=== PATIENT | female | born 1960 ===

== ENCOUNTER 2019-07-16 15:27 | Emergency (ER) | payer SELFPAY ==
[2019-07-16] MEDS ORDERED: Cefepime 2 GM VIAL ONE (16:26)
[2019-07-16 16:43] LABS: #Eosinphils 0.3 thou/uL (0.0-0.7); #Lymphocytes 2.1 thou/uL (1.20-3.40); #Monocytes 0.9 thou/uL (0.11-0.59); #Neutrophils 7.9 thou/uL (1.40-6.50); %Basophils 0.4 % (0.0-1.0); %Eosinophils 2.5 % (0.0-10.0); %Lymphocytes 18.6 % (21.0-51.0); %Monocytes 7.8 % (0.0-10.0); %Neutrophils 70.7 % (42.0-75.0); Hemoglobin 10.4 g/dL (12.0-16.0); Mean Corpuscular HGB CONC 31.7 g/dL (32.0-36.0); Mean Corpuscular Hemoglobin 27.9 pg (27.0-31.0); Mean Platelet Volume 7.5 fL (7.4-10.4); Platelet Count 406 thou/uL (130-400); RBC Distribution Width 11.5 % (11.5-14.5); Red Blood Cell (RBC) Count 3.71 mill/uL (4.20-5.40); White Blood Cell (WBC) Count 11.2 thou/uL (4.8-10.8)
[2019-07-16] MEDS ORDERED: Vancomycin 1 GM/200 ML BAG ONE (16:43)
--- NOTE | 2019-07-16 16:44 | RAD ---
Exam: XR Foot Lt 3 View STANDARD HISTORY: Toe pain. COMPARISON: None FINDINGS: There is soft tissue irregularity involving the distal aspect of the left great toe with soft tissue swelling of the left great toe. There is irregularity and tapering of the distal aspect of the distal phalanx left great toe suggesting osteomyelitis. Posterior and plantar calcaneal enthesophytes are identified. Degenerative changes are seen involving the mid foot. No fracture or dislocation is appreciated. Calcifications are seen in the soft tissues of the distal left lower extremity. IMPRESSION: Soft tissue irregularity/wound involving the left great toe with associated soft tissue swelling. The re is tapering and osseous irregularity involving the distal portion of the distal phalanx left great toe suggesting osteomyelitis.
[2019-07-16 17:00] LABS: ALT (SGPT) 13 U/L (8-55); AST (SGOT) 14 U/L (5-34); Albumin 3.7 g/dL (3.4-4.8); Alkaline Phosphatase 87 U/L (40-110); Anion Gap 17 mmol/L (10-20); BUN (Urea Nitrogen) 22 mg/dL (9.8-20.1); Bilirubin, Total 0.5 mg/dL (0.2-1.2); Calc. Creatinine Clearance 0 mL/min (70-130); Calcium 9.8 mg/dL (7.8-10.44); Carbon Dioxide 23 mmol/L (23-31); Chloride 99 mmol/L (98-107); Estimated GFR-MDRD 38; Globulin 4.1 g/dL (2.4-3.5); Glucose 159 mg/dL (80-115); Potassium 4.4 mmol/L (3.5-5.1); Protein, Total 7.8 g/dL (6.0-8.3); Sodium 135 mmol/L (136-145)
== END 2019-07-16 19:10 | disposition left against medical advice (07) ==
LOC: ERS 15:27
DX: I96 Gangrene, not elsewhere classified (principal); E11.52 Type 2 diabetes mellitus with diabetic peripheral angiopathy with gangrene; E11.69 Type 2 diabetes mellitus with other specified complication; M86.9 Osteomyelitis, unspecified; E11.621 Type 2 diabetes mellitus with foot ulcer; L97.429 Non-pressure chronic ulcer of left heel and midfoot with unspecified severity; Z79.899 Other long term (current) drug therapy; Z79.84 Long term (current) use of oral hypoglycemic drugs; Z79.82 Long term (current) use of aspirin
CPT/HCPCS: 36415; 80053; 83605; 85025; 87040; 96365; 96375; J0692; J3370

== ENCOUNTER 2019-07-29 17:23 | Inpatient (IN) | payer OTHER ==
[2019-07-29 17:51] LABS: #Basophils 0.1 thou/uL (0.0-0.2); #Eosinphils 0.3 thou/uL (0.0-0.7); #Lymphocytes 2.3 thou/uL (1.20-3.40); #Monocytes 1.2 thou/uL (0.11-0.59); #Neutrophils 13.5 thou/uL (1.40-6.50); %Basophils 0.3 % (0.0-1.0); %Eosinophils 1.6 % (0.0-10.0); %Lymphocytes 13.3 % (21.0-51.0); %Monocytes 6.7 % (0.0-10.0); %Neutrophils 78.1 % (42.0-75.0); Mean Corpuscular HGB CONC 32.9 g/dL (32.0-36.0); Mean Corpuscular Hemoglobin 28.9 pg (27.0-31.0); Mean Corpuscular Volume 88.1 fL (78.0-98.0); Mean Platelet Volume 7.5 fL (7.4-10.4); Platelet Count 548 thou/uL (130-400); RBC Distribution Width 11.8 % (11.5-14.5); Red Blood Cell (RBC) Count 3.45 mill/uL (4.20-5.40); White Blood Cell (WBC) Count 17.3 thou/uL (4.8-10.8)
[2019-07-29] MEDS ORDERED: Cefepime 2 GM VIAL ONE (17:59)
[2019-07-29] MEDS ORDERED: Clindamycin/D5W 900 mg/50 ml Premix Bag ONE (17:59)
[2019-07-29] MEDS ORDERED: Vancomycin 1 GM/200 ML BAG ONE (17:59)
--- NOTE | 2019-07-29 18:21 | RAD ---
LEFT FOOT THREE VIEWS: 07/29/19 HISTORY: Wound involving left toe. COMPARISON: 07/16/19 exam. There is increasing bony destructive change involving the distal phalanx of the great toe. Much more extensive osteolysis than seen on the previous study. IMPRESSION: Findings compatible with osteomyelitis of the distal phalanx of the great toe. POS: [facility]
--- NOTE | 2019-07-29 18:22 | RAD ---
PORTABLE CHEST: 07/29/19 HISTORY: Chest pain. COMPARISON: None. Heart size and mediastinum are within normal limits. Pulmonary vessels are engorged. Increased lung m arkings more bibasilar predominant. This could be a manifestation of edema, but could represent a mul tifocal pneumonia. IMPRESSION: Patchy, more bibasilar lung changes. I would favor this as related to a multifocal infiltrate rather than edema. POS: [facility]
[2019-07-29] MEDS ORDERED: Nitroglycerin 0.4 MG TAB 1 EACH ONE (18:30)
[2019-07-29] MEDS ORDERED: Fentanyl 100 MCG/2 ML VIAL ONE ×2 (18:36→19:37)
[2019-07-29] MEDS ORDERED: Aspirin Chewable 81 MG TAB ONE (18:52)
[2019-07-29 19:01] LABS: Albumin 3.2 g/dL (3.4-4.8)
[2019-07-29 19:02] LABS: Chloride 99 mmol/L (98-107); Potassium 5.4 mmol/L (3.5-5.1); Sodium 127 mmol/L (136-145)
[2019-07-29 19:03] LABS: Calcium 8.7 mg/dL (7.8-10.44); Glucose 379 mg/dL (80-115)
[2019-07-29 19:04] LABS: Globulin 4.3 g/dL (2.4-3.5); Protein, Total 7.5 g/dL (6.0-8.3)
[2019-07-29 19:05] LABS: Anion Gap 16 mmol/L (10-20); Bilirubin, Total 0.5 mg/dL (0.2-1.2); Carbon Dioxide 17 mmol/L (23-31)
[2019-07-29 19:06] LABS: Alkaline Phosphatase 93 U/L (40-110)
[2019-07-29 19:07] LABS: Calc. Creatinine Clearance 0 mL/min (70-130); Estimated GFR-MDRD 38
[2019-07-29 19:08] LABS: BUN (Urea Nitrogen) 28 mg/dL (9.8-20.1)
[2019-07-29 19:09] LABS: ALT (SGPT) 24 U/L (8-55); AST (SGOT) 33 U/L (5-34)
[2019-07-29] MEDS ORDERED: Nitroglycerin 2% Ointment 1 INCH/1 GM Packet ONE (19:36)
[2019-07-29] MEDS ORDERED: Acetaminophen 500 MG TAB ONE (19:36)
[2019-07-29] MEDS ORDERED: Enoxaparin Sodium 80 MG/0.8 ML SYRINGE ONE (19:51)
[2019-07-29] MEDS ORDERED: Furosemide 40 MG/4 ML VIAL ONE (20:45)
[2019-07-29 20:46] LABS: Lactic Acid 2.1 mmol/L (0.5-2.2)
[2019-07-29] MEDS ORDERED: Nitroglycerin 0.4 MG TAB (25 Tab Bottle) PO PRN (20:51)
[2019-07-29] MEDS ORDERED: Dextrose 50% Abboject 50 ML SYRINGE SLOW IVP PRN (20:56)
[2019-07-29] MEDS ORDERED: Dextrose 5% in Water 1,000 ML IV PRN (20:56)
[2019-07-29] MEDS ORDERED: HumaLOG 300 UNITS/3 ML VIAL SC PRN (20:56)
[2019-07-29 21:07] LABS: Critical Call Chem Troponin I RESULT DECREASING; Troponin I 1.647 ng/mL (< 0.028)
[2019-07-29 21:26] LABS: Glucose 460 mg/dL (80-115)
[2019-07-30 00:18] LABS: Critical Call Chem Troponin I RESULT DECREASING; Troponin I 1.548 ng/mL (< 0.028)
[2019-07-30 00:22] LABS: Calcium, Ionized 1.15 mmol/L (1.12-1.30); Carboxyhemoglobin (COHb) 1.2 gm% (0.0-3.0); Hemoglobin (Hb) 10.6 g/dL (12.0-16.0); pH, Arterial 7.35 (7.35-7.45)
[2019-07-30 00:28] LABS: CO2 Tension 24.2 mmHg (35.0-45.0); O2 Tension (PaO2), arterial 50.3 mmHg (> 80.0)
[2019-07-30 00:29] LABS: Puncture Site RBA
[2019-07-30] MEDS ORDERED: Furosemide 40 MG/4 ML VIAL ONE (00:29)
[2019-07-30] MEDS ORDERED: Nitroglycerin 50 MG/250 ML BOT 250 ML ONE (00:29)
[2019-07-30] MEDS ORDERED: Metoprolol Tartrate 5 MG/5 ML VIAL ONE ×2 (00:37→13:24)
--- NOTE | 2019-07-30 00:44 | PDOC.EVN ---
Event Note - Event Note Event Note: Called by RN pt is SOB, Orthopnic and still having Chest pain BP 140/95, 100, 28 Spo2 92 % on NC Chest bibasliar crackles Will [lace on BiPAP,40 mg IV lasix, Nitrodrip and transfer to CCU. Case Discussed w Material Damage Appraiser Dr Peterson who advised 2.5 mg IV lopressor.
[2019-07-30] MEDS ORDERED: Nitroglycerin 50 MG/250 ML BOT 250 ML IVPB SCH (00:45)
[2019-07-30] MEDS ORDERED: Furosemide 40 MG/4 ML VIAL SLOW IVP SCH ×2 (00:45→06:00)
[2019-07-30] MEDS ORDERED: Metoprolol Tartrate 5 MG/5 ML VIAL IVP SCH ×2 (00:45→14:00)
[2019-07-30 02:05] LABS: Glucose 624 mg/dL (80-115)
[2019-07-30] MEDS ORDERED: HumaLOG 300 UNITS/3 ML VIAL SC PRN (02:16)
[2019-07-30 04:22] LABS: Anion Gap 21 mmol/L (10-20); BUN (Urea Nitrogen) 36 mg/dL (9.8-20.1); Calc. Creatinine Clearance 44 mL/min (70-130); Calcium 8.2 mg/dL (7.8-10.44); Carbon Dioxide 14 mmol/L (23-31); Chloride 97 mmol/L (98-107); Estimated GFR-MDRD 31; Magnesium 1.8 mg/dL (1.6-2.6); Potassium 4.6 mmol/L (3.5-5.1); Sodium 127 mmol/L (136-145)
[2019-07-30 04:26] LABS: Glucose 612 mg/dL (80-115)
[2019-07-30] MEDS ORDERED: HumaLOG 300 UNITS/3 ML VIAL SC SCH (04:30)
[2019-07-30 04:50] LABS: #Lymphocytes 1.4 thou/uL (1.20-3.40); #Monocytes 0.6 thou/uL (0.11-0.59); #Neutrophils 11.9 thou/uL (1.40-6.50); %Basophils 0.2 % (0.0-1.0); %Eosinophils 0.3 % (0.0-10.0); %Monocytes 4.1 % (0.0-10.0); %Neutrophils 85.4 % (42.0-75.0); Band 29 % (5-11); Hemoglobin 9.9 g/dL (12.0-16.0); Lymphocytes 8 % (21-51); MDiff Complete? YES; Mean Corpuscular Hemoglobin 28.1 pg (27.0-31.0); Mean Corpuscular Volume 87.7 fL (78.0-98.0); Mean Platelet Volume 7.7 fL (7.4-10.4); Monocytes 2 % (0-10); Neutrophil 61 % (42-75); Platelet Count 378 thou/uL (130-400); Platelet Morphology Comment Appears Adequate; RBC Distribution Width 11.9 % (11.5-14.5); Red Blood Cell (RBC) Count 3.51 mill/uL (4.20-5.40); White Blood Cell (WBC) Count 13.9 thou/uL (4.8-10.8)
[2019-07-30] MEDS ORDERED: Vancomycin 1 GM in Premix Bag 1 BAG IVPB SCH (06:00)
--- NOTE | 2019-07-30 06:02 | HP ---
CHIEF COMPLAINT: Chest pain. HISTORY OF PRESENT ILLNESS: A 59-year-old female with past medical history of diabetes mellitus, urinary tract infection, left great toe osteomyelitis, among others presents to the emergency room with chest pain that has been going on and off since yesterday. Chest pain is associated with shortness of breath. Denies cough. Denies fever. Denies chills. The patient has been on several courses of antibiotics for left toe infection. She came from [facility] in May. She was supposed to go back at the end of June, but her flight was canceled. She had a small wound on the left toe when she arrived here. Since then, it has gotten worse. She has been on rifampin and Cipro. She was advised to be admitted to the hospital, but did not want to stay in the hospital last time. She went home with oral antibiotics. She also was seen as an outpatient by the music journalist office, where ? debridement was performed. She has been also on nitrofurantoin for UTIs. Workup in the emergency room, the patient was in respiratory distress, tachypneic, orthopneic, chest x-ray showed pneumonia ? pulmonary edema. BNP is elevated at 854. The troponin is elevated at 1.8. EKG showed sinus tachycardia. Sodium is 127, potassium 5.4, BUN is 28, creatinine is 1.4, glucose is elevated at 379, anion gap is normal. Chest x-ray as mentioned above in the history of present illness. Foot x-ray findings compatible with osteomyelitis of the distal phalanx of the great toe. Initial lactic acid was elevated at 3.1, repeat lactic acid after IV fluids 2.1. WBC count is elevated at 17.3, hemoglobin is 10, platelets 548. Septic workup done in the ED. Started on IV antibiotics. Also, the patient was given Lovenox and aspirin in the emergency room. The patient is being admitted to the hospital for further management. PAST MEDICAL HISTORY: As mentioned above in the history of present illness. 1. Diabetes mellitus. 2. UTI. 3. Toe infection. PAST SURGICAL HISTORY: Right knee replacement. SOCIAL HISTORY: Denies smoking, alcohol drinking, or drug abuse. FAMILY HISTORY: Reviewed and noncontributory. HOME MEDICATIONS: Please see home medication reconciliation form for updated medications. ALLERGIES: NO KNOWN ALLERGIES. REVIEW OF SYSTEMS: Review of 14 systems negative except what is mentioned in history of present illness. PHYSICAL EXAMINATION: GENERAL: The patient is awake, alert, in moderate respiratory distress, orthopneic. VITAL SIGNS: Blood pressure 115/94, pulse 114, respiratory rate is 28, temperature 98.2, and oxygen saturation is 91% on 4 L per minute nasal cannula. HEAD AND NECK: Normocephalic and atraumatic. Neck is supple. CHEST: Bibasilar crackles. HEART: S1 and S2. Regular, tachycardic. ABDOMEN: Soft and nontender. Bowel sounds present. NEUROLOGIC: Awake, alert, and oriented x3. No focal deficits. EXTREMITIES: No clubbing. No cyanosis. There is a necrotic wound in the left great toe. There is pus coming out of it. The distal tip of her toe is missing. PSYCHIATRIC: Unable to assess. GENITOURINARY: No suprapubic tenderness. No flank tenderness. MUSCULOSKELETAL: As mentioned above. LABORATORY DATA: As mentioned above in history of present illness. IMAGING STUDIES: As mentioned above in history of present illness. ASSESSMENT: 1. Mla-YB-giczasnql myocardial infarction. 2. Acute hypoxic respiratory failure. 3. Acute pulmonary edema/acute congestive heart failure. 4. Pneumonia, cannot be entirely ruled out. 5. Osteomyelitis of the left great toe. 6. Sepsis. Lactic acid was elevated. The patient was tachycardic. Elevated WBC count. 7. Hyponatremia. 8. Diabetes mellitus, hyperglycemia. 9. Acute kidney injury. PLAN: 1. Admit to IMCU. 2. Septic workup done in the ED. 3. IV antibiotics started. 4. Aspirin. 5. Anticoagulation. The patient was given Lovenox in the ED. 6. Serial troponins. 7. Consult biomedical electronics technician in a.m. for evaluation and further recommendations. 8. Keep the patient n.p.o. after midnight. 9. 2D echo. 10. Continue IV antibiotics, vancomycin and cefepime. 11. We will give the patient one dose of Lasix and reassess in a.m. 12. Reconcile home medications. 13. DVT prophylaxis as appropriate. 14. Expected length of stay, 2 midnights or more. 15. Case discussed with ED physician, the patient, and the patient's son. Job ID: [id number]
[2019-07-30 08:15] LABS: Troponin I 22.701 ng/mL (< 0.028)
[2019-07-30] MEDS ORDERED: Aspirin 325 mg Enteric Coated Tablet PO SCH (09:00)
[2019-07-30] MEDS ORDERED: Heparin 5,000 UNITS/ML VIAL SC SCH (09:00)
[2019-07-30] MEDS ORDERED: Enoxaparin Sodium 80 MG/0.8 ML SYRINGE SC SCH (09:00)
--- NOTE | 2019-07-30 09:08 | CON ---
DATE OF CONSULTATION: 07/30/2019 CONSULTING PHYSICIAN: Hospitalist Group. REASON FOR CONSULTATION: Acute respiratory failure related to congestive heart failure. Question COVID-19 pneumonia. HISTORY OF PRESENT ILLNESS: The patient is a 59-year-old female from [facility]. She presented to the hospital last night with substernal chest pain that had been going on for 24 hours prior to admission. She had concurrent shortness of breath. She was initially placed on the floor, but had to be transferred to the ICU because of increasing shortness of breath and the necessity of placing the patient on BiPAP. She was placed on a COVID-19 rule-out protocol because of infiltrates on her x-ray. I told now that her troponins come back at 22. She also has a grossly elevated BNP. I was able to take her off the BiPAP this morning and she appears to be breathing comfortably on nasal cannula. PAST MEDICAL HISTORY: 1. Diabetes mellitus. 2. UTI. 3. Osteomyelitis of the toe. PAST SURGICAL HISTORY: Right knee replacement. SOCIAL HISTORY: Nonsmoker. Does not consume alcohol. Does not use illicit drugs. FAMILY MEDICAL HISTORY: Unremarkable. ALLERGIES: NONE. MEDICATIONS: Prior to admission not known at this time. Current inpatient medications; 1. Aspirin. 2. Cefepime. 3. Enoxaparin. 4. Insulin. 5. Nitroglycerin drip. 6. Vancomycin. PHYSICAL EXAMINATION: VITAL SIGNS: Heart rate 103, blood pressure 130/96, O2 saturation 96%, respiratory rate 26, and temperature not recorded. GENERAL: She is a pleasant female, in no acute distress. HEENT: Unremarkable. NECK: No adenopathy or JVD. LUNGS: Inspiratory crackles at both bases. CARDIAC: S1 and S2. Slightly tachycardic. ABDOMEN: Soft and nontender. EXTREMITIES: She has a right knee surgical scar. No edema present. LABORATORY DATA: White blood cell count 13.9, hematocrit 30, and platelet count 378. Troponin 22. BNP 1680. Sodium 127, potassium 4.6, chloride 97, CO2 of 14, BUN 36, creatinine 1.6, and glucose 612. IMAGING DATA: X-ray shows bilateral lower lobe infiltrates. There are bilateral effusions present consistent with congestive heart failure. ASSESSMENT: 1. Myocardial infarction. 2. Acute systolic heart failure. 3. I doubt this is COVID-19 infection. 4. Diabetes with blood sugar out of control. RECOMMENDATIONS: 1. I will go ahead and place her on an insulin drip. 2. Cardiology consultation. 3. Diuresed further at Cardiology's discretion. 4. May need emergent cardiac catheterization. Job ID: [id number]
[2019-07-30] MEDS: Cefepime 1 GM in Sodium Chloride 0.9% 100 ML IVPB SCH ×2 (09:27→19:57)
[2019-07-30] MEDS: HUMULIN R 100 UNITS in Sodium Chloride 0.9% 100 ML IVPB SCH (09:27)
--- NOTE | 2019-07-30 10:12 | CON ---
DATE OF CONSULTATION: HISTORY OF PRESENT ILLNESS: The patient is an unfortunate 59-year-old woman, who presents for evaluation of chest discomfort and dyspnea. The patient noted about a week ago she started developing substernal chest discomfort. The patient later started to become short of breath. She wake up at night without markedly dyspneic. The patient continued to have chest pain for several days and eventually came to the emergency room. The patient reports being markedly short of breath. She reports continued to have intermittent chest discomfort. PAST MEDICAL HISTORY: Diabetes mellitus. PAST SURGICAL HISTORY: Knee surgery. SOCIAL HISTORY: Nonsmoker. FAMILY HISTORY: No strong family history of heart disease. ALLERGIES: NO KNOWN DRUG ALLERGIES. PHYSICAL EXAMINATION: GENERAL: This is an obese woman, in no acute distress. VITAL SIGNS: Blood pressure 130/96. NECK: Showed no jugular venous distention. LUNGS: Crackles in both lung bases. HEART: Regular rate and rhythm. Normal S1 and S2. No murmurs. ABDOMEN: Distended. EXTREMITIES: Showed she has a right toe infection. LABORATORY DATA: Hemoglobin 9.9, hematocrit 30.8, and platelets are 378. Sodium was 127, potassium 4.6, chloride 97, BUN 36, creatinine 1.6, and glucose is 612. Troponin was 22. BNP is 1680. IMAGING DATA: EKG sinus tachycardia with Q-waves suggestive of previous anteroseptal infarct. IMPRESSION: 1. Myocardial infarction. 2. Diabetes mellitus. 3. Renal insufficiency. 4. Hypertension. 5. Peripheral vascular disease. PLAN: The patient presents with acute myocardial infarction. We would recommend that we will check the patient's echocardiogram. We will place the patient on IV nitroglycerin. The patient will need to undergo invasive evaluation during this hospitalization. We will follow this patient with you through her through her hospitalization. Critical care time is 1 hour. Job ID: [id number] MTDD
[2019-07-30] MEDS: hydrALAZINE 25 MG TAB PO SCH ×2 (10:30→15:30)
[2019-07-30] MEDS ORDERED: Morphine 2 MG/ML SYRINGE SLOW IVP PRN (10:42)
[2019-07-30 11:01] LABS: SARS-CoV-2 MS2 Positive; SARS-CoV-2 N Gene Negative; SARS-CoV-2 S Gene Negative; SARS-CoV-2 orf1ab Negative
--- NOTE | 2019-07-30 12:01 | RAD ---
CHEST 1 VIEW: INDICATION: History of CHF. COMPARISON: Prior exam dated 07/29/2019. FINDINGS: There is worsening pulmonary vascular congestion, perihilar edema, and bilateral pleural effusions, r ight greater than left. Airspace opacity has worsened in the right perihilar and left infrahilar reg ions suspicious for edema. No pneumothorax is evident. IMPRESSION: Worsening congestive heart failure. POS: [facility]
[2019-07-30] MEDS ORDERED: Sodium Chloride 0.9% 200 ML IV PRN (12:49)
[2019-07-30] MEDS ORDERED: Nitroglycerin 0.4 MG TAB (25 Tab Bottle) SL PRN (12:49)
[2019-07-30] MEDS ORDERED: Acetaminophen/Codeine 30-300mg Tablet PO PRN ×2 (12:49)
[2019-07-30] MEDS ORDERED: Morphine 4 MG/ML VIAL SLOW IVP PRN (13:24)
[2019-07-30] MEDS: Morphine 4 MG/ML VIAL SLOW IVP PRN ×2 (15:24→19:57)
[2019-07-30] MEDS ORDERED: Communication Order-Pharmacy FS ONE (15:58)
[2019-07-30] MEDS ORDERED: Heparin 25,000 units/D5W 500 ML IV SCH ×2 (16:15→18:00)
--- NOTE | 2019-07-30 16:55 | PDOC.HOSPP ---
- Subjective Encounter Date: 07/30/19 Encounter Time: 14:00 Subjective: Pt seen for followup re: multivessel CAD. Reports left shoulder pain. - Objective Vital Signs & Weight: Vital Signs (12 hours) Temp Pulse Pulse Ox 07/30/19 15:30 83 07/30/19 14:00 97.7 F 07/30/19 13:40 83 07/30/19 13:17 95 07/30/19 10:30 95 07/30/19 10:00 97.8 F 07/30/19 09:00 93 L 07/30/19 08:00 100 07/30/19 07:15 95 Weight Admit Weight 172 lb 13.478 oz Weight 172 lb 13.478 oz Most Recent Monitor Data Heart Rate from ECG 97 NIBP 105/77 NIBP BP-Mean 86 Respiration from ECG 24 SpO2 100 I&O: 07/29/19 07/30/19 07/31/19 06:59 06:59 06:59 Intake Total 230.1 100 Output Total 1550 715 Balance -1319.9 -615 Result Diagrams: 07/30/19 03:45 07/30/19 16:49 Additional Labs: Accuchecks 07/30/19 07/30/19 07/30/19 11:30 10:38 09:50 POC Glucose 236 H 268 H 323 H Labs and MARs reviewed by me EKG Reviewed by me: Yes (Tele: NSR) Hospitalist ROS - Review of Systems Constitutional: denies: fever, chills, sweats, weakness, malaise Respiratory: reports: SOB with excertion. denies: cough, shortness of breath, pleuritic pain, wheezing Cardiovascular: denies: chest pain, palpitations, orthopnea, paroxysmal noc. dyspnea, edema, light headedness Gastrointestinal: denies: nausea, vomiting, abdominal pain, diarrhea, constipation, melena, hematochezia Genitourinary: denies: dysuria, frequency, incontinence, hematuria, retention Musculoskeletal: reports: shoulder pain Skin: reports: lesions - Medication Medications: Active Medications Generic Name Dose Route Start Last Admin Trade Name Freq PRN Reason Stop Dose Admin Hydralazine HCl 25 mg 07/30/19 09:00 07/30/19 15:30 Apresoline PO 07/31/19 08:45 Not Given TID LIN Cefepime HCl 1 gm/ Sodium 100 mls @ 200 mls/hr 07/30/19 09:00 07/30/19 09:27 Chloride IVPB 07/31/19 08:45 100 mls Q12HR LIN Administration Insulin Human Regular 100 101 mls @ 0 mls/hr 07/30/19 08:30 07/30/19 09:27 units/ Sodium Chloride IVPB 07/31/19 08:45 101 mls INF LIN Administration Protocol Titrate Morphine Sulfate 4 mg 07/30/19 15:04 07/30/19 15:24 Morphine SLOW IVP 07/31/19 08:45 4 mg Q2H PRN Administration Pain - Exam General Appearance: awake alert Eye: anicteric sclera ENT: moist mucosa Neck: supple, no thyromegaly, no lymphadenopathy, JVD Heart: RRR, no gallops, no rubs, normal peripheral pulses Respiratory - other findings: Christian crackles Gastrointestinal: soft, non-tender, non-distended, normal bowel sounds Extremities: no clubbing Skin - other findings: ulcer tip of L great toe Psychiatric: normal affect, normal behavior, oriented to person, oriented to place Hosp A/P (1) Multi-vessel coronary artery stenosis Code(s): I25.10 - ATHSCL HEART DISEASE OF [place] CORONARY ARTERY W/O ANG PCTRS Status: Acute (2) Acute on chronic systolic CHF (congestive heart failure), NYHA class 3 Code(s): I50.23 - ACUTE ON CHRONIC SYSTOLIC (CONGESTIVE) HEART FAILURE Status : Acute (3) Hyponatremia Code(s): E87.1 - HYPO-OSMOLALITY AND HYPONATREMIA Status: Acute (4) DM2 (diabetes mellitus, type 2) Status: Chronic (5) Chronic kidney disease, stage 3 Code(s): N18.3 - CHRONIC KIDNEY DISEASE, STAGE 3 (MODERATE) Status: Chronic (6) Diabetic toe ulcer Code(s): E11.621 - TYPE 2 DIABETES MELLITUS WITH FOOT ULCER; L97.509 - NON- PRESSURE CHRONIC ULCER OTH PRT UNSP FOOT W UNSP SEVERITY Status: Chronic - Plan continue antibiotics Plan for CABG. Consult nephrology re: renal failure and hyponatremia. Continue cefepime. Pt is currently on BiPAP. Continue insulin.
[2019-07-30 17:18] LABS: INR-International Normal Ratio 1.1; PTT 31.2 sec (22.9-36.1)
[2019-07-30 17:48] LABS: Critical Call Chem Troponin I RESULT DECREASING
[2019-07-30 18:08] LABS: CKMB 9.9 ng/mL (0-6.6)
[2019-07-30 18:09] LABS: Anion Gap 19 mmol/L (10-20); BUN (Urea Nitrogen) 32 mg/dL (9.8-20.1); Calc. Creatinine Clearance 64 mL/min (70-130); Calcium 8.7 mg/dL (7.8-10.44); Carbon Dioxide 18 mmol/L (23-31); Chloride 99 mmol/L (98-107); Estimated GFR-MDRD 48; Glucose 135 mg/dL (80-115); Potassium 4.3 mmol/L (3.5-5.1); Sodium 132 mmol/L (136-145)
[2019-07-30] MEDS ORDERED: Metoprolol Tartrate 5 MG/5 ML VIAL IVP PRN ×2 (18:26→18:56)
[2019-07-30] MEDS: Heparin 10,000 UNITS/ 10 ML VIAL SLOW IVP SCH (18:27)
[2019-07-30] MEDS ORDERED: Metoprolol Tartrate 25 MG TAB PO SCH (19:00)
--- NOTE | 2019-07-30 20:29 | CON ---
DATE OF CONSULTATION: HISTORY OF PRESENT ILLNESS: This is a 59-year-old female who lives in [facility], came here about a month ago for short visit; however, due to the [place] virus, her flight was canceled, and she has remained here. She was scheduled to undergo cardiac catheterization 3 years ago after an MS, but refused. She has occasional episodes of chest pain. She has presented after a 3-day history of chest pain at home accompanied by significant shortness of breath and was found to have a myocardial infarction. She had evidence of a septal MS with ST depression laterally and troponin elevated to 23. Cardiac catheterization today showed severe coronary artery disease with distal disease and small disease targets. Cardiac echo showed an ejection fraction of about 25% to 30%, global hypokinesis. PAST MEDICAL HISTORY: Includes dyslipidemia and diabetes mellitus. She states her A1c has been poorly controlled in the 9 range. It evidently is labile with episodes of hypoglycemia. She denies any history of hypertension. The diabetes has been present for about 35 years. PAST SURGICAL HISTORY: Multiple procedures including a right knee replacement, hysterectomy, cholecystectomy. She states she has had 11 prior surgeries. SOCIAL HISTORY: She is nonsmoker, nondrinker. Accompanied by her son today who lives here and she has other children in [place]. PHYSICAL EXAMINATION: VITAL SIGNS: Her blood pressure is about 100. Her heart rate is about 90 in sinus rhythm. She is on BiPAP. LUNGS: Her lungs are clear anteriorly. CARDIAC: Tachycardia. No murmurs. ABDOMEN: Soft, nontender. EXTREMITIES: She has palpable femoral and popliteal pulses with no pedal pulses. She has a Doppler signal present in both dorsalis pedis pulse distributions that are abnormal. The Doppler signal was actually at the ankle level rather than in the foot. She has a gangrenous left great toe that is foul smelling and with necrotic tissue at the tip of the toe being absent. LABORATORY VALUES: Hemoglobin of less than 10. Creatinine of 1.7, sodium of 127. BNP of 1600. Troponin of 23. ASSESSMENT AND PLAN: At this time, the patient has pulmonary edema from recent myocardial infarction and cardiomyopathy from her myocardial infarction, perhaps with a prior myocardial infarction. She could have potentially grafts to the left anterior descending artery, maybe diagonal, although this is small. She has 2 small obtuse marginal with critical proximal and mid obtuse marginal disease, and her right coronary artery is diffusely diseased to a maximum of about 70%, and then she has a critical mid PDA lesion. I have discussed the situation with the patient and son and emphasized the severity of her condition and the increased postoperative risks. I have also discussed the possibility that she may ultimately end up with an amputation of her foot or leg due to her small vessel disease and gangrenous toe. Questions have been answered, and we will plan on coronary bypass grafting in the morning. Job ID: [id number]
[2019-07-30 20:42] LABS: Bacteria/HPF None Seen HPF (None Seen); Bilirubin 1+ (Negative); Blood, Urine 1+ (Negative); Clarity Clear (Clear); Glucose, Urine (Dipstick) 200 mg/dL (Negative); Leukocyte 25 Leu/uL (Negative); Nitrite Negative (Negative); Protein, Urine (Dipstick) 70 mg/dL (Neg-Trace); RBC/HPF 0-3 HPF (0-3); Squamous Epithelial 0-3 HPF (0-3); Urobilinogen Normal mg/dL (Less than 2)
[2019-07-30 20:56] LABS: Creatinine, Urine 112.28 mg/dL (47-110)
[2019-07-30] MEDS ORDERED: Atorvastatin Calcium 40 MG TAB PO SCH (21:00)
[2019-07-30] MEDS ORDERED: Sodium Bicarbonate Tab 325 MG TAB PO SCH (21:00)
[2019-07-31] MEDS: Heparin 10,000 UNITS/ 10 ML VIAL SLOW IVP SCH (01:30)
[2019-07-31 04:04] LABS: Anion Gap 13 mmol/L (10-20); BUN (Urea Nitrogen) 30 mg/dL (9.8-20.1); Calc. Creatinine Clearance 65 mL/min (70-130); Calcium 8.4 mg/dL (7.8-10.44); Carbon Dioxide 23 mmol/L (23-31); Chloride 99 mmol/L (98-107); Estimated GFR-MDRD 49; Glucose 145 mg/dL (80-115); Potassium 4.4 mmol/L (3.5-5.1); Sodium 131 mmol/L (136-145)
[2019-07-31 04:11] LABS: Critical Call Chem Troponin I RESULT DECREASING
[2019-07-31 04:30] LABS: CKMB 6.3 ng/mL (0-6.6)
--- NOTE | 2019-07-31 06:23 | CON ---
DATE OF CONSULTATION: 07/30/2019 SERVICE: Nephrology. REASON FOR CONSULTATION: Hyponatremia and acute kidney injury. REQUESTING PHYSICIAN: Dr. Samuel Medrano. CHIEF COMPLAINT: Chest pain. HISTORY OF PRESENT ILLNESS: A 59-year-old female with known history of diabetes mellitus associated with left great toe osteomyelitis, admitted with acute onset of chest pain associated with shortness of breath. Evaluation reviewed acute respiratory failure due to CHF and NC and patient was started on BIPAP, lasix and antithrombotic therapy and subsequently had a cardiac catheterization, which showed multiple-vessel disease. CABG is planned for tomorrow On presentation, the patient had hyponatremia, hyperglycemia, as well as elevated creatinine. Initial creatinine was 1.41,but repeat increased to 1.67 earlier today. The patient also had a cardiac catheterization. Due to elevated creatinine, hyponatremia, and recent exposure to contrast, Nephrology consult was requested. The patient reports feeling better. she however is still on BIPAP. Denied nausea, vomiting, abdominal pain, dysuria , hematuria, or fever. PAST MEDICAL HISTORY: 1. Diabetes mellitus. 2. Left great toe osteomyelitis. PAST SURGICAL HISTORY: 1. Right knee replacement. 2. Earlier cardiac catheterization performed today. SOCIAL HISTORY: The patient lives with family. Denied smoking, alcohol drinking, or recreational drug abuse. FAMILY HISTORY: Reviewed, but noncontributory. ALLERGIES: NO KNOWN DRUG ALLERGIES REPORTED. HOME MEDICATIONS: 1. Aspirin 325 mg p.o. daily. 2. Metformin 500 mg p.o. b.i.d. 3. Rifampin 300 mg b.i.d. 4. Ciprofloxacin 500 mg b.i.d. 5. Protonix 40 mg p.o. daily. 6. Loperamide 2 mg p.r.n. 7. Tramadol p.r.n. 8. Montelukast 10 mg p.o. daily. REVIEW OF SYSTEMS: 12-point review of system performed was negative other than pertinent positives and negatives included in the history of present illness. CURRENT MEDICATIONS: 1. Cefepime 1 g every 12 hours. 2. Heparin infusion. 3. Insulin infusion. 4. Nitroglycerin infusion. 5. Lipitor 80 mg p.o. daily at bedtime. 6. Morphine p.r.n. for pain. PHYSICAL EXAMINATION: VITAL SIGNS: Temperature 98.0, pulse 96, respiratory rate 21, SpO2 of 98% on FiO2 of 55%. Blood pressure is 123/77. GENERAL: Female, in no obvious distress. Afebrile. Anicteric. Acyanotic. HEENT: Normocephalic, atraumatic. BIPAP mask in place NECK: Supple with no JVD. CARDIOVASCULAR: Regular rhythm and rate with normal heart sounds 1 and 2. RESPIRATORY: Fair air entry bilaterally with bibasilar crackles posteriorly. GI: Full, soft, nontender, nondistended with normal bowel sounds. UGS: Jaramillo catheter is in place draining some urine EXTREMITIES: Grossly normal looking, atraumatic with no obvious edema except left big toe with wound and swelling. 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 DIAGNOSTIC DATA: CBC today showed WBC count of 13.9, hemoglobin of 9.9, and platelets of 378. On presentation, however, WBC was 17.3, hemoglobin 10, and platelets 548. Chemistry earlier today showed sodium 127, potassium 4.6, chloride 97, CO2 of 14 , anion gap 21, BUN 36, creatinine 1.67, glucose 612, calcium 8.2, magnesium 1.8, but on presentation on July 28, sodium was 127, potassium 5.4, chloride 99, CO2 of 17 , BUN 28, creatinine 1.41, glucose 379, calcium 8.7, total bilirubin 0.5, AST 33, ALT 24, alkaline phosphatase 93, total protein 7.5, albumin 3.2, and globulin 4.2. Cardiac markers showed initial troponin of 1.877, which has increased to a peak of 22.7 before cardiac catheterization. Chest x-ray on presentation showed patchy, more bibasilar lung changes, Echocardiogram performed earlier today showed decreased ejection fraction of 25 % to 30% with mildly dilated left atrium as well as inferior wall hypokinesis. E/A flow reversal noted suggestive of diastolic dysfunction. Moderate mitral regurgitation and mild tricuspid regurgitation also were noted. ASSESSMENT: 1. Acute kidney injury: This seems to be related to hemodynamic factors due to cardiac decompensation. Patient also is at increased risk of contrast induced nephropathy. Review of medical records showed that the patient had creatinine of 1.41 on July 16, 2019. 2. Chronic kidney disease with unclear baseline creatinine: Most likely related to cardiorenal syndrome and or diabetes. 3. Hyponatremia: This is CHF and pseudohyponatremia related to hyperglycemia. 4. Acute systolic heart failure. 5. Acute respiratory failure, related to acute cardiac decompensation. 6. Acute myocardial infarction. 7. Multiple-vessel coronary artery disease. For CABG PLAN: 1. Given ROSEANNE with recent exposure to contrast, the patient is at increased risk of worsening cardiac dysfunction. We will avoid further nephrotoxic agents. 2. We will also get repeat BMP to re assess renal function and electrolytes. 3. We will start alkali therapy given metabolic acidosis. 4. We will also get urine and plasma osmolality as well as urine electrolytes and urine protein-creatinine ratio. 5. Further treatment to follow depending on hospital course. Job ID: [id number] [facility]
[2019-07-31] MEDS ORDERED: Midazolam HCl 2 mg/2 ml Vial ONE (06:30)
[2019-07-31] MEDS ORDERED: Midazolam HCl 5 mg/5 ml Vial ONE (06:30)
[2019-07-31] MEDS ORDERED: Fentanyl 100 MCG/2 ML VIAL ONE (06:30)
[2019-07-31] MEDS ORDERED: Dexmedetomidine 200 MCG/2 ML VIAL ONE (06:30)
[2019-07-31] MEDS ORDERED: Vecuronium 10 MG VIAL ONE ×2 (06:30→13:54)
[2019-07-31] MEDS ORDERED: Albumin 5% 500 ML ONE (06:31)
[2019-07-31] MEDS ORDERED: Heparin 10,000 UNITS/1 ML VIAL 30,000 UNITS in Sodium Chloride 0.9% 1,000 ML FS SCH (06:45)
[2019-07-31] MEDS ORDERED: Milrinone 10 MG/10 ML VIAL ONE (09:34)
[2019-07-31] MEDS ORDERED: Promethazine HCl 25 MG/ML VIAL IM PRN (11:57)
[2019-07-31] MEDS ORDERED: Hetastarch 6% 500 ML 500 ML IVPB PRN (11:57)
[2019-07-31] MEDS ORDERED: Morphine 2 MG/ML SYRINGE SLOW IVP PRN (11:57)
[2019-07-31] MEDS ORDERED: DOPamine 400 MG/D5W 250 ML 250 ML IVPB PRN (11:57)
[2019-07-31] MEDS ORDERED: Bisacodyl 5 MG TAB PO PRN (11:57)
[2019-07-31] MEDS ORDERED: niCARdipine 25 MG in Sodium Chloride 0.9% 250 ML 250 ML IVPB PRN (11:57)
[2019-07-31] MEDS ORDERED: Norepinephrine 8 MG/0.9% NS 250 ML IVPB PRN (11:57)
[2019-07-31] MEDS ORDERED: HYDROcodone/Acetaminophen 5/325 mg Tablet PO PRN (11:57)
[2019-07-31] MEDS ORDERED: hydrALAZINE 20 MG/ML VIAL SLOW IVP PRN (11:57)
[2019-07-31] MEDS ORDERED: Nitroglycerin 50 MG/250 ML BOT 250 ML IVPB PRN (11:57)
[2019-07-31] MEDS ORDERED: Bisacodyl 10 MG SUPP PR PRN (11:57)
[2019-07-31] MEDS ORDERED: Post-Op Insulin Drip Protocol IVPB ONE (11:57)
[2019-07-31] MEDS ORDERED: Fentanyl 100 MCG/2 ML VIAL SLOW IVP PRN (11:57)
[2019-07-31] MEDS ORDERED: Mag-Al 1200 mg/1200 mg/30 ML UDCUP PO PRN (11:57)
[2019-07-31] MEDS ORDERED: Guaifenesin DM 100-10/5 ML UDCUP PO PRN (11:57)
[2019-07-31] MEDS ORDERED: Magnesium 2 GM/50 ML 2 GM in Premix Bag 1 BAG IVPB SCH (12:00)
[2019-07-31] MEDS ORDERED: Dextrose 50% Abboject 50 ML SYRINGE SLOW IVP PRN (12:08)
[2019-07-31] MEDS ORDERED: Dextrose 5% in Water 1,000 ML IV PRN (12:08)
[2019-07-31] MEDS ORDERED: HUMULIN R 100 UNITS in Sodium Chloride 0.9% 100 ML IVPB SCH (12:08)
[2019-07-31 12:30] LABS: Actual Bicarbonate (HCO3a) 20.4 mEq/L (22-28); Base Excess (BEa) -3.9 mEq/L (-2.0 to +3.0); CO2 Tension 33.9 mmHg (35.0-45.0); Calcium, Ionized 1.11 mmol/L (1.12-1.30); Carboxyhemoglobin (COHb) 0.9 gm% (0.0-3.0); Hemoglobin (Hb) 9.8 g/dL (12.0-16.0); O2 Tension (PaO2), arterial 64.1 mmHg (> 80.0); Potassium - ABG Lab 3.57 mmol/L (3.70-5.30); Puncture Site ALINE
[2019-07-31 12:30] LABS: #Eosinphils 0.2 thou/uL (0.0-0.7); #Lymphocytes 1.4 thou/uL (1.20-3.40); #Monocytes 0.7 thou/uL (0.11-0.59); #Neutrophils 15.7 thou/uL (1.40-6.50); %Basophils 0.2 % (0.0-1.0); %Eosinophils 1.1 % (0.0-10.0); %Lymphocytes 7.8 % (21.0-51.0); %Monocytes 3.9 % (0.0-10.0); Hemoglobin 9.6 g/dL (12.0-16.0); Mean Corpuscular HGB CONC 32.4 g/dL (32.0-36.0); Mean Corpuscular Hemoglobin 28.7 pg (27.0-31.0); Mean Corpuscular Volume 88.6 fL (78.0-98.0); Mean Platelet Volume 7.3 fL (7.4-10.4); Platelet Count 333 thou/uL (130-400); RBC Distribution Width 12.2 % (11.5-14.5); Red Blood Cell (RBC) Count 3.33 mill/uL (4.20-5.40); White Blood Cell (WBC) Count 18.1 thou/uL (4.8-10.8)
[2019-07-31] MEDS: Fentanyl 100 MCG/2 ML VIAL SLOW IVP PRN ×4 (12:30→23:57)
[2019-07-31 12:31] LABS: ALV-art Gradient 321.325 (0-20)
[2019-07-31] MEDS: HUMULIN R 100 UNITS in Sodium Chloride 0.9% 100 ML IVPB SCH (12:32)
[2019-07-31 12:37] LABS: INR-International Normal Ratio 1.4; PTT 38.3 sec (22.9-36.1); Prothrombin Time 16.7 sec (12.0-14.7)
[2019-07-31 12:52] LABS: Anion Gap 11 mmol/L (10-20); BUN (Urea Nitrogen) 27 mg/dL (9.8-20.1); Calc. Creatinine Clearance 71 mL/min (70-130); Calcium 7.9 mg/dL (7.8-10.44); Carbon Dioxide 22 mmol/L (23-31); Chloride 105 mmol/L (98-107); Estimated GFR-MDRD 56; Glucose 127 mg/dL (80-115); Potassium 3.6 mmol/L (3.5-5.1); Sodium 134 mmol/L (136-145)
[2019-07-31] MEDS ORDERED: Papaverine 60 MG/2 ML VIAL ONE (13:54)
[2019-07-31] MEDS ORDERED: Heparin 5,000 UNITS/ML VIAL ONE (13:54)
[2019-07-31] MEDS ORDERED: Magnesium Sulfate 1 GM/2 ML VIAL ONE (13:54)
[2019-07-31] MEDS ORDERED: EPHEDRINE 25 MG/5 ML SYRINGE ONE (13:54)
[2019-07-31] MEDS ORDERED: Aminocaproic Acid 5 GM/20 ML VIAL ONE (13:54)
[2019-07-31] MEDS ORDERED: Thrombin 5000 UNITS/5 ML VIAL ONE (13:54)
[2019-07-31] MEDS ORDERED: Calcium Chloride 1 GM/10 ML Abboject SYRINGE ONE (13:54)
[2019-07-31] MEDS ORDERED: Heparin 30,000 units/30 ml VIAL ONE (13:54)
[2019-07-31] MEDS ORDERED: Nitroglycerin 50 MG/250 ML BOT ONE (13:54)
[2019-07-31] MEDS ORDERED: Sodium Bicarb 50 MEQ/50 ML Abboject 8.4% SYRINGE ONE ×2 (13:54→17:11)
[2019-07-31] MEDS ORDERED: Lidocaine 2% PF 5 ML VIAL ONE (13:54)
[2019-07-31] MEDS ORDERED: Potassium Chloride 60 MEQ/30 ML VIAL ONE (13:54)
[2019-07-31] MEDS ORDERED: Lidocaine 1% PF 5 ML VIAL ONE (13:54)
[2019-07-31] MEDS ORDERED: PHENYLEPHRINE-NS 100 MCG/ML 10 ML SYRINGE ONE (13:54)
[2019-07-31] MEDS ORDERED: Protamine Sulfate 250 MG/25 ML VIAL ONE (13:54)
[2019-07-31] MEDS ORDERED: Cardioplegic Soln 1,000 ML BAG ONE (13:54)
[2019-07-31] MEDS: Lactated Ringer's 1,000 ML IV SCH (14:04)
--- NOTE | 2019-07-31 14:09 | OP ---
DATE OF PROCEDURE: 07/31/2019 PREOPERATIVE DIAGNOSIS: Coronary artery disease status post myocardial infarction with congestive heart failure. PROCEDURE PERFORMED: Coronary artery bypass graft x5; left internal mammary artery nice quality to a diseased 1.5 mm left anterior descending, saphenous vein good vein quality to a diseased 1.5 mm posterior descending artery, 1.25 mm obtuse marginal 2, 1.25 mm obtuse marginal 1, and 1.25 mm diagonal. DONATIONS ATTENDANT: Fredi Dodd MD TRANSFUSION: None. DESCRIPTION OF PROCEDURE: After adequate anesthesia had been obtained, the patient was prepped and draped. Dr. Dodd did a combined open and endovascular vein harvest of vein from the left greater saphenous vein distribution while I performed a median sternotomy. The right pleura was entered with a saw and a liter of pleural fluid was aspirated. The left pleura was then opened and 900 mL of pleural fluid removed. The left internal mammary artery was harvested. The patient heparinized. The mammary divided distally. It was passed posterior to the thymus gland, following which the aorta and right atrium were cannulated and cardiopulmonary bypass begun. The aorta was cross-clamped, and after a liter of cold blood cardioplegia, the 5 distal anastomoses were completed. The vessels were all poor quality and probably not a reoperative candidate based on the size and quality of the vessels. Following completion of the distal anastomoses, the cross-clamp was removed and partial occluding clamp placed and 3 vein anastomoses performed on the aortic root, 3 punch holes marked with rings into the cordon of the OM2, vein graft to the diagonal vein graft was placed. The patient was then weaned from cardiopulmonary bypass. Cannula was removed and protamine given systemically, reinforcing the aortic cannulation site with a Prolene suture. Mediastinal and bilateral drains were placed, following which the sternum was reapproximated with #7 interrupted wire using vancomycin paste on the sternal edges, platelet-rich blood and platelet-poor plasma. Job ID: [id number]
--- NOTE | 2019-07-31 14:44 | RAD ---
PORTABLE CHEST ONE VIEW: 07/31/19 at 11:52 a.m. HISTORY: Post open heart surgery. Respiratory failure. FINDINGS/IMPRESSION: Interval changes of median sternotomy are seen since the previous day's exam. There is an endotrachea l tube with the tip at the level of the clavicular heads. There is a right internal jugular central venous catheter with tip at the level of the cavoatrial junction. Mediastinal drain and bilateral renetta st tubes have been placed. No pneumothoraces are seen. There is pulmonary vascular congestion. No lar ge pleural effusions are seen. POS: MZA
[2019-07-31] MEDS: CEFAZOLIN 2 GM in Premix Bag 1 BAG IVPB SCH ×2 (15:13→23:58)
--- NOTE | 2019-07-31 15:40 | EKG ---
Test Reason : Blood Pressure : / mmHG Vent. Rate : 108 BPM Atrial Rate : 108 BPM P-R Int : 140 ms QRS Dur : 108 ms QT Int : 378 ms P-R-T Axes : 087 -26 098 degrees QTc Int : 506 ms Sinus tachycardia Low voltage QRS Septal infarct , age undetermined Abnormal ECG Confirmed by STEPH HARGROVE DO ([id number]), map editor DONALD SALDANA ([id number]) on 07/31/2019 3:40:08 PM Referred By: Confirmed By:STEPH HARGROVE DO
--- NOTE | 2019-07-31 15:40 | EKG ---
Test Reason : Blood Pressure : / mmHG Vent. Rate : 120 BPM Atrial Rate : 120 BPM P-R Int : 138 ms QRS Dur : 102 ms QT Int : 348 ms P-R-T Axes : 034 -33 096 degrees QTc Int : 491 ms Sinus tachycardia Left axis deviation Septal infarct , age undetermined Abnormal ECG Confirmed by STEPH HARGROVE DO ([id number]), international editorial producer DONALD SALDANA ([id number]) on 07/31/2019 3:40:04 PM Referred By: Confirmed By:STEPH HARGROVE DO
--- NOTE | 2019-07-31 15:47 | PRG ---
DATE OF SERVICE: 07/31/2019 SERVICE: Nephrology. SUBJECTIVE: A 59-year-old female with known history of diabetes mellitus complicated with left big toe chronic osteomyelitis, admitted due to chest pain associated with shortness of breath. The patient was found to have acute respiratory failure from CHF/WV. The patient is just back from operating room after CABG. Nephrology is following the patient for acute kidney injury and hyponatremia. The patient is still intubated and mechanically ventilated. OBJECTIVE: VITAL SIGNS: Heart rate 75, RR 16, SpO2 of 98% on 100% FiO2, BP is 105/50. GENERAL: Female, no obvious distress. Sedated. HEENT: Normocephalic and atraumatic. ET tube is in place. CARDIOVASCULAR: Regular rhythm and rate. Normal heart sounds 1 and 2. RESPIRATORY: Ventilator transmitted breath sounds heard in all lung zones. CHEST: Anterior chest wall dressing and chest tube noted. GI: Full, soft, and nondistended. UROGENITAL: Jaramillo catheter is in place draining some urine. EXTREMITIES: Left lower extremity covered with dressing. MANAGER LEADERSHIP DEVELOPMENT: The patient is sedated. DIAGNOSTIC DATA: BMP showed sodium 134, potassium 3.6, chloride 105, CO2 of 22 , BUN 27, creatinine 1.01, glucose 127, calcium 7.9. Note that creatinine has gone down from peak of 1.67 to 1.01. Sodium also has improved from 127 to 134. CBC showed WBC count of 18, hemoglobin of 9.6, MCV of 88.6, and platelets of 333. ASSESSMENT: 1. Acute kidney injury: Due to hemodynamic factors related to cardiorenal syndrome. With improved cardiac function and hemodynamics, renal function has improved with creatinine down from 1.6 to 1.0. 2. Hyponatremia: Due to ADH secretion related to decreased effective intravascular volume related to cardiac decompensation. With improved hemodynamics and diuretic therapy, plasma sodium has improved to 134. 3. Metabolic acidosis: Due to poor perfusion as well as acute kidney injury. Improving with alkali therapy. 4. Multivessel coronary artery disease, status post coronary artery bypass grafting. 5. Acute respiratory failure due to congestive heart failure exacerbation and pulmonary congestion. PLAN: Continue supportive care. Hemodynamics management as per java scala developer. We will monitor electrolytes and renal function test. It is anticipated that plasma sodium and renal function will continue improve to baseline with optimization of hemodynamics We will observe in the periphery. Please call for any clarification or question. Job ID: [id number] [facility]
--- NOTE | 2019-07-31 16:08 | PRG ---
DATE OF SERVICE: 07/31/2019 SUBJECTIVE: Ms. Prado did well with her surgery today. She was transferred back to the critical care unit, intubated as expected. She had significant amount of pleural fluid that apparently was drained in the operating room. She is in no distress. She was initially hypotensive, then hypertensive, and now normotensive. OBJECTIVE: VITAL SIGNS: Blood pressure is 109/56, heart rate is 85, and respiratory rate is 16. GENERAL: She is starting to wake up. LUNGS: Clear anteriorly. HEART: Regular rhythm. ABDOMEN: Soft. EXTREMITIES: Without asymmetry. IMAGING: Chest x-ray was reviewed. Tubes and lines are in proper position. LABORATORY DATA: White count 18.1, hemoglobin 9.6, and platelets 333. Sodium 134, potassium 3.6, chloride 105, bicarb 22, BUN 27, and creatinine 1.01. The pH 7.4, CO2 of 33, and PO2 64. IMPRESSION: Respiratory failure postoperatively after coronary artery bypass grafting that preoperatively was complicated by need for BiPAP. Overall, she is stable. I suspect she will wean per protocol. CRITICAL CARE TIME: 30 minutes. Job ID: [id number]
[2019-07-31 17:02] LABS: Actual Bicarbonate (HCO3a) 16.9 mEq/L (22-28); Base Excess (BEa) -6.3 mEq/L (-2.0 to +3.0); CO2 Tension 26.2 mmHg (35.0-45.0); Calcium, Ionized 1.09 mmol/L (1.12-1.30); Carboxyhemoglobin (COHb) 0.5 gm% (0.0-3.0); Hemoglobin (Hb) 9.8 g/dL (12.0-16.0); O2 Tension (PaO2), arterial 99.2 mmHg (> 80.0); Potassium - ABG Lab 3.52 mmol/L (3.70-5.30); Puncture Site ALINE; pH, Arterial 7.43 (7.35-7.45)
[2019-07-31] MEDS ORDERED: Sodium Bicarb 50 MEQ/50 ML Abboject 8.4% SYRINGE IVP SCH (17:30)
[2019-07-31 18:03] LABS: Hemoglobin 9.6 g/dL (12.0-16.0)
--- NOTE | 2019-07-31 18:04 | PDOC.HOSPP ---
- Subjective Encounter Date: 07/31/19 Encounter Time: 17:00 Subjective: Pt seen for followup re: NSTEMI. Intubated, unable to complete ROS. - Objective Vital Signs & Weight: Vital Signs (12 hours) Pulse Resp BP Pulse Ox 07/31/19 17:08 97 07/31/19 17:06 80 102/48 L 07/31/19 16:11 76 90/46 L 07/31/19 16:00 16 07/31/19 13:56 16 07/31/19 13:35 72 103/51 L 07/31/19 12:58 16 99 07/31/19 12:15 85 Weight Admit Weight 172 lb 13.478 oz Weight 170 lb 3.15 oz Most Recent Monitor Data Heart Rate from ECG 86 NIBP 99/59 NIBP BP-Mean 72 Respiration from ECG 22 SpO2 98 I&O: 07/30/19 07/31/19 08/01/19 06:59 06:59 06:59 Intake Total 230.1 1313.9 400 Output Total 1550 1175 353 Balance -1319.9 138.9 47 Result Diagrams: 07/31/19 17:53 07/31/19 12:21 Additional Labs: Accuchecks 07/31/19 07/31/19 07/31/19 17:58 17:01 16:01 POC Glucose 153 H 140 H 87 07/31/19 07/31/19 07/31/19 14:58 13:54 13:07 POC Glucose 72 88 119 H 07/31/19 07/31/19 07/31/19 12:22 09:57 09:24 POC Glucose 140 H 133 H 194 H 07/31/19 07/31/19 07/31/19 07:07 06:09 05:01 POC Glucose 164 H 141 H 131 H 07/31/19 07/31/19 07/31/19 03:10 01:10 00:03 POC Glucose 158 H 156 H 159 H 07/30/19 07/30/19 07/30/19 23:08 22:06 20:59 POC Glucose 163 H 162 H 161 H 07/30/19 07/30/19 07/30/19 19:59 19:00 18:26 POC Glucose 170 H 148 H 140 H 07/30/19 01:15 POC Glucose Greater than 550 H* Hospitalist ROS - Medication Medications: Active Medications Generic Name Dose Route Start Last Admin Trade Name Freq PRN Reason Stop Dose Admin Albumin Human 12.5 gm 07/31/19 11:57 07/31/19 16:19 Albumin 5% IVPB 08/01/19 11:58 12.5 gm Q6H PRN Administration To Maintain SBP> 90 mmHG Fentanyl 50 mcg 07/31/19 11:57 07/31/19 12:30 Sublimaze SLOW IVP 08/02/19 11:53 50 mcg Q2H PRN Administration Severe Pain (7-10) Cefazolin Sodium/Dextrose 2 gm 50 mls @ 100 mls/hr 07/31/19 16:00 07/31/19 15 :13 / Device IVPB 08/01/19 08:29 50 mls 0000,0800,1600 LIN Administration Lactated Ringer's 1,000 mls @ 75 mls/hr 07/31/19 13:45 07/31/19 14:04 Lactated Ringer's IV 1,000 mls .[id number] LIN Administration Morphine Sulfate 2 mg 07/31/19 11:57 07/31/19 12:33 Morphine SLOW IVP 2 mg Q15MIN PRN Administration Severe Pain (7-10) Sodium Bicarbonate 50 meq 07/31/19 17:30 07/31/19 17:21 Bicarbonate, Sodium IVP 07/31/19 19:30 50 meq NOW LIN Administration - Exam General - other findings: Intubated Eye: anicteric sclera Neck: no thyromegaly Heart: RRR Respiratory - other findings: Christian crackles Gastrointestinal: soft, non-tender Skin - other findings: L great toe ulcer Psychiatric - other findings: Unable to assess Hosp A/P (1) Multi-vessel coronary artery stenosis Code(s): I25.10 - ATHSCL HEART DISEASE OF [place] CORONARY ARTERY W/O ANG PCTRS Status: Acute (2) Acute on chronic systolic CHF (congestive heart failure), NYHA class 3 Code(s): I50.23 - ACUTE ON CHRONIC SYSTOLIC (CONGESTIVE) HEART FAILURE Status : Acute (3) Hyponatremia Code(s): E87.1 - HYPO-OSMOLALITY AND HYPONATREMIA Status: Acute (4) DM2 (diabetes mellitus, type 2) Status: Chronic (5) Chronic kidney disease, stage 3 Code(s): N18.3 - CHRONIC KIDNEY DISEASE, STAGE 3 (MODERATE) Status: Chronic (6) Diabetic toe ulcer Code(s): E11.621 - TYPE 2 DIABETES MELLITUS WITH FOOT ULCER; L97.509 - NON- PRESSURE CHRONIC ULCER OTH PRT UNSP FOOT W UNSP SEVERITY Status: Chronic - Plan s/p CABG today. Renal failure and hyponatremia improved. Pt receiving cefazolin. Continue insulin.
[2019-07-31 18:26] LABS: Potassium 3.3 mmol/L (3.5-5.1)
[2019-07-31] MEDS: Famotidine/PF 20 mg/2ml Vial SLOW IVP SCH (19:21)
[2019-07-31] MEDS: Potassium Chloride 20 MEQ/100 ML PREMIX BAG IVPB PRN (19:21)
[2019-07-31] MEDS: Amiodarone HCl 450 MG in Dextrose 5% in Water 250 ML IVPB SCH (20:06)
[2019-07-31] MEDS: HYDROcodone/Acetaminophen 5/325 mg Tablet PO PRN (22:10)
[2019-08-01] MEDS: HYDROcodone/Acetaminophen 5/325 mg Tablet PO PRN ×4 (02:50→22:38)
[2019-08-01] MEDS: Fentanyl 100 MCG/2 ML VIAL SLOW IVP PRN ×5 (02:51→17:45)
[2019-08-01] MEDS: Lactated Ringer's 1,000 ML IV SCH (02:52)
[2019-08-01 04:15] LABS: #Basophils 0.1 thou/uL (0.0-0.2); #Eosinphils 0.1 thou/uL (0.0-0.7); #Lymphocytes 1.8 thou/uL (1.20-3.40); #Monocytes 1.4 thou/uL (0.11-0.59); %Basophils 0.5 % (0.0-1.0); %Eosinophils 0.4 % (0.0-10.0); %Monocytes 8.9 % (0.0-10.0); %Neutrophils 78.2 % (42.0-75.0); Hemoglobin 9.8 g/dL (12.0-16.0); Mean Corpuscular Hemoglobin 28.4 pg (27.0-31.0); Mean Corpuscular Volume 88.6 fL (78.0-98.0); Platelet Count 386 thou/uL (130-400); RBC Distribution Width 12.3 % (11.5-14.5); Red Blood Cell (RBC) Count 3.44 mill/uL (4.20-5.40); White Blood Cell (WBC) Count 15.3 thou/uL (4.8-10.8)
[2019-08-01 04:33] LABS: Anion Gap 14 mmol/L (10-20); BUN (Urea Nitrogen) 25 mg/dL (9.8-20.1); Calc. Creatinine Clearance 65 mL/min (70-130); Calcium 7.7 mg/dL (7.8-10.44); Carbon Dioxide 21 mmol/L (23-31); Chloride 103 mmol/L (98-107); Estimated GFR-MDRD 50; Glucose 130 mg/dL (80-115); Potassium 3.5 mmol/L (3.5-5.1); Sodium 134 mmol/L (136-145)
[2019-08-01] MEDS: Amiodarone HCl 450 MG in Dextrose 5% in Water 250 ML IVPB SCH (04:40)
[2019-08-01] MEDS: Potassium Chloride 20 MEQ/100 ML PREMIX BAG IVPB PRN (05:05)
--- NOTE | 2019-08-01 06:41 | PRG ---
DATE OF SERVICE: 08/01/2019 The patient postop day #1 from coronary artery bypass grafting. Her blood pressure is running in the 90s with heart rate in the 70s. She required amiodarone drip yesterday evening for atrial fibrillation with RVR with rates of about 150. Currently, her chest x-ray shows some evidence of a right pleural effusion, although much improved from preoperatively and there was a bilateral chest tube placement. She has residual changes of pulmonary edema that have not yet resolved. Her hemoglobin is 9.8, post 2 units of packed red cells intraoperatively. Creatinine is 1.1, BUN 25, and both of those are relatively close to her values right before surgery, although she did have an elevated creatinine during her initial admission. Her chest tube output is serous and totals about 690 mL. Her urine output has been low, but in the 20 mL to 30 mL range. She is awake and alert, on nasal cannula with good oxygen saturation. She is breathing better than prior to surgical intervention. Dressings are dry. She continues to have the gangrenous changes on her left great toe. She has no peripheral edema. At this time, we will keep her in the ICU. I anticipate she will have some moderate chest tube output related to her bilateral pleural effusions and congestive heart failure. Job ID: [id number]
[2019-08-01] MEDS: CEFAZOLIN 2 GM in Premix Bag 1 BAG IVPB SCH (07:35)
[2019-08-01] MEDS: Aspirin 325 MG TAB PO SCH (08:41)
[2019-08-01] MEDS: Famotidine/PF 20 mg/2ml Vial SLOW IVP SCH ×2 (08:41→19:46)
--- NOTE | 2019-08-01 08:44 | PRG ---
DATE OF SERVICE: 08/01/2019 SUBJECTIVE: The patient underwent coronary artery bypass grafting surgery yesterday, did well. She complains of soreness in her chest. OBJECTIVE: VITAL SIGNS: Temperature 98.1, pulse 72, and blood pressure 110/75. Intake 2833, output 1392. HEENT: Unremarkable. NECK: No JVD. CHEST: Fairly clear anteriorly. CARDIAC: S1 and S2. Regular. ABDOMEN: Soft. EXTREMITIES: No edema. LABORATORY DATA: White blood cell count 15, hematocrit 30, and platelet count 386. Sodium 134, potassium 3.5, chloride 103, CO2 of 21, BUN 25, creatinine 1.1, and glucose 130. Chest x-ray shows bilateral tubes. She has a IJ catheter in place. ASSESSMENT: 1. Status post coronary artery bypass grafting surgery-doing well. 2. Ruled out for COVID-19 infection. 3. Diabetes mellitus with blood sugar out of control when she initially came in the hospital. PLAN: She is now on an insulin drip per the post CABG protocol. Hopefully, she will be able to be changed over to Lantus soon. As she begins to eat, I would expect her to be in the ICU the rest of the day today. Job ID: [id number]
[2019-08-01] MEDS: Ondansetron PF 4 MG/2 ML Vial IVP PRN ×2 (10:03→16:11)
--- NOTE | 2019-08-01 10:28 | RAD ---
Portable chest: HISTORY: Postop open heart surgery. COMPARISON: Prior day's exam. FINDINGS: Endotracheal tube has been removed. Chest tubes and right-sided central line are still in place. Th e film is of less than optimal inspiration. Pulmonary vessels are more engorged and perihilar markin gs are more increased as compared to the prior examination. Also, increased bibasilar lung change. IMPRESSION: Poor inspiration. Pulmonary vascular engorgement and some increased markings in both lung bases have developed since that prior exam. The patient has been extubated. POS: JHON
[2019-08-01] MEDS: Calcium Carbonate 500 MG ChewTAB PO PRN (10:31)
[2019-08-01] MEDS: Insulin Regular 300 UNITS/3 ML VIAL SC PRN ×3 (11:57→22:07)
--- NOTE | 2019-08-01 18:25 | PDOC.HOSPP ---
- Subjective Encounter Date: 08/01/19 Encounter Time: 10:20 Subjective: Pt seen for followup re: CAD. c/o sore throat. No chest pain. - Objective Vital Signs & Weight: Vital Signs (12 hours) Temp Pulse Ox 08/01/19 16:00 98.4 F 08/01/19 12:00 98.4 F 08/01/19 07:15 97 08/01/19 07:00 98.1 F Weight Admit Weight 172 lb 13.478 oz Weight 167 lb 12.348 oz Most Recent Monitor Data Heart Rate from ECG 74 NIBP 131/77 NIBP BP-Mean 95 Respiration from ECG 16 SpO2 91 I&O: 07/31/19 08/01/19 08/02/19 06:59 06:59 06:59 Intake Total 1313.9 2833.9 490 Output Total 1175 1392 620 Balance 138.9 1441.9 -130 Result Diagrams: 08/01/19 03:35 08/01/19 03:30 Additional Labs: Accuchecks 08/01/19 08/01/19 08/01/19 16:23 11:53 06:18 POC Glucose 262 H 253 H 106 08/01/19 08/01/19 07/31/19 05:13 03:01 23:14 POC Glucose 123 H 133 H 136 H 07/31/19 07/31/19 20:03 19:16 POC Glucose 122 H 145 H Labs and MARs reviewed by me EKG Reviewed by me: Yes (Tele; NSR) Hospitalist ROS - Review of Systems ENT: reports: throat pain Cardiovascular: denies: chest pain, palpitations, orthopnea, paroxysmal noc. dyspnea, edema, light headedness Gastrointestinal: denies: nausea, vomiting, abdominal pain, diarrhea, constipation, melena, hematochezia - Medication Medications: Active Medications Generic Name Dose Route Start Last Admin Trade Name Freq PRN Reason Stop Dose Admin Hydrocodone Bitart/Acetaminophen 2 tab 07/31/19 11:57 08/01/19 13:02 [place] 5/325 PO 2 tab Q4H PRN Administration Severe Pain (7-10) Aspirin 325 mg 08/01/19 09:00 08/01/19 08:41 Aspirin PO 325 mg DAILY LIN Administration Calcium Carbonate 1,000 mg 08/01/19 10:19 08/01/19 10:31 Tums PO 1,000 mg Q6H PRN Administration Indigestion Famotidine 20 mg 07/31/19 21:00 08/01/19 08:41 Pepcid SLOW IVP 20 mg Q12HR LIN Administration Fentanyl 50 mcg 07/31/19 11:57 08/01/19 17:45 Sublimaze SLOW IVP 08/02/19 11:53 50 mcg Q2H PRN Administration Severe Pain (7-10) Insulin Human Regular 0 units 07/31/19 12:08 08/01/19 16:21 Humulin R SC 8 unit Q4H PRN Administration POST CABG SLIDING SCALE Protocol Morphine Sulfate 2 mg 07/31/19 11:57 07/31/19 12:33 Morphine SLOW IVP 2 mg Q15MIN PRN Administration Severe Pain (7-10) Ondansetron HCl 4 mg 07/31/19 11:57 08/01/19 16:11 Zofran IVP 4 mg Q6H PRN Administration Nausea/Vomiting Potassium Chloride 20 meq 07/31/19 11:57 08/01/19 05:05 Kcl IVPB 20 meq PRN PRN Administration K level </= 4.0 - Exam General Appearance: awake alert Eye: anicteric sclera ENT: moist mucosa Neck: supple Heart: RRR Respiratory: CTAB Gastrointestinal: soft, non-tender Skin: no rashes Neurological: no weakness Psychiatric: normal affect Hosp A/P (1) Multi-vessel coronary artery stenosis Code(s): I25.10 - ATHSCL HEART DISEASE OF [place] CORONARY ARTERY W/O ANG PCTRS Status: Acute (2) Acute on chronic systolic CHF (congestive heart failure), NYHA class 3 Code(s): I50.23 - ACUTE ON CHRONIC SYSTOLIC (CONGESTIVE) HEART FAILURE Status : Acute (3) Hyponatremia Code(s): E87.1 - HYPO-OSMOLALITY AND HYPONATREMIA Status: Acute (4) DM2 (diabetes mellitus, type 2) Status: Chronic (5) Chronic kidney disease, stage 3 Code(s): N18.3 - CHRONIC KIDNEY DISEASE, STAGE 3 (MODERATE) Status: Chronic (6) Diabetic toe ulcer Code(s): E11.621 - TYPE 2 DIABETES MELLITUS WITH FOOT ULCER; L97.509 - NON- PRESSURE CHRONIC ULCER OTH PRT UNSP FOOT W UNSP SEVERITY Status: Chronic - Plan s/p CABG yesterday. Creatinine 1.11, sodium 124 Continue insulin.
[2019-08-01] MEDS: Amiodarone 200 MG TAB PO SCH (19:19)
[2019-08-01] MEDS: Rosuvastatin 20 MG TAB PO SCH (19:46)
[2019-08-02] MEDS: HYDROcodone/Acetaminophen 5/325 mg Tablet PO PRN ×4 (02:04→20:46)
[2019-08-02 03:52] LABS: #Basophils 0.1 thou/uL (0.0-0.2); #Eosinphils 0.1 thou/uL (0.0-0.7); #Lymphocytes 3.3 thou/uL (1.20-3.40); #Monocytes 1.7 thou/uL (0.11-0.59); #Neutrophils 13.3 thou/uL (1.40-6.50); %Basophils 0.4 % (0.0-1.0); %Eosinophils 0.8 % (0.0-10.0); %Monocytes 9.3 % (0.0-10.0); %Neutrophils 71.5 % (42.0-75.0); Hemoglobin 10.4 g/dL (12.0-16.0); Mean Corpuscular HGB CONC 32.8 g/dL (32.0-36.0); Mean Corpuscular Hemoglobin 29.4 pg (27.0-31.0); Mean Corpuscular Volume 89.6 fL (78.0-98.0); Mean Platelet Volume 8.1 fL (7.4-10.4); Platelet Count 320 thou/uL (130-400); RBC Distribution Width 12.6 % (11.5-14.5); Red Blood Cell (RBC) Count 3.55 mill/uL (4.20-5.40); White Blood Cell (WBC) Count 18.5 thou/uL (4.8-10.8)
[2019-08-02 04:13] LABS: Anion Gap 17 mmol/L (10-20); BUN (Urea Nitrogen) 37 mg/dL (9.8-20.1); Calc. Creatinine Clearance 35 mL/min (70-130); Calcium 7.6 mg/dL (7.8-10.44); Carbon Dioxide 20 mmol/L (23-31); Chloride 94 mmol/L (98-107); Estimated GFR-MDRD 25; Glucose 215 mg/dL (80-115); Potassium 4.4 mmol/L (3.5-5.1); Sodium 127 mmol/L (136-145)
[2019-08-02] MEDS: Insulin Regular 300 UNITS/3 ML VIAL SC PRN ×4 (06:30→20:10)
[2019-08-02] MEDS: Albumin 25% 25 GM/100 ML BOT IVPB SCH ×3 (07:29→19:35)
[2019-08-02] MEDS ORDERED: Metolazone 5 MG TAB PO SCH (07:30)
[2019-08-02] MEDS ORDERED: Albumin 25% 25 GM/100 ML BOT IVPB SCH (07:30)
--- NOTE | 2019-08-02 08:42 | RAD ---
PORTABLE CHEST ONE VIEW: 08/02/2019 4:26 a.m. HISTORY: Postop open heart surgery. COMPARISON: 08/01/2019 FINDINGS: Changes of median sternotomy are again seen. Tube placements are unchanged in position. No pneumothoraces are identified. There are bilateral pleu ral effusions with adjacent atelectatic changes. POS: OFF
[2019-08-02] MEDS: Amiodarone 200 MG TAB PO SCH ×2 (08:49→20:10)
[2019-08-02] MEDS: Famotidine/PF 20 mg/2ml Vial SLOW IVP SCH ×2 (08:49→20:10)
[2019-08-02] MEDS: Aspirin 325 MG TAB PO SCH (08:49)
[2019-08-02] MEDS ORDERED: Furosemide 40 MG/4 ML VIAL SLOW IVP SCH (09:00)
[2019-08-02 10:09] LABS: Bilirubin Negative (Negative); Blood, Urine 1+ (Negative); Clarity Turbid (Clear); Glucose, Urine (Dipstick) 30 mg/dL (Negative); Leukocyte Negative Leu/uL (Negative); Nitrite Negative (Negative); Protein, Urine (Dipstick) 100 mg/dL (Neg-Trace); Squamous Epithelial 0-3 HPF (0-3); Urobilinogen Normal mg/dL (Less than 2)
[2019-08-02 10:11] LABS: Bacteria/HPF 1+ HPF (None Seen)
--- NOTE | 2019-08-02 10:17 | PRG ---
DATE OF SERVICE: 08/02/2019 SUBJECTIVE: The patient continues extubated, seems to be doing reasonably well. OBJECTIVE: VITAL SIGNS: Temperature 98.5, pulse 72, blood pressure 125/70. Intake has been 1330, output 960, only 40 out through her Jaramillo. HEENT: Unremarkable. NECK: No adenopathy or JVD. CHEST: Fairly clear. CARDIAC: S1 and S2. Regular. ABDOMEN: Soft. EXTREMITIES: She has a necrotic left great toe. LABORATORY DATA: White blood cell count 18.5, hematocrit 31.8, and platelet count 320. Sodium 127, potassium 4.4, chloride 94, CO2 of 20, BUN 37, creatinine 2.0, glucose 215. ASSESSMENT: 1. Status post coronary artery bypass graft. 2. Acute renal dysfunction. 3. Diabetes mellitus. 4. Gangrenous toe. PLAN: 1. Continue current supportive care. 2. CV Surgery is managing her renal failure with albumin, diuretics. 3. Respiratory status is stable. Hospitalist is managing blood sugars. Job ID: [id number]
[2019-08-02 11:03] LABS: Creatinine, Urine 56.66 mg/dL (47-110); Sodium, Urine Less than 20 mmol/L (Not Available); Urea Nitrogen, Random Urine 153 mg/dl
[2019-08-02] MEDS: Calcium Carbonate 600 MG + Vit D TAB PO SCH (16:38)
[2019-08-02 16:40] LABS: Albumin 3.5 g/dL (3.4-4.8); Anion Gap 20 mmol/L (10-20); BUN (Urea Nitrogen) 42 mg/dL (9.8-20.1); BUN/Creatinine Ratio 15.91; Calc. Creatinine Clearance 27 mL/min (70-130); Calcium 7.6 mg/dL (7.8-10.44); Carbon Dioxide 17 mmol/L (23-31); Chloride 91 mmol/L (98-107); Estimated GFR-MDRD 18; Glucose 258 mg/dL (80-115); Phosphorus 6.1 mg/dL (2.3-4.7); Sodium 123 mmol/L (136-145)
--- NOTE | 2019-08-02 19:02 | PDOC.HOSPP ---
- Subjective Encounter Date: 08/02/19 Encounter Time: 10:40 Subjective: Pt seen for followup for CAD. No complaints today. - Objective Vital Signs & Weight: Vital Signs (12 hours) Temp Pulse Ox 08/02/19 18:33 97 08/02/19 15:56 98.5 F 08/02/19 12:00 98.7 F 08/02/19 07:08 98 Weight Admit Weight 172 lb 13.478 oz Weight 171 lb 4.787 oz Most Recent Monitor Data Heart Rate from ECG 68 NIBP 134/88 NIBP BP-Mean 103 Respiration from ECG 15 SpO2 99 I&O: 08/01/19 08/02/19 08/03/19 06:59 06:59 06:59 Intake Total 2833.9 1330 770 Output Total 1392 960 265 Balance 1441.9 370 505 Result Diagrams: 08/02/19 03:40 08/02/19 16:11 Additional Labs: Accuchecks 08/02/19 08/02/19 08/02/19 16:14 11:01 06:32 POC Glucose 277 H 259 H 228 H 08/01/19 08/01/19 08/01/19 22:07 00:52 00:01 POC Glucose 295 H 136 H 136 H 07/31/19 07/31/19 07/31/19 22:17 21:11 11:55 POC Glucose 128 H 125 H 143 H 07/31/19 07/31/19 11:19 08:35 POC Glucose 165 H 173 H Labs and MARs reviewed by me EKG Reviewed by me: Yes (Tele: cyn workman) Hospitalist ROS - Review of Systems Gastrointestinal: denies: nausea, vomiting, abdominal pain, diarrhea, constipation, melena, hematochezia Genitourinary: denies: dysuria, frequency, incontinence, hematuria, retention - Medication Medications: Active Medications Generic Name Dose Route Start Last Admin Trade Name Freq PRN Reason Stop Dose Admin Hydrocodone Bitart/Acetaminophen 2 tab 07/31/19 11:57 08/02/19 16:38 [place] 5/325 PO 2 tab Q4H PRN Administration Severe Pain (7-10) Albumin Human 12.5 gm 08/02/19 07:30 08/02/19 13:41 Albumin 25% IVPB 08/03/19 01:31 12.5 gm Q6H LIN Administration Amiodarone HCl 400 mg 08/01/19 21:00 08/02/19 08:49 Cordarone PO 400 mg BID LIN Administration Aspirin 325 mg 08/01/19 09:00 08/02/19 08:49 Aspirin PO 325 mg DAILY LIN Administration Calcium Carbonate 1,000 mg 08/01/19 10:19 08/01/19 10:31 Tums PO 1,000 mg Q6H PRN Administration Indigestion Calcium/Vitamin D 1 tab 08/02/19 17:00 08/02/19 16:38 Caltrate 600 + Vit D PO 1 tab BID-WM LIN Administration Famotidine 20 mg 07/31/19 21:00 08/02/19 08:49 Pepcid SLOW IVP 20 mg Q12HR LIN Administration Insulin Human Regular 0 units 07/31/19 12:08 08/02/19 16:12 Humulin R SC 8 unit Q4H PRN Administration POST CABG SLIDING SCALE Protocol Morphine Sulfate 2 mg 07/31/19 11:57 07/31/19 12:33 Morphine SLOW IVP 2 mg Q15MIN PRN Administration Severe Pain (7-10) Ondansetron HCl 4 mg 07/31/19 11:57 08/01/19 16:11 Zofran IVP 4 mg Q6H PRN Administration Nausea/Vomiting Potassium Chloride 20 meq 07/31/19 11:57 08/01/19 05:05 Kcl IVPB 20 meq PRN PRN Administration K level </= 4.0 Promethazine HCl 6.25 mg 07/31/19 11:57 08/01/19 19:19 Phenergan IM 6.25 mg Q4H PRN Administration Nausea/Vomiting Rosuvastatin Calcium 20 mg 08/01/19 21:00 08/01/19 19:46 Crestor PO 20 mg HS LIN Administration - Exam General Appearance: awake alert Eye: anicteric sclera ENT: moist mucosa Neck: supple Heart: RRR Respiratory: CTAB Gastrointestinal: soft, non-tender Skin - other findings: L toe ulcer; surgical sites clean Psychiatric: normal affect Hosp A/P (1) Multi-vessel coronary artery stenosis Code(s): I25.10 - ATHSCL HEART DISEASE OF [place] CORONARY ARTERY W/O ANG PCTRS Status: Acute (2) Acute on chronic systolic CHF (congestive heart failure), NYHA class 3 Code(s): I50.23 - ACUTE ON CHRONIC SYSTOLIC (CONGESTIVE) HEART FAILURE Status : Acute (3) Hyponatremia Code(s): E87.1 - HYPO-OSMOLALITY AND HYPONATREMIA Status: Acute (4) DM2 (diabetes mellitus, type 2) Status: Chronic (5) Chronic kidney disease, stage 3 Code(s): N18.3 - CHRONIC KIDNEY DISEASE, STAGE 3 (MODERATE) Status: Chronic (6) Diabetic toe ulcer Code(s): E11.621 - TYPE 2 DIABETES MELLITUS WITH FOOT ULCER; L97.509 - NON- PRESSURE CHRONIC ULCER OTH PRT UNSP FOOT W UNSP SEVERITY Status: Chronic - Plan s/p CABG . ROSEANNE and hyponatremia worse today. Continue insulin.
[2019-08-02] MEDS ORDERED: Zolpidem Tartrate 5 MG TAB PO PRN (19:06)
[2019-08-02] MEDS ORDERED: Melatonin 3 MG TAB PO PRN (19:07)
[2019-08-02] MEDS: Sodium Bicarbonate Tab 325 MG TAB PO SCH (20:10)
[2019-08-02] MEDS: Rosuvastatin 20 MG TAB PO SCH (20:10)
[2019-08-02] MEDS ORDERED: Insulin Glargine 10 UNITS in Pre-Filled Syringe 1 EACH SC SCH (21:00)
[2019-08-03] MEDS: Albumin 25% 25 GM/100 ML BOT IVPB SCH (01:00)
[2019-08-03] MEDS: Ondansetron PF 4 MG/2 ML Vial IVP PRN ×2 (02:11→17:05)
[2019-08-03] MEDS: Calcium Carbonate 500 MG ChewTAB PO PRN (03:49)
[2019-08-03 05:33] LABS: #Basophils 0.1 thou/uL (0.0-0.2); #Eosinphils 0.1 thou/uL (0.0-0.7); #Lymphocytes 1.6 thou/uL (1.20-3.40); #Monocytes 1.1 thou/uL (0.11-0.59); #Neutrophils 13.5 thou/uL (1.40-6.50); %Basophils 0.3 % (0.0-1.0); %Eosinophils 0.8 % (0.0-10.0); %Monocytes 6.6 % (0.0-10.0); %Neutrophils 82.4 % (42.0-75.0); Mean Corpuscular HGB CONC 31.9 g/dL (32.0-36.0); Mean Corpuscular Hemoglobin 28.6 pg (27.0-31.0); Mean Corpuscular Volume 89.6 fL (78.0-98.0); Mean Platelet Volume 8.5 fL (7.4-10.4); Platelet Count 185 thou/uL (130-400); RBC Distribution Width 12.6 % (11.5-14.5); Red Blood Cell (RBC) Count 3.48 mill/uL (4.20-5.40); White Blood Cell (WBC) Count 16.4 thou/uL (4.8-10.8)
[2019-08-03 05:52] LABS: Anion Gap 15 mmol/L (10-20); BUN (Urea Nitrogen) 47 mg/dL (9.8-20.1); Calc. Creatinine Clearance 26 mL/min (70-130); Calcium 7.4 mg/dL (7.8-10.44); Carbon Dioxide 21 mmol/L (23-31); Chloride 91 mmol/L (98-107); Estimated GFR-MDRD 17; Glucose 249 mg/dL (80-115); Magnesium 2.6 mg/dL (1.6-2.6); Potassium 4.3 mmol/L (3.5-5.1); Sodium 123 mmol/L (136-145)
[2019-08-03] MEDS: Insulin Regular 300 UNITS/3 ML VIAL SC PRN ×3 (06:04→16:34)
--- NOTE | 2019-08-03 06:40 | PRG ---
DATE OF SERVICE: 08/02/2019 SERVICE: Nephrology. SUBJECTIVE: A 59-year-old female, seen in followup for acute kidney injury and hyponatremia. The patient was initially admitted due to worsening shortness of breath and chest pain and subsequently found to have multivessel severe coronary artery disease for which, she is two days post CABG. Postoperatively, blood pressures were soft, but have improved fairly currently. The patient is currently extubated. The patient had elevated creatinine on presentation, which has improved with diuretics. 1.10 yesterday, July 31. Earlier today, the patient had a creatinine of 2.02, a huge increase in 24 hours. Urine output has been low at around 10 to 20 mL/h, that has even dropped further despite diuretics started earlier today. Denies nausea, vomiting, leg swelling, dysuria, or chest pain. OBJECTIVE: VITAL SIGNS: Temperature 98.5, pulse rate 67, respiratory rate 13, SpO2 of 98% on 3 L nasal cannula, and blood pressure is 109/70. I and O in the last 24 hours showed total intake of 1330 with total output of 960, with 380 being from chest tube drainage and 480 mL from urine. GENERAL: Chronically ill looking female, in mild respiratory distress. Afebrile. Anicteric. Acyanotic. HEENT: Normocephalic and atraumatic. Oral mucosa is moist. NECK: Supple with no obvious JVD. CARDIOVASCULAR: Regular rhythm and rate with normal heart sounds one and two. RESPIRATORY: Fair air entry bilaterally with few transmitted breath sounds. Work of breathing is mildly increased. GI: Full, soft with mild tenderness. UROGENITAL: Jaramillo catheter is in place, draining some urine. EXTREMITIES: Grossly normal looking, atraumatic with no edema or erythema except left big toe wound noted. MUSCULOSKELETAL/CHEST: Sternotomy wound/dressing noted as well as chest tube. HANDLING TECH: Conscious and alert, oriented x3 with appropriate mental status. DIAGNOSTIC DATA: CBC showed WBC count of 18.3, hemoglobin of 10.4, MCV of 89.6, and platelets of 320. Chemistry showed sodium 127, potassium 4.4, chloride 94, CO2 of 20, BUN 37, creatinine 2.02, glucose 215, calcium 7.6. Of note, on July 31, that is yesterday, sodium was 134, potassium 3.5, chloride 103, CO2 of 21, BUN 25, creatinine 1.1, and calcium 7.7. ASSESSMENT: 1. Acute kidney injury: This is most likely due to hemodynamic factors now related to volume contraction as well as perioperative hemodynamic instability. Postoperatively, the patient had hypotension and later on also developed atrial fibrillation associated with hypotension. Blood pressure currently is fairly stable. Acute tubular necrosis is a concern. 2. Hyponatremia: Acute drop from 134 to 127 today. It is concerning. The patient looked clinically dry. This is most likely related to ADH secretion in a person with volume contraction. However, contribution from cardiac decompensation cannot be ruled out. 3. Vitamin D deficiency. 4. Hypocalcemia. 5. Poorly controlled diabetes associated with left big toe and coronary artery disease. 6. Coronary artery disease, status post coronary artery bypass graft. 7. Ischemic cardiomyopathy associated with acute congestive heart failure exacerbation, improved. PLAN: 1. We will continue albumin and diuretics as ordered by Cardiothoracic Surgery for now. We will however get repeat urinalysis as well as urine and plasma osmolality and urine protein and urine electrolytes to calculate fractional excretion of urea and sodium. 2. We will also get repeat BMP later this afternoon. 3. We will re-evaluate the patient with results of other diagnostic test. 4. Further treatment to follow depending on hospital course. Job ID: [id number]
[2019-08-03] MEDS ORDERED: Cepastat Lozenges 1 LOZ PO PRN (08:11)
[2019-08-03] MEDS: Famotidine/PF 20 mg/2ml Vial SLOW IVP SCH ×2 (08:13→19:30)
[2019-08-03] MEDS: Amiodarone 200 MG TAB PO SCH ×2 (08:13→19:29)
[2019-08-03] MEDS: Calcium Carbonate 600 MG + Vit D TAB PO SCH ×2 (08:13→16:28)
[2019-08-03] MEDS: HYDROcodone/Acetaminophen 5/325 mg Tablet PO PRN ×2 (08:13→14:42)
[2019-08-03] MEDS: Aspirin 325 MG TAB PO SCH (08:15)
[2019-08-03] MEDS: Sodium Bicarbonate Tab 325 MG TAB PO SCH ×2 (08:17→19:29)
--- NOTE | 2019-08-03 08:27 | PRG ---
DATE OF SERVICE: 08/03/2019 SUBJECTIVE: She is up in a chair. She is complaining that she is cold and she is having pain. OBJECTIVE: VITAL SIGNS: Temperature 97.9, pulse 85, blood pressure 124/70, O2 saturation 92%. Intake 1055, output . HEENT: Unremarkable. NECK: No JVD. LUNGS: Diminished breath sounds in the bases. CARDIAC: S1, S2. Regular. ABDOMEN: Soft. EXTREMITIES: No edema. IMAGING DATA: Chest x-ray shows bilateral lower effusions. LABORATORY DATA: Sodium 123, potassium 4.3, chloride 91, CO2 of 21, BUN 47, creatinine 2.8, glucose 249. White blood cell count 16.4, hematocrit 31.2, and platelet count 185. ASSESSMENT: 1. Status post coronary artery bypass grafting surgery. 2. Status post mechanical ventilation. 3. Hyponatremia. 4. Volume overload. 5. Chronic kidney disease. 6. Diabetes mellitus. PLAN: Unfortunately, the patient is going to need by diuretics or possibly by dialysis. I am leaving this up to Nephrology and CV surgery. I am available for ventilatory assistance as needed. Job ID: [id number]
[2019-08-03] MEDS: Insulin Glargine 10 UNITS in Pre-Filled Syringe 1 EACH SC SCH ×2 (09:31→19:30)
[2019-08-03] MEDS ORDERED: Sodium Chloride 0.9% 1,000 ML IV SCH (10:00)
--- NOTE | 2019-08-03 11:01 | RAD ---
PORTABLE CHEST 1 VIEW: Date: 08/03/2019 Time: 0511 hours HISTORY: Postop open heart surgery. FINDINGS/IMPRESSION: Comparison with previous day. No significant interval change is seen. POS: OFF
--- NOTE | 2019-08-03 13:31 | PRG ---
DATE OF SERVICE: 08/03/2019 SERVICE: Nephrology. SUBJECTIVE: A 59-year-old female, seen for hyponatremia and elevated creatinine. The patient is a status post CABG for multivessel coronary artery disease. Initially admitted due to worsening shortness of breath and chest pain. Feeling better. Denied nausea, vomiting, or abdominal pain. OBJECTIVE: VITAL SIGNS: Temperature 97.9, pulse 75, respiratory rate 18, SpO2 of 91%, blood pressure 129/107. urine of 545. GENERAL: Female, in no obvious distress. Afebrile. Anicteric. Acyanotic. HEENT: Normocephalic, atraumatic. Oral mucosa is moist. NECK: Supple with no obvious JVD. CARDIOVASCULAR: Regular rhythm and rate with normal heart sounds one and two. RESPIRATORY: Fair air entry bilateral with few bibasilar crackles and transmitted breath sounds. No rhonchi or use of accessory muscles appreciated. Chest tubes in place. GI: Full, soft, nontender, nondistended with normal bowel sounds. UROGENITAL: Jaramillo catheter is in place draining some urine. EXTREMITIES: Grossly normal looking atraumatic with no obvious edema or erythema except chronic wound with some skin changes and edema on the left big toe. GOURMET COFFEE ATTENDANT: Conscious, alert, oriented x3 with appropriate mental status. DIAGNOSTIC DATA: CBC showed WBC count of 16.4, hemoglobin of 10.0, platelet of 185. Chemistry showed sodium 133, potassium 4.3, chloride 91, CO2 of 21, BUN 47, creatinine 2.82, glucose 249, calcium 7.4, magnesium 2.6. Note that creatinine has went up from 1.01 on July 30 to 2.82 currently. Plasma osmolarity on August 01 was 281 with urine osmolarity same day of 328. Urine electrolytes on August 02, 2019 showed urine creatinine of 56.6, sodium less than 20, and urine urea nitrogen of 153 with fractional excretion of sodium and urea of 0.6 and about 10% respectively. Urine protein is 155 with urine creatinine of 56 with UPC of more than 2 g/g of creatinine. Chest x-ray performed today showed no significant change from that of yesterday which shows some small pleural effusion. ASSESSMENT: 1. Acute kidney injury: Most likely due to hemodynamic factors related to intravascular contraction and cardiorenal. Acute tubular necrosis is a concern given postoperative hemodynamic instability. However, fractional excretion of urea and sodium is consistent with prerenal etiology. 2. Hyponatremia: This is due to intravascular contraction with appropriate ADH secretion as well as inappropriate ADH secretion given urine sodium of that is above plasma sodium. 3. Ischemic cardiomyopathy with ejection fraction of 20% on recent echocardiogram. 4. Multivessel coronary artery disease, status post recent coronary artery bypass graft. 5. Hypocalcemia thought to be related to vitamin D deficiency and poor oral intake. 6. Mild vitamin D deficiency. 7. Poorly controlled diabetes mellitus. 8. Metabolic acidosis: Due to kidney injury. PLAN: 1. We will hold diuretics at this time as the patient seems to be intravascularly contracted. 2. We will start gentle normal saline therapy at 40 mL/h. 3. We will recheck renal function and electrolytes later today and reassess treatment. 4. We will continue alkali therapy as well as vitamin D/calcium supplementation. 5. Further treatment to follow depending on hospital course. Job ID: [id number]
--- NOTE | 2019-08-03 17:11 | PDOC.HOSPP ---
- Subjective Encounter Date: 08/03/19 Encounter Time: 10:00 Subjective: Pt seen for followup - multivessel CAD. c/o sore throat, feeling cold. - Objective Vital Signs & Weight: Vital Signs (12 hours) Temp Pulse Ox 08/03/19 13:54 97.9 F 08/03/19 07:39 94 L Weight Admit Weight 172 lb 13.478 oz Weight 173 lb 15.115 oz Most Recent Monitor Data Heart Rate from ECG 71 NIBP 147/95 NIBP BP-Mean 112 Respiration from ECG 20 SpO2 81 I&O: 08/02/19 08/03/19 08/04/19 06:59 06:59 06:59 Intake Total 1330 1055 820 Output Total 960 685 800 Balance 370 370 20 Result Diagrams: 08/03/19 05:17 08/03/19 05:17 Additional Labs: Accuchecks 08/03/19 08/03/19 08/03/19 16:36 14:01 12:14 POC Glucose 250 H 258 H 277 H 08/02/19 20:14 POC Glucose 280 H Labs and MARs reviewed by me EKG Reviewed by me: Yes (Tele: NSR) Hospitalist ROS - Review of Systems Constitutional: reports: other (feeling cold) ENT: reports: throat pain Cardiovascular: denies: chest pain, palpitations, orthopnea, paroxysmal noc. dyspnea, edema, light headedness Gastrointestinal: denies: nausea, vomiting, abdominal pain, diarrhea, constipation, melena, hematochezia - Medication Medications: Active Medications Generic Name Dose Route Start Last Admin Trade Name Freq PRN Reason Stop Dose Admin Hydrocodone Bitart/Acetaminophen 2 tab 07/31/19 11:57 08/03/19 14:42 [place] 5/325 PO 2 tab Q4H PRN Administration Severe Pain (7-10) Amiodarone HCl 400 mg 08/01/19 21:00 08/03/19 08:13 Cordarone PO 400 mg BID LIN Administration Aspirin 325 mg 08/01/19 09:00 08/03/19 08:15 Aspirin PO 325 mg DAILY LIN Administration Calcium Carbonate 1,000 mg 08/01/19 10:19 08/03/19 03:49 Tums PO 1,000 mg Q6H PRN Administration Indigestion Calcium/Vitamin D 1 tab 08/02/19 17:00 08/03/19 16:28 Caltrate 600 + Vit D PO 1 tab BID-WM LIN Administration Famotidine 20 mg 07/31/19 21:00 08/03/19 08:13 Pepcid SLOW IVP 20 mg Q12HR LIN Administration Insulin Glargine 10 units/ 0.1 mls @ 0 mls/hr 08/03/19 09:00 08/03/19 09:31 Miscellaneous Medication SC 0.1 mls BID LIN Administration Sodium Chloride 1,000 mls @ 40 mls/hr 08/03/19 10:00 08/03/19 09:59 Normal Saline 0.9% IV 1,000 mls .Q24H LIN Administration Insulin Human Regular 0 units 07/31/19 12:08 08/03/19 16:34 Humulin R SC 6 unit Q4H PRN Administration POST CABG SLIDING SCALE Protocol Melatonin 3 mg 08/02/19 19:07 08/02/19 20:10 Melatonin PO 3 mg HS PRN Administration Insomnia Morphine Sulfate 2 mg 07/31/19 11:57 07/31/19 12:33 Morphine SLOW IVP 2 mg Q15MIN PRN Administration Severe Pain (7-10) Ondansetron HCl 4 mg 07/31/19 11:57 08/03/19 17:05 Zofran IVP 4 mg Q6H PRN Administration Nausea/Vomiting Potassium Chloride 20 meq 07/31/19 11:57 08/01/19 05:05 Kcl IVPB 20 meq PRN PRN Administration K level </= 4.0 Promethazine HCl 6.25 mg 07/31/19 11:57 08/01/19 19:19 Phenergan IM 6.25 mg Q4H PRN Administration Nausea/Vomiting Rosuvastatin Calcium 20 mg 08/01/19 21:00 08/02/19 20:10 Crestor PO 20 mg HS LIN Administration Sodium Bicarbonate 650 mg 08/02/19 21:00 08/03/19 08:17 Bicarbonate, Sodium PO 650 mg BID LIN Administration - Exam General Appearance: awake alert ENT: no oropharyngeal lesions Neck: supple Heart: RRR Respiratory: CTAB Gastrointestinal: soft, non-tender Skin - other findings: toe ulcer (L great toe) Psychiatric: normal affect, normal behavior Hosp A/P (1) Multi-vessel coronary artery stenosis Code(s): I25.10 - ATHSCL HEART DISEASE OF [place] CORONARY ARTERY W/O ANG PCTRS Status: Acute (2) Acute on chronic systolic CHF (congestive heart failure), NYHA class 3 Code(s): I50.23 - ACUTE ON CHRONIC SYSTOLIC (CONGESTIVE) HEART FAILURE Status : Acute (3) Acute renal failure superimposed on stage 3 chronic kidney disease Code(s): N17.9 - ACUTE KIDNEY FAILURE, UNSPECIFIED; N18.3 - CHRONIC KIDNEY DISEASE, STAGE 3 (MODERATE) Status: Acute (4) Hyponatremia Code(s): E87.1 - HYPO-OSMOLALITY AND HYPONATREMIA Status: Acute (5) DM2 (diabetes mellitus, type 2) Status: Chronic (6) Diabetic toe ulcer Code(s): E11.621 - TYPE 2 DIABETES MELLITUS WITH FOOT ULCER; L97.509 - NON- PRESSURE CHRONIC ULCER OTH PRT UNSP FOOT W UNSP SEVERITY Status: Chronic - Plan s/p CABG . Clinically improving, but renal function worse today. Start lantus 10 units SC BID. Family updated. Lozenges for sore throat.
[2019-08-03 17:44] LABS: Anion Gap 18 mmol/L (10-20); BUN (Urea Nitrogen) 46 mg/dL (9.8-20.1); Calc. Creatinine Clearance 26 mL/min (70-130); Calcium 7.4 mg/dL (7.8-10.44); Carbon Dioxide 18 mmol/L (23-31); Chloride 88 mmol/L (98-107); Estimated GFR-MDRD 17; Glucose 207 mg/dL (80-115); Potassium 4.4 mmol/L (3.5-5.1); Sodium 120 mmol/L (136-145)
[2019-08-03] MEDS: Rosuvastatin 20 MG TAB PO SCH (19:29)
[2019-08-04] MEDS: Ondansetron PF 4 MG/2 ML Vial IVP PRN (02:10)
[2019-08-04] MEDS: HYDROcodone/Acetaminophen 5/325 mg Tablet PO PRN (04:16)
[2019-08-04 05:04] LABS: #Basophils 0.1 thou/uL (0.0-0.2); #Eosinphils 0.4 thou/uL (0.0-0.7); #Lymphocytes 2.2 thou/uL (1.20-3.40); #Monocytes 0.8 thou/uL (0.11-0.59); %Basophils 0.5 % (0.0-1.0); %Eosinophils 2.3 % (0.0-10.0); %Lymphocytes 13.1 % (21.0-51.0); Hemoglobin 11.5 g/dL (12.0-16.0); Mean Corpuscular HGB CONC 32.3 g/dL (32.0-36.0); Mean Corpuscular Hemoglobin 28.9 pg (27.0-31.0); Mean Corpuscular Volume 89.4 fL (78.0-98.0); Mean Platelet Volume 8.2 fL (7.4-10.4); Platelet Count 255 thou/uL (130-400); RBC Distribution Width 12.5 % (11.5-14.5); White Blood Cell (WBC) Count 16.4 thou/uL (4.8-10.8)
[2019-08-04 05:20] LABS: Anion Gap 16 mmol/L (10-20); BUN (Urea Nitrogen) 45 mg/dL (9.8-20.1); Calc. Creatinine Clearance 27 mL/min (70-130); Calcium 7.6 mg/dL (7.8-10.44); Carbon Dioxide 22 mmol/L (23-31); Chloride 89 mmol/L (98-107); Estimated GFR-MDRD 18; Glucose 132 mg/dL (80-115); Potassium 3.3 mmol/L (3.5-5.1); Sodium 124 mmol/L (136-145)
[2019-08-04] MEDS ORDERED: Potassium Chloride 20 MEQ TAB PO SCH (06:15)
[2019-08-04] MEDS ORDERED: Bisacodyl 5 MG TAB PO PRN (07:34)
[2019-08-04] MEDS ORDERED: Nitroglycerin 0.4 MG TAB (25 Tab Bottle) SL PRN (07:34)
[2019-08-04] MEDS ORDERED: Bisacodyl 10 MG SUPP PR PRN (07:34)
[2019-08-04] MEDS: Amiodarone 200 MG TAB PO SCH ×2 (07:56→21:08)
[2019-08-04] MEDS: Calcium Carbonate 600 MG + Vit D TAB PO SCH ×2 (07:56→18:02)
[2019-08-04] MEDS: Aspirin 325 MG TAB PO SCH (07:56)
[2019-08-04] MEDS: Sodium Bicarbonate Tab 325 MG TAB PO SCH ×2 (07:56→21:08)
[2019-08-04] MEDS: Insulin Glargine 10 UNITS in Pre-Filled Syringe 1 EACH SC SCH ×2 (08:00→21:09)
--- NOTE | 2019-08-04 09:41 | PRG ---
DATE OF SERVICE: 08/04/2019 SUBJECTIVE: The patient remains in the CCU. She is doing fairly well. OBJECTIVE: VITAL SIGNS: Temperature 97.9, pulse 81, and blood pressure 142/79. HEENT: Unremarkable. NECK: No JVD. LUNGS: Clear anteriorly. CARDIAC: S1 and S2, regular. ABDOMEN: Soft. LABORATORY DATA: White blood cell count 16.4, hematocrit 35.7, and platelet count 255. Sodium 124, potassium 3.3, chloride 89, CO2 of 22, BUN 45, creatinine 2.7, and glucose 132. ASSESSMENT: 1. Status post coronary artery bypass graft. 2. Status post mechanical ventilation. 3. Hyponatremia. 4. Fluid overload. 5. Chronic kidney disease. PLAN: Sodium is better today, probably attributable to diuresis. In my opinion, she is ready for transfer to the floor. No other pulmonary recommendations at this time. Job ID: [id number]
[2019-08-04] MEDS ORDERED: hydrALAZINE 10 MG TAB PO SCH (10:15)
--- NOTE | 2019-08-04 10:24 | PRG ---
DATE OF SERVICE: 08/04/2019 SERVICE: Nephrology. SUBJECTIVE: A 59-year-old female seen in followup for hyponatremia and acute kidney injury. The patient is status post CABG. No new problem. Denied shortness of breath, leg swelling, nausea, vomiting, or diarrhea. OBJECTIVE: VITAL SIGNS: Temperature 97.9, pulse 81, respiratory rate 20, SpO2 of 95, blood pressure is 126/84. I and O in the last 24 hours showed total intake of 2243 with total output of 2635. GENERAL: Female, in no obvious distress. Afebrile. Anicteric. Acyanotic. HEENT: Normocephalic, atraumatic. Oral mucosa is moist. NECK: Supple with no JVD. CARDIOVASCULAR: Regular rhythm and rate with normal heart sounds 1 and 2. RESPIRATORY: Fair air entry bilaterally with few crackles on right base posteriorly. GI: Full, soft, nontender, nondistended with normal bowel sounds. UROGENITAL: Jaramillo catheter is in place draining urine. EXTREMITIES: Grossly normal looking atraumatic with no edema or erythema except left big toe wound swelling and chronic changes. PLC CONTROLS ENGINEER: Conscious, alert, and oriented x3 with appropriate mental status. DIAGNOSTIC DATA: CBC showed WBC count of 16.4, hemoglobin of 11.5, MCV of 89.4, platelets of 255. Chemistry showed sodium 124, potassium 3.3, chloride 89, CO2 of 22, BUN 45, creatinine 2.70, glucose 132, calcium 7.6. Of note, yesterday evening sodium was 120, potassium 3.4, chloride 88, CO2 of 18, creatinine 2.81, BUN 46, glucose 207, calcium 7.4. ASSESSMENT: 1. Acute kidney injury: Due to hemodynamic factors related to volume depletion. Fractional excretion of urea and sodium are consistent. Currently off diuretics gentle IV fluid therapy. 2. Hyponatremia: Due to intravascular contraction with appropriate ADH secretion. Some contribution from CHF cannot be ruled out. 3. Hypokalemia. 4. Metabolic acidosis due to acute kidney injury. 5. Vitamin D deficiency. 6. Hypokalemia. 7. improved. Blood pressure is currently stable. PLAN: 1. We will replete serum potassium with potassium chloride. 2. We will continue gentle normal saline therapy and monitor electrolytes as well as volume status closely. 3. We will also continue alkali therapy and calcium supplementation. 4. We will repeat renal function tests and electrolytes in the morning. Further treatment to follow depending on hospital course. Job ID: [id number]
--- NOTE | 2019-08-04 14:17 | PDOC.HOSPP ---
- Subjective Encounter Date: 08/04/19 Encounter Time: 07:20 Subjective: Pt seen for followup re: CAD. Worried about renal failure. - Objective Vital Signs & Weight: Vital Signs (12 hours) Temp Pulse Resp BP BP Pulse Ox 08/04/19 10:52 82 131/77 08/04/19 10:00 98.2 F 82 18 131/77 97 08/04/19 08:00 97.9 F 08/04/19 07:20 99 08/04/19 04:00 97.8 F Weight Admit Weight 172 lb 13.478 oz Weight 178 lb 9.191 oz Most Recent Monitor Data Heart Rate from ECG 86 NIBP 126/84 NIBP BP-Mean 98 Respiration from ECG 11 SpO2 98 I&O: 08/03/19 08/04/19 08/05/19 06:59 06:59 06:59 Intake Total 1055 2243 240 Output Total 685 2535 590 Balance 370 292 -350 Result Diagrams: 08/04/19 04:10 08/04/19 04:10 Additional Labs: Accuchecks 08/04/19 08/03/19 08/03/19 11:03 19:33 16:36 POC Glucose 118 H 207 H 250 H Labs and MARs reviewed by me EKG Reviewed by me: Yes (Tele: NSR) Hospitalist ROS - Review of Systems Cardiovascular: denies: chest pain, palpitations, orthopnea, paroxysmal noc. dyspnea, edema, light headedness Musculoskeletal: denies: neck pain, shoulder pain, arm pain, hand pain, leg pain , foot pain - Medication Medications: Active Medications Generic Name Dose Route Start Last Admin Trade Name Sergio PRN Reason Stop Dose Admin Amiodarone HCl 400 mg 08/01/19 21:00 08/04/19 07:56 Cordarone PO 400 mg BID LIN Administration Aspirin 325 mg 08/01/19 09:00 08/04/19 07:56 Aspirin PO 325 mg DAILY LIN Administration Calcium Carbonate 1,000 mg 08/01/19 10:19 08/03/19 03:49 Tums PO 1,000 mg Q6H PRN Administration Indigestion Calcium/Vitamin D 1 tab 08/02/19 17:00 08/04/19 07:56 Caltrate 600 + Vit D PO 1 tab BID-WM LIN Administration Insulin Glargine 10 units/ 0.1 mls @ 0 mls/hr 08/03/19 09:00 08/04/19 08:00 Miscellaneous Medication SC 0.1 mls BID LIN Administration Melatonin 3 mg 08/02/19 19:07 08/02/19 20:10 Melatonin PO 3 mg HS PRN Administration Insomnia Rosuvastatin Calcium 20 mg 08/01/19 21:00 08/03/19 19:29 Crestor PO 20 mg HS LIN Administration Sodium Bicarbonate 650 mg 08/02/19 21:00 08/04/19 07:56 Bicarbonate, Sodium PO 650 mg BID LIN Administration Sodium Chloride 10 ml 08/03/19 21:00 08/04/19 07:58 Flush - Normal Saline IVF 10 ml Q12HR LIN Administration - Exam General Appearance: awake alert Eye: anicteric sclera ENT: normocephalic atraumatic Neck: supple Heart: RRR Respiratory: CTAB Gastrointestinal: soft, non-tender Extremities: no cyanosis Psychiatric: normal affect, normal behavior Hosp A/P (1) Multi-vessel coronary artery stenosis Code(s): I25.10 - ATHSCL HEART DISEASE OF [place] CORONARY ARTERY W/O ANG PCTRS Status: Acute (2) Acute on chronic systolic CHF (congestive heart failure), NYHA class 3 Code(s): I50.23 - ACUTE ON CHRONIC SYSTOLIC (CONGESTIVE) HEART FAILURE Status : Acute (3) Acute renal failure superimposed on stage 3 chronic kidney disease Code(s): N17.9 - ACUTE KIDNEY FAILURE, UNSPECIFIED; N18.3 - CHRONIC KIDNEY DISEASE, STAGE 3 (MODERATE) Status: Acute (4) Hyponatremia Code(s): E87.1 - HYPO-OSMOLALITY AND HYPONATREMIA Status: Acute (5) DM2 (diabetes mellitus, type 2) Status: Chronic (6) Diabetic toe ulcer Code(s): E11.621 - TYPE 2 DIABETES MELLITUS WITH FOOT ULCER; L97.509 - NON- PRESSURE CHRONIC ULCER OTH PRT UNSP FOOT W UNSP SEVERITY Status: Chronic - Plan s/p CABG . Creatinine improved slightly to 2.70 today. Replace potassium. Lantus increased to 10 units SC BID, sugars improving/ Family updated. Pt transferred to telemetry today.
[2019-08-04] MEDS: hydrALAZINE 10 MG TAB PO SCH ×2 (17:03→21:09)
[2019-08-04] MEDS ORDERED: Famotidine/PF 20 mg/2ml Vial SLOW IVP SCH (21:00)
[2019-08-04] MEDS: Rosuvastatin 20 MG TAB PO SCH (21:08)
[2019-08-04] MEDS: Acetaminophen 325 MG TAB PO PRN (21:08)
[2019-08-04] MEDS: Famotidine 20 MG TAB PO SCH (21:08)
[2019-08-05 04:50] LABS: #Basophils 0.1 thou/uL (0.0-0.2); #Eosinphils 0.4 thou/uL (0.0-0.7); #Lymphocytes 2.6 thou/uL (1.20-3.40); #Neutrophils 10.7 thou/uL (1.40-6.50); %Basophils 0.5 % (0.0-1.0); %Eosinophils 2.8 % (0.0-10.0); %Lymphocytes 17.3 % (21.0-51.0); %Neutrophils 72.4 % (42.0-75.0); Hemoglobin 11.7 g/dL (12.0-16.0); Mean Corpuscular HGB CONC 33.6 g/dL (32.0-36.0); Mean Corpuscular Hemoglobin 29.3 pg (27.0-31.0); Mean Corpuscular Volume 87.1 fL (78.0-98.0); Mean Platelet Volume 7.6 fL (7.4-10.4); Platelet Count 311 thou/uL (130-400); RBC Distribution Width 12.8 % (11.5-14.5); Red Blood Cell (RBC) Count 3.99 mill/uL (4.20-5.40); White Blood Cell (WBC) Count 14.8 thou/uL (4.8-10.8)
[2019-08-05 04:58] LABS: Anion Gap 15 mmol/L (10-20); BUN (Urea Nitrogen) 40 mg/dL (9.8-20.1); Calc. Creatinine Clearance 28 mL/min (70-130); Calcium 7.7 mg/dL (7.8-10.44); Carbon Dioxide 23 mmol/L (23-31); Chloride 92 mmol/L (98-107); Estimated GFR-MDRD 18; Glucose 89 mg/dL (80-115); Sodium 127 mmol/L (136-145)
[2019-08-05 05:13] LABS: Potassium 2.8 mmol/L (3.5-5.1)
[2019-08-05] MEDS ORDERED: Potassium Chloride 40 MEQ in Premix Bag 1 BAG IVPB SCH (05:30)
[2019-08-05] MEDS ORDERED: Potassium Chloride 20 MEQ TAB PO SCH (06:15)
--- NOTE | 2019-08-05 09:06 | RAD ---
PORTABLE CHEST: Date: 08/05/2019 HISTORY: Follow-up pleural effusion. COMPARISON: 08/03/2019 exam. FINDINGS: Heart size enlarged. There are postop sternotomy changes. Right-sided central line is unchanged in po sition. Pleural and parenchymal changes in the left base have improved slightly as compared to the pr ior examination. There is suggestion that there is some slight increase to the right-sided pleural ef fusion. IMPRESSION: Cardiomegaly with decreasing pulmonary vascular engorgement and improving changes in the left base. T here is suggestion that there may be some slight worsening to the right-sided pleural effusion and pa renchymal lung change. POS: JHON
[2019-08-05] MEDS: Amiodarone 200 MG TAB PO SCH ×2 (09:18→20:49)
[2019-08-05] MEDS: Sodium Bicarbonate Tab 325 MG TAB PO SCH ×3 (09:19→20:48)
[2019-08-05] MEDS: hydrALAZINE 10 MG TAB PO SCH (09:20)
[2019-08-05] MEDS: Insulin Glargine 10 UNITS in Pre-Filled Syringe 1 EACH SC SCH (09:20)
[2019-08-05] MEDS: Calcium Carbonate 600 MG + Vit D TAB PO SCH ×2 (09:20→16:43)
[2019-08-05] MEDS: Aspirin 325 MG TAB PO SCH (09:20)
--- NOTE | 2019-08-05 09:33 | PRG ---
DATE OF SERVICE: 08/05/2019 SERVICE: Nephrology. SUBJECTIVE: A 59-year-old female, status post CABG, seen in followup for ROSEANNE and hyponatremia. The patient complains of poor oral intake. Wants to eat a little more. Denied shortness of breath, fever, nausea, or vomiting. OBJECTIVE: VITAL SIGNS: Temperature 98.0, pulse 85, respiratory rate 18, SpO2 of 93% on room air, blood pressure is 134/64. Intake and output in the last 24 hours showed total intake of 1120 with total output of 2665. GENERAL: Chronically ill-looking female, in no distress. Afebrile. Anicteric. Acyanotic. HEENT: Normocephalic, atraumatic. Oral mucosa is moist. CARDIOVASCULAR: Regular rhythm and rate. Normal heart sounds 1 and 2. RESPIRATORY: Fair air entry bilateral, decreased at right base posteriorly. GI: Full, soft, nontender, and nondistended with normal bowel sounds. EXTREMITIES: Grossly normal looking, atraumatic, with no edema or erythema except left big toe with ulcer and chronic changes as well as swelling. PACKAGER OR PACKER AND WEIGHER: Conscious, alert, oriented x3 with appropriate mental status. Cranial nerves 2 through 12 are grossly intact. UROGENITAL: Jaramillo catheter is in place, draining some urine. DIAGNOSTIC DATA: CBC showed WBC count of 14.8, hemoglobin of 11.7, MCV of 87.1, platelets of 311. Chemistry showed sodium 127, potassium 2.8, chloride 92, CO2 of 23, BUN 40, creatinine 2.72, calcium 7.7. ASSESSMENT: 1. Acute kidney injury due to hemodynamic factors related to volume contraction, postoperative hemodynamic instability. The patient is clinically dry. creatinine went down marginally with normal saline therapy. Seems stable in the last 24 hours with discontinuation of normal saline. 2. Hyponatremia, improved with normal saline. Has gone up to 127. 3. Hypocalcemia, on supplementation. 4. Hypokalemia. PLAN: 1. We will get repeat urine electrolytes as well as chest x-ray to assess fluid status. Consideration for gentle IV fluid therapy is considered. 2. We will start Glucerna supplement. 3. We will continue alkali therapy as well as vitamin D and calcium supplementation. 4. We will re-evaluate the patient with other diagnostic test. Further treatment to follow depending on hospital course. Job ID: [id number]
[2019-08-05] MEDS: Mag-Al 1200 mg/1200 mg/30 ML UDCUP PO PRN (09:43)
[2019-08-05 11:20] LABS: Creatinine, Urine Less than 20.00 mg/dL (47-110); Sodium, Urine 65 mmol/L (Not Available); Urea Nitrogen, Random Urine 175 mg/dl
--- NOTE | 2019-08-05 14:45 | PDOC.HOSPP ---
- Subjective Encounter Date: 08/05/19 Encounter Time: 07:20 Subjective: Pt seen for followup re: coronary artery disease. Feels better today. - Objective Vital Signs & Weight: Vital Signs (12 hours) Temp Pulse Pulse Resp BP BP BP 08/05/19 12:08 90 117/58 L 131/78 08/05/19 11:39 97.7 F 83 13 08/05/19 09:02 97.7 F 85 12 08/05/19 03:48 98.0 F 85 18 134/64 BP Pulse Ox Pulse Ox 08/05/19 12:08 96 08/05/19 11:39 131/78 97 08/05/19 09:02 141/73 H 96 08/05/19 03:48 93 L Weight Admit Weight 172 lb 13.478 oz Weight 173 lb 6.4 oz Most Recent Monitor Data Heart Rate from ECG 86 NIBP 126/84 NIBP BP-Mean 98 Respiration from ECG 11 SpO2 98 I&O: 08/04/19 08/05/19 08/06/19 06:59 06:59 06:59 Intake Total 2243 1120 Output Total 6653 2665 650 Balance -292 -1545 -650 Result Diagrams: 08/05/19 04:07 08/05/19 04:07 Additional Labs: Accuchecks 08/05/19 08/05/19 08/04/19 10:45 05:52 20:29 POC Glucose 120 H 87 138 H 08/04/19 17:07 POC Glucose 158 H Labs and MARs reviewed by me EKG Reviewed by me: Yes (Tele: NSR) Hospitalist ROS - Review of Systems Constitutional: reports: weakness. denies: fever, chills, sweats, malaise Cardiovascular: denies: chest pain, palpitations, orthopnea, paroxysmal noc. dyspnea, edema, light headedness Skin: reports: lesions - Medication Medications: Active Medications Generic Name Dose Route Start Last Admin Trade Name Freq PRN Reason Stop Dose Admin Acetaminophen 650 mg 07/31/19 11:57 08/04/19 21:08 Tylenol PO 650 mg Q6H PRN Administration Headache/Fever Or Mild Pain Al Hydroxide/Mg Hydroxide 30 ml 08/04/19 07:34 08/05/19 09:43 Maalox PO 30 ml Q4H PRN Administration Indigestion Amiodarone HCl 400 mg 08/01/19 21:00 08/05/19 09:18 Cordarone PO 400 mg BID LIN Administration Aspirin 325 mg 08/01/19 09:00 08/05/19 09:20 Aspirin PO 325 mg DAILY LIN Administration Calcium/Vitamin D 1 tab 08/02/19 17:00 08/05/19 09:20 Caltrate 600 + Vit D PO 1 tab BID-WM LIN Administration Famotidine 20 mg 08/04/19 21:00 08/04/19 21:08 Pepcid PO 20 mg 2100 LIN Administration Insulin Glargine 10 units/ 0.1 mls @ 0 mls/hr 08/03/19 09:00 08/05/19 09:20 Miscellaneous Medication SC Not Given BID LIN Melatonin 3 mg 08/02/19 19:07 08/02/19 20:10 Melatonin PO 3 mg HS PRN Administration Insomnia Rosuvastatin Calcium 20 mg 08/01/19 21:00 08/04/19 21:08 Crestor PO 20 mg HS LIN Administration Sodium Bicarbonate 650 mg 08/05/19 09:00 08/05/19 09:19 Bicarbonate, Sodium PO 650 mg TID LIN Administration Sodium Chloride 10 ml 08/03/19 21:00 08/05/19 09:20 Flush - Normal Saline IVF 10 ml Q12HR LIN Administration Sodium Chloride 10 ml 08/03/19 09:53 08/05/19 05:45 Flush - Normal Saline IVF 10 ml PRN PRN Administration Saline Flush - Exam General Appearance: awake alert ENT: normocephalic atraumatic Neck: supple Heart: RRR Respiratory: CTAB, no rales Gastrointestinal: soft, non-tender Skin - other findings: L great toe ulcer Musculoskeletal: no muscle wasting Psychiatric: normal affect, normal behavior Hosp A/P (1) Multi-vessel coronary artery stenosis Code(s): I25.10 - ATHSCL HEART DISEASE OF [place] CORONARY ARTERY W/O ANG PCTRS Status: Acute (2) Acute on chronic systolic CHF (congestive heart failure), NYHA class 3 Code(s): I50.23 - ACUTE ON CHRONIC SYSTOLIC (CONGESTIVE) HEART FAILURE Status : Acute (3) Hyponatremia Code(s): E87.1 - HYPO-OSMOLALITY AND HYPONATREMIA Status: Acute (4) Acute renal failure superimposed on stage 3 chronic kidney disease Code(s): N17.9 - ACUTE KIDNEY FAILURE, UNSPECIFIED; N18.3 - CHRONIC KIDNEY DISEASE, STAGE 3 (MODERATE) Status: Acute (5) DM2 (diabetes mellitus, type 2) Status: Chronic (6) Diabetic toe ulcer Code(s): E11.621 - TYPE 2 DIABETES MELLITUS WITH FOOT ULCER; L97.509 - NON- PRESSURE CHRONIC ULCER OTH PRT UNSP FOOT W UNSP SEVERITY Status: Chronic - Plan PT/OT, out of bed/ambulate Creatinine stabilizing, 2.72 today. Potassium being replaced. Reasonable control of blood sugars Family updated. Consult podiatry for toe lesion (was seen as outpt by podiatry)
[2019-08-05] MEDS: traMADol HCl 50 MG TAB PO PRN (16:43)
[2019-08-05] MEDS: hydrALAZINE 25 MG TAB PO SCH ×2 (16:43→20:49)
[2019-08-05] MEDS: Famotidine 20 MG TAB PO SCH (20:49)
[2019-08-05] MEDS: Rosuvastatin 20 MG TAB PO SCH (20:49)
[2019-08-05] MEDS: HumuLIN 70/30 (300 UNITS/3 ML VIAL) SC SCH (21:08)
[2019-08-06 04:53] LABS: Anion Gap 15 mmol/L (10-20); BUN (Urea Nitrogen) 35 mg/dL (9.8-20.1); Calc. Creatinine Clearance 25 mL/min (70-130); Calcium 8.4 mg/dL (7.8-10.44); Carbon Dioxide 23 mmol/L (23-31); Chloride 94 mmol/L (98-107); Estimated GFR-MDRD 16; Glucose 229 mg/dL (80-115); Potassium 3.2 mmol/L (3.5-5.1); Sodium 129 mmol/L (136-145)
[2019-08-06] MEDS: Calcium Carbonate 600 MG + Vit D TAB PO SCH ×2 (08:27→17:54)
[2019-08-06] MEDS: Sodium Bicarbonate Tab 325 MG TAB PO SCH ×3 (08:27→21:12)
[2019-08-06] MEDS: Potassium Chloride 20 MEQ TAB PO SCH ×2 (08:28→14:51)
[2019-08-06] MEDS: Amiodarone 200 MG TAB PO SCH ×2 (08:28→21:11)
[2019-08-06] MEDS: hydrALAZINE 25 MG TAB PO SCH ×3 (08:28→21:11)
[2019-08-06] MEDS: HumuLIN 70/30 (300 UNITS/3 ML VIAL) SC SCH ×2 (08:29→21:11)
[2019-08-06] MEDS: Mag-Al 1200 mg/1200 mg/30 ML UDCUP PO PRN (08:31)
[2019-08-06] MEDS: traMADol HCl 50 MG TAB PO PRN ×2 (08:31→21:12)
[2019-08-06] MEDS: Aspirin 325 MG TAB PO SCH (08:36)
--- NOTE | 2019-08-06 11:22 | PRG ---
DATE OF SERVICE: 08/06/2019 SERVICE: Nephrology. SUBJECTIVE: A 59-year-old female, seen in followup for acute kidney injury and hyponatremia. The patient reports feeling better. She is n.p.o. currently for planned debridement of left big toe. Denied fever, nausea, or vomiting. OBJECTIVE: VITAL SIGNS: Temperature 99.7, pulse 89, respiratory rate 20, SpO2 of 93% on room air, blood pressure is 139/65. I and O in the last 24 hours showed total intake of 1368 with total output of 2600. GENERAL: Female, in no obvious distress. Afebrile. Anicteric. Acyanotic. HEENT: Normocephalic, atraumatic. Oral mucosa is moist. NECK: Supple with no JVD. CARDIOVASCULAR: Regular rhythm and rate with normal heart sounds 1 and 2. RESPIRATORY: Fair air entry bilateral with few transmitted breath sounds. There is no obvious crackle or rhonchi or use of accessory muscles. GI: Full, soft, nontender, nondistended with normal bowel sounds. EXTREMITIES: Grossly normal looking, atraumatic with no edema or erythema except left big toe chronic ulceration with skin changes and edema. PRESTIDIGITATOR: Conscious, alert, oriented x3 with appropriate mental status. Cranial nerves 2 through 12 are grossly intact. DIAGNOSTIC DATA: Chemistry today showed sodium 129, potassium 3.2, chloride 94, CO2 of 23, BUN 35, creatinine 2.90, glucose 229, calcium 8.4. Repeat echocardiogram performed yesterday showed improved systolic function with EF of 40% to 45%. Impaired relaxation compatible with diastolic heart failure, heart dysfunction is noted. Mild mitral and mild tricuspid regurgitation also were noted. ASSESSMENT: 1. Acute kidney injury: Due to hemodynamic factors related to volume depletion with possible contribution from hemodynamic instability postoperatively. Creatinine is still elevated and continue to trend up at 2.90 today from renee of 1.0. 2. Chronic kidney disease stage 3 due to diabetes and hypertension. 3. Hyponatremia: Due to volume contraction with appropriate ADH secretion. 4. Ischemic cardiomyopathy with initial ejection fraction of 20%, currently 40% to 45%. 5. Hypokalemia. 6. Metabolic acidosis. 7. Volume status: The patient is clearly not overloaded. She actually looks dry. PLAN: 1. Given the patient is n.p.o. currently, we will start gentle IV hydration with normal saline 50 mL/hour. 2. We will replete serum potassium with potassium chloride. 3. We will recheck renal function panel later in the day. 4. Further treatment to follow depending on hospital course. Job ID: [id number]
[2019-08-06] MEDS: Sodium Chloride 0.9% 1,000 ML IV SCH (11:28)
[2019-08-06] MEDS ORDERED: PHENYLEPHRINE-NS 100 MCG/ML 10 ML SYRINGE ONE (11:53)
[2019-08-06] MEDS ORDERED: Ondansetron PF 4 MG/2 ML Vial ONE (11:53)
[2019-08-06] MEDS ORDERED: Fentanyl 100 MCG/2 ML VIAL ONE (12:52)
[2019-08-06] MEDS ORDERED: Bupivacaine PF 0.5% 30 ML VIAL ONE (12:55)
[2019-08-06] MEDS ORDERED: Propofol 500 MG/50 ML VIAL ONE (13:06)
[2019-08-06] MEDS ORDERED: Ondansetron HCl/PF 4 MG/2 ML Vial IVP PRN (13:59)
[2019-08-06] MEDS ORDERED: Meperidine HCl/PF 25 MG/ML VIAL SLOW IVP PRN (13:59)
[2019-08-06] MEDS ORDERED: HYDROmorphone 2 MG/ML VIAL SLOW IVP PRN (13:59)
[2019-08-06] MEDS ORDERED: Ketorolac Tromethamine 30 MG/ML VIAL IVP PRN (13:59)
[2019-08-06] MEDS ORDERED: Promethazine HCl 25 MG/ML VIAL IM PRN (13:59)
[2019-08-06] MEDS ORDERED: Promethazine HCl 25 MG/ML VIAL SLOW IVP PRN (13:59)
--- NOTE | 2019-08-06 14:33 | PDOC.HOSPP ---
- Subjective Encounter Date: 08/06/19 Encounter Time: 08:00 Subjective: Pt seen for followup re: NSTEMI. Feels better today. - Objective Vital Signs & Weight: Vital Signs (12 hours) Temp Pulse Resp BP BP Pulse Ox 08/06/19 11:22 99.4 F 84 23 H 132/69 95 08/06/19 08:26 99.7 F H 89 20 162/74 H 95 08/06/19 03:57 98.7 F 86 18 139/65 94 L Weight Admit Weight 172 lb 13.478 oz Weight 166 lb 11.2 oz Most Recent Monitor Data Heart Rate from ECG 86 NIBP 126/84 NIBP BP-Mean 98 Respiration from ECG 11 SpO2 98 I&O: 08/05/19 08/06/19 08/07/19 06:59 06:59 06:59 Intake Total 1120 1368 Output Total 2665 2600 Balance -3076 -6949 Result Diagrams: 08/05/19 04:07 08/06/19 03:56 Additional Labs: Accuchecks 08/06/19 08/06/19 08/05/19 10:54 05:46 20:29 POC Glucose 171 H 232 H 222 H 08/05/19 17:10 POC Glucose 218 H Labs and MARs reviewed by me EKG Reviewed by me: Yes (Tele: NSR) Hospitalist ROS - Review of Systems Cardiovascular: denies: chest pain, palpitations, orthopnea, paroxysmal noc. dyspnea, edema, light headedness Gastrointestinal: denies: nausea, vomiting, abdominal pain, diarrhea, constipation, melena, hematochezia - Medication Medications: Active Medications Generic Name Dose Route Start Last Admin Trade Name Freq PRN Reason Stop Dose Admin Acetaminophen 650 mg 07/31/19 11:57 08/04/19 21:08 Tylenol PO 650 mg Q6H PRN Administration Headache/Fever Or Mild Pain Al Hydroxide/Mg Hydroxide 30 ml 08/04/19 07:34 08/06/19 08:31 Maalox PO 30 ml Q4H PRN Administration Indigestion Amiodarone HCl 400 mg 08/01/19 21:00 08/06/19 08:28 Cordarone PO 400 mg BID LIN Administration Aspirin 325 mg 08/01/19 09:00 08/06/19 08:36 Aspirin PO 325 mg DAILY LIN Administration Calcium/Vitamin D 1 tab 08/02/19 17:00 08/06/19 08:27 Caltrate 600 + Vit D PO 1 tab BID-WM LIN Administration Famotidine 20 mg 08/04/19 21:00 08/05/19 20:49 Pepcid PO 20 mg 2100 LIN Administration Hydralazine HCl 25 mg 08/05/19 15:00 08/06/19 08:28 Apresoline PO 25 mg TID LIN Administration Sodium Chloride 1,000 mls @ 50 mls/hr 08/06/19 11:00 08/06/19 11:28 Normal Saline 0.9% IV 1,000 mls .Q20H LIN Administration Insulin Human Isoph/Insulin Regular 10 units 08/05/19 21:00 08/06/19 08:29 Humulin 70/30 SC Not Given BID LIN Melatonin 3 mg 08/02/19 19:07 08/02/19 20:10 Melatonin PO 3 mg HS PRN Administration Insomnia Potassium Chloride 40 meq 08/06/19 09:00 08/06/19 08:28 K-Dur PO 08/06/19 15:01 40 meq Q6H LIN Administration Rosuvastatin Calcium 20 mg 08/01/19 21:00 08/05/19 20:49 Crestor PO 20 mg HS LIN Administration Sodium Bicarbonate 650 mg 08/05/19 09:00 08/06/19 08:27 Bicarbonate, Sodium PO 650 mg TID LIN Administration Sodium Chloride 10 ml 08/03/19 21:00 08/06/19 08:28 Flush - Normal Saline IVF 10 ml Q12HR LIN Administration Sodium Chloride 10 ml 08/03/19 09:53 08/05/19 05:45 Flush - Normal Saline IVF 10 ml PRN PRN Administration Saline Flush Tramadol HCl 50 mg 08/05/19 07:12 08/06/19 08:31 Ultram PO 50 mg Q12H PRN Administration Mild-Moderate Pain (1-5) - Exam General Appearance: awake alert Eye: anicteric sclera ENT: moist mucosa Neck: supple Heart: RRR Respiratory: CTAB Gastrointestinal: soft, non-tender Skin: normal turgor Skin - other findings: toe ulcer Psychiatric: normal affect, normal behavior Hosp A/P (1) NSTEMI (non-ST elevated myocardial infarction) Code(s): I21.4 - NON-ST ELEVATION (NSTEMI) MYOCARDIAL INFARCTION Status: Acute Plan: present on admission (2) Multi-vessel coronary artery stenosis Code(s): I25.10 - ATHSCL HEART DISEASE OF [place] CORONARY ARTERY W/O ANG PCTRS Status: Acute (3) Acute on chronic systolic CHF (congestive heart failure), NYHA class 3 Code(s): I50.23 - ACUTE ON CHRONIC SYSTOLIC (CONGESTIVE) HEART FAILURE Status : Acute (4) Hyponatremia Code(s): E87.1 - HYPO-OSMOLALITY AND HYPONATREMIA Status: Acute (5) Acute renal failure superimposed on stage 3 chronic kidney disease Code(s): N17.9 - ACUTE KIDNEY FAILURE, UNSPECIFIED; N18.3 - CHRONIC KIDNEY DISEASE, STAGE 3 (MODERATE) Status: Acute (6) DM2 (diabetes mellitus, type 2) Status: Chronic (7) Diabetic toe ulcer Code(s): E11.621 - TYPE 2 DIABETES MELLITUS WITH FOOT ULCER; L97.509 - NON- PRESSURE CHRONIC ULCER OTH PRT UNSP FOOT W UNSP SEVERITY Status: Chronic - Plan Creatinine 2.90 today. Potassium being replaced. Reasonable control of blood sugars Plan for toe surgery noted. Family updated.
--- NOTE | 2019-08-06 14:44 | RAD ---
LEFT FOOT THREE VIWS: 08/06/19 COMPARISON: None. HISTORY: Evaluate foot following amputation of the great toe. FINDINGS: There is evidence of recent amputation involving the distal aspect of the first distal phalanx with o verlying soft tissue swelling and small postoperative gas. There is an old fracture of the fifth meta tarsal shaft. There is enthesophyte formation involving the origin of the plantar aponeurosis and insertion of the Achilles tendon. There is dorsal midfoot degenerative change/osteophyte formation. IMPRESSION: Findings consistent with the provided history of recent partial amputation of the great toe. POS: [facility]
[2019-08-06] MEDS: Isosorbide Dinitrate 5 MG TAB PO SCH ×2 (14:50→21:11)
[2019-08-06] MEDS: Insulin Regular 300 UNITS/3 ML VIAL SC PRN ×2 (17:52→21:12)
[2019-08-06 18:50] LABS: Albumin 3.4 g/dL (3.4-4.8); Anion Gap 15 mmol/L (10-20); BUN (Urea Nitrogen) 30 mg/dL (9.8-20.1); BUN/Creatinine Ratio 10.56; Calc. Creatinine Clearance 25 mL/min (70-130); Calcium 8.7 mg/dL (7.8-10.44); Carbon Dioxide 26 mmol/L (23-31); Chloride 94 mmol/L (98-107); Estimated GFR-MDRD 17; Glucose 200 mg/dL (80-115); Phosphorus 2.4 mg/dL (2.3-4.7); Potassium 3.5 mmol/L (3.5-5.1); Sodium 131 mmol/L (136-145)
--- NOTE | 2019-08-06 20:26 | OP ---
DATE OF PROCEDURE: 08/06/2019 PREOPERATIVE DIAGNOSIS: Osteomyelitis, left great toe. POSTOPERATIVE DIAGNOSIS: Osteomyelitis, left great toe. PROCEDURE: Partial amputation of left great toe. ANESTHESIA: TIVA with local foot block. HEMOSTASIS: Pneumatic ankle tourniquet at 250 mmHg. ESTIMATED BLOOD LOSS: Less than 5 mL. MATERIALS: 4-0 Vicryl and 4-0 Prolene. INJECTABLES: 20 mL of 0.5% Marcaine plain. DESCRIPTION OF PROCEDURE: The patient was brought to the operating room, placed on operating table in supine position. Well-padded pneumatic ankle tourniquet was placed about the patient's left ankle. Following administration of IV anesthesia, local foot block was given utilizing 20 mL of 0.5% Marcaine plain. The foot was then scrubbed, prepped, and draped in usual aseptic manner. Esmarch bandage was used to exsanguinate the patient's left foot, and the pneumatic ankle tourniquet was then inflated to 250 mmHg, which provided adequate hemostasis throughout the entire procedure. Next, attention was then directed to the dorsal aspect of the patient's left foot, where a fishmouth incision was made encompassing the distal ulceration of the left great toe. The distal phalanx was noted to be osteomyelitic and was carefully resected from the operative field. To obtain adequate exposure, the head of the proximal phalanx was resected and passed from the operative field. The wound was irrigated with copious amounts of sterile normal saline. The wound was reapproximated and coapted utilizing 4-0 Vicryl and 4-0 Prolene in horizontal mattress in a running interlocking suture pattern. Light compressive dressing was placed about the patient's incision, and the pneumatic ankle tourniquet was released with prompt hyperemic response noted to all digits of the left foot. DISCHARGE SUMMARY: The patient tolerated the procedure and anesthesia and will be transferred to her room. She was advised to be seen in the office one week postoperatively. She should have wound care twice weekly for dressing changes. Job ID: [id number]
[2019-08-06] MEDS: Famotidine 20 MG TAB PO SCH (21:11)
[2019-08-06] MEDS: Rosuvastatin 20 MG TAB PO SCH (21:12)
[2019-08-07] MEDS: Sodium Chloride 0.9% 1,000 ML IV SCH ×2 (04:13→09:28)
[2019-08-07 04:21] LABS: Anion Gap 13 mmol/L (10-20); BUN (Urea Nitrogen) 29 mg/dL (9.8-20.1); Calc. Creatinine Clearance 26 mL/min (70-130); Calcium 8.1 mg/dL (7.8-10.44); Carbon Dioxide 23 mmol/L (23-31); Chloride 99 mmol/L (98-107); Estimated GFR-MDRD 18; Glucose 178 mg/dL (80-115); Potassium 3.4 mmol/L (3.5-5.1); Sodium 132 mmol/L (136-145)
[2019-08-07] MEDS ORDERED: Potassium Chloride 20 MEQ TAB PO SCH (06:30)
--- NOTE | 2019-08-07 07:00 | PRG ---
DATE OF SERVICE: 08/07/2019 SUBJECTIVE: The patient is now postoperative day #6 following a multivessel coronary bypass grafting for acute myocardial infarction with congestive heart failure, renal insufficiency and uncontrolled diabetes as well as gangrenous changes in the left great toe. Vital signs have been stable with tendency toward hypertension, but is on hydralazine and isosorbide in this regard. Her cardiac echo showed some improvement in her ejection fraction as compared to preop. LABORATORY VALUES: Her creatinine is still in the stable range at about 2.7 with a BUN of 30, suggesting that she is adequately hydrated now and should be able to maintain hydration with oral intake, so we will stop her IV fluids. She did have a partial toe amputation yesterday and some concern in my regard is to whether this can heal with poor circulation. Given her elevated creatinine and recent cardiac surgery, I am not recommending any attempted angiography on this admission. OBJECTIVE: On examination, her chest is healing nicely and her lungs are clear anteriorly. She has no edema in her legs. She is complaining of pain on the entire right side of her body beginning at her IV site in her right jugular vein. ASSESSMENT AND PLAN: At this time, I think the patient probably does not need further in-hospital care and we can proceed with either discharge home or to a facility. If her son is able to take care of her at home, then I think this is preferable. Job ID: [id number]
[2019-08-07] MEDS: Amiodarone 200 MG TAB PO SCH ×2 (09:33→21:07)
[2019-08-07] MEDS: Aspirin 325 MG TAB PO SCH (09:33)
[2019-08-07] MEDS: Calcium Carbonate 600 MG + Vit D TAB PO SCH ×2 (09:33→18:04)
[2019-08-07] MEDS: hydrALAZINE 25 MG TAB PO SCH ×3 (09:34→21:08)
[2019-08-07] MEDS: Enoxaparin Sodium 30 MG/0.3 ML SYRINGE SC SCH (09:34)
[2019-08-07] MEDS: Sodium Bicarbonate Tab 325 MG TAB PO SCH ×3 (09:35→21:07)
[2019-08-07] MEDS: HumuLIN 70/30 (300 UNITS/3 ML VIAL) SC SCH ×2 (09:35→21:08)
[2019-08-07] MEDS: Isosorbide Dinitrate 5 MG TAB PO SCH ×3 (09:37→21:09)
[2019-08-07] MEDS: traMADol HCl 50 MG TAB PO PRN ×2 (09:38→21:10)
--- NOTE | 2019-08-07 11:01 | PRG ---
DATE OF SERVICE: 08/07/2019 SERVICE: Nephrology. SUBJECTIVE: A 59-year-old female seen in followup for hyponatremia and acute kidney injury. The patient is status post CABG for severe multivessel disease. Also had a complication of left big toe yesterday. Complaining of some right-sided neck pain at the site of triple-lumen catheter. Otherwise, no new problem. Denied chest pain or shortness of breath. OBJECTIVE: VITAL SIGNS: Temperature 98.2, pulse 87, respiratory rate 20, SpO2 of 96% on room air, blood pressure is 159/75. I and O in the last 24 hours showed total intake of 2380 with total output of 1750. GENERAL: Female, in no obvious distress. Afebrile. HEENT: Normocephalic, atraumatic. CARDIOVASCULAR: Regular rhythm and rate with normal heart sounds 1 and 2. RESPIRATORY: Good air entry bilaterally with few transmitted breath sounds posteriorly. No rhonchi or use of accessory muscles appreciated. GI: Full, soft, nontender, nondistended with normal bowel sounds. EXTREMITIES: Left foot covered with dressing. Left leg surgical wounds noted as well. No edema or erythema appreciated. SKIN: Poor skin turgor noted. Skin also look very dry. CHAIR UPHOLSTERER: Conscious and alert oriented x3 with appropriate mental status. Cranial nerves 2 through 12 are grossly intact. DIAGNOSTIC DATA: Creatinine showed sodium 132, potassium 3.4, chloride 99, CO2 23, BUN 29, creatinine 2.74, glucose 178, calcium 8.1. ASSESSMENT: 1. Acute kidney injury: Due to volume depletion. Creatinine is beginning to trend downwards with gentle intravenous hydration. 2. Hyponatremia: Due to volume contraction with appropriate antidiuretic hormone secretion. Sodium is also trending up with commencement of normal saline. 3. Ischemic cardiomyopathy. Ejection fraction has improved from 20-45 on recent echo. 4. Coronary artery disease, on treatment. 5. Hypertension: Blood pressure control is suboptimal. PLAN: 1. We will continue normal saline at 50 mL/hour. 2. We will also increase isosorbide mononitrate to 20 mg t.i.d. to get better BP control. 3. We will also continue alkali therapy with sodium bicarbonate. 4. We will monitor intake and output as well as renal function and electrolytes. 5. We will replete serum potassium with potassium chloride. Further treatment to follow depending on hospital course. Job ID: [id number]
[2019-08-07 12:14] VITALS: BMI 25.4
[2019-08-07] MEDS: Mag-Al 1200 mg/1200 mg/30 ML UDCUP PO PRN (12:41)
[2019-08-07] MEDS: Insulin Regular 300 UNITS/3 ML VIAL SC PRN ×2 (12:42→18:04)
--- NOTE | 2019-08-07 14:37 | PDOC.HOSPP ---
- Subjective Encounter Date: 08/07/19 Encounter Time: 07:40 Subjective: Pt seen for followup re: NSTEMI. c/o pain over right side of neck. - Objective Vital Signs & Weight: Vital Signs (12 hours) Temp Pulse Pulse Pulse Resp BP BP 08/07/19 12:36 98 F 86 18 08/07/19 11:59 87 86 146/68 H 139/65 08/07/19 09:34 87 08/07/19 08:42 90 87 159/76 H 155/72 H 08/07/19 07:26 98.2 F 87 20 08/07/19 07:25 08/07/19 04:00 97.9 F 85 18 BP BP Pulse Ox Pulse Ox Pulse Ox 08/07/19 12:36 142/70 H 98 08/07/19 11:59 96 97 08/07/19 09:34 08/07/19 08:42 97 97 08/07/19 07:26 159/75 H 96 08/07/19 07:25 96 08/07/19 04:00 149/70 H 93 L Weight Admit Weight 172 lb 13.478 oz Weight 167 lb Most Recent Monitor Data Heart Rate from ECG 86 NIBP 126/84 NIBP BP-Mean 98 Respiration from ECG 11 SpO2 98 I&O: 08/06/19 08/07/19 08/08/19 06:59 06:59 06:59 Intake Total 1368 2380 Output Total 2600 1750 Balance -1232 630 Result Diagrams: 08/05/19 04:07 08/07/19 03:33 Additional Labs: Accuchecks 08/07/19 08/07/19 08/06/19 10:51 05:38 20:15 POC Glucose 241 H 136 H 260 H 08/06/19 16:54 POC Glucose 197 H Labs and MARs reviewed by me EKG Reviewed by me: Yes (Tele: NSR) Hospitalist ROS - Review of Systems Cardiovascular: denies: chest pain, palpitations, orthopnea, paroxysmal noc. dyspnea, edema, light headedness Neurological: denies: weakness, numbness, incoordination, change in speech, confusion, seizures - Medication Medications: Active Medications Generic Name Dose Route Start Last Admin Trade Name Freq PRN Reason Stop Dose Admin Acetaminophen 650 mg 07/31/19 11:57 08/04/19 21:08 Tylenol PO 650 mg Q6H PRN Administration Headache/Fever Or Mild Pain Al Hydroxide/Mg Hydroxide 30 ml 08/04/19 07:34 08/07/19 12:41 Maalox PO 30 ml Q4H PRN Administration Indigestion Amiodarone HCl 400 mg 08/01/19 21:00 08/07/19 09:33 Cordarone PO 400 mg BID LIN Administration Aspirin 325 mg 08/01/19 09:00 08/07/19 09:33 Aspirin PO 325 mg DAILY LIN Administration Calcium/Vitamin D 1 tab 08/02/19 17:00 08/07/19 09:33 Caltrate 600 + Vit D PO 1 tab BID-WM LIN Administration Enoxaparin Sodium 30 mg 08/07/19 09:00 08/07/19 09:34 Lovenox SC 30 mg 0900 LIN Administration Famotidine 20 mg 08/04/19 21:00 08/06/19 21:11 Pepcid PO 20 mg 2100 LIN Administration Sodium Chloride 1,000 mls @ 50 mls/hr 08/07/19 08:45 08/07/19 09:28 Normal Saline 0.9% IV Not Given .Q20H LIN Insulin Human Isoph/Insulin Regular 10 units 08/05/19 21:00 08/07/19 09:35 Humulin 70/30 SC 10 unit BID LIN Administration Insulin Human Regular 0 units 08/04/19 07:48 08/07/19 12:42 Humulin R SC 6 units Q4H PRN Administration POST CABG SLIDING SCALE Protocol Isosorbide Dinitrate 20 mg 08/07/19 09:00 08/07/19 09:37 Isordil PO 20 mg TID LIN Administration Melatonin 3 mg 08/02/19 19:07 08/02/19 20:10 Melatonin PO 3 mg HS PRN Administration Insomnia Rosuvastatin Calcium 20 mg 08/01/19 21:00 08/06/19 21:12 Crestor PO 20 mg HS LIN Administration Sodium Bicarbonate 650 mg 08/05/19 09:00 08/07/19 09:35 Bicarbonate, Sodium PO 650 mg TID LIN Administration Sodium Chloride 10 ml 08/03/19 21:00 08/07/19 09:35 Flush - Normal Saline IVF 10 ml Q12HR LIN Administration Sodium Chloride 10 ml 08/03/19 09:53 08/05/19 05:45 Flush - Normal Saline IVF 10 ml PRN PRN Administration Saline Flush Tramadol HCl 50 mg 08/05/19 07:12 08/07/19 09:38 Ultram PO 50 mg Q12H PRN Administration Mild-Moderate Pain (1-5) - Exam General Appearance: awake alert ENT: no oropharyngeal lesions Neck: supple Heart: RRR Respiratory: CTAB, normal chest expansion Gastrointestinal: soft Skin: normal turgor Musculoskeletal - other findings: s/p L great toe partial amputation Psychiatric: normal affect Hosp A/P (1) NSTEMI (non-ST elevated myocardial infarction) Code(s): I21.4 - NON-ST ELEVATION (NSTEMI) MYOCARDIAL INFARCTION Status: Acute (2) Multi-vessel coronary artery stenosis Code(s): I25.10 - ATHSCL HEART DISEASE OF [place] CORONARY ARTERY W/O ANG PCTRS Status: Acute (3) Acute on chronic systolic CHF (congestive heart failure), NYHA class 3 Code(s): I50.23 - ACUTE ON CHRONIC SYSTOLIC (CONGESTIVE) HEART FAILURE Status : Acute (4) Hyponatremia Code(s): E87.1 - HYPO-OSMOLALITY AND HYPONATREMIA Status: Acute (5) Acute renal failure superimposed on stage 3 chronic kidney disease Code(s): N17.9 - ACUTE KIDNEY FAILURE, UNSPECIFIED; N18.3 - CHRONIC KIDNEY DISEASE, STAGE 3 (MODERATE) Status: Acute (6) DM2 (diabetes mellitus, type 2) Status: Chronic (7) Diabetic toe ulcer Code(s): E11.621 - TYPE 2 DIABETES MELLITUS WITH FOOT ULCER; L97.509 - NON- PRESSURE CHRONIC ULCER OTH PRT UNSP FOOT W UNSP SEVERITY Status: Chronic - Plan Creatinine improved to 2.74 today. Replace potassium Increase Humulin 70/30 to 13 units BID s/p partial amputation of L great toe Family updated.
[2019-08-07] MEDS: Famotidine 20 MG TAB PO SCH (21:08)
[2019-08-07] MEDS: Rosuvastatin 20 MG TAB PO SCH (21:09)
[2019-08-08] MEDS: Sodium Chloride 0.9% 1,000 ML IV SCH (03:13)
[2019-08-08 05:05] LABS: Anion Gap 10 mmol/L (10-20); BUN (Urea Nitrogen) 22 mg/dL (9.8-20.1); Calc. Creatinine Clearance 31 mL/min (70-130); Calcium 8.3 mg/dL (7.8-10.44); Carbon Dioxide 26 mmol/L (23-31); Chloride 97 mmol/L (98-107); Estimated GFR-MDRD 22; Glucose 73 mg/dL (80-115); Potassium 3.3 mmol/L (3.5-5.1); Sodium 130 mmol/L (136-145)
--- NOTE | 2019-08-08 07:13 | PRG ---
DATE OF SERVICE: 08/08/2019 SUBJECTIVE: She is now postoperative day #7 from multivessel coronary artery bypass grafting for non-STEMI, congestive heart failure. OBJECTIVE: VITAL SIGNS: Her blood pressure is up slightly in the 130-160 range with a resting heart rate of about 90. CHEST: Incision looks good. LUNGS: Clear posteriorly. EXTREMITIES: Legs are without edema and she has a dressing on her left foot from her great toe amputation by Podiatry. DIAGNOSTIC DATA: Her laboratory values; her creatinine has decreased to 2.25 and her BUN to 22, and her potassium remains low at 33. Glucose is labile running from a 71 this morning to 241 yesterday morning. She is on 13 units of insulin twice a day as well as a sliding scale. She continues on low-dose IV fluids and her weight is recorded at 166 pounds with a slightly positive I and Os in the last 2 days. PLAN: No recommendations in regard to surgery other than to continue with therapy and hopefully can stop her IV fluids today since she should be able to take enough oral intake to maintain hydration. Job ID: [id number]
[2019-08-08] MEDS: Isosorbide Dinitrate 5 MG TAB PO SCH ×3 (08:16→20:27)
[2019-08-08] MEDS: Sodium Bicarbonate Tab 325 MG TAB PO SCH (08:16)
[2019-08-08] MEDS: hydrALAZINE 25 MG TAB PO SCH ×3 (08:17→20:27)
[2019-08-08] MEDS: Amiodarone 200 MG TAB PO SCH ×2 (08:17→20:27)
[2019-08-08] MEDS: Acetaminophen 325 MG TAB PO PRN (08:17)
[2019-08-08] MEDS: Calcium Carbonate 600 MG + Vit D TAB PO SCH ×2 (08:17→17:37)
[2019-08-08] MEDS: Potassium Chloride 20 MEQ TAB PO SCH ×2 (08:17→17:37)
[2019-08-08] MEDS: Aspirin 325 MG TAB PO SCH (08:17)
[2019-08-08] MEDS: Enoxaparin Sodium 30 MG/0.3 ML SYRINGE SC SCH (08:17)
[2019-08-08] MEDS: HumuLIN 70/30 (300 UNITS/3 ML VIAL) SC SCH ×2 (08:24→20:28)
[2019-08-08] MEDS ORDERED: Sodium Chloride 0.9% 1,000 ML IV SCH (11:15)
--- NOTE | 2019-08-08 12:55 | PRG ---
DATE OF SERVICE: 08/08/2019 SERVICE: Nephrology. SUBJECTIVE: A 59-year-old female with diabetes and hypertension, who is seen in followup for acute kidney injury. The patient was admitted with worsening shortness of breath and chest pain, and subsequently found to have multivessel disease and later had CABG. Reports feeling better. Denied chest pain, shortness of breath, leg edema. Oral intake has improved. OBJECTIVE: VITAL SIGNS: Temperature 97.9, pulse 84, respiratory rate 20, SpO2 of 95% on room air, and blood pressure is 140/71. I and O in the last 24 hours showed total intake of 2310 with output of 1750. GENERAL: Comfortable, chronically ill-looking female, in no obvious distress. Afebrile. Anicteric. Acyanotic. HEENT: Normocephalic, atraumatic. Oral mucosa is mildly dry. NECK: Supple with no JVD. CARDIOVASCULAR: Regular rhythm and rate with normal heart sounds 1 and 2. RESPIRATORY: Good air entry bilaterally with a few transmitted breath sounds, but no obvious crackles or rhonchi or use of accessory muscles. GI: Full, soft, nontender, nondistended with normal bowel sounds. EXTREMITIES: Left foot covered with dressing. Otherwise, both extremities are normal with no edema or erythema. SKIN: Poor skin turgor consistent with dryness. [employer] LEVERMAN: Conscious and alert and oriented x3 with appropriate mental status. Cranial nerves 2 through 12 are grossly intact. DIAGNOSTIC DATA: Chemistry showed sodium 130, potassium 3.3, chloride 97, CO2 of 26, BUN 22, creatinine 2.25, glucose 73, and calcium 8.3. Of note, yesterday BUN was 29 and creatinine was 2.74. ASSESSMENT: 1. Acute kidney injury: Due to hemodynamic factors related to volume depletion and hypotension. Creatinine is trending downwards with gentle IV hydration. 2. Hypokalemia: Due to poor oral intake. 3. Metabolic acidosis, improved. 4. Volume status: The patient is clinically dry. 5. Hypertension: Control is fair. 6. Hyponatremia: Due to volume contraction with appropriate ADH secretion. PLAN: 1. Continue normal saline . 2. Replete serum potassium with potassium chloride. 3. Continue to monitor electrolytes and urine output. 4. Agree with increase of hydralazine to 50 t.i.d. to get adequate BP control. The patient is on hydralazine and isosorbide mononitrate since she could not be on RAAS alyec due to acute kidney injury. DISPOSITION: The patient can be discharged from Nephrology point of view. Lynden oral intake is advised. Needs to follow up in 10 days with repeat labs. Call for any clarification. We will sign off at this time. Job ID: [id number]
[2019-08-08 19:35] VITALS: BP 142/74; TEMP 97.8
[2019-08-08] MEDS: Famotidine 20 MG TAB PO SCH (20:27)
[2019-08-08] MEDS: Rosuvastatin 20 MG TAB PO SCH (20:27)
--- NOTE | 2019-08-09 01:50 | DIS ---
DATE OF ADMISSION: 07/30/2019 DATE OF DISCHARGE: 08/08/2019 PRIMARY CARE PROVIDER: Latesha Valle MD DISCHARGE DIAGNOSES: 1. Bak-EK-ctbipgiko myocardial infarction. 2. Acute kidney injury. 3. Osteomyelitis of the left great toe. 4. Hypokalemia. 5. Hyponatremia. 6. Vitamin D deficiency. 7. Ischemic cardiomyopathy. 8. Diastolic dysfunction. 9. Coronary artery bypass graft surgery during this hospitalization. 10. Left great toe partial amputation during this hospitalization. CONDITION OF PATIENT ON THE DAY OF DISCHARGE: Stable. I assessed Ms. Prado on the day of discharge. She denies any chest pain or shortness of breath. Vital signs are stable. S1 and S2 are heard, regular. Lungs are clear to auscultation bilaterally. CONSULTATIONS DURING THIS HOSPITALIZATION: 1. Cardiology, Dr. Tolentino. 2. Pulmonary and Critical Care Medicine, Dr. Rao. 3. Cardiovascular Surgery, Dr. Mckeon. 4. Nephrology, Dr. Grier. 5. Podiatry, Dr. Sumaya Foley. POST-ACUTE CARE FOLLOWUP: With primary care provider on August 11, 2019 at 1:45 p.m., with Podiatry Service in 1 week, with Dr. Mckeon on August 27, 2019 at 1:00 p.m., and with Dr. Grier on August 19, 2019 at 11:00 a.m., and with Dr. Tolentino in 10 days. DISCHARGE MEDICATIONS: 1. Tylenol p.r.n. 2. Amiodarone 400 mg 2 times a day for one more week, then 400 mg daily for two weeks, then 200 mg daily. 3. Aspirin 325 mg daily. 4. Calcium carbonate plus vitamin D one tablet 2 times a day. 5. Coreg 3.125 mg 2 times a day. 6. Humulin 70/30, 13 units 2 times a day. 7. Hydralazine 50 mg 3 times a day. 8. Isosorbide dinitrate 20 mg 3 times a day. 9. Crestor 20 mg at bedtime. DIET: Diabetic heart healthy and renal. ACTIVITY: As tolerated. HOSPITAL COURSE: Ms. Prado is a pleasant 59-year-old lady, who was admitted to [facility] on July 29, 2019, for non ST-elevation myocardial infarction. She was seen by Cardiology Service. She was found to have multivessel disease. She was seen by CV Surgery Service. She underwent coronary artery bypass graft x5 on July 31, 2019. She also had renal failure and she was seen by Nephrology Service. Her renal function started improving. She has been advised to maintain good oral fluid intake. 2D echocardiogram on July 29 showed left ventricular ejection fraction of 25% to 30%, mildly dilated left atrium and E/A flow reversal suggestive of diastolic dysfunction. She had moderate mitral regurgitation and mild tricuspid regurgitation. Followup echocardiogram on August 05 showed left ventricular ejection fraction of 40% to 45%. She also had osteomyelitis of the left great toe. She was seen by Podiatry Service and underwent partial amputation of the left great toe. She has been cleared for discharge by all consultants. She is being discharged home in a stable condition. On the day of discharge, she has sodium 130, potassium 3.3, blood urea nitrogen 22, creatinine 2.25, and calcium 8.3. On August 04, she had white count 85480, hemoglobin 11.7, and platelet count 311,000. She was screened for COVID-19 and COVID-19 test was negative. Her vitamin D level was low at 26.8. Many thanks for allowing me to participate in your patient's care. Please feel free to contact me with any questions or concerns. DISCHARGE DESTINATION: Home. TIME SPENT: Total amount of time spent coordinating this discharge: 33 minutes. Job ID: [id number]
--- NOTE | 2019-08-11 12:51 | PQF ---
Bertin Prado MOHAMED S MD [id number] CLINICAL DOCUMENTATION CLARIFICATION FORM: POST DISCHARGE Addendum to original discharge summary date: ____ Late entry note date: 08/11/19 DATE: 08/08/2019 ATTN:DANNI ARNDT MD Please exercise your independent, professional judgment in responding to the clarification form. Clinical indicators are provided on the bottom of this form for your review Please check appropriate box(s) to clarify if the following diagnosis has been ruled in or ruled out: SEPSIS [ / ] Ruled in diagnosis [ ] Continue to treat [ ] Resolved [ ] Ruled out diagnosis [ ] Cannot rule out diagnosis [ ] Other diagnosis [ ] Unable to determine In addition, please specify: Present on Admission (POA): [ ] Yes [ ] No [ ] Unable to determine For continuity of documentation, please document condition throughout progress notes and discharge summary. Thank You. CLINICAL INDICATORS - SIGNS / SYMPTOMS / LABS - Sepsis, lactic acid was elevated , The patient was tachycardic, Elevated WBC- H&P, 07/29, Danni Razo MD - WBC: 13.9- Laboratory report, 08/01, Jalen Wooten MD - RR:18, 23H- Vital signs, 08/05 - Pneumonia- cannot be entirely ruled out-H&P, 07/29, Danni Razo MD RISK FACTORS - Acute kidney injury- H&P, 07/29, Danni Razo MD - Osteomyelitis of the great toe- H&P, 07/29, Danni aRzo MD TREATMENTS -Vancomycin.IV- MAR, 07/28 SAP Charge Loader [employer] Winform Viewer (This form is maintained as a part of the permanent medical record) 2014 [employer]. All Rights Reserved Laureen [email or web address]
== END 2019-08-08 22:05 | disposition home or self-care (01) | DRG 233 ==
LOC: ERS 17:23 → CCU 07-30 00:14 → 2NO 08-04 09:52
PROVIDERS: ADMIT Internal Medicine; ATTEND Internal Medicine
PROC: 4A023N7 Measurement of Cardiac Sampling and Pressure, Left Heart, Percutaneous Approach (ICD-10-PCS; principal; 2019-07-30)
PROC: B2111ZZ Fluoroscopy of Multiple Coronary Arteries using Low Osmolar Contrast (ICD-10-PCS; 2019-07-30)
PROC: 02100Z9 Bypass Coronary Artery, One Artery from Left Internal Mammary, Open Approach (ICD-10-PCS; 2019-07-31)
PROC: 021309W Bypass Coronary Artery, Four or More Arteries from Aorta with Autologous Venous Tissue, Open Approach (ICD-10-PCS; 2019-07-31)
PROC: 06BP4ZZ Excision of Right Saphenous Vein, Percutaneous Endoscopic Approach (ICD-10-PCS; 2019-07-31)
PROC: 5A1221Z Performance of Cardiac Output, Continuous (ICD-10-PCS; 2019-07-31)
PROC: 0Y6Q0Z1 Detachment at Left 1st Toe, High, Open Approach (ICD-10-PCS; 2019-08-06)
DX: I21.4 Non-ST elevation (NSTEMI) myocardial infarction (principal); A41.9 Sepsis, unspecified organism; J96.01 Acute respiratory failure with hypoxia; I50.23 Acute on chronic systolic (congestive) heart failure; N17.0 Acute kidney failure with tubular necrosis; M86.8X7 Other osteomyelitis, ankle and foot; Z20.828 Contact with and (suspected) exposure to other viral communicable diseases; I13.0 Hypertensive heart and chronic kidney disease with heart failure and stage 1 through stage 4 chronic kidney disease, or unspecified chronic kidney disease; E87.2 Acidosis; E22.2 Syndrome of inappropriate secretion of antidiuretic hormone; M86.8X8 Other osteomyelitis, other site; I73.9 Peripheral vascular disease, unspecified; E78.5 Hyperlipidemia, unspecified; N18.3 Chronic kidney disease, stage 3 (moderate); E11.22 Type 2 diabetes mellitus with diabetic chronic kidney disease; E11.621 Type 2 diabetes mellitus with foot ulcer; I08.1 Rheumatic disorders of both mitral and tricuspid valves; E11.65 Type 2 diabetes mellitus with hyperglycemia; E87.6 Hypokalemia; E83.51 Hypocalcemia; Z96.651 Presence of right artificial knee joint; E11.69 Type 2 diabetes mellitus with other specified complication; I25.10 Atherosclerotic heart disease of native coronary artery without angina pectoris; Z79.4 Long term (current) use of insulin; Z87.440 Personal history of urinary (tract) infections
CPT/HCPCS: 36415; 36416; 36430; 71045; 80048; 80053; 81001; 82306; 82553; 82570; 82805; 83036; 83605; 83735; 83880; 83930; 83935; 84156; 84300; 84484; 84540; 85025; 85610; 85730; 86850; 86900; 86901; 87040; 87070; 87205; 87635; 93005; 93010; 93306; 93454; 93798; 94002; 94150; 94660; 94760; 96365; 96367; 96372; 96375; C1769; J0282; J0690; J0692; J1642; J1644; J1650; J1815; J1940; J2001; J2250; J2260; J2270; J2405; J2440; J2550; J2704; J2720; J3010; J3370; J3475; J3480; J3490; J7070; P9016; P9045; P9047; S0017; S0020; S0028; U0003

== ENCOUNTER 2019-08-16 11:52 | Inpatient (IN) | payer OTHER ==
--- NOTE | 2019-08-16 12:29 | RAD ---
Exam: Chest one view HISTORY:Weakness. Multiple falls Comparison: 08/05/2019 FINDINGS: Cardiac silhouette:Enlarged cardiac silhouette. Stable vascular rings and sternotomy wires. Lines and tubes: Interval removal of a previous right sided internal jugular venous catheter Aorta: Unremarkable Pulmonary vessels: Normal Costophrenic angles: Trace bilateral effusions LUNGS: Bibasilar opacities do remain. The degree of opacification the right lung base has decreased. Pneumothorax: None Osseous abnormalities: None IMPRESSION: 1. Improved aeration of the lung parenchyma. Residual bibasilar parenchymal changes do remain. Trace bilateral effusions may be present.
[2019-08-16 12:35] LABS: Hemoglobin 10.6 g/dL (12.0-16.0); Mean Corpuscular HGB CONC 32.3 g/dL (32.0-36.0); Mean Corpuscular Hemoglobin 27.8 pg (27.0-31.0); Mean Platelet Volume 6.2 fL (7.4-10.4); Platelet Count 555 thou/uL (130-400); RBC Distribution Width 13.4 % (11.5-14.5); Red Blood Cell (RBC) Count 3.82 mill/uL (4.20-5.40); White Blood Cell (WBC) Count 23.4 thou/uL (4.8-10.8)
[2019-08-16 12:47] LABS: Band 6 % (5-11); Lymphocytes 9 % (21-51); MDiff Complete? YES; Monocytes 4 % (0-10); Neutrophil 81 % (42-75); Platelet Morphology Comment Appears Increased; Polychromasia SLIGHT = 2-3 cells (100X) (0-2/hpf)
[2019-08-16] MEDS ORDERED: Vancomycin 1 GM/200 ML BAG ONE (12:48)
[2019-08-16 12:54] LABS: ALT (SGPT) 12 U/L (8-55); AST (SGOT) 35 U/L (5-34); Albumin 3.2 g/dL (3.4-4.8); Alkaline Phosphatase 127 U/L (40-110); Anion Gap 14 mmol/L (10-20); BUN (Urea Nitrogen) 30 mg/dL (9.8-20.1); Bilirubin, Total 1.1 mg/dL (0.2-1.2); Calc. Creatinine Clearance 0 mL/min (70-130); Calcium 8.2 mg/dL (7.8-10.44); Carbon Dioxide 25 mmol/L (23-31); Estimated GFR-MDRD 31; Globulin 3.5 g/dL (2.4-3.5); Glucose 214 mg/dL (80-115); Lipase 124 U/L (8-78); Potassium 4.2 mmol/L (3.5-5.1); Protein, Total 6.7 g/dL (6.0-8.3)
[2019-08-16 12:58] LABS: Chloride 70 mmol/L (98-107); Sodium 105 mmol/L (136-145)
[2019-08-16 13:18] LABS: CKMB 5.5 ng/mL (0-6.6)
--- NOTE | 2019-08-16 14:03 | CT ---
Exam: CT angiogram of the chest HISTORY: Chest pain. Shortness of breath. COMPARISON: None TECHNIQUE: CT angiogram of the chest is performed in the axial plane. Three-dimensional reformatted i mages are submitted for interpretation FINDINGS: Mediastinum: No mass, lymphadenopathy or hematoma. HEART: Normal size. No significant pericardial fluid. Aorta: No aneurysm or dissection Upper solid abdominal viscera: No abnormality enhancement. Trachea and central bronchi: Patent Pleural spaces: Moderate bilateral pleural effusions. Lung parenchyma: Consolidation of the middle lobe, right lower lobe, left lower lobe and lingula may represent atelectasis, pneumonia or aspiration. Pneumothorax: None Osseous structures: No lytic or blastic lesions Soft tissue structures: Diffuse soft tissue edema. Correlate for anasarca. Pulmonary arteries: Adequate contrast opacification pulmonary arterial system to the level of segment al arteries. No filling defect to suggest pulmonary embolism IMPRESSION: 1. No evidence of pulmonary arterial system to the level segmental arteries 2. Bilateral pleural effusions and anasarca. Correlate for volume overload. 3. Consolidation of the lung parenchyma as described above. Correlate for pneumonia, atelectasis or a spiration.
[2019-08-16] MEDS ORDERED: Piperacillin/Tazobactam 4.5 GM VIAL ONE (14:35)
[2019-08-16 14:36] LABS: Bacteria/HPF 4+ HPF (None Seen); Bilirubin Negative (Negative); Blood, Urine Trace (Negative); Clarity Turbid (Clear); Glucose, Urine (Dipstick) 300 mg/dL (Negative); Leukocyte 500 Leu/uL (Negative); Nitrite Negative (Negative); Protein, Urine (Dipstick) 50 mg/dL (Neg-Trace); RBC/HPF 0-3 HPF (0-3); Squamous Epithelial 0-3 HPF (0-3); Urobilinogen Normal mg/dL (Less than 2); WBC/HPF 21-50 HPF (0-3)
[2019-08-16] MEDS ORDERED: Aspirin Chewable 81 MG TAB ONE (14:38)
[2019-08-16 14:56] LABS: Anion Gap 13 mmol/L (10-20); BUN (Urea Nitrogen) 29 mg/dL (9.8-20.1); Calc. Creatinine Clearance 0 mL/min (70-130); Calcium 7.6 mg/dL (7.8-10.44); Carbon Dioxide 21 mmol/L (23-31); Estimated GFR-MDRD 35; Glucose 231 mg/dL (80-115); Potassium 4.2 mmol/L (3.5-5.1)
[2019-08-16 15:00] LABS: Chloride 74 mmol/L (98-107); Sodium 104 mmol/L (136-145)
[2019-08-16] MEDS ORDERED: Furosemide 40 MG/4 ML VIAL ONE (15:47)
[2019-08-16 16:26] LABS: Troponin I 0.596 ng/mL (< 0.028)
[2019-08-16] MEDS ORDERED: Dextrose 50% Abboject 50 ML SYRINGE SLOW IVP PRN (18:17)
[2019-08-16] MEDS ORDERED: Dextrose 5% in Water 1,000 ML IV PRN (18:17)
[2019-08-16 19:01] LABS: Anion Gap 16 mmol/L (10-20); BUN (Urea Nitrogen) 28 mg/dL (9.8-20.1); Calc. Creatinine Clearance 54 mL/min (70-130); Calcium 7.7 mg/dL (7.8-10.44); Carbon Dioxide 19 mmol/L (23-31); Estimated GFR-MDRD 35; Glucose 237 mg/dL (80-115); Potassium 4.5 mmol/L (3.5-5.1)
[2019-08-16 19:05] LABS: Chloride 74 mmol/L (98-107); Sodium 104 mmol/L (136-145)
[2019-08-16 19:08] LABS: Critical Call Chem Troponin I RESULT DECREASING
[2019-08-16] MEDS ORDERED: Sodium Chloride 3% 100 ML IVPB SCH (19:15)
--- NOTE | 2019-08-16 19:18 | HP ---
CHIEF COMPLAINT: Generalized weakness. HISTORY OF PRESENT ILLNESS: The patient is a 59-year-old female, who recently underwent an open bypass and a left toe amputation, who was recently discharged from the hospital on August 07, who presents to the hospital with complaints of generalized weakness. The patient's son, who is at the bedside, states that the patient initially did well, has been compliant with her medications, however, for the past few days, has been progressively getting weak to the point that she has to use a walker and has been almost unable to walk with the walker. Family stated that patient's lower extremities were significantly weak. She was unable to get up and move around as she was able to do after her discharge. Denies any fevers or chills. Denies any cough, however, also states that for the past few days has been having some worsening shortness of breath on exertion. Also has been having some chest pain, felt like she could not take a deep breath. The patient states that she has been drinking significant amount of water, however, has not been eating very much. PAST MEDICAL HISTORY: She has a history of diabetes, hyponatremia, hypokalemia, diastolic dysfunction, ischemic cardiomyopathy, NSTEMI, acute kidney injury. PAST SURGICAL HISTORY: She underwent a multi-vessel bypass and right knee replacement. SOCIAL HISTORY: No history of smoking, alcohol use, drug use. She is a full code. FAMILY HISTORY: No history of heart disease or stroke. HOME MEDICATIONS: From the recent discharge are; 1. Amiodarone 400 mg daily. 2. Aspirin 325 daily. 3. Coreg 3.125 twice a day. 4. Hydralazine 50 mg 3 times a day. 5. Isosorbide 20 mg three times a day. 6. Crestor 20 mg daily. ALLERGIES: NO KNOWN DRUG ALLERGIES. REVIEW OF SYSTEMS: All negative except for the ones mentioned above in the HPI. PHYSICAL EXAMINATION: VITAL SIGNS: As of the following; temperature of 98.8, blood pressure 130/60, sats 98% on room air. GENERAL: She is awake, alert, and oriented x3, appears in mild respiratory distress. CV: S1, S2 present. No murmurs, rubs, or gallops. Her mid surgical incision is intact. She does have some sanguinous drainage that is noted. LUNGS: She has crackles to bilateral lower lungs with decreased breath sounds to bases. ABDOMEN: Obese. Bowel sounds are present x2. No pain upon palpation. EXTREMITIES: No edema. Pedal pulses are present x2. Her left toe suturing is intact. NEUROVASCULAR: No focal deficits noted. SKIN: As I mentioned, she has an incision to her substernal area, it has some serosanguineous fluid and also her left toe suturing which is intact. LABORATORY RESULTS: As of the following; her initial sodium was 105, potassium of 4.2, chloride of 70, BUN of 30, creatinine of 1.69. Her serum osmolality was 234. Troponin was 0.661. AST 35, ALT of 12, alkaline phosphatase is 127. Her BNP is 1227. Hematology; WBCs of 23.4, hemoglobin of 10.6, hematocrit of 32.9, platelets of 555. She did have a CTA which did not show any evidence of PE; however, she did have some bilateral pulmonary effusion and anasarca. Consolidation of the lung parenchyma also with possible abscesses versus pneumonia. ASSESSMENT AND PLAN: The patient is a 59-year-old female who presents to the hospital with complaints of generalized weakness. 1. Generalized weakness. This could be secondary to her hyponatremia versus possible pneumonia. The family states that she has had problems with her sodium in the past. The serum osmolality appears to be very low. Currently, she appears to be volume overloaded. I did speak with Nephrology who is thinking of starting her on 3% and we will also give her some IV Lasix. 2. Hyponatremia, appeared to be hypotonic hyponatremia. We will consult Nephrology. We will check her BMP every 4 to 6 hours. Spoke with Nephrology. Probably will need 3% normal saline. We will continue to monitor closely. I will check urine sodium and urine osmolality. 3. Possible pneumonia. The patient does have elevated leukocytosis. She does have some consolidation. We will start her on some broad-spectrum antibiotics, it will cover possible hospital-acquired pneumonia. 4. Leukocytosis. Again, this is most likely possibly secondary to underlying infectious process. 5. Mildly elevated troponins. I believe this is just a trend from her previous troponins. I do not think she has any acute ischemic event. EKG does not show any acute abnormalities. 6. Acute on chronic diastolic heart failure. We will start her on some IV diuretics and continue to monitor her. 7. Deep venous thrombosis prophylaxis. We will put the patient on subcu Lovenox. Job ID: [id number]
[2019-08-16 19:38] LABS: Creatinine, Urine 69.91 mg/dL (47-110)
[2019-08-16] MEDS: hydrALAZINE 25 MG TAB PO SCH (19:38)
[2019-08-16] MEDS: Rosuvastatin 20 MG TAB PO SCH (19:39)
[2019-08-16] MEDS: Isosorbide Dinitrate 20 MG TAB PO SCH (19:39)
[2019-08-16] MEDS: Carvedilol 3.125 MG TAB PO SCH (19:40)
[2019-08-16] MEDS ORDERED: Furosemide 40 MG/4 ML VIAL SLOW IVP SCH (20:00)
[2019-08-16] MEDS: HumaLOG 300 UNITS/3 ML VIAL SC PRN (20:01)
[2019-08-16] MEDS: Piperacillin/Tazobactam 4.5 GM in Sodium Chloride 0.9% 100 ML IVPB SCH (20:45)
[2019-08-16] MEDS ORDERED: traMADol HCl 50 MG TAB PO SCH (20:45)
--- NOTE | 2019-08-16 21:48 | CON ---
DATE OF CONSULTATION: 08/16/2019 SERVICE: Nephrology. REASON FOR CONSULTATION: Severe hyponatremia. REQUESTING PHYSICIAN: Dr. Dias. CHIEF COMPLAINT: Worsening shortness of breath. HISTORY OF PRESENT ILLNESS: A 59-year-old female, well known to me from prior hospitalization during which she had CABG, which was complicated by postoperative acute kidney injury and hyponatremia, now readmitted with worsening shortness of breath. There was some concern in the ER for pulmonary embolism, and the patient subsequently had a contrast CT angio, which however was negative for PE. There was some concern also for dehydration, and patient received a liter of normal saline. On presentation, plasma sodium was 105, 2 hours after IV fluid therapy with normal saline sodium was 104. There was no associated mental status change, nausea, vomiting, or falls. The patient during prior hospitalization was found to have coronary artery disease as well as ischemic cardiomyopathy with initial ejection fraction of 20, which later improved to 40 to 45 post CABG. During prior hospitalization, the patient developed acute kidney injury with peak creatinine of 2.90, which later improved to 2.25 at discharge. Creatinine on this presentation was 1.69, which is down to 1.50. The patient reported shortness of breath worse on exertion associated with orthopnea, but denied fever or cough. OBJECTIVE: VITAL SIGNS: Pulse 64, respiratory rate 25, SpO2 94% on room air, temperature 98.8, and blood pressure 130/60. GENERAL: Female in [id number] respiratory distress. Afebrile. Anicteric. Acyanotic. HEENT: Normocephalic, atraumatic. Oral mucosa is moist. NECK: Supple with no obvious JVD. CARDIOVASCULAR: Regular rhythm and rate with normal heart sounds one and two. RESPIRATORY: Fair air entry bilaterally. Decreased at both bases with some transmitted breath sounds. No obvious rhonchi were appreciated. Work of breathing is increased. GI: Full, soft, nontender, nondistended with normal bowel sounds. UROGENITAL: Jaramillo catheter is in place, draining some urine. EXTREMITIES: Mild bilateral leg edema noted. CORRECTIVE THERAPY AIDE TEACHER: Conscious, alert, oriented x3 with appropriate mental status. Cranial nerves 2 through 12 are grossly intact. The patient moves all extremities. DIAGNOSTIC DATA: CBC showed WBC count of 23.4, hemoglobin of 10.6, MCV of 86, and platelets of 555. Chemistry on presentation showed sodium 105, potassium 4.2, chloride 70, CO2 of 25, BUN 30, creatinine 1.69, glucose 214, calcium 8.2, lactic acid 1.5, total bilirubin 1.1, AST 35, alkaline phosphatase 127, total protein 6.7, and albumin 3.2. Lipase is 124. Cardiac markers showed CK-MB 5.5, troponin 0.661, and BNP 1227. Repeat BMP after IV fluid therapy with normal saline showed sodium 104, potassium 4.2, chloride 74, CO2 of 21, BUN 29, and creatinine 1.50. Serum osmolality is 234. Urinalysis showed yellow turbid urine with pH of 5.5, specific gravity of 1.020, urine protein 50, glucose 300, negative ketones, trace blood, negative nitrite, bilirubin, urobilinogen. Leukocyte esterase is 500. Microscopy showed 0 to 3 rbc and 21 to 50 wbc with 4+ bacteria. Urine osmolality is 436 while urine sodium is less than 20. Chest x-ray showed improved aeration of the lung parenchyma with residual bibasilar parenchymal changes. Trace bilateral effusion may be present. CT angio of the chest and thorax showed no evidence of pulmonary embolism. However, bilateral pleural effusion and anasarca were noted. ASSESSMENT: 1. Severe hyponatremia with plasma sodium of 105/104. This seems to be multifactorial from appropriate ADH secretion related to effective volume contraction due to congestive heart failure.as urine sodium is very low and SIADH as urine osmolality is very high in the face low plasma osmolality. The patient has features of fluid overload as evidenced by decreased air entry at both bases, pleural effusion, as well as bilateral leg edema. 2. Hypervolemia/generalized edema. 3. Bilateral pleural effusion. 4. Presumed acute on chronic combined systolic and diastolic heart failure. 5. Resolving acute kidney injury. 6. The patient is at increased risk of acute kidney injury given contrast study. 7. Chronic kidney disease, stage 3 due to diabetes and hypertension. 8. Hypertension: Control is acceptable. 9. Paroxysmal atrial fibrillation on amiodarone. 10. Acute respiratory failure most likely due to congestive heart failure exacerbation and pleural effusion. PLAN: 1. We will start diuretic therapy with Lasix. We will also give 100 mL of hypertonic saline to help increase the plasma sodium a little bit more. 2. We will monitor intake and output. 3. We will also start free water fluid restriction to 1000 mL per 24 hours. 4. We will monitor BMP serially and address electrolyte derangement as indicated. 5. Treatment of acute respiratory failure as per primary attending. Many thanks for involving us in the care of this patient. We will follow along with you. Job ID: [id number] MTDD
[2019-08-17 00:21] LABS: Anion Gap 14 mmol/L (10-20); BUN (Urea Nitrogen) 29 mg/dL (9.8-20.1); Calc. Creatinine Clearance 53 mL/min (70-130); Calcium 7.5 mg/dL (7.8-10.44); Carbon Dioxide 22 mmol/L (23-31); Estimated GFR-MDRD 34; Glucose 235 mg/dL (80-115); Potassium 4.1 mmol/L (3.5-5.1)
[2019-08-17 00:38] LABS: Chloride 73 mmol/L (98-107); Critical Call Chemistry NUR.AEB@0038; Sodium 105 mmol/L (136-145)
[2019-08-17] MEDS ORDERED: Vancomycin 1.5 GRAM/300 ML BAG 1.5 GM in Premix Bag 1 BAG IVPB SCH (02:00)
[2019-08-17 04:18] LABS: Anion Gap 13 mmol/L (10-20); BUN (Urea Nitrogen) 29 mg/dL (9.8-20.1); Calc. Creatinine Clearance 52 mL/min (70-130); Calcium 7.3 mg/dL (7.8-10.44); Carbon Dioxide 24 mmol/L (23-31); Estimated GFR-MDRD 34; Glucose 196 mg/dL (80-115)
[2019-08-17 04:19] LABS: Chloride 72 mmol/L (98-107); Sodium 105 mmol/L (136-145)
[2019-08-17] MEDS ORDERED: Sodium Chloride 3% 100 ML IVPB SCH (05:00)
[2019-08-17] MEDS: Piperacillin/Tazobactam 4.5 GM in Sodium Chloride 0.9% 100 ML IVPB SCH ×3 (05:05→22:52)
[2019-08-17] MEDS: HumaLOG 300 UNITS/3 ML VIAL SC PRN ×4 (06:25→20:42)
[2019-08-17 08:17] LABS: #Eosinphils 0.3 thou/uL (0.0-0.7); #Lymphocytes 1.9 thou/uL (1.20-3.40); #Monocytes 1.5 thou/uL (0.11-0.59); #Neutrophils 14.2 thou/uL (1.40-6.50); %Basophils 0.2 % (0.0-1.0); %Eosinophils 1.5 % (0.0-10.0); %Lymphocytes 10.7 % (21.0-51.0); %Monocytes 8.4 % (0.0-10.0); %Neutrophils 79.2 % (42.0-75.0); Hemoglobin 9.6 g/dL (12.0-16.0); Mean Corpuscular HGB CONC 33.3 g/dL (32.0-36.0); Mean Corpuscular Hemoglobin 28.6 pg (27.0-31.0); Mean Corpuscular Volume 85.8 fL (78.0-98.0); Mean Platelet Volume 6.3 fL (7.4-10.4); Platelet Count 492 thou/uL (130-400); RBC Distribution Width 13.3 % (11.5-14.5); Red Blood Cell (RBC) Count 3.36 mill/uL (4.20-5.40); White Blood Cell (WBC) Count 17.9 thou/uL (4.8-10.8)
[2019-08-17] MEDS: hydrALAZINE 25 MG TAB PO SCH ×3 (08:32→20:38)
[2019-08-17] MEDS: Amiodarone 200 MG TAB PO SCH (08:33)
[2019-08-17] MEDS: Carvedilol 3.125 MG TAB PO SCH ×2 (08:33→20:37)
[2019-08-17] MEDS: Isosorbide Dinitrate 20 MG TAB PO SCH ×3 (08:33→20:37)
[2019-08-17] MEDS: Aspirin 325 MG TAB PO SCH (08:33)
[2019-08-17 08:51] LABS: Anion Gap 15 mmol/L (10-20); BUN (Urea Nitrogen) 28 mg/dL (9.8-20.1); Calc. Creatinine Clearance 53 mL/min (70-130); Calcium 7.6 mg/dL (7.8-10.44); Carbon Dioxide 21 mmol/L (23-31); Estimated GFR-MDRD 35; Glucose 153 mg/dL (80-115); Potassium 4.1 mmol/L (3.5-5.1)
[2019-08-17 08:55] LABS: Chloride 74 mmol/L (98-107); Sodium 106 mmol/L (136-145)
[2019-08-17] MEDS ORDERED: Sodium Chloride 1 GM TAB PO SCH (09:45)
[2019-08-17] MEDS ORDERED: Furosemide 40 MG/4 ML VIAL SLOW IVP SCH (09:45)
[2019-08-17] MEDS ORDERED: Admixture Fee 1 EACH in Sodium Chloride 3% 100 ML FS SCH (09:45)
[2019-08-17] MEDS: Acetaminophen/Codeine 30-300mg Tablet PO PRN ×2 (11:27→19:14)
--- NOTE | 2019-08-17 11:47 | PRG ---
DATE OF SERVICE: SERVICE: Nephrology. SUBJECTIVE: This is a 59-year-old female, status post recent CABG, admitted due to generalized weakness associated with the fall. The patient also reported shortness of breath. She was found to have severe hyponatremia, necessitating Nephrology consult. During recent hospitalization, the patient was found to have acute on chronic renal failure as well as hyponatremia, which improved at discharge. The patient reports feeling better. On talking with the son, son reported the patient has not been eating much at home, preferring to drink only coffee and fluids. There was no associated confusion or mental status change or focal weakness. OBJECTIVE: VITAL SIGNS: Temperature 98.6, pulse 75, respiratory rate 24, SpO2 93, and blood pressure 118/58. I and O in the last 24 hours showed total intake of 1004 with output of 725. Note that this is inconclusive as the patient's fluid intake while in the ER was not accounted for. GENERAL: Chronically ill-looking, fatigued female, in no obvious distress. Afebrile, anicteric, acyanotic. HEENT: Normocephalic and atraumatic. Oral mucosa is moist. NECK: Supple with no obvious JVD. CARDIOVASCULAR: Regular rhythm and rate with normal heart sounds 1 and 2. RESPIRATORY: Decreased air entry at both bases with some transmitted breath sounds. Work of breathing is increased, but no obvious rhonchi was appreciated. GI: Full, soft, nontender, and nondistended with normal bowel sounds. UROGENITAL: Jaramillo catheter is in place draining some urine. EXTREMITIES: No obvious leg edema is appreciated. LABORATORY DATA: CBC today showed WBC count of 17.9, hemoglobin of 9.6, and platelet of 492. Chemistry this morning showed sodium of 106, potassium of 4.1, chloride of 74, CO2 of 21, BUN of 28, creatinine of 1.53, glucose of 153, and calcium of 7.6. ASSESSMENT: Severe hyponatremia: Multifactorial plus from poor solute intake, excessive free water intake, appropriate ADH related to volume contraction as well as baseline syndrome of inappropriate ADH secretion. Sodium is marginally up following hypertonic solution. PLAN: 1. We will give additional dose of hypertonic solution as well as start salt tablets. We will also start fluid restriction. We will also give a dose of Lasix to help with volume management as well as increase free water excretion. We will recheck BMP by 15 hours and adjust treatment as needed. 2. Protein-calorie malnutrition with poor solute intake. We will start Glucerna t.i.d. 3. Bilateral pleural effusion: Most likely due to poor respiratory effort with fluid overload. We will start incentive spirometry. We will also continue diuretics as needed. 4. Resolving acute kidney injury: Baseline creatinine is unknown, but it seems to be stable, currently at about 1.5. 5. Chronic kidney disease, stage 5, due to hypertension and diabetic nephropathy. 6. Proteinuria. 7. Further treatment to follow depending on hospital course. Job ID: [id number]
[2019-08-17 12:25] LABS: SARS-CoV-2 MS2 Positive; SARS-CoV-2 N Gene Negative; SARS-CoV-2 S Gene Negative; SARS-CoV-2 orf1ab Negative
[2019-08-17] MEDS ORDERED: Ondansetron PF 4 MG/2 ML Vial IVP PRN (12:38)
[2019-08-17] MEDS: Famotidine 20 MG TAB PO SCH ×2 (12:51→20:39)
[2019-08-17 15:35] LABS: Anion Gap 16 mmol/L (10-20); BUN (Urea Nitrogen) 29 mg/dL (9.8-20.1); Calc. Creatinine Clearance 47 mL/min (70-130); Calcium 7.4 mg/dL (7.8-10.44); Carbon Dioxide 20 mmol/L (23-31); Chloride 77 mmol/L (98-107); Estimated GFR-MDRD 30; Glucose 144 mg/dL (80-115); Potassium 4.5 mmol/L (3.5-5.1)
[2019-08-17 15:38] LABS: Sodium 108 mmol/L (136-145)
[2019-08-17] MEDS: Sodium Chloride 1 GM TAB PO SCH ×2 (16:32→20:37)
--- NOTE | 2019-08-17 17:58 | PDOC.HOSPP ---
- Subjective Encounter Date: 08/17/19 Encounter Time: 16:00 Subjective: pt up in bed states she still has some chest pain - Objective Vital Signs & Weight: Vital Signs (12 hours) Pulse BP Pulse Ox 08/17/19 16:26 72 123/57 L 08/17/19 08:32 74 114/53 L 08/17/19 07:55 96 Weight Weight 191 lb 4.8 oz Most Recent Monitor Data Heart Rate from ECG 75 NIBP 105/55 NIBP BP-Mean 71 Respiration from ECG 20 SpO2 97 I&O: 08/16/19 08/17/19 08/18/19 06:59 06:59 06:59 Intake Total 1004 200 Output Total 725 500 Balance 279 -300 Result Diagrams: 08/17/19 08:06 08/17/19 15:16 Additional Labs: Accuchecks 08/17/19 08/17/19 08/17/19 16:52 11:37 06:29 POC Glucose 173 H 168 H 191 H 08/16/19 19:53 POC Glucose 298 H Hospitalist ROS - Review of Systems Cardiovascular: reports: chest pain Gastrointestinal: denies: nausea, vomiting, abdominal pain, diarrhea, constipation, melena, hematochezia, other Genitourinary: denies: dysuria, frequency, incontinence, hematuria, retention, other Musculoskeletal: denies: neck pain, shoulder pain, arm pain, back pain, hand pain, leg pain, foot pain, other - Medication Medications: Active Medications Generic Name Dose Route Start Last Admin Trade Name Freq PRN Reason Stop Dose Admin Acetaminophen/Codeine Phosphate 1 tab 08/17/19 11:19 08/17/19 11:27 Tylenol #3 PO 1 tab Q4H PRN Administration Moderate Pain (4-6) Amiodarone HCl 400 mg 08/17/19 09:00 08/17/19 08:33 Cordarone PO 400 mg DAILY LIN Administration Aspirin 325 mg 08/17/19 09:00 08/17/19 08:33 Aspirin PO 325 mg DAILY LIN Administration Carvedilol 3.125 mg 08/16/19 21:00 08/17/19 08:33 Coreg PO 3.125 mg BID LIN Administration Famotidine 20 mg 08/17/19 21:00 08/17/19 12:51 Pepcid PO 20 mg BID LIN Administration Hydralazine HCl 50 mg 08/16/19 21:00 08/17/19 16:26 Apresoline PO 50 mg TID LIN Administration Piperacillin Sod/Tazobactam 100 mls @ 200 mls/hr 08/16/19 22:00 08/17/19 16: 25 Sod 4.5 gm/ Sodium Chloride IVPB 100 mls Q8HR LIN Administration Vancomycin HCl 1.5 gm/ Device 300 mls @ 166.67 mls/hr 08/17/19 02:00 01:41 IVPB 300 mls Q24HR LIN Administration Insulin Human Lispro 0 units 08/16/19 18:17 08/17/19 16:54 Humalog SC 2 unit .MILD SLIDING SCALE PRN Administration Mild Correctional Scale Isosorbide Dinitrate 20 mg 08/16/19 21:00 08/17/19 16:26 Isordil PO 20 mg TID LIN Administration Ondansetron HCl 4 mg 08/17/19 12:38 08/17/19 12:51 Zofran IVP 4 mg Q6H PRN Administration Nausea/Vomiting Rosuvastatin Calcium 20 mg 08/16/19 21:00 08/16/19 19:39 Crestor PO 20 mg HS LIN Administration Sodium Chloride 10 ml 08/16/19 21:00 08/17/19 08:34 Flush - Normal Saline IVF 10 ml Q12HR LIN Administration Sodium Chloride 1 gm 08/17/19 15:00 08/17/19 16:32 Sodium Chloride PO 1 gm TID LIN Administration - Exam Heart: negative: RRR, no murmur, no gallops, no rubs, normal peripheral pulses, irregular, diminshed peripheral pulses, murmur present, II/IV, III/IV Heart - other findings: mid sternum incision noted Respiratory: negative: CTAB, no wheezes, no rales, no ronchi, normal chest expansion, no tachypnea, normal percussion, rales, rhonchi, tachypneic, wheezes Gastrointestinal: negative: soft, non-tender, non-distended, normal bowel sounds , no palpable masses, no hepatomegaly, no splenomegaly, no bruit, no guarding, no rigidity, tender to palpation, distended, diminished bowl sounds, voluntary guarding Hosp A/P (1) Diastolic CHF, acute on chronic Code(s): I50.33 - ACUTE ON CHRONIC DIASTOLIC (CONGESTIVE) HEART FAILURE Status : Acute (2) Hyponatremia Code(s): E87.1 - HYPO-OSMOLALITY AND HYPONATREMIA Status: Acute (3) Chronic kidney disease, stage 3 Code(s): N18.3 - CHRONIC KIDNEY DISEASE, STAGE 3 (MODERATE) Status: Chronic (4) DM2 (diabetes mellitus, type 2) Status: Chronic - Plan pt's sodium is improving slowly. She is still on 3%. She has some chest pain but her sob has improved. will add oral supplements since she is not eating much. She has been encouraged to eat more. She is on fluid restriction.
[2019-08-17] MEDS: Rosuvastatin 20 MG TAB PO SCH (20:37)
[2019-08-17] MEDS ORDERED: Prevnar 13-Val Conj/PF 0.5 ML SYRINGE IM ONE (21:00)
[2019-08-18 01:24] LABS: Vancomycin, Trough 20.3 ug/mL
[2019-08-18] MEDS ORDERED: Vancomycin HCl 1.25 GM in Sodium Chloride 0.9% 250 ML 250 ML IVPB SCH (02:00)
[2019-08-18 04:22] LABS: #Basophils 0.1 thou/uL (0.0-0.2); #Eosinphils 0.7 thou/uL (0.0-0.7); #Lymphocytes 2.5 thou/uL (1.20-3.40); #Monocytes 1.8 thou/uL (0.11-0.59); #Neutrophils 11.3 thou/uL (1.40-6.50); %Basophils 0.8 % (0.0-1.0); %Eosinophils 4.1 % (0.0-10.0); %Lymphocytes 15.4 % (21.0-51.0); %Monocytes 10.8 % (0.0-10.0); %Neutrophils 68.9 % (42.0-75.0); Hemoglobin 9.2 g/dL (12.0-16.0); Mean Corpuscular HGB CONC 33.5 g/dL (32.0-36.0); Mean Corpuscular Hemoglobin 28.8 pg (27.0-31.0); Mean Corpuscular Volume 86.2 fL (78.0-98.0); Mean Platelet Volume 6.5 fL (7.4-10.4); Platelet Count 479 thou/uL (130-400); RBC Distribution Width 13.3 % (11.5-14.5); Red Blood Cell (RBC) Count 3.18 mill/uL (4.20-5.40); White Blood Cell (WBC) Count 16.4 thou/uL (4.8-10.8)
[2019-08-18 06:01] LABS: Albumin 2.7 g/dL (3.4-4.8); Anion Gap 13 mmol/L (10-20); BUN (Urea Nitrogen) 29 mg/dL (9.8-20.1); BUN/Creatinine Ratio 16.86; Calc. Creatinine Clearance 47 mL/min (70-130); Calcium 7.3 mg/dL (7.8-10.44); Carbon Dioxide 21 mmol/L (23-31); Chloride 80 mmol/L (98-107); Estimated GFR-MDRD 30; Glucose 80 mg/dL (80-115); Phosphorus 3.8 mg/dL (2.3-4.7); Potassium 4.1 mmol/L (3.5-5.1)
[2019-08-18 06:07] LABS: Sodium 110 mmol/L (136-145)
[2019-08-18] MEDS: Piperacillin/Tazobactam 4.5 GM in Sodium Chloride 0.9% 100 ML IVPB SCH ×3 (06:45→21:50)
[2019-08-18] MEDS: Aspirin 325 MG TAB PO SCH (08:27)
[2019-08-18] MEDS: hydrALAZINE 25 MG TAB PO SCH ×3 (08:27→21:58)
[2019-08-18] MEDS: Famotidine 20 MG TAB PO SCH ×2 (08:27→21:49)
[2019-08-18] MEDS: Carvedilol 3.125 MG TAB PO SCH ×2 (08:28→22:01)
[2019-08-18] MEDS: Amiodarone 200 MG TAB PO SCH (08:28)
[2019-08-18] MEDS: Isosorbide Dinitrate 20 MG TAB PO SCH ×3 (08:28→22:02)
[2019-08-18] MEDS: Calcium Carbonate 600 MG + Vit D TAB PO SCH ×2 (08:29→16:17)
[2019-08-18] MEDS: Sodium Chloride 1 GM TAB PO SCH ×3 (08:29→21:49)
[2019-08-18] MEDS: HumuLIN 70/30 (300 UNITS/3 ML VIAL) SC SCH ×2 (08:30→21:55)
[2019-08-18] MEDS ORDERED: Furosemide 40 MG TAB PO SCH (12:00)
[2019-08-18] MEDS: Acetaminophen/Codeine 30-300mg Tablet PO PRN ×3 (12:28→21:56)
--- NOTE | 2019-08-18 12:30 | PRG ---
DATE OF SERVICE: 08/18/2019 SERVICE: Nephrology. SUBJECTIVE: A 59-year-old female with coronary artery disease, status post recent CABG; hypertension; CKD; and resolving ROSEANNE, seen in followup for severe hyponatremia. The patient is still complaining of some difficulty breathing, but overall thinks that she has improved. Oral intake still remains suboptimal. There is no history of fever or cough. Still having some chest discomfort. OBJECTIVE: VITAL SIGNS: Temperature 96.8, pulse 66, respiratory rate 16, SpO2 of 97% on 2 L nasal cannula, blood pressure is 121/61. I and O in the last 24 hours showed total intake of 1390 with output of 1150. GENERAL: Chronically ill-looking female, in no obvious distress. Afebrile. Anicteric. Acyanotic. HEENT: Normocephalic and atraumatic. Oral mucosa is moist. NECK: Supple with no JVD. CARDIOVASCULAR: Regular rhythm and rate with normal heart sounds 1 and 2. RESPIRATORY: Decreased air entry at both bases with some transmitted breath sounds. No obvious rhonchi noted. Work of breathing is mildly increased. GI: Full, soft, nondistended, and nontender with normal bowel sounds. UROGENITAL: Jaramillo catheter is in place draining some urine. EXTREMITIES: Mild bilateral elbow edema as well as edema of lower back. No lower extremity edema appreciated. 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 Oriented x3 with appropriate mental status. Cranial nerves 2 through 12 are grossly intact. DIAGNOSTIC DATA: CBC showed WBC count of 16.4, hemoglobin of 9.2, platelet of 479. Chemistry showed sodium 110, potassium 4.1, chloride 80, CO2 of 21, BUN 29, creatinine 1.72, glucose 80, calcium 7.3, phosphorus 3.8, albumin 2.7. ASSESSMENT: 1. 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 Sodium level is trending up as desired with fluid restriction, hypertonic solution, and diuretics. 2. Fluid overload. 3. Acute congestive heart failure. 4. Ischemic cardiomyopathy. 5. Hypertension: Control is acceptable. 6. Resolving acute kidney injury. Baseline creatinine is unknown. 7. Chronic kidney disease, stage 3. 8. Protein-calorie malnutrition. 9. Hypoalbuminemia. PLAN: 1. We will continue fluid restriction as well as salt tablets. 2. We will transition from IV Lasix to oral Lasix as volume status has improved. 3. Incentive spirometry recommended as the patient has some atelectasis and decreased respiratory effort due to chest pain. 4. Continue antihypertensives. 5. Monitor electrolytes, renal function, intake and output. Further treatment to follow depending on hospital course. Job ID: [id number] MTDD
[2019-08-18] MEDS: HumaLOG 300 UNITS/3 ML VIAL SC PRN (16:18)
[2019-08-18] MEDS ORDERED: Morphine 4 MG/ML VIAL SLOW IVP SCH (18:30)
--- NOTE | 2019-08-18 18:47 | PDOC.HOSPP ---
- Subjective Encounter Date: 08/18/19 Encounter Time: 10:30 Subjective: pt up in bed complains of sob - Objective Vital Signs & Weight: Vital Signs (12 hours) Temp Pulse Pulse Pulse BP BP BP 08/18/19 16:16 63 116/62 08/18/19 15:00 96.0 F L 08/18/19 13:31 63 62 91/51 L 90/71 08/18/19 11:00 96.8 F L 08/18/19 08:27 66 111/54 L 08/18/19 08:00 08/18/19 07:30 96.4 F L Pulse Ox Pulse Ox Pulse Ox 08/18/19 16:16 08/18/19 15:00 08/18/19 13:31 100 100 08/18/19 11:00 08/18/19 08:27 08/18/19 08:00 97 08/18/19 07:30 Weight Admit Weight 191 lb 11.2 oz Weight 198 lb 9.6 oz Most Recent Monitor Data Heart Rate from ECG 62 NIBP 106/50 NIBP BP-Mean 68 Respiration from ECG 19 SpO2 100 I&O: 08/17/19 08/18/19 08/19/19 06:59 06:59 06:59 Intake Total 1004 1390 820 Output Total 725 1150 350 Balance 279 240 470 Result Diagrams: 08/18/19 03:07 08/18/19 05:36 Additional Labs: Accuchecks 08/18/19 08/18/19 08/18/19 16:15 10:51 05:29 POC Glucose 182 H 105 91 08/17/19 19:34 POC Glucose 192 H Hospitalist ROS - Review of Systems Cardiovascular: denies: chest pain, palpitations, orthopnea, paroxysmal noc. dyspnea, edema, light headedness, other Gastrointestinal: denies: nausea, vomiting, abdominal pain, diarrhea, constipation, melena, hematochezia, other Genitourinary: denies: dysuria, frequency, incontinence, hematuria, retention, other - Medication Medications: Active Medications Generic Name Dose Route Start Last Admin Trade Name Freq PRN Reason Stop Dose Admin Acetaminophen/Codeine Phosphate 1 tab 08/17/19 11:19 08/18/19 16:17 Tylenol #3 PO 1 tab Q4H PRN Administration Moderate Pain (4-6) Amiodarone HCl 400 mg 08/17/19 09:00 08/18/19 08:28 Cordarone PO 400 mg DAILY LIN Administration Aspirin 325 mg 08/17/19 09:00 08/18/19 08:27 Aspirin PO 325 mg DAILY LIN Administration Calcium/Vitamin D 1 tab 08/18/19 08:00 08/18/19 16:17 Caltrate 600 + Vit D PO 1 tab BID-WM LIN Administration Carvedilol 3.125 mg 08/16/19 21:00 08/18/19 08:28 Coreg PO 3.125 mg BID LIN Administration Famotidine 20 mg 08/17/19 21:00 08/18/19 08:27 Pepcid PO 20 mg BID LIN Administration Hydralazine HCl 50 mg 08/16/19 21:00 08/18/19 16:16 Apresoline PO 50 mg TID LIN Administration Piperacillin Sod/Tazobactam 100 mls @ 200 mls/hr 08/16/19 22:00 08/18/19 12: 28 Sod 4.5 gm/ Sodium Chloride IVPB 100 mls Q8HR LIN Administration Insulin Human Isoph/Insulin Regular 8 units 08/18/19 09:00 08/18/19 08:30 Humulin 70/30 SC 8 unit BID LIN Administration Insulin Human Lispro 0 units 08/16/19 18:17 08/18/19 16:18 Humalog SC 2 unit .MILD SLIDING SCALE PRN Administration Mild Correctional Scale Isosorbide Dinitrate 20 mg 08/16/19 21:00 08/18/19 16:17 Isordil PO 20 mg TID LIN Administration Morphine Sulfate 4 mg 08/18/19 18:30 08/18/19 18:22 Morphine SLOW IVP 08/18/19 20:30 4 mg NOW LIN Administration Ondansetron HCl 4 mg 08/17/19 12:38 08/17/19 12:51 Zofran IVP 4 mg Q6H PRN Administration Nausea/Vomiting Rosuvastatin Calcium 20 mg 08/16/19 21:00 08/17/19 20:37 Crestor PO 20 mg HS LIN Administration Sodium Chloride 10 ml 08/16/19 21:00 08/18/19 08:29 Flush - Normal Saline IVF 10 ml Q12HR LIN Administration Sodium Chloride 1 gm 08/17/19 15:00 08/18/19 16:17 Sodium Chloride PO 1 gm TID LIN Administration - Exam Heart: negative: RRR, no murmur, no gallops, no rubs, normal peripheral pulses, irregular, diminshed peripheral pulses, murmur present, II/IV, III/IV Respiratory: negative: CTAB, no wheezes, no rales, no ronchi, normal chest expansion, no tachypnea, normal percussion, rales, rhonchi, tachypneic, wheezes Gastrointestinal: negative: soft, non-tender, non-distended, normal bowel sounds , no palpable masses, no hepatomegaly, no splenomegaly, no bruit, no guarding, no rigidity, tender to palpation, distended, diminished bowl sounds, voluntary guarding Extremities: 1+ LE edema Hosp A/P (1) Diastolic CHF, acute on chronic Code(s): I50.33 - ACUTE ON CHRONIC DIASTOLIC (CONGESTIVE) HEART FAILURE Status : Acute (2) Hyponatremia Code(s): E87.1 - HYPO-OSMOLALITY AND HYPONATREMIA Status: Acute (3) Chronic kidney disease, stage 3 Code(s): N18.3 - CHRONIC KIDNEY DISEASE, STAGE 3 (MODERATE) Status: Chronic (4) DM2 (diabetes mellitus, type 2) Status: Chronic - Plan pt's sodium is improving slowly. She is still on 3%. She has some chest pain but her sob has improved. will add oral supplements since she is not eating much. She has been encouraged to eat more. She is on fluid restriction. 08/17 pt's sodium is improving, pt still has sob. will get PT to come see her. I have asked her to use IS.
[2019-08-18] MEDS: Rosuvastatin 20 MG TAB PO SCH (21:49)
[2019-08-18] MEDS: Furosemide 40 MG TAB PO SCH (21:49)
[2019-08-19 03:22] LABS: #Basophils 0.1 thou/uL (0.0-0.2); #Eosinphils 0.8 thou/uL (0.0-0.7); #Lymphocytes 2.3 thou/uL (1.20-3.40); #Monocytes 1.7 thou/uL (0.11-0.59); #Neutrophils 13.4 thou/uL (1.40-6.50); %Basophils 0.5 % (0.0-1.0); %Eosinophils 4.4 % (0.0-10.0); %Lymphocytes 12.5 % (21.0-51.0); %Monocytes 9.5 % (0.0-10.0); %Neutrophils 73.2 % (42.0-75.0); Hemoglobin 8.8 g/dL (12.0-16.0); Mean Corpuscular HGB CONC 33.3 g/dL (32.0-36.0); Mean Corpuscular Hemoglobin 28.7 pg (27.0-31.0); Mean Corpuscular Volume 86.1 fL (78.0-98.0); Mean Platelet Volume 6.3 fL (7.4-10.4); Platelet Count 383 thou/uL (130-400); RBC Distribution Width 13.2 % (11.5-14.5); Red Blood Cell (RBC) Count 3.08 mill/uL (4.20-5.40); White Blood Cell (WBC) Count 18.3 thou/uL (4.8-10.8)
[2019-08-19 03:44] LABS: Anion Gap 15 mmol/L (10-20); BUN (Urea Nitrogen) 34 mg/dL (9.8-20.1); Calc. Creatinine Clearance 45 mL/min (70-130); Calcium 7.6 mg/dL (7.8-10.44); Carbon Dioxide 21 mmol/L (23-31); Chloride 80 mmol/L (98-107); Estimated GFR-MDRD 27; Glucose 74 mg/dL (80-115); Magnesium 1.9 mg/dL (1.6-2.6); Potassium 3.7 mmol/L (3.5-5.1)
[2019-08-19 03:49] LABS: Sodium 112 mmol/L (136-145)
[2019-08-19] MEDS: Piperacillin/Tazobactam 4.5 GM in Sodium Chloride 0.9% 100 ML IVPB SCH ×3 (05:59→21:11)
[2019-08-19] MEDS ORDERED: Albumin 25% 25 GM/100 ML BOT IVPB ONE (06:26)
--- NOTE | 2019-08-19 08:36 | PRG ---
DATE OF SERVICE: 08/19/2019 SERVICE: Nephrology. SUBJECTIVE: A 59-year-old female seen in followup for severe hyponatremia as well as volume overload. The patient is still weak generally, though reported some improvement in shortness of breath. No change in mental status. Oral intake is still poor. Remained afebrile and with no cough. OBJECTIVE: VITAL SIGNS: Temperature 96.8, pulse 59, respiratory rate 10, SpO2 of 100% on 1 L nasal cannula, blood pressure is 95/56. I and O in the last 24 hours showed total intake of 1,100 with total output of 825. GENERAL: Fatigued female in no obvious distress. Afebrile. Anicteric. Acyanotic. HEENT: Normocephalic, atraumatic. Oral mucosa is moist. NECK: Supple with no obvious JVD. CARDIOVASCULAR: Regular rhythm and rate with normal heart sounds 1 and 2. RESPIRATORY: Decreased air entry in both bases with some transmitted breath sounds. No obvious rhonchi or use of accessory muscles appreciated. Work of breathing however seems increased. GI: Full, soft, nontender, nondistended with normal bowel sounds. UROGENITAL: Jaramillo catheter is in place draining some urine. EXTREMITIES: Mild edema of the thigh and both elbows noted. FUEL QUALITY TECH: Conscious, alert, oriented x3 with appropriate mental status. Cranial nerves 2 through 12 are grossly intact. DIAGNOSTIC DATA: CBC today showed WBC count of 18.3, hemoglobin of 8.8, MCV of 86.1, platelet of 383. Chemistry showed sodium 112, potassium 3.7, chloride 80, CO2 of 21, BUN 34, creatinine 1.88, glucose 74, calcium 7.6, and magnesium 1.7. ASSESSMENT: 1. Hyponatremia: Severe with admission level of 105. Improving slowly as desired. Sodium today is 112. The patient remains stable neurologically. 2. Hypotension: Due to medications, diuretics, and antihypertensives. 3. Hypoalbuminemia. 4. Fluid overload: Due to hypoalbuminemia and third spacing with some contribution from acute cardiac decompensation. 5. Acute on chronic heart failure. 6. Atelectasis with possible consolidation. 7. Physical deconditioning. PLAN: 1. We will hold isosorbide dinitrate and hydralazine due to low blood pressure. 2. We will also give albumin infusion. 3. We will continue salt tablets and Lasix tablets. We will continue to monitor intake and output as well as renal function and electrolytes. [place] oral intake again reiterated. Increase physical activity as well as increased use of incentive spirometer. Job ID: [id number]
[2019-08-19] MEDS: Calcium Carbonate 600 MG + Vit D TAB PO SCH ×2 (08:46→17:24)
[2019-08-19] MEDS: Aspirin 325 MG TAB PO SCH (08:46)
[2019-08-19] MEDS: Amiodarone 200 MG TAB PO SCH (08:46)
[2019-08-19] MEDS: Carvedilol 3.125 MG TAB PO SCH ×2 (08:46→21:10)
[2019-08-19] MEDS: Furosemide 40 MG TAB PO SCH ×2 (08:47→21:10)
[2019-08-19] MEDS: Famotidine 20 MG TAB PO SCH (08:50)
[2019-08-19] MEDS: Sodium Chloride 1 GM TAB PO SCH ×3 (08:50→23:07)
--- NOTE | 2019-08-19 09:29 | RAD ---
PORTABLE CHEST 1 VIEW: Date: 08/19/2019 Time: 0911 hours HISTORY: Shortness of breath. COMPARISON: 08/16/2019. FINDINGS/IMPRESSION: Changes of median sternotomy again seen. Heart size stable. Bibasilar infiltrates with accompanying e ffusions are seen. Overall worsening is noted since the last exam. No pneumothoraces are identified. POS: ESTELA
[2019-08-19] MEDS: HumuLIN 70/30 (300 UNITS/3 ML VIAL) SC SCH ×2 (10:09→21:09)
[2019-08-19 17:37] LABS: Anion Gap 16 mmol/L (10-20); BUN (Urea Nitrogen) 34 mg/dL (9.8-20.1); Calc. Creatinine Clearance 41 mL/min (70-130); Calcium 7.8 mg/dL (7.8-10.44); Carbon Dioxide 20 mmol/L (23-31); Chloride 82 mmol/L (98-107); Estimated GFR-MDRD 25; Glucose 160 mg/dL (80-115); Potassium 3.9 mmol/L (3.5-5.1)
[2019-08-19 17:54] LABS: Sodium 114 mmol/L (136-145)
[2019-08-19] MEDS ORDERED: Albumin 25% 25 GM/100 ML BOT IVPB SCH ×2 (18:00→18:05)
--- NOTE | 2019-08-19 18:35 | PDOC.HOSPP ---
- Subjective Encounter Date: 08/19/19 Encounter Time: 11:15 Subjective: pt up in bed no complains - Objective Vital Signs & Weight: Vital Signs (12 hours) Temp Pulse Pulse BP BP Pulse Ox Pulse Ox 08/19/19 15:00 96.6 F L 08/19/19 13:10 62 60 96/60 84/51 L 99 08/19/19 12:25 96.8 F L 08/19/19 07:38 100 08/19/19 07:22 96.8 F L Pulse Ox 08/19/19 15:00 08/19/19 13:10 100 08/19/19 12:25 08/19/19 07:38 08/19/19 07:22 Weight Admit Weight 191 lb 11.2 oz Weight 197 lb 1.6 oz Most Recent Monitor Data Heart Rate from ECG 59 NIBP 91/45 NIBP BP-Mean 60 Respiration from ECG 16 SpO2 100 I&O: 08/18/19 08/19/19 08/20/19 06:59 06:59 06:59 Intake Total 1390 1100 Output Total 1150 825 Balance 240 275 Result Diagrams: 08/19/19 03:02 08/19/19 17:10 Additional Labs: Accuchecks 08/19/19 08/19/19 08/19/19 17:01 10:50 05:48 POC Glucose 191 H 83 85 08/18/19 20:05 POC Glucose 127 H Hospitalist ROS - Review of Systems Respiratory: denies: cough, dry, shortness of breath, hemoptysis, SOB with excertion, pleuritic pain, sputum, wheezing, other Cardiovascular: denies: chest pain, palpitations, orthopnea, paroxysmal noc. dyspnea, edema, light headedness, other Gastrointestinal: denies: nausea, vomiting, abdominal pain, diarrhea, constipation, melena, hematochezia, other - Medication Medications: Active Medications Generic Name Dose Route Start Last Admin Trade Name Freq PRN Reason Stop Dose Admin Acetaminophen/Codeine Phosphate 1 tab 08/17/19 11:19 08/18/19 21:56 Tylenol #3 PO 1 tab Q4H PRN Administration Moderate Pain (4-6) Albumin Human 25 gm 08/19/19 18:00 08/19/19 17:25 Albumin 25% IVPB 08/19/19 21:00 25 gm NOW LIN Administration Amiodarone HCl 400 mg 08/17/19 09:00 08/19/19 08:46 Cordarone PO 400 mg DAILY LIN Administration Aspirin 325 mg 08/17/19 09:00 08/19/19 08:46 Aspirin PO 325 mg DAILY LIN Administration Calcium/Vitamin D 1 tab 08/18/19 08:00 08/19/19 17:24 Caltrate 600 + Vit D PO 1 tab BID-WM LIN Administration Carvedilol 3.125 mg 08/16/19 21:00 08/19/19 08:46 Coreg PO 3.125 mg BID LIN Administration Furosemide 40 mg 08/18/19 21:00 08/19/19 08:47 Lasix PO 40 mg BID LIN Administration Hydralazine HCl 50 mg 08/16/19 21:00 08/18/19 21:58 Apresoline PO Not Given TID LIN Piperacillin Sod/Tazobactam 100 mls @ 200 mls/hr 08/16/19 22:00 08/19/19 15: 34 Sod 4.5 gm/ Sodium Chloride IVPB 100 mls Q8HR LIN Administration Insulin Human Isoph/Insulin Regular 8 units 08/18/19 09:00 08/19/19 10:09 Humulin 70/30 SC Not Given BID LIN Insulin Human Lispro 0 units 08/16/19 18:17 08/18/19 16:18 Humalog SC 2 unit .MILD SLIDING SCALE PRN Administration Mild Correctional Scale Isosorbide Dinitrate 20 mg 08/16/19 21:00 08/18/19 22:02 Isordil PO Not Given TID [facility] Ondansetron HCl 4 mg 08/17/19 12:38 08/17/19 12:51 Zofran IVP 4 mg Q6H PRN Administration Nausea/Vomiting Rosuvastatin Calcium 20 mg 08/16/19 21:00 08/18/19 21:49 Crestor PO 20 mg HS LIN Administration Sodium Chloride 10 ml 08/16/19 21:00 08/19/19 08:50 Flush - Normal Saline IVF 10 ml Q12HR LIN Administration Sodium Chloride 1 gm 08/17/19 15:00 08/19/19 15:35 Sodium Chloride PO 1 gm TID LIN Administration - Exam Neck: negative: supple, symmetric, no JVD, no thyromegaly, no lymphadenopathy, no carotid bruit, JVD Heart: negative: RRR, no murmur, no gallops, no rubs, normal peripheral pulses, irregular, diminshed peripheral pulses, murmur present, II/IV, III/IV Respiratory: negative: CTAB, no wheezes, no rales, no ronchi, normal chest expansion, no tachypnea, normal percussion, rales, rhonchi, tachypneic, wheezes Hosp A/P (1) Diastolic CHF, acute on chronic Code(s): I50.33 - ACUTE ON CHRONIC DIASTOLIC (CONGESTIVE) HEART FAILURE Status : Acute (2) Hyponatremia Code(s): E87.1 - HYPO-OSMOLALITY AND HYPONATREMIA Status: Acute (3) Chronic kidney disease, stage 3 Code(s): N18.3 - CHRONIC KIDNEY DISEASE, STAGE 3 (MODERATE) Status: Chronic (4) DM2 (diabetes mellitus, type 2) Status: Chronic - Plan pt's sodium is improving slowly. She is still on 3%. She has some chest pain but her sob has improved. will add oral supplements since she is not eating much. She has been encouraged to eat more. She is on fluid restriction. 08/17 pt's sodium is improving, pt still has sob. will get PT to come see her. I have asked her to use IS. 08/18 pt up in bed states she feels tired. pt up with PT per nursing staff. pt's bp is low and her creatinine is worsening. will hold nephrotoxins for now. Na is improving slowly.
[2019-08-19] MEDS: Rosuvastatin 20 MG TAB PO SCH (21:10)
[2019-08-20 03:58] LABS: Albumin 3.2 g/dL (3.4-4.8); Anion Gap 18 mmol/L (10-20); BUN (Urea Nitrogen) 35 mg/dL (9.8-20.1); BUN/Creatinine Ratio 16.36; Calc. Creatinine Clearance 39 mL/min (70-130); Calcium 8.4 mg/dL (7.8-10.44); Carbon Dioxide 17 mmol/L (23-31); Chloride 85 mmol/L (98-107); Estimated GFR-MDRD 23; Glucose 117 mg/dL (80-115); Phosphorus 3.9 mg/dL (2.3-4.7); Potassium 4.2 mmol/L (3.5-5.1)
[2019-08-20 04:10] LABS: Sodium 116 mmol/L (136-145)
[2019-08-20] MEDS: Piperacillin/Tazobactam 4.5 GM in Sodium Chloride 0.9% 100 ML IVPB SCH (05:40)
[2019-08-20] MEDS ORDERED: Albumin 25% 25 GM/100 ML BOT IVPB SCH (06:44)
[2019-08-20] MEDS ORDERED: Famotidine 20 MG TAB PO SCH (09:00)
[2019-08-20] MEDS: Sodium Bicarbonate Tab 325 MG TAB PO SCH ×3 (09:36→22:39)
[2019-08-20] MEDS: Calcium Carbonate 600 MG + Vit D TAB PO SCH ×2 (09:36→17:24)
[2019-08-20] MEDS: Sodium Chloride 1 GM TAB PO SCH ×3 (09:36→22:38)
[2019-08-20] MEDS: Aspirin 325 MG TAB PO SCH (09:36)
[2019-08-20] MEDS: Amoxicillin/Potassium Clav 875 MG TAB PO SCH ×2 (09:37→22:38)
[2019-08-20] MEDS: Amiodarone 200 MG TAB PO SCH (09:37)
[2019-08-20] MEDS: Carvedilol 3.125 MG TAB PO SCH ×2 (09:37→22:39)
[2019-08-20] MEDS: HumuLIN 70/30 (300 UNITS/3 ML VIAL) SC SCH ×2 (09:39→22:39)
--- NOTE | 2019-08-20 10:39 | PRG ---
DATE OF SERVICE: 08/20/2019 SERVICE: Nephrology. SUBJECTIVE: A 59-year-old female being followed up for severe hyponatremia. The patient reports feeling better. Oral intake is improving. Shortness of breath has subsided. Denied fever or chills. OBJECTIVE: VITAL SIGNS: Temperature 97.8, pulse 67, respiratory rate 14, SpO2 of 100% on room air. I and O in the last 24 hours showed total intake of 1300 with total output of 1200. GENERAL: Fatigued female, in no obvious distress. Afebrile. Anicteric. Acyanotic. HEENT: Normocephalic, atraumatic. Oral mucosa is moist. NECK: Supple with no JVD. CARDIOVASCULAR: Regular rhythm and rate with normal heart sounds 1 and 2. RESPIRATORY: Fair air entry bilateral. Decreased at both bases with some transmitted breath sounds. No obvious rhonchi or use of accessory muscles appreciated. GI: Full, soft, nontender, nondistended with normal bowel sounds. UROGENITAL: Jaramillo catheter is in place draining urine. EXTREMITIES: Grossly normal looking, atraumatic with no obvious edema or erythema. 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 Cranial nerves 2 through 12 are grossly intact. DIAGNOSTIC DATA: Chemistry showed sodium 116, potassium 4.2, chloride 85, CO2 is 17, BUN 35, creatinine 2.14, glucose 117, calcium 8.4, phosphorus 3.9, albumin 3.2. ASSESSMENT: 1. Acute kidney injury: Due to hemodynamic factors related to volume contraction. The patient has been getting diuretics and oral intake has remained suboptimal. The patient also had hypotension lasting 4 hours, which has improved with albumin. 2. Hyponatremia: Severe, multifactorial. Continued to trend up from admission level of 105 to 116 today. 3. Metabolic acidosis: Due to acute kidney injury. 4. Hypotension: Improved with holding of antihypertensives and treatment with colloids. 5. Presumed syndrome of inappropriate antidiuretic hormone secretion. 6. Ischemic cardiomyopathy. 7. [id number] systolic heart failure. 8. Protein-calorie malnutrition. PLAN: 1. We will hold diuretics for now. 2. We will give albumin 25 g x1 dose today. 3. We will continue to hold antihypertensives. 4. [place] solute intake advised. 5. We will continue free water restriction. 6. We will recheck renal function test in the morning. 7. We will also continue salt tablet. 8. We will start oral sodium bicarbonate therapy. Further treatment to follow depending on hospital course. Job ID: [id number]
[2019-08-20] MEDS: HumaLOG 300 UNITS/3 ML VIAL SC PRN ×2 (12:20→17:26)
[2019-08-20 15:56] LABS: Band 14 % (5-11); Eosinophils 4 % (0-10); Hemoglobin 8.5 g/dL (12.0-16.0); Lymphocytes 11 % (21-51); MDiff Complete? YES; Mean Corpuscular HGB CONC 32.4 g/dL (32.0-36.0); Mean Corpuscular Hemoglobin 28.1 pg (27.0-31.0); Mean Corpuscular Volume 86.6 fL (78.0-98.0); Mean Platelet Volume 6.9 fL (7.4-10.4); Monocytes 6 % (0-10); Neutrophil 65 % (42-75); Platelet Count 298 thou/uL (130-400); Platelet Morphology Comment Appears Adequate; Polychromasia SLIGHT = 2-3 cells (100X) (0-2/hpf); RBC Distribution Width 13.4 % (11.5-14.5); Red Blood Cell (RBC) Count 3.03 mill/uL (4.20-5.40)
--- NOTE | 2019-08-20 20:23 | CON ---
DATE OF CONSULTATION: 08/20/2019 REASON FOR CONSULTATION: Hematochezia. HISTORY OF PRESENT ILLNESS: Ms. Bertin Prado is a very pleasant 59-year-old female, who has had a coronary artery bypass graft recently. She also has had a history of ischemic cardiomyopathy and her heart function is much better after the bypass surgery. The patient was hospitalized with generalized weakness and fatigue and was found to have severe hyponatremia. She had been seen by Nephrology Services and is being given saline and also salty food. Her sodium on admission 104 to 105, but the most recent one is slowly coming up. The sodium is today up to 116, potassium 4.2, chloride 85, BUN is 35, creatinine is 2.14. The impression is that she most likely has SIADH. The patient has made slow but steady progress. The patient had episode of hematochezia as per the nurses today. She was having a bowel movement and they saw some blood clots and some fresh blood. I was asked to see the patient because of hematochezia. The patient appears comfortable. She denies any chest pain, abdominal pain, nausea, or vomiting. No similar episodes in the past. No history of perianal discomfort, tenesmus, or any burning or itching. I did do a rectal exam and the rectal exam shows no external hemorrhoids, no skin laceration or excoriation, and she has some stool which appears free of any blood. It is not black. There was no fresh blood seen on the examination finger. No relevant history. MEDICAL ILLNESSES: 1. Diabetes. 2. Hyponatremia. 3. Hypokalemia. 4. Myocardial infarction. 5. Acute kidney injury. 6. Ischemic cardiomyopathy. SURGERIES: 1. Recent coronary artery bypass graft within the last 2 weeks. 2. Right knee replacement. SOCIAL HISTORY: The patient does not smoke or drink alcohol. FAMILY HISTORY: No family history of any heart disease, stroke, or cancer. MEDICATIONS: At the time of admission include; 1. Amiodarone 400 mg once a day. 2. Aspirin 325 once a day. 3. Coreg 3.125 mg twice a day. 4. Hydralazine 50 three times a day. 5. Isordil 20 mg three times a day. 6. Crestor 20 once a day. ALLERGIES: NONE. REVIEW OF SYSTEMS: Ten-point system reviewed, history of dizziness off and on. No history of any syncope. No TIA. No chronic headache. EYES: No impaired vision or diplopia. ENT: No hearing loss. No nose bleed. No sore throat. NECK: No stiffness or any limitation of movement. CARDIOVASCULAR: No chest pain. No palpitation. No dyspnea, orthopnea, or PND. LUNGS: No chronic coughing or hemoptysis. GI: No abdominal pain. No nausea or vomiting. Had hematochezia this morning. EXTREMITIES: No limitation of movement. MUSCULOSKELETAL: History of back pain, some arthralgias. PHYSICAL EXAMINATION: GENERAL: Revealed a fragile looking female, appears very comfortable. She is in no distress. Denies any abdominal pain, any chest pain, or any dyspnea. VITAL SIGNS: Very stable. Temperature 98.1 degrees Fahrenheit, pulse is 79, blood pressure is 93/45. HEENT: Conjunctivae are clear. NECK: Supple. No adenitis or thyromegaly noted. CARDIOVASCULAR: First and second heart sounds are normal. LUNGS: Clear to auscultation. ABDOMEN: Soft. Abdomen is nontender. No organomegaly. No masses. Bowel sounds are normal. RECTAL: A rectal exam done by me at the bedside showed no blood on the examination finger. She has some dark green stool, but no blood on the examination finger. LABORATORY DATA: From today, sodium 116, potassium 4.2, chloride 85, bicarb is 17, BUN is 35, creatinine is 2.14 glucose 117, calcium 8.4, phosphorus 3.9, albumin 3.2. On admission, she was anemic with hemoglobin of 10.6, has dropped down slowly to 9.6 and today 8.8. Hematocrit 26.5. MCV 86.1, platelet count is 383,000. She has leukocytosis of 18,000. CLINICAL IMPRESSION: 1. A 59-year-old female with hematochezia, which appears to be mild. Apparently, she was having a BM this morning and they saw some blood and blood clots. Interestingly, a rectal exam did not show any blood on examination finger. I do not see any external hemorrhoids on exam. 2. Severe hyponatremia, possible syndrome of inappropriate antidiuretic hormone secretion. 3. Acute kidney injury. 4. Ischemic cardiomyopathy. 5. Recent bypass graft. RECOMMENDATIONS: I will defer endoscopic studies for a time being until sodium back to normal. I would recommend follow up hemoglobin and hematocrit. I am really not sure the blood came from the rectum or it came from the urinary bladder. Rectal exam at this time does not show any blood on the examination finger. Once her clinical condition improves, at some point in time, she will probably need a colonoscopy. I will defer any workup for the time being. Job ID: [id number]
[2019-08-20] MEDS: Rosuvastatin 20 MG TAB PO SCH (22:38)
[2019-08-21 03:48] LABS: #Basophils 0.1 thou/uL (0.0-0.2); #Eosinphils 0.4 thou/uL (0.0-0.7); #Monocytes 1.6 thou/uL (0.11-0.59); #Neutrophils 10.5 thou/uL (1.40-6.50); %Basophils 0.4 % (0.0-1.0); %Eosinophils 2.8 % (0.0-10.0); %Lymphocytes 13.6 % (21.0-51.0); %Monocytes 10.7 % (0.0-10.0); %Neutrophils 72.5 % (42.0-75.0); Hemoglobin 8.8 g/dL (12.0-16.0); Mean Corpuscular HGB CONC 34.2 g/dL (32.0-36.0); Mean Corpuscular Hemoglobin 29.5 pg (27.0-31.0); Mean Corpuscular Volume 86.3 fL (78.0-98.0); Platelet Count 310 thou/uL (130-400); RBC Distribution Width 13.5 % (11.5-14.5); Red Blood Cell (RBC) Count 2.98 mill/uL (4.20-5.40); White Blood Cell (WBC) Count 14.5 thou/uL (4.8-10.8)
[2019-08-21 04:13] LABS: Albumin 3.3 g/dL (3.4-4.8); Anion Gap 17 mmol/L (10-20); BUN (Urea Nitrogen) 41 mg/dL (9.8-20.1); BUN/Creatinine Ratio 16.87; Calc. Creatinine Clearance 34 mL/min (70-130); Calcium 8.5 mg/dL (7.8-10.44); Carbon Dioxide 21 mmol/L (23-31); Chloride 85 mmol/L (98-107); Estimated GFR-MDRD 20; Glucose 199 mg/dL (80-115); Phosphorus 3.3 mg/dL (2.3-4.7)
[2019-08-21 04:17] LABS: Sodium 119 mmol/L (136-145)
[2019-08-21] MEDS: Sodium Chloride 1 GM TAB PO SCH ×3 (09:14→20:11)
[2019-08-21] MEDS: Sodium Bicarbonate Tab 325 MG TAB PO SCH ×3 (09:15→20:11)
[2019-08-21] MEDS: Aspirin 81 mg Enteric Coated Tablet PO SCH (09:15)
[2019-08-21] MEDS: Calcium Carbonate 600 MG + Vit D TAB PO SCH ×2 (09:15→17:08)
[2019-08-21] MEDS: Amiodarone 200 MG TAB PO SCH (09:17)
[2019-08-21] MEDS: Carvedilol 3.125 MG TAB PO SCH ×2 (09:17→20:12)
[2019-08-21] MEDS: HumuLIN 70/30 (300 UNITS/3 ML VIAL) SC SCH ×2 (09:18→20:12)
[2019-08-21] MEDS: Amoxicillin/Potassium Clav 875 MG TAB PO SCH ×2 (09:18→20:12)
[2019-08-21] MEDS: HumaLOG 300 UNITS/3 ML VIAL SC PRN ×2 (13:23→17:08)
--- NOTE | 2019-08-21 15:26 | PRG ---
DATE OF SERVICE: 08/21/2019 SERVICE: Nephrology. SUBJECTIVE: A 59-year-old female with severe multiple-vessel coronary artery disease, status post recent CABG, readmitted due to worsening weakness and shortness of breath. Nephrology has seen the patient for severe hyponatremia. The patient reports feeling stronger. Oral intake also is improving. No nausea, vomiting, or shortness of breath. OBJECTIVE: VITAL SIGNS: Temperature 97.4, pulse 70, respiratory rate 21, SpO2 of 100% on room air, and blood pressure is 115/60. I and O in the last 24 hours showed total intake of 697 with total output of 1200. GENERAL: Female, in no obvious distress. Afebrile. Anicteric. Acyanotic. HEENT: Normocephalic, atraumatic. Oral mucosa is moist. NECK: Supple with no JVD. CARDIOVASCULAR: Regular rhythm and rate with normal heart sounds 1 and 2. RESPIRATORY: Fair air entry bilateral, decreased at both bases posteriorly with some transmitted breath sounds, but no obvious rhonchi or use of accessory muscles. GI: Full, soft, nontender, nondistended with normal bowel sounds. UROGENITAL: Jaramillo catheter is in place draining some urine. EXTREMITIES: [id number] edema of the extremities, especially in both elbows noted. No erythema appreciated. 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 Cranial nerves 2 through 12 are grossly intact. DIAGNOSTIC DATA: CBC showed WBC count of 14.5, hemoglobin of 8.8, and platelets of 310. Chemistry showed sodium 119, potassium 4.0, chloride 85, CO2 of 21, BUN 41, creatinine 2.43, glucose 199, calcium 8.5, phosphorus 3.3, and albumin 3.3. ASSESSMENT: 1. Severe hyponatremia: Sodium level is trending up appropriately. Level today is 119 up from 105 on presentation. 2. Acute kidney injury: Most likely due to hemodynamic factors related to transient hypotension as well as intravascular contraction. Creatinine, however, continued to trend up despite albumin and improvement of blood pressure, raising concern for acute tubular necrosis. 3. Metabolic acidosis: Improving with sodium bicarbonate. 4. Hypertension: Blood pressure is more stable while antihypertensives are held at this time. 5. Transient hypotension: Most likely due to volume contraction as well as antihypertensives. Resolved with holding of antihypertensives. 6. Physical deconditioning. PLAN: 1. We will get urinalysis as well as urine electrolytes. We will avoid nephrotoxic agents including diuretics for now. 2. Oral intake to continue. 3. We will monitor intake and output. 4. We will recheck renal function in the morning. 5. We will continue salt tablet as well as alkali therapy. Further treatment to follow depending on hospital course. Job ID: [id number]
[2019-08-21] MEDS: Rosuvastatin 20 MG TAB PO SCH (20:12)
[2019-08-22 01:52] LABS: Bilirubin Negative (Negative); Blood, Urine 2+ (Negative); Clarity Turbid (Clear); Glucose, Urine (Dipstick) Normal (Negative); Leukocyte 500 Leu/uL (Negative); Nitrite Negative (Negative); Protein, Urine (Dipstick) 30 mg/dL (Neg-Trace); RBC/HPF Greater than 50 HPF (0-3); Squamous Epithelial 0-3 HPF (0-3); Urobilinogen Normal mg/dL (Less than 2); WBC/HPF Greater than 50 HPF (0-3); Yeast-Budding 4+ HPF (None Seen)
[2019-08-22 01:54] LABS: Bacteria/HPF 1+ HPF (None Seen)
[2019-08-22 02:17] LABS: Creatinine, Urine 34.53 mg/dL (47-110); Protein, Urine Random Quant 28 mg/dL (1-14); Sodium, Urine Less than 20 mmol/L (Not Available); Urea Nitrogen, Random Urine 349 mg/dl
[2019-08-22 04:24] LABS: Albumin 3.2 g/dL (3.4-4.8); Anion Gap 13 mmol/L (10-20); BUN (Urea Nitrogen) 41 mg/dL (9.8-20.1); BUN/Creatinine Ratio 16.87; Calc. Creatinine Clearance 34 mL/min (70-130); Calcium 8.7 mg/dL (7.8-10.44); Carbon Dioxide 27 mmol/L (23-31); Chloride 88 mmol/L (98-107); Estimated GFR-MDRD 20; Glucose 146 mg/dL (80-115); Potassium 4.1 mmol/L (3.5-5.1); Sodium 124 mmol/L (136-145)
--- NOTE | 2019-08-22 06:13 | PDOC.HOSPP ---
- Subjective Encounter Date: 08/20/19 Encounter Time: 10:30 Subjective: pt up in chair complains of pain all over - Objective Vital Signs & Weight: Vital Signs (12 hours) Temp Pulse Ox 08/22/19 03:38 98.3 F 08/21/19 23:28 97.2 F L 08/21/19 20:00 100 08/21/19 19:20 98.4 F Weight Admit Weight 191 lb 11.2 oz Weight 193 lb 14.4 oz Most Recent Monitor Data Heart Rate from ECG 69 NIBP 138/75 NIBP BP-Mean 96 Respiration from ECG 14 SpO2 100 I&O: 08/20/19 08/21/19 08/22/19 06:59 06:59 06:59 Intake Total 1300 697 680 Output Total 1200 1200 800 Balance 100 -503 -120 Result Diagrams: 08/21/19 03:28 08/22/19 03:21 Additional Labs: Accuchecks 08/21/19 08/21/19 08/21/19 20:41 20:15 16:38 POC Glucose 230 H 224 H 267 H 08/21/19 08/21/19 10:54 06:39 POC Glucose 353 H 206 H Hospitalist ROS - Review of Systems Cardiovascular: denies: chest pain, palpitations, orthopnea, paroxysmal noc. dyspnea, edema, light headedness, other Gastrointestinal: denies: nausea, vomiting, abdominal pain, diarrhea, constipation, melena, hematochezia, other Genitourinary: denies: dysuria, frequency, incontinence, hematuria, retention, other - Medication Medications: Active Medications Generic Name Dose Route Start Last Admin Trade Name Freq PRN Reason Stop Dose Admin Acetaminophen/Codeine Phosphate 1 tab 08/17/19 11:19 08/18/19 21:56 Tylenol #3 PO 1 tab Q4H PRN Administration Moderate Pain (4-6) Amiodarone HCl 400 mg 08/17/19 09:00 08/21/19 09:17 Cordarone PO 400 mg DAILY LIN Administration Amoxicillin/Clavulanate Potassium 875 mg 08/20/19 09:00 08/21/19 20:12 Augmentin PO 875 mg Q12HR LIN Administration Aspirin 81 mg 08/21/19 09:00 08/21/19 09:15 Ecotrin PO 81 mg DAILY LIN Administration Calcium/Vitamin D 1 tab 08/18/19 08:00 08/21/19 17:08 Caltrate 600 + Vit D PO 1 tab BID-WM LIN Administration Carvedilol 3.125 mg 08/16/19 21:00 08/21/19 20:12 Coreg PO 3.125 mg BID LIN Administration Insulin Human Lispro 0 units 08/16/19 18:17 08/21/19 17:08 Humalog SC 4 unit .MILD SLIDING SCALE PRN Administration Mild Correctional Scale Ondansetron HCl 4 mg 08/17/19 12:38 08/17/19 12:51 Zofran IVP 4 mg Q6H PRN Administration Nausea/Vomiting Pantoprazole Sodium 40 mg 08/21/19 09:00 08/21/19 09:17 Protonix PO 40 mg DAILY LIN Administration Rosuvastatin Calcium 20 mg 08/16/19 21:00 08/21/19 20:12 Crestor PO 20 mg HS LIN Administration Sodium Bicarbonate 650 mg 08/20/19 09:00 08/21/19 20:11 Bicarbonate, Sodium PO 650 mg TID LIN Administration Sodium Chloride 10 ml 08/16/19 21:00 08/21/19 22:20 Flush - Normal Saline IVF 10 ml Q12HR LIN Administration Sodium Chloride 1 gm 08/17/19 15:00 08/21/19 20:11 Sodium Chloride PO 1 gm TID LIN Administration - Exam Heart: negative: RRR, no murmur, no gallops, no rubs, normal peripheral pulses, irregular, diminshed peripheral pulses, murmur present, II/IV, III/IV Respiratory: rales Gastrointestinal: negative: soft, non-tender, non-distended, normal bowel sounds , no palpable masses, no hepatomegaly, no splenomegaly, no bruit, no guarding, no rigidity, tender to palpation, distended, diminished bowl sounds, voluntary guarding Extremities: 1+ LE edema Hosp A/P (1) Diastolic CHF, acute on chronic Code(s): I50.33 - ACUTE ON CHRONIC DIASTOLIC (CONGESTIVE) HEART FAILURE Status : Acute (2) Hyponatremia Code(s): E87.1 - HYPO-OSMOLALITY AND HYPONATREMIA Status: Acute (3) Chronic kidney disease, stage 3 Code(s): N18.3 - CHRONIC KIDNEY DISEASE, STAGE 3 (MODERATE) Status: Chronic (4) DM2 (diabetes mellitus, type 2) Status: Chronic (5) Bright red blood per rectum Code(s): K62.5 - HEMORRHAGE OF ANUS AND RECTUM Status: Acute - Plan pt's sodium is improving slowly. She is still on 3%. She has some chest pain but her sob has improved. will add oral supplements since she is not eating much. She has been encouraged to eat more. She is on fluid restriction. 08/17 pt's sodium is improving, pt still has sob. will get PT to come see her. I have asked her to use IS. 08/18 pt up in bed states she feels tired. pt up with PT per nursing staff. pt's bp is low and her creatinine is worsening. will hold nephrotoxins for now. Na is improving slowly. 08/19 pt on sodium chloride tab and sodium bicarb tabs. Na is improving and pt is now eating more. Her creatinine keeps worsening. she has bright blood per rectum when she had a bm. will get gi to see pt. pt encouraged to be more active.
--- NOTE | 2019-08-22 06:17 | PDOC.HOSPP ---
- Subjective Encounter Date: 08/21/19 Encounter Time: 11:30 Subjective: pt up in bed wants to go home. - Objective Vital Signs & Weight: Vital Signs (12 hours) Temp Pulse Ox 08/22/19 03:38 98.3 F 08/21/19 23:28 97.2 F L 08/21/19 20:00 100 08/21/19 19:20 98.4 F Weight Admit Weight 191 lb 11.2 oz Weight 193 lb 14.4 oz Most Recent Monitor Data Heart Rate from ECG 69 NIBP 138/75 NIBP BP-Mean 96 Respiration from ECG 14 SpO2 100 I&O: 08/20/19 08/21/19 08/22/19 06:59 06:59 06:59 Intake Total 1300 697 680 Output Total 1200 1200 800 Balance 100 -503 -120 Result Diagrams: 08/21/19 03:28 08/22/19 03:21 Additional Labs: Accuchecks 08/21/19 08/21/19 08/21/19 20:41 20:15 16:38 POC Glucose 230 H 224 H 267 H 08/21/19 08/21/19 10:54 06:39 POC Glucose 353 H 206 H Hospitalist ROS - Review of Systems Cardiovascular: denies: chest pain, palpitations, orthopnea, paroxysmal noc. dyspnea, edema, light headedness, other Gastrointestinal: denies: nausea, vomiting, abdominal pain, diarrhea, constipation, melena, hematochezia, other Genitourinary: denies: dysuria, frequency, incontinence, hematuria, retention, other - Medication Medications: Active Medications Generic Name Dose Route Start Last Admin Trade Name Freq PRN Reason Stop Dose Admin Acetaminophen/Codeine Phosphate 1 tab 08/17/19 11:19 08/18/19 21:56 Tylenol #3 PO 1 tab Q4H PRN Administration Moderate Pain (4-6) Amiodarone HCl 400 mg 08/17/19 09:00 08/21/19 09:17 Cordarone PO 400 mg DAILY LIN Administration Amoxicillin/Clavulanate Potassium 875 mg 08/20/19 09:00 08/21/19 20:12 Augmentin PO 875 mg Q12HR LIN Administration Aspirin 81 mg 08/21/19 09:00 08/21/19 09:15 Ecotrin PO 81 mg DAILY LIN Administration Calcium/Vitamin D 1 tab 08/18/19 08:00 08/21/19 17:08 Caltrate 600 + Vit D PO 1 tab BID-WM LIN Administration Carvedilol 3.125 mg 08/16/19 21:00 08/21/19 20:12 Coreg PO 3.125 mg BID LIN Administration Insulin Human Lispro 0 units 08/16/19 18:17 08/21/19 17:08 Humalog SC 4 unit .MILD SLIDING SCALE PRN Administration Mild Correctional Scale Ondansetron HCl 4 mg 08/17/19 12:38 08/17/19 12:51 Zofran IVP 4 mg Q6H PRN Administration Nausea/Vomiting Pantoprazole Sodium 40 mg 08/21/19 09:00 08/21/19 09:17 Protonix PO 40 mg DAILY LIN Administration Rosuvastatin Calcium 20 mg 08/16/19 21:00 08/21/19 20:12 Crestor PO 20 mg HS LIN Administration Sodium Bicarbonate 650 mg 08/20/19 09:00 08/21/19 20:11 Bicarbonate, Sodium PO 650 mg TID LIN Administration Sodium Chloride 10 ml 08/16/19 21:00 08/21/19 22:20 Flush - Normal Saline IVF 10 ml Q12HR LIN Administration Sodium Chloride 1 gm 08/17/19 15:00 08/21/19 20:11 Sodium Chloride PO 1 gm TID LIN Administration - Exam Heart: negative: RRR, no murmur, no gallops, no rubs, normal peripheral pulses, irregular, diminshed peripheral pulses, murmur present, II/IV, III/IV Respiratory: rales Gastrointestinal: negative: soft, non-tender, non-distended, normal bowel sounds , no palpable masses, no hepatomegaly, no splenomegaly, no bruit, no guarding, no rigidity, tender to palpation, distended, diminished bowl sounds, voluntary guarding Extremities: 1+ LE edema Hosp A/P (1) Diastolic CHF, acute on chronic Code(s): I50.33 - ACUTE ON CHRONIC DIASTOLIC (CONGESTIVE) HEART FAILURE Status : Acute (2) Hyponatremia Code(s): E87.1 - HYPO-OSMOLALITY AND HYPONATREMIA Status: Acute (3) Chronic kidney disease, stage 3 Code(s): N18.3 - CHRONIC KIDNEY DISEASE, STAGE 3 (MODERATE) Status: Chronic (4) DM2 (diabetes mellitus, type 2) Status: Chronic (5) Bright red blood per rectum Code(s): K62.5 - HEMORRHAGE OF ANUS AND RECTUM Status: Acute - Plan pt's sodium is improving slowly. She is still on 3%. She has some chest pain but her sob has improved. will add oral supplements since she is not eating much. She has been encouraged to eat more. She is on fluid restriction. 08/17 pt's sodium is improving, pt still has sob. will get PT to come see her. I have asked her to use IS. 08/18 pt up in bed states she feels tired. pt up with PT per nursing staff. pt's bp is low and her creatinine is worsening. will hold nephrotoxins for now. Na is improving slowly. 08/19 pt on sodium chloride tab and sodium bicarb tabs. Na is improving and pt is now eating more. Her creatinine keeps worsening. she has bright blood per rectum when she had a bm. will get gi to see pt. pt encouraged to be more active. 08/20 will increase insulin since pt now is eating more. Encouraged to use IS. bp stable. BBPR most likley gi since she has an extensive clot in her bm unlikely to be renal in origin. pt has been afebrile. will continue abx for few more days then stop. monitor hh.
[2019-08-22] MEDS: Sodium Chloride 1 GM TAB PO SCH ×3 (10:41→20:38)
[2019-08-22] MEDS: Amoxicillin/Potassium Clav 875 MG TAB PO SCH ×2 (10:42→20:37)
[2019-08-22] MEDS: Sodium Bicarbonate Tab 325 MG TAB PO SCH ×4 (10:42→20:38)
[2019-08-22] MEDS: Calcium Carbonate 600 MG + Vit D TAB PO SCH ×2 (10:43→16:14)
[2019-08-22] MEDS: Carvedilol 3.125 MG TAB PO SCH ×2 (10:43→20:38)
[2019-08-22] MEDS: hydrALAZINE 25 MG TAB PO SCH ×2 (10:43→20:38)
[2019-08-22] MEDS: Aspirin 81 mg Enteric Coated Tablet PO SCH (10:43)
[2019-08-22] MEDS: Amiodarone 200 MG TAB PO SCH (10:44)
[2019-08-22] MEDS: Heparin 5,000 UNITS/ML VIAL SC SCH ×3 (10:44→20:39)
[2019-08-22] MEDS: Isosorbide Dinitrate 20 MG TAB PO SCH ×2 (10:44→20:38)
[2019-08-22] MEDS: HumuLIN 70/30 (300 UNITS/3 ML VIAL) SC SCH ×2 (10:45→20:48)
--- NOTE | 2019-08-22 13:00 | RAD ---
PORTABLE CHEST: INDICATION: Edema with shortness of breath. Pleural effusions. COMPARISON: 08/19/2019. FINDINGS: Bilateral pleural effusions, larger on the right. Bibasilar infiltrates and atelectasis. Hazy infil trate in the left mid lung in the perihilar distribution could represent inflammatory infiltrate or e belinda. Cardiomegaly with mild vascular congestion. IMPRESSION: The bilateral effusions and bibasilar parenchymal opacities appear stable from 08/19/2019. Hazy infil trate in the left mid lung field is more prominent today. POS: AH
[2019-08-22] MEDS ORDERED: Furosemide 40 MG/4 ML VIAL SLOW IVP SCH (14:00)
--- NOTE | 2019-08-22 14:24 | PRG ---
DATE OF SERVICE: 08/22/2019 SERVICE: Nephrology. SUBJECTIVE: A 59-year-old female, status post recent CABG, seen in followup for severe hyponatremia. The patient reports feeling better, but complains of some shortness of air with movement. OBJECTIVE: VITAL SIGNS: Temperature 98.4, pulse 82, respiratory rate 23, SpO2 on room air, and blood pressure is 140/65. I and O in the last 24 hours showed total intake of 1200 with total output of 800. GENERAL: Female, in no obvious distress. Fatigued, but afebrile and anicteric. HEENT: Normocephalic, atraumatic. Oral mucosa is moist. NECK: Supple with no JVD. CARDIOVASCULAR: Regular rhythm and rate with normal heart sounds 1 and 2. RESPIRATORY: Fair air entry bilaterally, but decreased at both bases posteriorly. No obvious rhonchi were appreciated. Work of breathing is not increased. GI: Full, soft, nontender, and nondistended with normal bowel sounds. UROGENITAL: Jaramillo catheter is in place draining some urine. EXTREMITIES: [id number] edema of all limbs except left lower limb with [id number] edema. No erythema appreciated. 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 Cranial nerves 2 through 12 are grossly intact. DIAGNOSTIC DATA: Chemistry today showed sodium 124, potassium 4.1, chloride 88, CO2 of 27, BUN 41, creatinine 2.43, glucose 146, calcium 8.7, phosphorus 3.0, and albumin 3.2. ASSESSMENT: 1. Hyponatremia, severe: Multifactorial from congestive heart failure, poor solute intake as well as baseline syndrome of inappropriate secretion of antidiuretic hormone. Sodium is increasing progressively from admission level of 105 to 124 today. 2. Metabolic acidosis: Due to acute kidney injury, improving. 3. Acute kidney injury: Due to hemodynamic factors related to volume contraction and diuretics. Acute tubular necrosis is a concern. Creatinine seems to plateau at 2.43 in the last 24 hours. The patient continued to make good urine. 4. Volume overload as evidenced by edema as well as bilateral pleural effusion. 5. Protein-calorie malnutrition. 6. Transient hypotension: Improved with holding of antihypertensives and diuretics. 7. Hypertension: Blood pressure is appreciating. PLAN: 1. Continue salt tablet. 2. We will decrease the alkali therapy. 3. We will also give a dose of Lasix 40 mg IV x1. 4. We will get urine electrolytes as well as urinalysis and repeat chest x-ray. Further treatment to follow depending on hospital course. Job ID: [id number]
[2019-08-22] MEDS: HumaLOG 300 UNITS/3 ML VIAL SC PRN (16:16)
--- NOTE | 2019-08-22 19:54 | PDOC.HOSPP ---
- Subjective Encounter Date: 08/22/19 Encounter Time: 10:30 Subjective: pt up in bed feels sob - Objective Vital Signs & Weight: Vital Signs (12 hours) Temp Pulse Pulse Pulse Pulse Resp BP 08/22/19 18:20 98.5 F 73 18 08/22/19 15:00 98.2 F 08/22/19 14:23 99 99 104 H 08/22/19 11:00 98.4 F 08/22/19 10:43 63 116/62 08/22/19 08:00 BP BP BP BP Pulse Ox 08/22/19 18:20 156/71 H 100 08/22/19 15:00 08/22/19 14:23 147/75 H 126/86 145/84 H 08/22/19 11:00 08/22/19 10:43 08/22/19 08:00 100 Weight Admit Weight 191 lb 11.2 oz Weight 194 lb Most Recent Monitor Data Heart Rate from ECG 73 NIBP 129/84 NIBP BP-Mean 99 Respiration from ECG 20 SpO2 99 I&O: 08/21/19 08/22/19 08/23/19 06:59 06:59 06:59 Intake Total 697 1200 680 Output Total 1200 800 700 Balance -503 400 -20 Result Diagrams: 08/21/19 03:28 08/22/19 03:21 Additional Labs: Accuchecks 08/22/19 08/22/19 08/22/19 16:17 10:52 06:08 POC Glucose 283 H 365 H 157 H 08/21/19 08/21/19 20:41 20:15 POC Glucose 230 H 224 H Hospitalist ROS - Review of Systems Respiratory: reports: shortness of breath Cardiovascular: denies: chest pain, palpitations, orthopnea, paroxysmal noc. dyspnea, edema, light headedness, other Gastrointestinal: denies: nausea, vomiting, abdominal pain, diarrhea, constipation, melena, hematochezia, other Genitourinary: denies: dysuria, frequency, incontinence, hematuria, retention, other - Medication Medications: Active Medications Generic Name Dose Route Start Last Admin Trade Name Freq PRN Reason Stop Dose Admin Acetaminophen/Codeine Phosphate 1 tab 08/17/19 11:19 08/18/19 21:56 Tylenol #3 PO 1 tab Q4H PRN Administration Moderate Pain (4-6) Amiodarone HCl 400 mg 08/17/19 09:00 08/22/19 10:44 Cordarone PO 400 mg DAILY LIN Administration Amoxicillin/Clavulanate Potassium 875 mg 08/20/19 09:00 08/22/19 10:42 Augmentin PO 08/23/19 09:00 875 mg Q12HR LIN Administration Aspirin 81 mg 08/21/19 09:00 08/22/19 10:43 Ecotrin PO 81 mg DAILY LIN Administration Calcium/Vitamin D 1 tab 08/18/19 08:00 08/22/19 16:14 Caltrate 600 + Vit D PO 1 tab BID-WM LIN Administration Carvedilol 3.125 mg 08/16/19 21:00 08/22/19 10:43 Coreg PO 3.125 mg BID LIN Administration Heparin Sodium (Porcine) 5,000 units 08/22/19 09:00 08/22/19 16:09 Heparin SC 5,000 units TID LIN Administration Hydralazine HCl 25 mg 08/20/19 21:00 08/22/19 10:43 Apresoline PO 25 mg BID LIN Administration Insulin Human Isoph/Insulin Regular 15 units 08/22/19 09:00 08/22/19 10:45 Humulin 70/30 SC 15 unit BID LIN Administration Insulin Human Lispro 0 units 08/16/19 18:17 08/22/19 16:16 Humalog SC 4 unit .MILD SLIDING SCALE PRN Administration Mild Correctional Scale Isosorbide Dinitrate 20 mg 08/20/19 21:00 08/22/19 10:44 Isordil PO 20 mg BID LIN Administration Ondansetron HCl 4 mg 08/17/19 12:38 08/17/19 12:51 Zofran IVP 4 mg Q6H PRN Administration Nausea/Vomiting Pantoprazole Sodium 40 mg 08/21/19 09:00 08/22/19 10:43 Protonix PO 40 mg DAILY LIN Administration Rosuvastatin Calcium 20 mg 08/16/19 21:00 08/21/19 20:12 Crestor PO 20 mg HS LIN Administration Sodium Bicarbonate 325 mg 08/22/19 09:00 08/22/19 16:14 Bicarbonate, Sodium PO 325 mg TID LIN Administration Sodium Chloride 10 ml 08/16/19 21:00 08/22/19 16:13 Flush - Normal Saline IVF 10 ml Q12HR LIN Administration Sodium Chloride 1 gm 08/17/19 15:00 08/22/19 16:14 Sodium Chloride PO 1 gm TID LIN Administration - Exam Neck: negative: supple, symmetric, no JVD, no thyromegaly, no lymphadenopathy, no carotid bruit, JVD Heart: negative: RRR, no murmur, no gallops, no rubs, normal peripheral pulses, irregular, diminshed peripheral pulses, murmur present, II/IV, III/IV Respiratory: rales Gastrointestinal: negative: soft, non-tender, non-distended, normal bowel sounds , no palpable masses, no hepatomegaly, no splenomegaly, no bruit, no guarding, no rigidity, tender to palpation, distended, diminished bowl sounds, voluntary guarding Hosp A/P (1) Diastolic CHF, acute on chronic Code(s): I50.33 - ACUTE ON CHRONIC DIASTOLIC (CONGESTIVE) HEART FAILURE Status : Acute (2) Hyponatremia Code(s): E87.1 - HYPO-OSMOLALITY AND HYPONATREMIA Status: Acute (3) Chronic kidney disease, stage 3 Code(s): N18.3 - CHRONIC KIDNEY DISEASE, STAGE 3 (MODERATE) Status: Chronic (4) DM2 (diabetes mellitus, type 2) Status: Chronic (5) Bright red blood per rectum Code(s): K62.5 - HEMORRHAGE OF ANUS AND RECTUM Status: Acute - Plan pt's sodium is improving slowly. She is still on 3%. She has some chest pain but her sob has improved. will add oral supplements since she is not eating much. She has been encouraged to eat more. She is on fluid restriction. 08/17 pt's sodium is improving, pt still has sob. will get PT to come see her. I have asked her to use IS. 08/18 pt up in bed states she feels tired. pt up with PT per nursing staff. pt's bp is low and her creatinine is worsening. will hold nephrotoxins for now. Na is improving slowly. 08/19 pt on sodium chloride tab and sodium bicarb tabs. Na is improving and pt is now eating more. Her creatinine keeps worsening. she has bright blood per rectum when she had a bm. will get gi to see pt. pt encouraged to be more active. 08/20 will increase insulin since pt now is eating more. Encouraged to use IS. bp stable. BBPR most likley gi since she has an extensive clot in her bm unlikely to be renal in origin. pt has been afebrile. will continue abx for few more days then stop. monitor hh. 08/21 pt still sob. will get ct chest and check bnp. she was given lasix today. She is eating more now. will restart her insulin. Her creatinine has plateaued. she is still on salt tablets.
--- NOTE | 2019-08-22 20:27 | CT ---
CT CHEST WITHOUT CONTRAST: 08/22/19 PROVIDED CLINICAL HISTORY: Shortness of breath and pneumonia. FINDINGS: Comparison is made with the examination performed 08/16/19. The heart, pericardium and great vessels are suboptimally evaluated in the absence of IV contrast mat erial. Median sternotomy changes are redemonstrated. There is retrosternal somewhat circumscribed flu id density with Hounsfield units of about 32. This measures about 3.7 x 1.9 cm in transverse x AP dim ensions and approximately 6.3 cm in craniocaudal dimension. This presumably reflects hematoma in the setting of recent sternotomy. Interval increase in the degree of bilateral pleural fluid with adjacent bibasilar consolidation. Add itionally, there are now multiple foci of ground glass opacity and admixed consolidation involving th e left upper lobe and left lower lobe. No definite interlobular septal thickening to suggest congesti ve changes. There is no evidence for pneumothorax. The airway appears patent and of normal caliber. T he visualized portions of the upper abdomen appear unremarkable in an unenhanced CT appearance. Nonci rcumscribed fluid density involving the subcutaneous adipose layer compatible with anasarca. IMPRESSION: 1. Interval increase in bilateral pleural fluid with adjacent atelectasis and/or pneumonia. 2. Multiple new foci of air space disease involving the left lung, compatible with pneumonitis. 3. Retrosternal fluid collection presumably reflecting hematoma. POS: JOAQUÍN
[2019-08-22] MEDS: Rosuvastatin 20 MG TAB PO SCH (20:37)
[2019-08-22] MEDS: Acetaminophen/Codeine 30-300mg Tablet PO PRN (23:15)
[2019-08-23 05:08] LABS: Albumin 2.9 g/dL (3.4-4.8); Anion Gap 12 mmol/L (10-20); BUN (Urea Nitrogen) 34 mg/dL (9.8-20.1); BUN/Creatinine Ratio 17.17; Calc. Creatinine Clearance 41 mL/min (70-130); Calcium 8.5 mg/dL (7.8-10.44); Carbon Dioxide 29 mmol/L (23-31); Chloride 94 mmol/L (98-107); Estimated GFR-MDRD 26; Phosphorus 3.1 mg/dL (2.3-4.7); Potassium 3.5 mmol/L (3.5-5.1); Sodium 131 mmol/L (136-145)
[2019-08-23 05:15] LABS: Glucose 44 mg/dL (80-115)
[2019-08-23] MEDS: Calcium Carbonate 600 MG + Vit D TAB PO SCH ×2 (08:29→15:55)
[2019-08-23] MEDS: Acetaminophen/Codeine 30-300mg Tablet PO PRN ×2 (08:29→15:54)
[2019-08-23] MEDS: Amoxicillin/Potassium Clav 875 MG TAB PO SCH (08:30)
[2019-08-23] MEDS: Sodium Bicarbonate Tab 325 MG TAB PO SCH (08:30)
[2019-08-23] MEDS: Sodium Chloride 1 GM TAB PO SCH (08:30)
[2019-08-23] MEDS: Carvedilol 3.125 MG TAB PO SCH ×2 (08:30→20:08)
[2019-08-23] MEDS: Amiodarone 200 MG TAB PO SCH (08:30)
[2019-08-23] MEDS: Isosorbide Dinitrate 20 MG TAB PO SCH ×2 (08:30→20:08)
[2019-08-23] MEDS: hydrALAZINE 25 MG TAB PO SCH ×2 (08:30→20:08)
[2019-08-23] MEDS: Aspirin 81 mg Enteric Coated Tablet PO SCH (08:30)
[2019-08-23] MEDS: Heparin 5,000 UNITS/ML VIAL SC SCH ×3 (08:31→20:08)
--- NOTE | 2019-08-23 10:58 | PDOC.HOSPP ---
- Subjective Encounter Date: 08/23/19 Encounter Time: 10:45 Subjective: f/u for severe hyponatremia and ROSEANNE/CKD improving with supportive mgmt and 3% NS. Overall feeling better and more stamina. - Objective Vital Signs & Weight: Vital Signs (12 hours) Temp Pulse Resp BP BP Pulse Ox 08/23/19 08:30 70 138/64 08/23/19 08:24 98.4 F 70 16 138/64 94 L 08/23/19 08:00 94 L 08/23/19 04:00 68 20 133/63 93 L 08/23/19 00:00 74 20 Weight Admit Weight 191 lb 11.2 oz Weight 176 lb 6.4 oz Most Recent Monitor Data Heart Rate from ECG 73 NIBP 129/84 NIBP BP-Mean 99 Respiration from ECG 20 SpO2 99 I&O: 08/22/19 08/23/19 08/24/19 06:59 06:59 06:59 Intake Total 1200 1180 Output Total 800 1400 Balance 400 -220 Result Diagrams: 08/21/19 03:28 08/23/19 04:29 Additional Labs: Accuchecks 08/23/19 08/23/19 08/22/19 10:13 06:03 20:28 POC Glucose 197 H 130 H 221 H 08/22/19 08/22/19 16:17 10:52 POC Glucose 283 H 365 H Microbiology 08/16/19 12:15 Venous blood - Left Hand Blood Culture - Final NO GROWTH IN 5 DAYS 08/16/19 12:11 Venous blood - Left Arm Blood Culture - Final NO GROWTH IN 5 DAYS Laboratory Tests 08/16/19 08/19/19 08/20/19 12:11 17:10 03:00 Sodium 114 L* 116 L* Creatinine 2.14 H Phosphorus B-Natriuretic Peptide 1227.2 H 08/21/19 08/22/19 08/22/19 03:28 03:21 18:41 Sodium 119 L* 124 L Creatinine 2.43 H 2.43 H Phosphorus B-Natriuretic Peptide 2656.9 H 08/23/19 04:29 Sodium Creatinine Phosphorus 3.1 B-Natriuretic Peptide Radiology Reviewed by me: Yes (CT chest - + pneumonitis, bilat pleural effusion/ atelectasis) EKG Reviewed by me: Yes (Tele - SR) Hospitalist ROS - Medication Medications: Active Medications Generic Name Dose Route Start Last Admin Trade Name Freq PRN Reason Stop Dose Admin Acetaminophen/Codeine Phosphate 1 tab 08/17/19 11:19 08/23/19 08:29 Tylenol #3 PO 1 tab Q4H PRN Administration Moderate Pain (4-6) Amiodarone HCl 400 mg 08/17/19 09:00 08/23/19 08:30 Cordarone PO 400 mg DAILY LIN Administration Aspirin 81 mg 08/21/19 09:00 08/23/19 08:30 Ecotrin PO 81 mg DAILY LIN Administration Calcium/Vitamin D 1 tab 08/18/19 08:00 08/23/19 08:29 Caltrate 600 + Vit D PO 1 tab BID-WM LIN Administration Carvedilol 3.125 mg 08/16/19 21:00 08/23/19 08:30 Coreg PO 3.125 mg BID LIN Administration Heparin Sodium (Porcine) 5,000 units 08/22/19 09:00 08/23/19 08:31 Heparin SC 5,000 units TID LIN Administration Hydralazine HCl 25 mg 08/20/19 21:00 08/23/19 08:30 Apresoline PO 25 mg BID LIN Administration Insulin Human Isoph/Insulin Regular 15 units 08/22/19 09:00 08/22/19 20:48 Humulin 70/30 SC 15 unit BID LIN Administration Insulin Human Lispro 0 units 08/16/19 18:17 08/22/19 16:16 Humalog SC 4 unit .MILD SLIDING SCALE PRN Administration Mild Correctional Scale Isosorbide Dinitrate 20 mg 08/20/19 21:00 08/23/19 08:30 Isordil PO 20 mg BID LIN Administration Ondansetron HCl 4 mg 08/17/19 12:38 08/17/19 12:51 Zofran IVP 4 mg Q6H PRN Administration Nausea/Vomiting Pantoprazole Sodium 40 mg 08/21/19 09:00 08/23/19 08:30 Protonix PO 40 mg DAILY LIN Administration Rosuvastatin Calcium 20 mg 08/16/19 21:00 08/22/19 20:37 Crestor PO 20 mg HS LIN Administration Sodium Chloride 10 ml 08/16/19 21:00 08/23/19 08:31 Flush - Normal Saline IVF 10 ml Q12HR LIN Administration - Exam General Appearance: NAD, awake alert Eye: PERRL, anicteric sclera ENT: normocephalic atraumatic, no oropharyngeal lesions Neck: supple, symmetric, no JVD, no thyromegaly, no lymphadenopathy Heart: RRR, no gallops, no rubs, normal peripheral pulses Heart - other findings: S1, S2 Respiratory: no ronchi, normal chest expansion, no tachypnea Respiratory - other findings: diminished in bases bilat Gastrointestinal: soft, non-tender, non-distended, normal bowel sounds, no palpable masses Extremities: no cyanosis, 1+ LE edema Skin: normal turgor, no lesions Neurological: cranial nerve grossly intact, no new deficit Musculoskeletal: normal tone, generalized weakness Psychiatric: normal affect, A&O x 3 Hosp A/P (1) Acute on chronic systolic CHF (congestive heart failure), NYHA class 3 Code(s): I50.23 - ACUTE ON CHRONIC SYSTOLIC (CONGESTIVE) HEART FAILURE Status : Acute Plan: Improved, continue Lasix 40mg daily, serial I/O's, Daily weight, EF 40-45% (2) Hyponatremia Code(s): E87.1 - HYPO-OSMOLALITY AND HYPONATREMIA Status: Acute Plan: Severe hyponatremia improving, continue to encourage increased dietary intake, serial monitoring (3) Acute renal failure superimposed on stage 3 chronic kidney disease Code(s): N17.9 - ACUTE KIDNEY FAILURE, UNSPECIFIED; N18.3 - CHRONIC KIDNEY DISEASE, STAGE 3 (MODERATE) Status: Acute Plan: Improved, medical mgmt, avoid nephrotoxic meds and limit contrast exposure (4) Multi-vessel coronary artery stenosis Code(s): I25.10 - ATHSCL HEART DISEASE OF [place] CORONARY ARTERY W/O ANG PCTRS Status: Acute Plan: s/p CABG x 5v, continue ASA/Isosorbide/Coreg/Crestor (5) DM2 (diabetes mellitus, type 2) Status: Chronic - Plan plan discussed w/ family, PT/OT, social work specialist, respiratory therapy, out of bed/ambulate, DVT proph w/SCDs Stable overall Continue current med mgmt Lasix 40mg po daily OOB/PT for mobilization Continue ASA/Coreg/Crestor AM lab: BMP Likely home in 48h
[2019-08-23] MEDS: HumuLIN 70/30 (300 UNITS/3 ML VIAL) SC SCH ×2 (11:54→22:23)
[2019-08-23] MEDS ORDERED: Furosemide 40 MG/4 ML VIAL SLOW IVP SCH (12:45)
[2019-08-23] MEDS ORDERED: Potassium Chloride 20 MEQ TAB PO SCH (14:15)
--- NOTE | 2019-08-23 14:24 | EKG ---
Test Reason : WEAKNESS Blood Pressure : / mmHG Vent. Rate : 067 BPM Atrial Rate : 067 BPM P-R Int : 188 ms QRS Dur : 104 ms QT Int : 520 ms P-R-T Axes : 092 006 071 degrees QTc Int : 549 ms Normal sinus rhythm Low voltage QRS Septal infarct , age undetermined T wave abnormality, consider anterior ischemia Abnormal ECG Confirmed by YAMINI DUFFY M.D. ([id number]), content editor DONALD SALDANA ([id number]) on 08/23/2019 2:24:35 PM Referred By: Confirmed By:YAMINI DUFFY M.D.
--- NOTE | 2019-08-23 14:30 | PRG ---
DATE OF SERVICE: 08/23/2019 SERVICE: Nephrology. SUBJECTIVE: A 59-year-old female seen in followup for severe hyponatremia, acute kidney injury, and volume overload. The patient reports feeling better. Oral intake is improving. She is getting physical therapy. Denied nausea, vomiting, abdominal pain, or headache. OBJECTIVE: VITAL SIGNS: Temperature 98.4, pulse 70, respiratory rate 16, SpO2 of 94% on room air, and blood pressure is 138/64. I and O in the last 24 hours showed total intake of 1180 and total output of 1400. GENERAL: Comfortable female, in no obvious distress. The patient is fatigued. HEENT: Normocephalic, atraumatic. Oral mucosa is moist. NECK: Supple with no JVD. CARDIOVASCULAR: Regular rhythm and rate with normal heart sounds one and two. RESPIRATORY: Fair air entry bilateral though decreased at both bases with some transmitted breath sounds. No rhonchi or use of accessory muscles appreciated. GI: Full, soft, nontender, nondistended with normal bowel sounds. UROGENITAL: Jaramillo catheter is in place draining some urine. EXTREMITIES: Edema of left lower extremity noted. No obvious pitting edema of other extremities was appreciated though other extremities appeared full. No erythema appreciated. NEWSCAST PRODUCER: Conscious and alert and oriented x3 with appropriate mental status. Cranial nerves 2 through 12 are grossly intact. DIAGNOSTIC DATA: Renal function panel this morning showed sodium 131, potassium 3.5, chloride 94, CO2 of 29, BUN 34, creatinine 1.98, glucose 44, calcium 8.5, phosphorus 3.1, albumin 2.9. ASSESSMENT: 1. Acute kidney injury: Due to hemodynamic factors related to transient hypotension, effective intravascular contraction as well as cardiac decompensation. Improvement of hemodynamics. Creatinine is down from 2.43 yesterday to 1.98. BUN also is down from 41 yesterday to 34 today. 2. Severe hyponatremia: Improved. Sodium today is 131 from admission level of 105. 3. Hypokalemia: Due to diuretic therapy. 4. Metabolic acidosis: Improved with alkaline therapy. 5. Generalized edema due to hypoalbuminemia. The patient also has bilateral pleural effusions. Congestive heart failure cannot be ruled out. 6. Physical deconditioning. 7. Protein-calorie malnutrition. PLAN: 1. We will give additional dose of Lasix 40 mg IV today and we will start oral Lasix 40 mg from tomorrow. 2. We will discontinue sodium bicarbonate and sodium chloride tablets. 3. We will continue free water restriction. 4. We will give potassium supplementation due to continued diuretic therapy. 5. We will recheck renal function test in the morning. 6. Further treatment to follow depending on hospital course. Job ID: [id number]
[2019-08-23] MEDS: HumaLOG 300 UNITS/3 ML VIAL SC PRN (17:48)
[2019-08-23] MEDS: Rosuvastatin 20 MG TAB PO SCH (20:08)
[2019-08-24 05:20] LABS: Albumin 3.1 g/dL (3.4-4.8); Anion Gap 13 mmol/L (10-20); BUN (Urea Nitrogen) 36 mg/dL (9.8-20.1); BUN/Creatinine Ratio 19.35; Calc. Creatinine Clearance 40 mL/min (70-130); Calcium 8.8 mg/dL (7.8-10.44); Carbon Dioxide 25 mmol/L (23-31); Chloride 94 mmol/L (98-107); Estimated GFR-MDRD 28; Glucose 241 mg/dL (80-115); Magnesium 1.9 mg/dL (1.6-2.6); Phosphorus 2.9 mg/dL (2.3-4.7); Potassium 4.4 mmol/L (3.5-5.1); Sodium 128 mmol/L (136-145)
[2019-08-24] MEDS: HumaLOG 300 UNITS/3 ML VIAL SC PRN ×3 (05:45→17:19)
[2019-08-24] MEDS: HumuLIN 70/30 (300 UNITS/3 ML VIAL) SC SCH ×2 (08:20→20:42)
[2019-08-24] MEDS: Amiodarone 200 MG TAB PO SCH (08:20)
[2019-08-24] MEDS: Furosemide 40 MG TAB PO SCH (08:20)
[2019-08-24] MEDS: Isosorbide Dinitrate 20 MG TAB PO SCH ×3 (08:20→20:43)
[2019-08-24] MEDS: hydrALAZINE 25 MG TAB PO SCH ×3 (08:20→20:43)
[2019-08-24] MEDS: Aspirin 81 mg Enteric Coated Tablet PO SCH (08:20)
[2019-08-24] MEDS: Calcium Carbonate 600 MG + Vit D TAB PO SCH ×2 (08:20→17:20)
[2019-08-24] MEDS: Carvedilol 3.125 MG TAB PO SCH ×2 (08:20→20:42)
[2019-08-24] MEDS: Heparin 5,000 UNITS/ML VIAL SC SCH ×3 (08:20→20:42)
[2019-08-24] MEDS ORDERED: Furosemide 40 MG/4 ML VIAL SLOW IVP SCH (09:00)
--- NOTE | 2019-08-24 09:53 | PDOC.HOSPP ---
- Subjective Encounter Date: 08/24/19 Encounter Time: 09:50 Subjective: f/u for severe hyponatremia/CHF/ROSEANNE/CKD on free water restriction/Lasix and previous 3% NS. Overall improved renal function and Na+ levels. Appetite improved. Still feels weak and unsteady on feet. - Objective Vital Signs & Weight: Vital Signs (12 hours) Temp Pulse Resp BP BP Pulse Ox 08/24/19 08:11 98.1 F 77 20 157/72 H 94 L 08/24/19 04:00 98.3 F 76 20 156/71 H 92 L Weight Admit Weight 191 lb 11.2 oz Weight 176 lb Most Recent Monitor Data Heart Rate from ECG 73 NIBP 129/84 NIBP BP-Mean 99 Respiration from ECG 20 SpO2 99 I&O: 08/23/19 08/24/19 08/25/19 06:59 06:59 06:59 Intake Total 1180 1000 Output Total 1400 1150 Balance -220 -150 Result Diagrams: 08/21/19 03:28 08/24/19 04:05 Additional Labs: Accuchecks 08/24/19 08/24/19 08/23/19 05:37 00:04 20:33 POC Glucose 267 H 307 H 294 H 08/23/19 08/23/19 17:07 10:13 POC Glucose 304 H 197 H Microbiology 08/16/19 12:15 Venous blood - Left Hand Blood Culture - Final NO GROWTH IN 5 DAYS 08/16/19 12:11 Venous blood - Left Arm Blood Culture - Final NO GROWTH IN 5 DAYS Laboratory Tests 08/16/19 08/19/19 08/20/19 12:11 17:10 03:00 Sodium 114 L* 116 L* Creatinine 2.14 H Phosphorus B-Natriuretic Peptide 1227.2 H 08/21/19 08/22/19 08/22/19 03:28 03:21 18:41 Sodium 119 L* 124 L Creatinine 2.43 H 2.43 H Phosphorus B-Natriuretic Peptide 2656.9 H 08/23/19 04:29 Sodium Creatinine Phosphorus 3.1 B-Natriuretic Peptide EKG Reviewed by me: Yes (Tele - SR) Hospitalist ROS - Medication Medications: Active Medications Generic Name Dose Route Start Last Admin Trade Name Freq PRN Reason Stop Dose Admin Acetaminophen/Codeine Phosphate 1 tab 08/17/19 11:19 08/23/19 15:54 Tylenol #3 PO 1 tab Q4H PRN Administration Moderate Pain (4-6) Amiodarone HCl 400 mg 08/17/19 09:00 08/24/19 08:20 Cordarone PO 400 mg DAILY LIN Administration Aspirin 81 mg 08/21/19 09:00 08/24/19 08:20 Ecotrin PO 81 mg DAILY LIN Administration Calcium/Vitamin D 1 tab 08/18/19 08:00 08/24/19 08:20 Caltrate 600 + Vit D PO 1 tab BID-WM LIN Administration Carvedilol 3.125 mg 08/16/19 21:00 08/24/19 08:20 Coreg PO 3.125 mg BID LIN Administration Furosemide 40 mg 08/24/19 09:00 08/24/19 08:20 Lasix PO 40 mg DAILY LIN Administration Heparin Sodium (Porcine) 5,000 units 08/22/19 09:00 08/24/19 08:20 Heparin SC 5,000 units TID LIN Administration Hydralazine HCl 25 mg 08/20/19 21:00 08/24/19 08:20 Apresoline PO 25 mg BID LIN Administration Insulin Human Isoph/Insulin Regular 15 units 08/22/19 09:00 08/24/19 08:20 Humulin 70/30 SC 15 unit BID LIN Administration Insulin Human Lispro 0 units 08/16/19 18:17 08/24/19 05:45 Humalog SC 4 unit .MILD SLIDING SCALE PRN Administration Mild Correctional Scale Isosorbide Dinitrate 20 mg 08/20/19 21:00 08/24/19 08:20 Isordil PO 20 mg BID LIN Administration Ondansetron HCl 4 mg 08/17/19 12:38 08/17/19 12:51 Zofran IVP 4 mg Q6H PRN Administration Nausea/Vomiting Pantoprazole Sodium 40 mg 08/21/19 09:00 08/24/19 08:20 Protonix PO 40 mg DAILY LIN Administration Rosuvastatin Calcium 20 mg 08/16/19 21:00 08/23/19 20:08 Crestor PO 20 mg HS LIN Administration Sodium Chloride 10 ml 08/16/19 21:00 08/24/19 08:21 Flush - Normal Saline IVF 10 ml Q12HR LIN Administration - Exam General Appearance: NAD, awake alert Eye: PERRL, anicteric sclera ENT: normocephalic atraumatic, no oropharyngeal lesions Neck: supple, symmetric, no JVD, no thyromegaly, no lymphadenopathy Heart: RRR, no gallops, no rubs, normal peripheral pulses Heart - other findings: S1, S2 Respiratory: no ronchi, tachypneic Respiratory - other findings: diminished in bases bilat Gastrointestinal: soft, non-tender, non-distended, normal bowel sounds, no palpable masses Extremities: no cyanosis, no clubbing, 1+ LE edema Skin: normal turgor, no lesions Neurological: cranial nerve grossly intact, no new deficit Musculoskeletal: normal tone, normal strength Psychiatric: normal affect, A&O x 3 Hosp A/P (1) Acute on chronic systolic CHF (congestive heart failure), NYHA class 3 Code(s): I50.23 - ACUTE ON CHRONIC SYSTOLIC (CONGESTIVE) HEART FAILURE Status : Acute Plan: Continue Lasix 40mg po daily, EF 40-45% (2) Hyponatremia Code(s): E87.1 - HYPO-OSMOLALITY AND HYPONATREMIA Status: Acute Plan: Overall improved trend, continue free water restriction, Lasix daily, serial monitoring, increased dietary intake (3) Acute renal failure superimposed on stage 3 chronic kidney disease Code(s): N17.9 - ACUTE KIDNEY FAILURE, UNSPECIFIED; N18.3 - CHRONIC KIDNEY DISEASE, STAGE 3 (MODERATE) Status: Acute Plan: Improved, continue supportive mgmt, avoid nephrotoxic meds and limit contrast exposure (4) Multi-vessel coronary artery stenosis Code(s): I25.10 - ATHSCL HEART DISEASE OF [place] CORONARY ARTERY W/O ANG PCTRS Status: Acute Plan: s/p CABG x 5v, continue ASA/Lipitor/Coreg/Crestor (5) DM2 (diabetes mellitus, type 2) Status: Chronic - Plan PT/OT, social director, out of bed/ambulate, DVT proph w/SCDs Stable overall Continue current med mgmt Lasix 20mg IVP x 1 now Lasix 40mg po daily Free water restriction 1L/day OOB/PT for mobilization Continue ASA/Coreg/Crestor AM lab: BMP HH vs SNF/rehab?
[2019-08-24] MEDS ORDERED: Furosemide 20 MG/2 ML VIAL SLOW IVP SCH (10:15)
--- NOTE | 2019-08-24 13:50 | PRG ---
DATE OF SERVICE: 08/24/2019 SERVICE: Nephrology. SUBJECTIVE: A 59-year-old female seen in followup for hyponatremia and volume overload. The patient is status post recent CABG, was admitted due to worsening shortness of breath and found to have severe hyponatremia with sodium of 105 on presentation. Oral intake is improving. The patient also is getting stronger and is able to work with supports to the restroom. Complained of thigh edema. Jaramillo catheter has been removed. Denies shortness of breath, fever, cough, nausea, or vomiting. OBJECTIVE: VITAL SIGNS: Temperature 98.1, pulse 80, respiratory rate 18, SpO2 of 92% on room air, blood pressure 134/66. I and O in the last 24 hours showed total intake of 1000 with total output of 1150. GENERAL: Female, in no distress. Afebrile. Anicteric. Acyanotic. HEENT: Normocephalic, atraumatic. Oral mucosa is moist. NECK: Supple with no JVD. CARDIOVASCULAR: Regular rhythm and rate with normal heart sounds 1 and 2. RESPIRATORY: Fair air entry bilateral, though decreased at both bases posteriorly. Some transmitted breath sounds noted. No obvious rhonchi or use of accessory muscles appreciated. GI: Full, soft, nontender, nondistended with normal bowel sounds. MUSCULOSKELETAL: Mild right and [id number] left lower extremity edema noted. No erythema appreciated. MEMBERSHIP SOLICITOR: Conscious, alert, and oriented x3 with appropriate mental status. Cranial nerves 2 through 12 are grossly intact. DIAGNOSTIC DATA: Chemistry showed sodium 128, potassium 4.4, chloride 94, CO2 of 25, BUN 36, creatinine 1.86, glucose 241, calcium 8.8, phosphorus 2.9, magnesium 1.9, albumin 3.1. Yesterday August 22, sodium was 131, potassium 3.4, chloride 94, CO2 of 29, BUN 34, creatinine 1.98, calcium 8.5, phosphorus 3.1, albumin 2.9. ASSESSMENT: 1. 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 Sodium level is improving with fluid restriction, diuretic therapy, and increased solute intake. Sodium dropped from 131 to 128 today. This most likely is due to increased oral intake as well as discontinuation of salt tablets. We will check electrolytes tomorrow morning. Fluid restriction to continue. 2. Acute kidney injury: Improving. Creatinine continued to trend down from peak of 2.4 to 1.86 today. PLAN: 1. We will avoid hypotension. We will also avoid nephrotoxic agents. We will monitor intake and output as well as renal function. 2. Hypertension: BP is appreciated and is consistently elevated. We will increase isosorbide dinitrate and hydralazine to 20 t.i.d. as well as 25 t.i.d. We will add holding parameters to prevent hypotension. 3. Hypokalemia: Repleted. 4. CKD stage 3: Stable. Baseline creatinine is noted to be around 1.5. 5. Hypoalbuminemia: Due to poor oral intake and acute illness. 6. Acute on chronic systolic heart failure: Improving with diuretics. 7. Volume overload with bilateral leg edema: We will continue diuretics and monitor intake and output as well as renal function. Further treatment to follow depending on hospital course. Job ID: [id number]
[2019-08-24] MEDS: Acetaminophen/Codeine 30-300mg Tablet PO PRN ×2 (15:09→20:43)
[2019-08-24] MEDS: Rosuvastatin 20 MG TAB PO SCH (20:43)
[2019-08-25 04:33] LABS: Anion Gap 13 mmol/L (10-20); BUN (Urea Nitrogen) 32 mg/dL (9.8-20.1); BUN/Creatinine Ratio 15.09; Calc. Creatinine Clearance 35 mL/min (70-130); Calcium 8.7 mg/dL (7.8-10.44); Carbon Dioxide 27 mmol/L (23-31); Chloride 98 mmol/L (98-107); Estimated GFR-MDRD 24; Glucose 247 mg/dL (80-115); Potassium 3.9 mmol/L (3.5-5.1); Sodium 134 mmol/L (136-145)
[2019-08-25] MEDS: HumaLOG 300 UNITS/3 ML VIAL SC PRN ×2 (05:51→13:27)
[2019-08-25] MEDS: Amiodarone 200 MG TAB PO SCH (09:24)
[2019-08-25] MEDS: Furosemide 40 MG TAB PO SCH (09:25)
[2019-08-25] MEDS: Carvedilol 3.125 MG TAB PO SCH (09:25)
[2019-08-25] MEDS: hydrALAZINE 25 MG TAB PO SCH (09:25)
[2019-08-25] MEDS: Isosorbide Dinitrate 20 MG TAB PO SCH ×2 (09:26→15:27)
[2019-08-25] MEDS: Heparin 5,000 UNITS/ML VIAL SC SCH ×2 (09:26→15:27)
[2019-08-25] MEDS: HumuLIN 70/30 (300 UNITS/3 ML VIAL) SC SCH (09:26)
[2019-08-25] MEDS: Calcium Carbonate 600 MG + Vit D TAB PO SCH ×2 (09:26→16:58)
[2019-08-25] MEDS: Aspirin 81 mg Enteric Coated Tablet PO SCH (09:26)
[2019-08-25] MEDS ORDERED: hydrALAZINE 25 MG TAB PO SCH ×2 (12:47→15:00)
--- NOTE | 2019-08-25 13:09 | PRG ---
DATE OF SERVICE: 08/25/2019 SERVICE: Nephrology. SUBJECTIVE: A 59-year-old female seen in followup for hyponatremia and acute kidney injury. The patient was admitted due to worsening shortness of breath and generalized weakness and found to have severe hyponatremia. Clinically improved. Ambulating with walker. Oral intake has improved. Denied nausea, vomiting, diarrhea, or abdominal pain. Discharge is contemplated. OBJECTIVE: VITAL SIGNS: Temperature 97.9, pulse 78, respiratory rate 18, SpO2 of 96% on room air, and blood pressure is 164/76. I and O in the last 24 hours showed total intake of 2080 with total output of 600. GENERAL: Comfortable female, in no obvious distress. Fatigued, but afebrile and anicteric. HEENT: Normocephalic, atraumatic. Oral mucosa is moist. NECK: Supple with no JVD. CARDIOVASCULAR: Regular rhythm and rate with normal heart sounds 1 and 2. RESPIRATORY: Fair air entry bilaterally, though decreased at both bases posteriorly. No obvious rhonchi or use of accessory muscles appreciated. GASTROINTESTINAL: Full, soft, nontender, and nondistended with normal bowel sounds. EXTREMITIES: [id number] left lower extremity edema noted. Other extremities are grossly normal with no edema or erythema. CENTRAL NERVOUS SYSTEM: Conscious, alert, oriented x3 with appropriate mental status. Cranial nerves II through XII are grossly intact. DIAGNOSTIC DATA: Renal function panel showed sodium 134, potassium 3.9, chloride 98, CO2 of 27, BUN 32, creatinine 2.12, glucose 247, calcium 8.7, phosphorus 3.0, and albumin 3.0. ASSESSMENT: 1. Hyponatremia: Improved. Sodium is up from 105 to 134. We will continue free water intake restriction as well as liberal solute intake. 2. Volume overload: Improved. Still have bilateral leg edema. We will continue diuretic therapy with Lasix 40 mg daily. 3. Acute kidney injury: Creatinine is up from 1.86 to 2.12 today: Most likely due to hemodynamic factors related to diuretic therapy. Baseline creatinine ranges from 1.5 to 1.7. We will continue to avoid nephrotoxic agent while monitoring intake and renal function. 4. Chronic kidney disease, stage 3: Due to hypertension and diabetes mellitus. 5. Acute on chronic congestive heart failure: Improved. 6. Bilateral pleural effusion. 7. Physical deconditioning. 8. Disposition: The patient can be discharged from Nephrology point of view. However, close followup with repeat renal function panel is recommended. The patient is scheduled to be followed up in 1 week. Job ID: [id number]
[2019-08-25 13:18] VITALS: BMI 28.3
[2019-08-25 16:06] VITALS: BP 138/64; TEMP 98.5
--- NOTE | 2019-08-25 20:52 | DIS ---
DATE OF ADMISSION: 08/16/2019 DATE OF DISCHARGE: 08/25/2019 DISCHARGE DIAGNOSES: 1. Acute on chronic systolic congestive heart failure, [place] Heart Association class III, with ejection fraction 40% to 45%. 2. Hyponatremia, severe, resolving. 3. Acute on chronic kidney disease, stage 3. 4. Multivessel coronary artery stenosis status post five-vessel coronary artery bypass grafting. 5. Diabetes mellitus type 2, chronic. CONSULTATIONS: 1. Dr. Grier with Nephrology Service. 2. Dr. Mcnair with GI Service. 3. Dr. Francis Ortiz with Cardiovascular Surgery Service. 4. Dr. Funes with Pulmonology Critical Care Service. PERTINENT LABORATORY AND X-RAY FINDINGS: Sodium ranged between 104 to 134, creatinine ranged between 1.50 to 2.43. Estimated GFR ranged between 20 to 35. Phosphorus ranged between 2.9 to 3.9, magnesium level 1.9. BNP ranged between 1227 to 2657. TSH 1.93. CBC showed a white blood cell count ranged between 14.5 to 23.4, hemoglobin ranged between 8.5 to 10.6. COVID-19 PCR not detected, 08/16/2019. Blood cultures x2 dated 08/16/2019, showed no growth at [address] angiogram of the chest dated 08/16/2019, showed no evidence for pulmonary embolus. Bilateral pleural effusions and anasarca. Consolidation of the lung parenchyma. Portable chest x-ray dated 08/19/2019, showed bibasilar infiltrates with associated effusions. CT of the chest dated 08/22/2019, showed bilateral pleural fluid with adjacent atelectasis. Retrosternal fluid collection presumably reflecting hematoma. HOSPITAL COURSE: The patient was initially admitted after presenting with severe weakness, status post coronary artery bypass grafting x5 vessels in early August 2019. The patient presented with poor functional status and deconditioning. The patient underwent metabolic screening showing severe hyponatremia with initial value of 105. The patient was placed on low volume IV normal saline and evaluated by the Nephrology Service. The patient was transitioned to 3% normal saline solution with slow correction of the sodium level for approximately 5 to 6 days after admission. The patient had adjustment to her chronic medication regimen and overall clinically stabilized with correction of the sodium level. The patient was also managed for acute kidney injury in the context of chronic kidney disease with overall improving renal function by the time of discharge. The patient was placed on fluid restriction to 1 L per 24 hours and evaluated by Physical and Occupational Therapy. The patient was ambulating short distances with standby assistance and a rolling walker with recommendations to continue at home. I have examined the patient at the time of discharge and discussed followup instructions. The patient verbalized understanding and agreement ready for discharge, 08/25/2019. DISCHARGE MEDICATIONS: 1. Amiodarone 400 mg p.o. daily. 2. Humulin 70/30, 15 units subcutaneously b.i.d. 3. Aspirin 325 mg p.o. daily. 4. Calcium with vitamin D 1500 mg p.o. b.i.d. 5. Coreg 3.125 mg p.o. b.i.d. 6. Lasix 40 mg p.o. daily. 7. Hydralazine 50 mg p.o. t.i.d. 8. Isosorbide dinitrate 20 mg p.o. t.i.d. 9. Crestor 20 mg p.o. at bedtime. FOLLOWUP: The patient may follow up with her primary care provider at [facility], 08/28/2019 at 1:00 p.m. The patient will follow up with Dr. Mckeon with Vascular Surgery Service, 08/27/2019 at 1:00 p.m. The patient will follow up with Dr. Grier with Nephrology Service and to call his office for appointment time and date. CONDITION ON DISCHARGE: Stable. ACTIVITY: Ad alex, rolling walker with standby assistance. DIET: Heart healthy and ADA. Fluid restriction 1.2 L per 24 hours. CODE STATUS: Full. DISPOSITION: Home, 08/25/2019. TIME SPENT: Total time preparing and coordinating discharge, 38 minutes. Job ID: [id number]
== END 2019-08-25 19:20 | disposition home or self-care (01) | DRG 643 ==
LOC: ERS 11:52 → IMCU/EMU 14:48 → 2NO 08-22 18:21 → ONC 08-22 18:41 → 2NO 08-22 18:55
PROVIDERS: ADMIT Internal Medicine; ATTEND Internal Medicine
DX: E22.2 Syndrome of inappropriate secretion of antidiuretic hormone (principal); I50.23 Acute on chronic systolic (congestive) heart failure; J96.00 Acute respiratory failure, unspecified whether with hypoxia or hypercapnia; N17.9 Acute kidney failure, unspecified; I13.0 Hypertensive heart and chronic kidney disease with heart failure and stage 1 through stage 4 chronic kidney disease, or unspecified chronic kidney disease; E46 Unspecified protein-calorie malnutrition; K92.1 Melena; J98.11 Atelectasis; E87.2 Acidosis; Z20.828 Contact with and (suspected) exposure to other viral communicable diseases; N18.3 Chronic kidney disease, stage 3 (moderate); I25.10 Atherosclerotic heart disease of native coronary artery without angina pectoris; E11.22 Type 2 diabetes mellitus with diabetic chronic kidney disease; Z96.651 Presence of right artificial knee joint; I25.5 Ischemic cardiomyopathy; E87.70 Fluid overload, unspecified; E88.09 Other disorders of plasma-protein metabolism, not elsewhere classified; R79.89 Other specified abnormal findings of blood chemistry; I95.89 Other hypotension; Z89.412 Acquired absence of left great toe; I25.2 Old myocardial infarction; Z95.1 Presence of aortocoronary bypass graft; Z79.4 Long term (current) use of insulin; Z79.899 Other long term (current) drug therapy; Z79.82 Long term (current) use of aspirin; Z68.28 Body mass index [BMI] 28.0-28.9, adult
CPT/HCPCS: 36415; 36416; 51702; 71045; 71250; 71275; 80048; 80053; 80069; 80202; 81001; 81003; 81015; 82533; 82553; 82570; 83605; 83690; 83735; 83880; 83930; 83935; 84156; 84300; 84443; 84484; 84540; 85025; 86850; 86900; 86901; 87040; 87635; 93005; 96365; 96366; 96367; 96375; J1644; J1815; J1940; J1956; J2270; J2405; J2543; J3370; J3490; J7050; J7131; P9047; U0003

== ENCOUNTER 2019-09-23 14:42 | Inpatient (IN) | payer OTHER ==
[2019-09-23] MEDS ORDERED: Fentanyl 100 MCG/2 ML VIAL ONE (15:38)
[2019-09-23] MEDS ORDERED: Ondansetron PF 4 MG/2 ML Vial ONE (15:38)
[2019-09-23] MEDS ORDERED: Ketorolac Tromethamine 30 MG/ML VIAL ONE (15:38)
[2019-09-23 15:47] LABS: Hemoglobin 7.1 g/dL (12.0-16.0); Mean Corpuscular HGB CONC 32.1 g/dL (32.0-36.0); Mean Corpuscular Hemoglobin 26.9 pg (27.0-31.0); Mean Corpuscular Volume 83.7 fL (78.0-98.0); Mean Platelet Volume 8.1 fL (7.4-10.4); Platelet Count 299 thou/uL (130-400); RBC Distribution Width 14.8 % (11.5-14.5); Red Blood Cell (RBC) Count 2.63 mill/uL (4.20-5.40); White Blood Cell (WBC) Count 29.2 thou/uL (4.8-10.8)
--- NOTE | 2019-09-23 15:48 | RAD ---
Left foot 3 views HISTORY: Pain. Edema. Wound. COMPARISON: 08/06/2019. FINDINGS: Lisfranc joint alignment is anatomic. Plantar arch is maintained. Moderate osteoarthritic c hanges throughout the foot. Plantar and Achilles enthesophytes evident at the posterior aspect of the calcaneus. Old healed fifth metatarsal fracture. Amputation of the big toe at the proximal phalanx neck again demonstrated. Ongoing soft tissue swelli ng. Developing ostial lysis at the ossific stump with small surrounding calcific fragmentation. No soft tissue gas is reliably demonstrated. IMPRESSION : Osseous changes and adjacent calcification about the first toe proximal phalanx stump worrisome for o ngoing aggressive infection. Heel spurs. Osteoarthritis.
[2019-09-23] MEDS ORDERED: Vancomycin HCl 1.75 GM in Sodium Chloride 0.9% 500 ML IVPB SCH (16:00)
[2019-09-23] MEDS ORDERED: Piperacillin/Tazobactam 3.375 GM VIAL ONE (16:00)
[2019-09-23 16:09] LABS: ALT (SGPT) 25 U/L (8-55); AST (SGOT) 36 U/L (5-34); Albumin 2.7 g/dL (3.4-4.8); Alkaline Phosphatase 242 U/L (40-110); Anion Gap 11 mmol/L (10-20); BUN (Urea Nitrogen) 19 mg/dL (9.8-20.1); Bilirubin, Total 0.7 mg/dL (0.2-1.2); Calc. Creatinine Clearance 0 mL/min (70-130); Calcium 8.5 mg/dL (7.8-10.44); Carbon Dioxide 25 mmol/L (23-31); Chloride 98 mmol/L (98-107); Estimated GFR-MDRD 37; Globulin 5.5 g/dL (2.4-3.5); Glucose 121 mg/dL (80-115); Protein, Total 8.2 g/dL (6.0-8.3); Sodium 130 mmol/L (136-145)
[2019-09-23 16:13] LABS: Band 19 % (5-11); Lymphocytes 12 % (21-51); MDiff Complete? YES; Monocytes 4 % (0-10); Neutrophil 65 % (42-75); Platelet Morphology Comment Appears Adequate; Polychromasia SLIGHT = 2-3 cells (100X) (0-2/hpf); Target Cells SLIGHT = 2-5 cells (100X) (0-1/hpf); Tear Drops SLIGHT = 2-5 cells (100X) (0-1/hpf)
[2019-09-23] MEDS ORDERED: Acetaminophen 650 MG Suppository PR PRN (18:19)
[2019-09-23] MEDS ORDERED: Senokot S 8.6-50 MG TAB PO PRN (18:19)
[2019-09-23] MEDS ORDERED: HYDROcodone/Acetaminophen 5/325 mg Tablet PO PRN (18:19)
[2019-09-23] MEDS ORDERED: Dextrose 50% Abboject 50 ML SYRINGE SLOW IVP PRN (18:28)
[2019-09-23] MEDS ORDERED: Dextrose 5% in Water 1,000 ML IV PRN (18:28)
--- NOTE | 2019-09-23 19:15 | HP ---
PRIMARY CARE PHYSICIAN: Dr. Valle. CHIEF COMPLAINT: Left foot pain and swelling. HISTORY OF PRESENT ILLNESS: The H and P was taken from the patient's son who was at bedside secondary to the patient having a dialect that was not able to be communicated through a cane piler phone. The patient is a 59-year-old female with a past medical history significant for diabetes type 2, CHF, chronic kidney disease, peripheral arterial disease, who presents to the ER for the above complaint. The son reports increased swelling, blackness, and pain to the patient's left foot over the past week. The patient is post-op left great toe amputation in August [address] Sumaya Foley. She had osteomyelitis of the left great toe with a subsequent left great toe amputation. She was discharged home with wound care twice a week and a followup with the surgeon a week later. The son reports that they were unable to followup for unknown reasons; however, the patient has been following up with her cardiac rehab because she is status post CABG in August. The patient did not have any fever or chills. No abdominal pain, nausea, vomiting, or diarrhea. When she went to see with her PCP today, she was sent to the ER. In the ER, x-ray of the left foot did show the first toe phalanx stump worrisome for aggressive infection. She had a white count of 29.2, hemoglobin of 7.1. Lactic acid was 1.6. She did have a temperature of 100.7 Fahrenheit and 10/10 pain. Her alkaline phosphatase was elevated at 242. The patient was given vancomycin and Zosyn, 1 L normal saline, fentanyl, and Toradol with improvement in symptoms. PAST MEDICAL HISTORY: 1. CHF, [place] heart classification 3, EF of 40% to 45%. 2. CKD 3. 3. Coronary artery disease. 4. Diabetes type 2, non-insulin dependent. PAST SURGICAL HISTORY: 1. CABG x5 in August of 2019. 2. Right total knee. 3. Left great toe amputation in August of 2019. SOCIAL HISTORY: The patient lives with family at home. She has no history of smoking, illicit drug use, or alcohol intake. She is able ambulate without any assistive devices. FAMILY HISTORY: Significant for diabetes. ALLERGIES: NO KNOWN DRUG ALLERGIES. HOME MEDICATIONS: 1. Tandem Plus 162 mg-115.2 mg-1 mg one tablet p.o. daily. 2. Lasix 40 mg p.o. daily. 3. Coreg 3.125 mg p.o. b.i.d. 4. Amiodarone 200 mg p.o. daily. 5. Hydralazine 50 mg p.o. t.i.d. 6. Isosorbide dinitrate 20 mg p.o. t.i.d. REVIEW OF SYSTEMS: All other review of systems are negative unless otherwise stated in HPI. PHYSICAL EXAMINATION: VITAL SIGNS: Temperature 100.7, blood pressure 113/45, heart rate 88, respirations 18, SpO2 of 98%. Pain 10/10. CONSTITUTIONAL: The patient is alert and oriented to person, place, and time. Appears comfortable and nontoxic in appearance. HEENT: Head is atraumatic and normocephalic. Eyes, PERRLA. Extraocular muscles intact. ENT: Oropharynx is clear. Uvula midline. Moist mucous membranes. No oral lesions. NECK: Full range of motion. No cervical spinous tenderness. No JVD. No cervical adenopathy. RESPIRATORY/CHEST: Respirations even and nonlabored. Clear to auscultation. CARDIOVASCULAR: S1, S2 appreciated. No murmurs, rubs, or gallops. ABDOMEN: Soft, nontender, nondistended. Normoactive bowel sounds. No guarding. No rigidity. No rebound tenderness. Negative Rovsing sign. Negative Knapp sign. BACK: Full range of motion. No central spinous tenderness. No CVA tenderness. EXTREMITIES: Upper extremities; full range of motion, normal strength, sensation intact. Palpable radial pulses. Lower extremities; the left lower extremity has significant soft tissue swelling, erythema extending up the oshea, [id number] with some weeping to the lateral aspect near the malleolus. The left great toe is amputated. There is a stump with some open drainage and oozing. It is warm to touch. She has sensation. She has a weak thready pedal pulse. The right extremity is normal. NEUROLOGIC: The patient is alert and oriented to person, place, and time. Moving all extremities well. No focal motor deficits. Able to ambulate without assistive devices. PSYCHIATRIC: Normal affect. A and O x3. LABS AND DIAGNOSTICS: X-ray of the left foot showed first toe phalanx stump worrisome for progressing aggressive infection. Sodium 130, potassium 4.0, chloride 98, CO2 of 25, BUN 19, creatinine 1.45, glucose 121, alkaline phosphatase 242, AST 36, ALT 25. WBCs 29.2, hemoglobin 7.1, hematocrit 22, platelets 299. Lactic acid 1.6. IMPRESSION AND PLAN: 1. Sepsis secondary secondary to nonhealing diabetic foot infection. 2. Nonhealing diabetic foot infection. The patient is status post left great toe amputation secondary to osteomyelitis on 08/06/[address] Sumaya Foley. The patient presents for worsening pain, swelling, and blackness to the left foot in amputation site. WBCs 29.2, lactic acid 1.6, febrile with 100.7 temperature. We will consult surgeon, Dr. Sumaya Foley. We will consult Wound Care Therapy. We will continue vanc and Zosyn IV piggyback. Blood cultures and wound cultures are pending. Tetanus is up to date. 3. Anemia. Patient presents with a hemoglobin of 7.1. Her baseline in July and August of this year appears to be 10 to 11. The patient denies any hemoptysis, any melena, or hematochezia. She does have chronic kidney disease stage 3. We will give 1 unit of blood as the patient will most likely dilute with IV fluid resuscitation and we will recheck level in the a.m. Will check iron studies. 4. Chronic peripheral arterial disease. The patient has weak and thready pulses and history of diabetes type 2. 5. Diabetes type 2, non-insulin dependent. The patient takes no medications for her diabetes. We will place her on moderate sliding scale. Accu-Cheks before meals and at bedtime. 6. Chronic kidney disease stage 3, stable. 7. Congestive heart failure. The patient is in [place] heart association class 3 with an EF of 40% to 45%. The patient received 1 L of normal saline in the ER. We will continue gentle IV fluid resuscitation. We will recheck a lactic acid in the a.m. 8. No deep venous thrombosis prophylaxis. Pepcid for gastrointestinal prophylaxis. 9. The patient is a full code. Her contact is Tari, her son, [phone]. 10. Discussed case with Dr. Gorman. Job ID: [id number] [facility]
[2019-09-23 20:05] LABS: Reticulocyte Count 2.4 % (0.5-1.5)
[2019-09-23] MEDS: Sodium Chloride 0.9% 1,000 ML IV SCH (20:13)
[2019-09-23] MEDS: Famotidine 20 MG TAB PO SCH (20:13)
[2019-09-23] MEDS: Acetaminophen 325 MG TAB PO PRN (20:15)
[2019-09-23 20:25] LABS: Iron 8 ug/dL (50-170); Iron Binding Capacity, Total 131 mcg/dL (265-497)
[2019-09-23] MEDS: Famotidine/PF 20 mg/2ml Vial SLOW IVP SCH (20:29)
[2019-09-23 21:20] VITALS: BMI 27.8
[2019-09-23] MEDS: Piperacillin/Tazobactam 3.375 GM in Sodium Chloride 0.9% 100 ML IVPB SCH (23:00)
[2019-09-24 01:19] LABS: Bacteria/HPF None Seen HPF (None Seen); Bilirubin Negative (Negative); Blood, Urine Negative (Negative); Clarity Turbid (Clear); Glucose, Urine (Dipstick) Normal (Negative); Ketone, Urine Negative (Negative); Leukocyte 75 Leu/uL (Negative); Nitrite Negative (Negative); Protein, Urine (Dipstick) 50 mg/dL (Neg-Trace); RBC/HPF 0-3 HPF (0-3); Specific Gravity, Urine 1.029 (1.002-1.036); Urobilinogen Normal mg/dL (Less than 2); pH, Urine 5.5 (5.0-9.0)
[2019-09-24] MEDS: Piperacillin/Tazobactam 3.375 GM in Sodium Chloride 0.9% 100 ML IVPB SCH ×4 (03:45→20:52)
[2019-09-24 05:59] LABS: #Eosinphils 0.3 thou/uL (0.0-0.7); #Lymphocytes 2.1 thou/uL (1.20-3.40); #Monocytes 1.6 thou/uL (0.11-0.59); #Neutrophils 19.5 thou/uL (1.40-6.50); %Eosinophils 1.3 % (0.0-10.0); %Lymphocytes 8.8 % (21.0-51.0); %Monocytes 6.6 % (0.0-10.0); %Neutrophils 83.2 % (42.0-75.0); Hemoglobin 8.2 g/dL (12.0-16.0); Mean Corpuscular HGB CONC 31.2 g/dL (32.0-36.0); Mean Corpuscular Hemoglobin 26.8 pg (27.0-31.0); Mean Corpuscular Volume 85.9 fL (78.0-98.0); Platelet Count 239 thou/uL (130-400); RBC Distribution Width 13.9 % (11.5-14.5); Red Blood Cell (RBC) Count 3.05 mill/uL (4.20-5.40); White Blood Cell (WBC) Count 23.5 thou/uL (4.8-10.8)
[2019-09-24 06:15] LABS: Lactic Acid 0.8 mmol/L (0.5-2.2)
[2019-09-24 06:24] LABS: ALT (SGPT) 21 U/L (8-55); AST (SGOT) 24 U/L (5-34); Albumin 2.4 g/dL (3.4-4.8); Alkaline Phosphatase 211 U/L (40-110); Anion Gap 11 mmol/L (10-20); BUN (Urea Nitrogen) 23 mg/dL (9.8-20.1); Calc. Creatinine Clearance 45 mL/min (70-130); Carbon Dioxide 22 mmol/L (23-31); Chloride 102 mmol/L (98-107); Estimated GFR-MDRD 33; Globulin 4.8 g/dL (2.4-3.5); Glucose 127 mg/dL (80-115); Potassium 3.8 mmol/L (3.5-5.1); Protein, Total 7.2 g/dL (6.0-8.3); Sodium 131 mmol/L (136-145)
[2019-09-24] MEDS: Ondansetron PF 4 MG/2 ML Vial IVP PRN (09:03)
[2019-09-24] MEDS: Famotidine/PF 20 mg/2ml Vial SLOW IVP SCH ×2 (09:07→20:35)
[2019-09-24] MEDS: Famotidine 20 MG TAB PO SCH (09:07)
[2019-09-24 10:53] LABS: CKMB 0.8 ng/mL (0-6.6)
--- NOTE | 2019-09-24 13:30 | ULT ---
Arterial duplex sonogram bilateral lower extremities HISTORY: Vascular disease. Claudication. FINDINGS: Good color and spectral Doppler flow throughout the arterial structures of each lower leg. No abnormally elevated peak systolic velocities. Within the right leg, biphasic wave flow is demonstrated within the common femoral and deep femoral, femoral, popliteal, and anterior tibial arteries. Monophasic flow within the posterior tibial and dorsalis pedis arteries. Within the left leg, biphasic waveform within the common femoral and deep femoral, femoral and poplit eal arteries. Monophasic flow within the anterior tibial and posterior tibial arteries. Dorsalis pedis artery obscured by bandage. IMPRESSION : Good arterial flow throughout each lower extremity without evidence of significant stenosis.
[2019-09-24] MEDS: Vancomycin 1 GM in Premix Bag 1 BAG IVPB SCH (15:10)
[2019-09-24] MEDS: Sodium Chloride 0.9% 1,000 ML IV SCH ×2 (18:04→20:37)
--- NOTE | 2019-09-24 18:38 | PDOC.HOSPP ---
- Subjective Encounter Date: 09/24/19 Encounter Time: 07:00 Subjective: no overnight events. this morning, persistent pain in the lower extremities. - Objective Vital Signs & Weight: Vital Signs (12 hours) Temp Pulse Resp BP Pulse Ox 09/24/19 15:59 98.1 F 85 16 134/71 95 09/24/19 10:46 98.4 F 85 16 150/71 H 95 09/24/19 08:40 98.0 F 87 18 127/68 93 L Weight Admit Weight 167 lb 9.6 oz Weight 167 lb 9.6 oz I&O: 09/23/19 09/24/19 09/25/19 06:59 06:59 06:59 Intake Total 1240 Output Total 250 Balance 990 Result Diagrams: 09/24/19 05:44 09/24/19 05:44 Hospitalist ROS - Review of Systems Constitutional: denies: chills, sweats Respiratory: denies: cough, dry, shortness of breath Cardiovascular: denies: chest pain, palpitations Gastrointestinal: denies: nausea, vomiting, abdominal pain - Medication Medications: Active Medications Generic Name Dose Route Start Last Admin Trade Name Freq PRN Reason Stop Dose Admin Acetaminophen 650 mg 09/23/19 18:19 09/23/19 20:15 Tylenol PO 650 mg Q4H PRN Administration Headache/Fever/Mild Pain (1-3) Famotidine 20 mg 09/23/19 21:00 09/24/19 09:07 Pepcid SLOW IVP 20 mg Q12HR LIN Administration Sodium Chloride 1,000 mls @ 75 mls/hr 09/23/19 18:30 09/24/19 18:04 Normal Saline 0.9% IV Not Given .[id number] LIN Vancomycin HCl 1 gm/ Device 200 mls @ 200 mls/hr 09/24/19 16:00 09/24/19 15: 10 IVPB 200 mls 1600 LIN Administration Piperacillin Sod/Tazobactam 100 mls @ 200 mls/hr 09/23/19 22:00 09/24/19 15: 10 Sod 3.375 gm/ Sodium Chloride IVPB 100 mls 0400,1000,1600,2200 LIN Administration Ondansetron HCl 4 mg 09/23/19 18:19 09/24/19 09:03 Zofran IVP 4 mg Q6H PRN Administration Nausea/Vomiting - Exam General Appearance: NAD, awake alert Neck: no JVD Heart: RRR, no murmur, no gallops, no rubs Respiratory: CTAB, no wheezes, no rales, no ronchi Gastrointestinal: soft, non-tender, non-distended, normal bowel sounds Extremities - other findings: LLE: several noninfected excoriation along thigh; left 1st toe open wound Psychiatric: normal affect, normal behavior, A&O x 3 Hosp A/P - Plan #infected chronic nonhealing diabetic ulcerations LLE -s/p recent osteomyeltic toe amputation; worsening pain and swelling over the past few days -xray reports findings consistent with active infection -Per nurse, podiatry won't be seeing patient; followed as outpatient, "nothing they can do from podiatry standpoint" -continue vanc and coty -lower extremity arterial doppler -consult general surgery #[id number] controlled
[2019-09-24] MEDS ORDERED: HYDROcodone/Acetaminophen 7.5/325 mg Tablet PO PRN (18:51)
[2019-09-24] MEDS ORDERED: Aspirin 81 mg Enteric Coated Tablet PO SCH (19:00)
[2019-09-24] MEDS: Rosuvastatin 10 MG TAB PO SCH (20:35)
[2019-09-24] MEDS: Isosorbide Dinitrate 20 MG TAB PO SCH (20:35)
[2019-09-24] MEDS: Carvedilol 3.125 MG TAB PO SCH (20:35)
[2019-09-24] MEDS: Acetaminophen 325 MG TAB PO PRN (20:35)
[2019-09-24] MEDS: HumuLIN 70/30 (300 UNITS/3 ML VIAL) SC SCH (20:41)
[2019-09-25] MEDS: Piperacillin/Tazobactam 3.375 GM in Sodium Chloride 0.9% 100 ML IVPB SCH ×4 (04:05→21:24)
[2019-09-25] MEDS: Famotidine/PF 20 mg/2ml Vial SLOW IVP SCH ×2 (08:54→20:01)
[2019-09-25] MEDS: Famotidine 20 MG TAB PO SCH (08:54)
[2019-09-25] MEDS: Amiodarone 200 MG TAB PO SCH (08:54)
[2019-09-25] MEDS: Carvedilol 3.125 MG TAB PO SCH ×2 (08:54→20:00)
[2019-09-25] MEDS: Isosorbide Dinitrate 20 MG TAB PO SCH ×3 (08:54→20:00)
[2019-09-25] MEDS: HYDROcodone/Acetaminophen 5/325 mg Tablet PO PRN ×2 (09:03→22:39)
[2019-09-25] MEDS: Aspirin 81 mg Enteric Coated Tablet PO SCH (09:06)
[2019-09-25] MEDS: HumuLIN 70/30 (300 UNITS/3 ML VIAL) SC SCH ×2 (12:17→21:26)
[2019-09-25] MEDS: Sodium Chloride 0.9% 1,000 ML IV SCH (12:48)
--- NOTE | 2019-09-25 13:04 | PDOC.HOSPP ---
- Subjective Encounter Date: 09/25/19 Encounter Time: 09:00 Subjective: no overnight events. This morning, feeling better, LLE pain is improved. - Objective Vital Signs & Weight: Vital Signs (12 hours) Temp Pulse Pulse Resp BP BP BP 09/25/19 11:58 97.4 F L 61 16 118/65 09/25/19 11:37 65 118/65 09/25/19 08:00 09/25/19 07:48 97.6 F 64 16 125/72 Pulse Ox Pulse Ox 09/25/19 11:58 100 09/25/19 11:37 100 09/25/19 08:00 97 09/25/19 07:48 97 Weight Admit Weight 167 lb 9.6 oz Weight 167 lb 9.6 oz I&O: 09/24/19 09/25/19 09/26/19 06:59 06:59 06:59 Intake Total 1240 1125 Output Total 250 Balance 990 1125 Result Diagrams: 09/24/19 05:44 09/24/19 05:44 Hospitalist ROS - Review of Systems Constitutional: denies: fever, chills, sweats Respiratory: denies: cough, dry, shortness of breath Cardiovascular: denies: chest pain, palpitations Gastrointestinal: denies: nausea, vomiting, abdominal pain Genitourinary: denies: dysuria, frequency, hematuria - Medication Medications: Active Medications Generic Name Dose Route Start Last Admin Trade Name Freq PRN Reason Stop Dose Admin Acetaminophen 650 mg 09/23/19 18:19 09/24/19 20:35 Tylenol PO 650 mg Q4H PRN Administration Headache/Fever/Mild Pain (1-3) Hydrocodone Bitart/Acetaminophen 2 tab 09/23/19 18:19 09/25/19 09:03 [place] 5/325 PO 2 tab Q4H PRN Administration Severe Pain (7-10) Amiodarone HCl 200 mg 09/25/19 09:00 09/25/19 08:54 Cordarone PO 200 mg DAILY LIN Administration Aspirin 81 mg 09/25/19 09:00 09/25/19 09:06 Ecotrin PO Not Given DAILY LIN Carvedilol 3.125 mg 09/24/19 21:00 09/25/19 08:54 Coreg PO 3.125 mg BID LIN Administration Famotidine 20 mg 09/23/19 21:00 09/25/19 08:54 Pepcid SLOW IVP Not Given Q12HR LIN Famotidine 20 mg 09/25/19 09:00 09/25/19 08:54 Pepcid PO 20 mg DAILY LIN Administration Sodium Chloride 1,000 mls @ 75 mls/hr 09/23/19 18:30 09/25/19 12:48 Normal Saline 0.9% IV 1,000 mls .[id number] LIN Administration Vancomycin HCl 1 gm/ Device 200 mls @ 200 mls/hr 09/24/19 16:00 09/24/19 15: 10 IVPB 200 mls 1600 LIN Administration Piperacillin Sod/Tazobactam 100 mls @ 200 mls/hr 09/23/19 22:00 09/25/19 09: 01 Sod 3.375 gm/ Sodium Chloride IVPB 100 mls 0400,1000,1600,2200 LIN Administration Insulin Human Isoph/Insulin Regular 15 units 09/24/19 21:00 09/25/19 12:17 Humulin 70/30 SC Not Given BID [facility] Isosorbide Dinitrate 20 mg 09/24/19 21:00 09/25/19 08:54 Isordil PO 20 mg TID LIN Administration Ondansetron HCl 4 mg 09/23/19 18:19 09/24/19 09:03 Zofran IVP 4 mg Q6H PRN Administration Nausea/Vomiting Rosuvastatin Calcium 10 mg 09/24/19 21:00 09/24/19 20:35 Crestor PO 10 mg HS LIN Administration - Exam General Appearance: NAD, awake alert Neck: no JVD Heart: RRR, no murmur, no gallops, no rubs Respiratory: CTAB, no wheezes, no rales, no ronchi Gastrointestinal: soft, non-tender, non-distended Extremities - other findings: multiple dry lacerations in LE, noninfected; draining left toe wound Psychiatric: normal affect, normal behavior, A&O x 3 Hosp A/P - Plan #infected chronic nonhealing diabetic ulcerations LLE -draining but less swollen and less painful and tender, lower white count, afebrile -s/p recent osteomyeltic toe amputation; worsening pain and swelling over the past few days -xray reports findings consistent with active infection -Discussed with Dr. Foley, who believes additional amputation won't result in better wound healing; recommends continued wound care; CM spoke with son who will take patient to outpatient wound care -lower extremity arterial doppler shows no significant PVD -continue vanc and zosyn -pending arrangement of outpatient wound care #normocytic anemia - likely anemia of inflammation. Last HgB increased; continue to follow #[id number] - at basline #[id number] controlled ELOS: 1 night
[2019-09-25 16:03] LABS: Vancomycin, Trough 16.5 ug/mL
[2019-09-25] MEDS: Vancomycin 1 GM in Premix Bag 1 BAG IVPB SCH (17:01)
[2019-09-25] MEDS: Rosuvastatin 10 MG TAB PO SCH (20:01)
--- NOTE | 2019-09-25 20:48 | CON ---
DATE OF CONSULTATION: HISTORY OF PRESENT ILLNESS: Bertin Prado is a 59-year-old female, admitted by the hospitalist. The patient underwent, on 07/31/2019, coronary artery bypass grafting, 5 vessels, with Dr. Kristian Mckeon. The patient then suffered left great toe problems and underwent on 08/06/2019 amputation of left great toe for osteomyelitis, amputation of the proximal phalanx. Dr. Sumaya Foley performed this. Dr. Foley has been seeing the patient as outpatient and she was consulted, but Dr. Sumaya Huitron refused to see the patient in the hospital, you know the patient had an appointment to see her next week. She did, however, discuss with hospitalist her feeling that the patient needed a vascular evaluation. The patient did have a lower extremity ultrasound demonstrating good flow throughout the arterial structures of both lower legs, common femoral, superficial, deep femoral arteries and popliteal and anterior tibial vessels, monophasic flow in the posterior tibial and dorsalis pedis. There is some limitation in evaluation of the distal vessel due to bandages. The patient did have x-ray of her left foot performed revealing post-amputation changes of the left great toe, soft tissue swelling, there was some gas noted. Physical examination of the toe reveals changes of dry gangrene. The foot looks ischemic with thickened skin. The patient's left great toe wound is necrotic distally, has exposed phalanx. There is necrotic soft tissue desiccated. The patient complains of pain in her left foot. The patient's is on the phone translating. There is some difficulty in the translation and discussion with the patient even with her translating. ALLERGIES: NONE. SOCIAL HISTORY: Tobacco, none. Alcohol none. MEDICATIONS: At home; 1. Hydrocodone. 2. Bactrim. 3. Lasix. 4. Carvedilol. 5. Aspirin. 6. Amiodarone. 7. Hydralazine. 8. Isosorbide. 9. Insulin subcu b.i.d. PAST SURGICAL HISTORY: Coronary artery bypass grafting, amputation of left great toe, right knee replacement in the past. PAST MEDICAL HISTORY: Diabetes; coronary artery disease, stable, status post SD and coronary bypass grafting; chronic kidney disease; history of cardiomyopathy; last echocardiogram 08/06/2019, 40% to 45% EF, mild tricuspid and mitral regurgitation. Patient has been seen by Dr. Mcnair on 08/20/2019 for hematochezia. Recommend she have a colonoscopy in the future after she recovers from her recent cardiac surgery and SD. PHYSICAL EXAMINATION: VITAL SIGNS: 5 feet 5, 167 pounds, 27 BMI, 97.3, 69, 134/87. HEAD, EYES, EARS, NOSE, AND THROAT: Unremarkable. LUNGS: Clear to auscultation. Well-healed sternotomy scar. ABDOMEN: Soft and nontender. EXTREMITIES: Saphenous vein harvest left leg, scars, segmental. Palpable femoral pulses, more prominent on the right than the left. Palpable left popliteal pulse. Nonpalpable pedal pulses. Dopplerable dorsalis pedis pulse, non-dopplerable posterior tibial pulse. Skin is thickened in the left foot. There is partial amputation of the left great toe. Skin is blistering and peeling on the left foot more so than the right. There is desiccated necrotic tissue over the left great toe, exposed phalanx noted. LABORATORY DATA: White count 29 on admission, 23 currently. Sodium 131, carbon dioxide 22, BUN and creatinine 23 and 1.57. ASSESSMENT AND PLAN: 1. Nonhealing wound, left foot. The patient complains of pain in the left foot consistent with ischemia, although femoral and popliteal pulses are patent and all vascular ultrasound suggests no flow-limiting in the major vessels. I suspect she has small-vessel distal disease. I have asked Dr. Francis Ortiz to see her regarding evaluation. We will keep her n.p.o. after midnight until he sees her tomorrow. The patient will need amputation of left great toe to the metatarsal, wound healing by secondary intention. She is at risk of limb loss with a [id number] amputation. We will await Dr. Ortiz's assessment in the morning and determine whether amputation is necessary, but first assess circulation. Recently recovering from cellulitis infection of left foot. 2. Coronary artery disease. 3. Diabetes mellitus. 4. Needs colonoscopy in the future. 5. Hyponatremia. 6. Mild chronic kidney disease. Job ID: [id number]
--- NOTE | 2019-09-26 01:59 | CON ---
DATE OF CONSULTATION: 09/25/2019 REASON FOR CONSULTATION: To evaluate patient for revascularization. HISTORY OF PRESENT ILLNESS: Ms. Prado underwent coronary artery bypass grafting by Dr. Mckeon with 5 grafts performed on August 05. She was subsequently taken for toe amputation by Dr. Foley. The toe amputation failed to heal and she was admitted and seen by Dr. Huitron for further work on her toe. She was noted at the time of coronary artery bypass grafting to have palpable left femoral and popliteal pulses with a Doppler signal in her dorsalis pedis only that is consistent with my examination tonight. I have been asked to see her to see if further revascularization would be beneficial for healing of her foot amputation. PAST MEDICAL HISTORY: 1. Coronary artery disease. 2. Hypertension. 3. Congestive heart failure. 4. Diabetes. 5. Chronic renal insufficiency. 6. Cardiomyopathy. PAST SURGICAL HISTORY: 1. Coronary artery bypass grafting. 2. Cholecystectomy. 3. Amputation of left great toe. 4. Right knee replacement. CURRENT MEDICATIONS: Noted. ALLERGIES: NONE. SOCIAL HISTORY: She does not use tobacco. PHYSICAL EXAMINATION: GENERAL: This is an elderly woman, resting comfortably in her room in the medical floor. VITAL SIGNS: Temperature is 97.5, pulse is 68 and regular, blood pressure is 107/57, height is 5 feet 5 inches, weight is 167 pounds. LUNGS: Clear bilaterally. Sternal incision is healing nicely. HEART: Rhythm is regular without murmur. ABDOMEN: Soft and nontender. EXTREMITIES: The left foot is wrapped. She has a palpable femoral and popliteal pulse on the left. Doppler signal is present at the ankle and dorsalis pedis. ASSESSMENT AND PLAN: I am not sure what her circulation is going to look like at the time of angiogram, but I think it is worth trying to see if we can improve the inflow into her foot. If we cannot, this is more than likely going to result in a below-knee amputation in her situation. I have discussed this using a very difficult video and then subsequent phone connection with her son. He understands and has interpreted for his mother to gain consent for angiograms and possible intervention. Job ID: [id number]
[2019-09-26] MEDS: Sodium Chloride 0.9% 1,000 ML IV SCH ×2 (03:29→14:31)
[2019-09-26] MEDS: Piperacillin/Tazobactam 3.375 GM in Sodium Chloride 0.9% 100 ML IVPB SCH ×4 (03:32→21:52)
[2019-09-26] MEDS: Carvedilol 3.125 MG TAB PO SCH ×2 (05:45→21:36)
[2019-09-26] MEDS: Famotidine/PF 20 mg/2ml Vial SLOW IVP SCH ×2 (08:33→21:37)
[2019-09-26] MEDS: Amiodarone 200 MG TAB PO SCH (08:33)
[2019-09-26] MEDS: Aspirin 81 mg Enteric Coated Tablet PO SCH (08:33)
[2019-09-26] MEDS: Isosorbide Dinitrate 20 MG TAB PO SCH ×3 (08:33→21:36)
[2019-09-26] MEDS: Famotidine 20 MG TAB PO SCH (08:33)
[2019-09-26 08:40] LABS: INR-International Normal Ratio 1.3; PTT 37.7 sec (22.9-36.1); Prothrombin Time 16.2 sec (12.0-14.7)
[2019-09-26 08:53] LABS: Anion Gap 11 mmol/L (10-20); BUN (Urea Nitrogen) 20 mg/dL (9.8-20.1); Calc. Creatinine Clearance 51 mL/min (70-130); Calcium 8.1 mg/dL (7.8-10.44); Carbon Dioxide 21 mmol/L (23-31); Chloride 104 mmol/L (98-107); Estimated GFR-MDRD 39; Glucose 149 mg/dL (80-115); Sodium 132 mmol/L (136-145)
[2019-09-26] MEDS ORDERED: Bupivacaine PF 0.5% 30 ML VIAL ONE (10:16)
[2019-09-26] MEDS: HumuLIN 70/30 (300 UNITS/3 ML VIAL) SC SCH ×2 (10:48→21:41)
[2019-09-26] MEDS ORDERED: Iopamidol 370 76% 50 ML VIAL FS ONE (11:38)
[2019-09-26 11:46] LABS: SARS-CoV-2 MS2 Positive; SARS-CoV-2 N Gene Negative; SARS-CoV-2 S Gene Negative; SARS-CoV-2 by NAA Not Detected (NotDetected); SARS-CoV-2 orf1ab Negative
[2019-09-26] MEDS ORDERED: Heparin 10,000 UNITS/1 ML VIAL ONE (13:05)
[2019-09-26] MEDS ORDERED: Protamine Sulfate 50 MG/5 ML VIAL ONE (13:15)
--- NOTE | 2019-09-26 14:22 | OP ---
DATE OF PROCEDURE: 09/26/2019 PREOPERATIVE DIAGNOSIS: Nonhealing amputation of the great toe on the left with known peripheral vascular disease. POSTOPERATIVE DIAGNOSIS: Nonhealing amputation of the great toe on the left with known peripheral vascular disease. PROCEDURES PERFORMED: 1. Abdominal aortogram. 2. Left common femoral, popliteal, anterior tibial, peroneal artery angiograms. 3. Percutaneous transluminal angioplasty of the peroneal artery with a 1.5 x 2 cm [place] balloon, taken to 12 mmHg. 4. BUGGY LADLE TENDER of the full length of the peroneal artery with a 3 x 100 [place] balloon, taken to a maximum of 10 mmHg. This angioplasty extended down onto the lateral tarsal on the foot. 5. Ultrasound-guided arterial access. TOTAL FLUORO TIME: 11.2 minutes. TOTAL CONTRAST: 43 mL. DESCRIPTION OF PROCEDURE: After consent was obtained, the patient was brought to laboratory scientist and placed in supine position on the laboratory scientist table. Appropriate monitoring was placed. Using ultrasound guidance, the right groin was anesthetized with 1% lidocaine. Using ultrasound guidance, the right common femoral artery was accessed and a 5-Tajik sheath placed. A Contra catheter was placed in the abdominal aorta. Abdominal aortogram was performed. The aorta and iliac vasculature were normal with no flow-limiting lesions. A Contra catheter and Con[place]ho[place] guidewire were used to cross the aortic bifurcation. Contra catheter was positioned with its tip in the common femoral artery. Digital angiography was used to travis contrast from the femoral artery down into the lower leg. Superficial femoral, profunda, popliteal artery extending below the knee were all without any flow-limiting lesions. Below the knee, the tibial arteries were heavily diseased. The patient was given 5000 units of heparin. A Magic Torque guidewire was placed into the superficial femoral artery. The 5-Tajik sheath was removed and a 6-Tajik Destination sheath passed into the superficial femoral artery. Using an angled [place] catheter, the origin of the anterior tibial artery was accessed and hand-injected arteriogram performed. This artery tapered down to a small diffusely diseased artery at the level of the ankle. The catheter was backed up and placed in the origin of the peroneal artery. Hand-injected arteriogram was performed and showed the peroneal artery with multilevel occlusions. I elected to try to treat the peroneal as it was a larger vessel. Using a 0.014 Luge wire and a Ladson catheter, the occluded peroneal areas were crossed. The tip of the Ladson was placed in the distal peroneal artery and hand-injected arteriogram showed good filling down into the lateral tarsal artery on the foot. The 0.014 wire was replaced. There were 2 areas of occlusion that were very tight and would not allow the Ladson to pass on the foot. A 1.5 x 2 cm [place] balloon was used for short inflations to open these areas. This allowed passage of a 3 mm x 100 balloon, which was inflated throughout the length of the peroneal artery. Followup angiogram showed a patent peroneal artery down into the foot with no flow-limiting lesions. 25 mg of protamine was given. The catheters and balloons were removed. The sheath was backed over the aortic bifurcation and Bentson guidewire replaced. The arterial stick site was closed with ProGlide with good hemostasis. The patient was transferred to the recovery area in good condition. Job ID: [id number]
[2019-09-26] MEDS ORDERED: Fentanyl 100 MCG/2 ML VIAL SLOW IVP PRN (15:43)
[2019-09-26] MEDS ORDERED: Fentanyl 100 MCG/2 ML VIAL ONE ×3 (15:45→19:09)
[2019-09-26] MEDS ORDERED: Ondansetron HCl/PF 4 MG/2 ML Vial IVP PRN (17:11)
[2019-09-26] MEDS ORDERED: Midazolam HCl 2 mg/2 ml Vial ONE (17:17)
[2019-09-26] MEDS ORDERED: Propofol 500 MG/50 ML VIAL ONE (17:25)
[2019-09-26] MEDS: Vancomycin 1 GM in Premix Bag 1 BAG IVPB SCH (18:39)
--- NOTE | 2019-09-26 20:00 | OP ---
DATE OF PROCEDURE: 09/26/2019 PREOPERATIVE DIAGNOSES: Peripheral arterial disease, status post intervention today by Dr. Francis Ortiz with AUTO APPRAISER, tibioperoneal and peroneal artery, occluded AT and PT with only collateral runoff otherwise. Arteriosclerotic vascular disease with rest pain, left foot. Diabetic septic foot. Nonhealing left great toe wound, venous stasis disease. POSTOPERATIVE DIAGNOSES: Peripheral arterial disease, status post intervention today by Dr. Francis Ortiz with AUTO APPRAISER, tibioperoneal and peroneal artery, occluded AT and PT with only collateral runoff otherwise. Arteriosclerotic vascular disease with rest pain, left foot. Diabetic septic foot. Nonhealing left great toe wound, venous stasis disease. PROCEDURES PERFORMED: Amputation of left great and second toes and metatarsals with culture and sensitivity submitted, abundant purulent material tracking up the dorsum of the foot, plantar foot, requiring high amputation of the metatarsals 1 and 2, thorough irrigation, good bleeding, hemostasis with cautery and 4-0 Vicryl ties. Wound care, wound VAC application. ANESTHESIA: Ankle block, TIVA. DESCRIPTION OF PROCEDURE: Dr. Francis Ortiz first performed arteriogram of left leg with intervention as described. Later in the day under anesthesia, left lower extremity was prepared with Betadine. The patient had necrosis from prior amputation (Dr. Foley. Podiatry), amputation of left great toe through the proximal phalanx. The wound plaques were necrotic. Ray amputation performed for amputation of left great toe and later extending to the second toe for amputation of the toe and metatarsal, first and second. There was purulent material tracking of the dorsum of the foot, plantar foot, sent for culture. Extensive debridement undertaken of skin, soft tissue, muscle, fascia. Wound irrigated. Hemostasis obtained with cautery and 4-0 Vicryl suture. Wound Care Team arrived to place wound VAC. Note, the patient is at risk for BKA, pending response to antibiotics and wound VAC care. Job ID: [id number]
--- NOTE | 2019-09-26 20:29 | PDOC.HOSPP ---
- Subjective Encounter Date: 09/26/19 Encounter Time: 08:00 Subjective: no overnight events. this morning, feeling well, has no pain. Pending left lower extremity bypass and amputation - Objective Vital Signs & Weight: Vital Signs (12 hours) Temp Pulse Resp BP Pulse Ox 09/26/19 12:00 97.4 F L 62 18 114/62 96 Weight Admit Weight 167 lb 9.6 oz Weight 167 lb 9.6 oz I&O: 09/25/19 09/26/19 09/27/19 06:59 06:59 06:59 Intake Total 1125 2325 Balance 1125 2325 Result Diagrams: 09/24/19 05:44 09/26/19 08:19 Additional Labs: Accuchecks 09/26/19 09/26/19 09/26/19 15:18 11:30 05:05 POC Glucose 146 H 161 H 200 H 09/25/19 09/25/19 20:40 15:18 POC Glucose 268 H 148 H Hospitalist ROS - Review of Systems Constitutional: denies: chills, sweats Respiratory: denies: cough, dry, shortness of breath Cardiovascular: denies: chest pain, palpitations, orthopnea Gastrointestinal: denies: nausea, vomiting, abdominal pain Genitourinary: denies: dysuria, frequency, hematuria - Medication Medications: Active Medications Generic Name Dose Route Start Last Admin Trade Name Freq PRN Reason Stop Dose Admin Amiodarone HCl 200 mg 09/25/19 09:00 09/26/19 08:33 Cordarone PO 200 mg DAILY LIN Administration Aspirin 81 mg 09/25/19 09:00 09/26/19 08:33 Ecotrin PO Not Given DAILY LIN Carvedilol 3.125 mg 09/24/19 21:00 09/26/19 05:45 Coreg PO 3.125 mg BID LIN Administration Famotidine 20 mg 09/23/19 21:00 09/26/19 08:33 Pepcid SLOW IVP Not Given Q12HR LIN Famotidine 20 mg 09/25/19 09:00 09/26/19 08:33 Pepcid PO 20 mg DAILY LIN Administration Vancomycin HCl 1 gm/ Device 200 mls @ 200 mls/hr 09/24/19 16:00 09/26/19 18: 39 IVPB Not Given 1600 LIN Piperacillin Sod/Tazobactam 100 mls @ 200 mls/hr 09/23/19 22:00 09/26/19 18: 39 Sod 3.375 gm/ Sodium Chloride IVPB Not Given 0400,1000,1600,2200 [facility] Insulin Human Isoph/Insulin Regular 15 units 09/24/19 21:00 09/26/19 10:48 Humulin 70/30 SC Not Given BID [facility] Isosorbide Dinitrate 20 mg 09/24/19 21:00 09/26/19 14:32 Isordil PO Not Given TID LIN Ondansetron HCl 4 mg 09/23/19 18:19 09/24/19 09:03 Zofran IVP 4 mg Q6H PRN Administration Nausea/Vomiting Rosuvastatin Calcium 10 mg 09/24/19 21:00 09/25/19 20:01 Crestor PO 10 mg HS LIN Administration - Exam General Appearance: NAD, awake alert Neck: no JVD Heart: RRR, no murmur, no gallops, no rubs Respiratory: CTAB, no wheezes, no rales, no ronchi Gastrointestinal: soft, non-tender, non-distended, normal bowel sounds Extremities - other findings: LLE toe wound and excoriations unchanged Psychiatric: normal affect, normal behavior, A&O x 3 Hosp A/P - Plan #infected chronic nonhealing diabetic ulcerations LLE #dry gangrene -pending bypass and amputation #normocytic anemia - likely anemia of inflammation. Last HgB increased; continue to follow #CKD3b - at basline #[id number] controlled disposition: patient has no insurance and CM working on outpatient wound care. lives with son, who agreed to take patient to wound care clinic. After acute event resolves, patient plans to return to [facility].
[2019-09-26] MEDS: Rosuvastatin 10 MG TAB PO SCH (21:36)
[2019-09-26] MEDS: Enoxaparin Sodium 30 MG/0.3 ML SYRINGE SC SCH (21:37)
[2019-09-26] MEDS: traMADol HCl 50 MG TAB PO PRN (21:42)
[2019-09-26] MEDS: Acetaminophen 500 MG TAB PO PRN (21:45)
[2019-09-27 03:59] LABS: #Eosinphils 0.4 thou/uL (0.0-0.7); #Lymphocytes 2.6 thou/uL (1.20-3.40); #Monocytes 1.4 thou/uL (0.11-0.59); #Neutrophils 14.3 thou/uL (1.40-6.50); %Basophils 0.2 % (0.0-1.0); %Eosinophils 1.9 % (0.0-10.0); %Monocytes 7.4 % (0.0-10.0); %Neutrophils 76.5 % (42.0-75.0); Hemoglobin 6.4 g/dL (12.0-16.0); Mean Corpuscular HGB CONC 31.2 g/dL (32.0-36.0); Mean Corpuscular Hemoglobin 26.8 pg (27.0-31.0); Mean Corpuscular Volume 85.7 fL (78.0-98.0); Mean Platelet Volume 7.4 fL (7.4-10.4); Platelet Count 333 thou/uL (130-400); RBC Distribution Width 14.4 % (11.5-14.5); Red Blood Cell (RBC) Count 2.39 mill/uL (4.20-5.40); White Blood Cell (WBC) Count 18.7 thou/uL (4.8-10.8)
[2019-09-27 04:27] LABS: Anion Gap 9 mmol/L (10-20); BUN (Urea Nitrogen) 18 mg/dL (9.8-20.1); Calc. Creatinine Clearance 53 mL/min (70-130); Calcium 8.1 mg/dL (7.8-10.44); Carbon Dioxide 24 mmol/L (23-31); Chloride 105 mmol/L (98-107); Estimated GFR-MDRD 40; Glucose 131 mg/dL (80-115); Sodium 134 mmol/L (136-145)
[2019-09-27] MEDS: Piperacillin/Tazobactam 3.375 GM in Sodium Chloride 0.9% 100 ML IVPB SCH ×4 (04:50→21:16)
[2019-09-27] MEDS: traMADol HCl 50 MG TAB PO PRN ×4 (05:04→23:35)
[2019-09-27] MEDS: Acetaminophen 500 MG TAB PO PRN ×2 (05:04→23:34)
[2019-09-27 07:25] LABS: Anion Gap 9 mmol/L (10-20); BUN (Urea Nitrogen) 19 mg/dL (9.8-20.1); Calc. Creatinine Clearance 55 mL/min (70-130); Carbon Dioxide 24 mmol/L (23-31); Chloride 106 mmol/L (98-107); Estimated GFR-MDRD 42; Glucose 86 mg/dL (80-115); Potassium 3.9 mmol/L (3.5-5.1); Sodium 135 mmol/L (136-145)
[2019-09-27] MEDS: Clopidogrel Bisulfate 75 MG TAB PO SCH (08:31)
[2019-09-27] MEDS: Aspirin 81 mg Enteric Coated Tablet PO SCH (08:31)
[2019-09-27] MEDS: Famotidine 20 MG TAB PO SCH (08:32)
[2019-09-27] MEDS: HumuLIN 70/30 (300 UNITS/3 ML VIAL) SC SCH ×2 (08:32→20:20)
[2019-09-27] MEDS: Amiodarone 200 MG TAB PO SCH (08:32)
[2019-09-27] MEDS: Famotidine/PF 20 mg/2ml Vial SLOW IVP SCH ×2 (08:32→20:16)
[2019-09-27] MEDS: Carvedilol 3.125 MG TAB PO SCH ×2 (12:04→20:16)
[2019-09-27] MEDS: Polyethylene Glycol 3350 17 GM Packet PO SCH (12:04)
[2019-09-27] MEDS: Isosorbide Dinitrate 20 MG TAB PO SCH ×3 (12:04→20:16)
[2019-09-27] MEDS: HumaLOG 300 UNITS/3 ML VIAL SC PRN ×2 (12:09→20:23)
[2019-09-27] MEDS: Vancomycin 1 GM in Premix Bag 1 BAG IVPB SCH (18:03)
--- NOTE | 2019-09-27 18:27 | PDOC.HOSPP ---
- Subjective Encounter Date: 09/27/19 Encounter Time: 11:00 Subjective: Pt seen for followup re; gangrene. Pain better today. - Objective Vital Signs & Weight: Vital Signs (12 hours) Temp Pulse Pulse Resp BP BP BP 09/27/19 16:00 98.1 F 61 16 124/69 09/27/19 15:57 98.1 F 61 18 124/69 09/27/19 11:58 97.7 F 63 17 124/75 09/27/19 11:57 97.8 F 62 18 124/75 09/27/19 07:38 97.5 F L 97 19 105/59 L Pulse Ox 09/27/19 16:00 97 09/27/19 15:57 97 09/27/19 11:58 98 09/27/19 11:57 98 09/27/19 07:38 98 Weight Admit Weight 167 lb 9.6 oz Weight 167 lb 9.6 oz I&O: 09/26/19 09/27/19 09/28/19 06:59 06:59 06:59 Intake Total 2325 570 350 Output Total 500 Balance 2325 70 350 Result Diagrams: 09/27/19 03:02 09/27/19 06:13 Additional Labs: Accuchecks 09/27/19 09/27/19 09/27/19 16:36 12:01 05:38 POC Glucose 120 H 154 H 138 H 09/26/19 21:20 POC Glucose 147 H Labs and MARs reviewed by il Hospitalist ROS - Review of Systems Cardiovascular: denies: chest pain, palpitations, orthopnea, paroxysmal noc. dyspnea, edema, light headedness Gastrointestinal: denies: nausea, vomiting, abdominal pain, diarrhea, constipation, melena, hematochezia - Medication Medications: Active Medications Generic Name Dose Route Start Last Admin Trade Name Freq PRN Reason Stop Dose Admin Acetaminophen 1,000 mg 09/26/19 17:37 09/27/19 05:04 Tylenol PO 1,000 mg Q6H PRN Administration Mild Pain (1-3) Amiodarone HCl 200 mg 09/25/19 09:00 09/27/19 08:32 Cordarone PO 200 mg DAILY LIN Administration Aspirin 81 mg 09/25/19 09:00 09/27/19 08:31 Ecotrin PO 81 mg DAILY LIN Administration Carvedilol 3.125 mg 09/24/19 21:00 09/27/19 12:04 Coreg PO 3.125 mg BID [facility] Administration Clopidogrel Bisulfate 75 mg 09/27/19 09:00 09/27/19 08:31 Plavix PO 75 mg DAILY [facility] Administration Enoxaparin Sodium 30 mg 09/26/19 21:00 09/26/19 21:37 Lovenox SC 30 mg 2100 LIN Administration Famotidine 20 mg 09/23/19 21:00 09/27/19 08:32 Pepcid SLOW IVP Not Given Q12HR [facility] Famotidine 20 mg 09/25/19 09:00 09/27/19 08:32 Pepcid PO 20 mg DAILY [facility] Administration Vancomycin HCl 1 gm/ Device 200 mls @ 200 mls/hr 09/24/19 16:00 09/27/19 18: 03 IVPB 200 mls 1600 LIN Administration Piperacillin Sod/Tazobactam 100 mls @ 200 mls/hr 09/23/19 22:00 09/27/19 16: 03 Sod 3.375 gm/ Sodium Chloride IVPB 100 mls 0400,1000,1600,2200 [facility] Administration Insulin Human Isoph/Insulin Regular 15 units 09/24/19 21:00 09/27/19 08:32 Humulin 70/30 SC 15 unit BID [facility] Administration Insulin Human Lispro 0 units 09/23/19 18:28 09/27/19 12:09 Humalog SC 2 unit .MODERATE SLIDING SC PRN Administration Moderate Correctional Scale Isosorbide Dinitrate 20 mg 09/24/19 21:00 09/27/19 14:52 Isordil PO Not Given TID [facility] Ondansetron HCl 4 mg 09/23/19 18:19 09/24/19 09:03 Zofran IVP 4 mg Q6H PRN Administration Nausea/Vomiting Polyethylene Glycol 17 gm 09/27/19 09:00 09/27/19 12:04 Miralax PO Not Given DAILY [facility] Rosuvastatin Calcium 10 mg 09/24/19 21:00 09/26/19 21:36 Crestor PO 10 mg HS [facility] Administration Tramadol HCl 50 mg 09/26/19 17:37 09/27/19 08:33 Ultram PO 50 mg Q6H PRN Administration Moderate Pain (4-6) Tramadol HCl 100 mg 09/26/19 17:37 09/27/19 18:06 Ultram PO 100 mg Q6H PRN Administration Severe Pain (7-10) - Exam General Appearance: awake alert Eye: anicteric sclera Neck: supple Heart: RRR Respiratory: CTAB Gastrointestinal: soft, non-tender Extremities: no cyanosis Extremities - other findings: s/p amputation of L great and second toes Musculoskeletal: no muscle wasting Psychiatric: normal affect Hosp A/P - Plan - Plan #dry gangrene #infected chronic nonhealing diabetic ulcerations LLE -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 anemia of acute blood loss. Transfuse 1 unit pRBC, recheck #CKD3b - stable #[id number] controlled
[2019-09-27 19:23] LABS: Hemoglobin 7.8 g/dL (12.0-16.0)
[2019-09-27] MEDS: Rosuvastatin 10 MG TAB PO SCH (20:16)
[2019-09-27] MEDS: Enoxaparin Sodium 30 MG/0.3 ML SYRINGE SC SCH (20:17)
--- NOTE | 2019-09-27 20:19 | PDOC.BPN ---
- Brief Progress Note Called to bedside to examine patient's left first toe ray amputation site. Wound care reported excessive bleeding with wound VAC exchange. Currently managed with pressure dressing. Examination reveals 2 small bleeding vessels. Will return to suture ligate vessels so that wound VAC can be replaced.
[2019-09-28] MEDS: Piperacillin/Tazobactam 3.375 GM in Sodium Chloride 0.9% 100 ML IVPB SCH ×2 (04:13→08:59)
[2019-09-28] MEDS: Isosorbide Dinitrate 20 MG TAB PO SCH ×3 (08:58→21:01)
[2019-09-28] MEDS: Aspirin 81 mg Enteric Coated Tablet PO SCH (08:58)
[2019-09-28] MEDS: Famotidine 20 MG TAB PO SCH (08:58)
[2019-09-28] MEDS: Clopidogrel Bisulfate 75 MG TAB PO SCH (08:58)
[2019-09-28] MEDS: HumuLIN 70/30 (300 UNITS/3 ML VIAL) SC SCH ×2 (08:59→21:03)
[2019-09-28] MEDS: Amiodarone 200 MG TAB PO SCH (08:59)
[2019-09-28] MEDS: Carvedilol 3.125 MG TAB PO SCH ×2 (08:59→21:01)
[2019-09-28] MEDS: Polyethylene Glycol 3350 17 GM Packet PO SCH (09:00)
[2019-09-28] MEDS: Famotidine/PF 20 mg/2ml Vial SLOW IVP SCH (09:00)
[2019-09-28] MEDS: traMADol HCl 50 MG TAB PO PRN (10:29)
[2019-09-28] MEDS: Acetaminophen 500 MG TAB PO PRN (10:29)
[2019-09-28] MEDS ORDERED: Morphine 4 MG/ML VIAL ONE (11:47)
[2019-09-28] MEDS ORDERED: Morphine 4 MG/ML VIAL SLOW IVP SCH (12:15)
[2019-09-28] MEDS: HumaLOG 300 UNITS/3 ML VIAL SC PRN ×2 (13:08→17:11)
[2019-09-28] MEDS: Acetaminophen/Codeine 30-300mg Tablet PO PRN (13:09)
[2019-09-28 14:35] LABS: #Basophils 0.1 thou/uL (0.0-0.2); #Eosinphils 0.4 thou/uL (0.0-0.7); #Lymphocytes 3.1 thou/uL (1.20-3.40); #Monocytes 1.4 thou/uL (0.11-0.59); #Neutrophils 12.8 thou/uL (1.40-6.50); %Basophils 0.5 % (0.0-1.0); %Eosinophils 2.2 % (0.0-10.0); %Lymphocytes 17.6 % (21.0-51.0); %Monocytes 8.1 % (0.0-10.0); %Neutrophils 71.6 % (42.0-75.0); Hemoglobin 7.1 g/dL (12.0-16.0); Mean Corpuscular HGB CONC 31.9 g/dL (32.0-36.0); Mean Corpuscular Hemoglobin 27.9 pg (27.0-31.0); Mean Corpuscular Volume 87.5 fL (78.0-98.0); Mean Platelet Volume 6.9 fL (7.4-10.4); Platelet Count 296 thou/uL (130-400); RBC Distribution Width 14.2 % (11.5-14.5); Red Blood Cell (RBC) Count 2.55 mill/uL (4.20-5.40); White Blood Cell (WBC) Count 17.8 thou/uL (4.8-10.8)
[2019-09-28] MEDS: MEROPENEM 1 GM/50 ML 1 GM in Premix Bag 1 BAG IVPB SCH (14:36)
[2019-09-28 14:55] LABS: Anion Gap 9 mmol/L (10-20); BUN (Urea Nitrogen) 16 mg/dL (9.8-20.1); Calc. Creatinine Clearance 56 mL/min (70-130); Calcium 8.2 mg/dL (7.8-10.44); Carbon Dioxide 24 mmol/L (23-31); Chloride 104 mmol/L (98-107); Estimated GFR-MDRD 43; Glucose 125 mg/dL (80-115); Potassium 3.6 mmol/L (3.5-5.1); Sodium 133 mmol/L (136-145)
--- NOTE | 2019-09-28 15:10 | PDOC.HOSPP ---
- Subjective Encounter Date: 09/28/19 Encounter Time: 15:06 Subjective: Patient was seen for follow-up for gangrene. She reports generalized weakness. She denies any chest pain. She had oozing from the wound site, now has sutures. - Objective Vital Signs & Weight: Vital Signs (12 hours) Temp Pulse Resp BP Pulse Ox 09/28/19 11:00 97.8 F 65 20 130/73 98 09/28/19 08:58 93 L 09/28/19 07:43 97.6 F 67 20 154/78 H 93 L Weight Admit Weight 167 lb 9.6 oz Weight 167 lb 9.6 oz I&O: 09/27/19 09/28/19 09/29/19 06:59 06:59 06:59 Intake Total 570 1170 Output Total 500 650 Balance 70 520 Result Diagrams: 09/28/19 14:30 09/28/19 14:30 Additional Labs: Accuchecks 09/28/19 09/28/19 09/27/19 11:29 05:16 19:58 POC Glucose 191 H 135 H 210 H 09/27/19 16:36 POC Glucose 120 H Labs and MAR were reviewed by nj Hospitalist ROS - Review of Systems Constitutional: reports: weakness Cardiovascular: denies: chest pain, palpitations, orthopnea, paroxysmal noc. dyspnea, edema Gastrointestinal: denies: nausea, vomiting, abdominal pain, diarrhea, constipation, melena, hematochezia - Medication Medications: Active Medications Generic Name Dose Route Start Last Admin Trade Name Freq PRN Reason Stop Dose Admin Acetaminophen 1,000 mg 09/26/19 17:37 09/28/19 10:29 Tylenol PO 1,000 mg Q6H PRN Administration Mild Pain (1-3) Acetaminophen/Codeine Phosphate 1 tab 09/28/19 11:40 09/28/19 13:09 Tylenol #3 PO 1 tab Q6H PRN Administration Pain Amiodarone HCl 200 mg 09/25/19 09:00 09/28/19 08:59 Cordarone PO 200 mg DAILY LIN Administration Aspirin 81 mg 09/25/19 09:00 09/28/19 08:58 Ecotrin PO 81 mg DAILY LIN Administration Carvedilol 3.125 mg 09/24/19 21:00 09/28/19 08:59 Coreg PO 3.125 mg BID LIN Administration Clopidogrel Bisulfate 75 mg 09/27/19 09:00 09/28/19 08:58 Plavix PO 75 mg DAILY [facility] Administration Enoxaparin Sodium 30 mg 09/26/19 21:00 09/27/19 20:17 Lovenox SC 30 mg 2100 LIN Administration Famotidine 20 mg 09/25/19 09:00 09/28/19 08:58 Pepcid PO 20 mg DAILY [facility] Administration Meropenem 1 gm/ Device 50 mls @ 100 mls/hr 09/28/19 15:00 09/28/19 14:36 IVPB 50 mls 0300,1500 [facility] Administration Insulin Human Isoph/Insulin Regular 15 units 09/24/19 21:00 09/28/19 08:59 Humulin 70/30 SC 15 unit BID [facility] Administration Insulin Human Lispro 0 units 09/23/19 18:28 09/28/19 13:08 Humalog SC 2 unit .MODERATE SLIDING SC PRN Administration Moderate Correctional Scale Insulin Human Lispro 0 units 09/23/19 18:28 09/27/19 20:23 Humalog SC 2 unit .BEDTIME SLIDING SC PRN Administration Bedtime Correctional Scale Isosorbide Dinitrate 20 mg 09/24/19 21:00 09/28/19 14:36 Isordil PO 20 mg TID [facility] Administration Ondansetron HCl 4 mg 09/23/19 18:19 09/24/19 09:03 Zofran IVP 4 mg Q6H PRN Administration Nausea/Vomiting Polyethylene Glycol 17 gm 09/27/19 09:00 09/28/19 09:00 Miralax PO Not Given DAILY [facility] Rosuvastatin Calcium 10 mg 09/24/19 21:00 09/27/19 20:16 Crestor PO 10 mg HS [facility] Administration Tramadol HCl 50 mg 09/26/19 17:37 09/27/19 23:35 Ultram PO 50 mg Q6H PRN Administration Moderate Pain (4-6) Tramadol HCl 100 mg 09/26/19 17:37 09/28/19 10:29 Ultram PO 100 mg Q6H PRN Administration Severe Pain (7-10) - Exam General Appearance: awake alert Eye: anicteric sclera ENT: moist mucosa Neck: supple Heart: RRR Respiratory: CTAB Gastrointestinal: soft, normal bowel sounds Extremities: no cyanosis Extremities - other findings: s/p amputation L great and second toe Psychiatric: normal affect, normal behavior Hosp A/P - Plan - Plan #dry gangrene #infected chronic nonhealing diabetic ulcerations LLE -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 #CKD3b - stable #[id number] controlled
--- NOTE | 2019-09-28 16:40 | CON ---
DATE OF CONSULTATION: REASON FOR CONSULTATION: Recrudescence of left foot osteomyelitis. HISTORY OF PRESENT ILLNESS: A 59-year-old with history of type 2 diabetes, coronary artery disease with recent bypass graft surgery; peripheral vascular disease; recent amputation of the left distal phalanx, first toe, left side. The patient had recrudescence of the inflammatory process with lack of healing and she underwent vascular evaluation and determined that she needed revascularization of perineal artery, which was carried out by Dr. Ortiz. After that, Dr. Huitron completed amputation of the first and second ray. There was quite a bit of purulence in the more proximal aspects of the soft tissues. I do not have a pathology report yet of the specimen. The patient is currently awake. She has limited Mongolian language skills, but she could answer simple questions with yes or no. Specifically, she has minimal pain at the moment, no headaches, little bit of tightness of the chest for breathing, but no pain in the chest. No cough. No abdominal pain. She is voiding without difficulty. She has a negative pressure dressing in the left lower extremity. MEDICAL HISTORY: Peripheral vascular disease, type 2 diabetes, coronary artery disease, CKD stage 3 to 4, ischemic cardiomyopathy, EF 40% to 45%. SURGICAL HISTORY: Also includes right total knee replacement. SOCIAL HISTORY: She is from [place]. Never smoker. No alcoholic beverage use. FAMILY HISTORY: Type 2 diabetes. CURRENT MEDICATIONS: 1. Amiodarone. 2. Coreg. 3. Plavix. 4. Enoxaparin single dose daily. 5. Pepcid. 6. Insulin. 7. Ondansetron. 8. Rosuvastatin. 9. Tramadol. ALLERGIES: NO KNOWN DRUG ALLERGIES. PHYSICAL EXAMINATION: VITAL SIGNS: Afebrile through the hospital stay. Blood pressure 130/73, pulse 65, respirations 20, O2 saturations 98% on room air. SKIN: Area of amputation left first and second toes with negative pressure dressing. She has a peripheral IV access and no lymphadenopathy. HEENT: Ocular movements conjugate. Sclerae are white. Pupils are equal. Oral cavity normal. LUNGS: Symmetric air entry. HEART: S1 and S2, regular rate. ABDOMEN: Soft, not distended or tender. No ascites. No bladder distention. EXTREMITIES: Pulses are 1+ in popliteal and faintly palpable in dorsalis pedis on the left side and right side. Little edema in lower extremities. Some stasis dermatitis, some onychodystrophy. Awake, alert. She has quite significant language skill deficiency in Mongolian, so the communication was somewhat difficult, but she is awake and oriented and follows commands, pleasant. LABORATORY DATA: White cell count is 29,000 down to 18.7, hemoglobin was 7.1 and now 7.8, and platelets 333 with 76% neutrophils. INR 1.3. Creatinine baseline ranges from 1.5 to 2.8, the lowest was 1.0 on July 31, 2019, now she is 1.28. Liver profile normal except for alkaline phosphatase 211, probably bone in origin. Albumin 2.4, globulin 4.8. Urinalysis with 7 to 10 wbc's. COVID was not detected. Microbiology with ESBL E coli detected on September 22. No samples were submitted from the surgery in July when the initial distal phalanx amputation was carried out. The sample from September 22 also had VRE in small amounts. The current sample only has the ESBL E coli. This is a preliminary culture result. IMAGING STUDIES: Arterial ultrasound, foot x-ray from the with osseous changes, adjacent calcification about first toe proximal phalanx stump or some ongoing aggressive infection. ASSESSMENT: Peripheral vascular disease; coronary artery disease; ischemic cardiomyopathy; chronic kidney disease 3 to 4; type 2 diabetes; recent bypass graft surgery; amputation, distal phalanx, left first toe in July with residual infection. No samples for culture were submitted then and now have recrudescence, which required first and second ray amputations, now we have a sample for cultures and we will address the organisms. I would advise continuation of IV meropenem due to the nature of the organism and hopefully will be able to avoid the linezolid when the final culture results are retrieved. In view of the kidney function, we will see if the GFR goes above 50. In that case, then we will recommend placement of PICC line, but probably to preserve her veins, I would probably request Dr. Huitron to place a tunneled catheter to continue IV therapy with either ertapenem or meropenem in the outpatient setting. Job ID: [id number] [facility]
[2019-09-28] MEDS: Ondansetron ODT 4 MG TAB PO PRN (18:01)
[2019-09-28] MEDS: Calcium Carbonate 500 MG ChewTAB PO PRN (18:57)
[2019-09-28] MEDS ORDERED: Meropenem 1 GM in Sodium Chloride 0.9% 100 ML IVPB SCH (21:00)
[2019-09-28] MEDS: Enoxaparin Sodium 30 MG/0.3 ML SYRINGE SC SCH (21:01)
[2019-09-28] MEDS: Rosuvastatin 10 MG TAB PO SCH (21:01)
--- NOTE | 2019-09-28 21:36 | PDOC.BPN ---
- Brief Progress Note Patient's wound bed examined again today and continues with bleeding. 2 areas of bleeding noted and suture ligated with 3-0 silk suture. Okay to resume wound VAC therapy.
[2019-09-29] MEDS: MEROPENEM 1 GM/50 ML 1 GM in Premix Bag 1 BAG IVPB SCH ×2 (03:12→15:44)
[2019-09-29 05:24] LABS: #Eosinphils 0.4 thou/uL (0.0-0.7); #Lymphocytes 2.8 thou/uL (1.20-3.40); #Monocytes 1.4 thou/uL (0.11-0.59); #Neutrophils 10.8 thou/uL (1.40-6.50); %Basophils 0.1 % (0.0-1.0); %Eosinophils 2.5 % (0.0-10.0); %Lymphocytes 18.2 % (21.0-51.0); %Monocytes 9.1 % (0.0-10.0); %Neutrophils 70.3 % (42.0-75.0); Hemoglobin 8.3 g/dL (12.0-16.0); Mean Corpuscular HGB CONC 31.7 g/dL (32.0-36.0); Mean Corpuscular Hemoglobin 27.7 pg (27.0-31.0); Mean Corpuscular Volume 87.2 fL (78.0-98.0); Platelet Count 328 thou/uL (130-400); RBC Distribution Width 14.1 % (11.5-14.5); White Blood Cell (WBC) Count 15.4 thou/uL (4.8-10.8)
[2019-09-29 05:47] LABS: Anion Gap 10 mmol/L (10-20); BUN (Urea Nitrogen) 14 mg/dL (9.8-20.1); Calc. Creatinine Clearance 59 mL/min (70-130); Calcium 8.2 mg/dL (7.8-10.44); Carbon Dioxide 21 mmol/L (23-31); Chloride 103 mmol/L (98-107); Estimated GFR-MDRD 45; Glucose 218 mg/dL (80-115); Potassium 4.2 mmol/L (3.5-5.1); Sodium 130 mmol/L (136-145)
[2019-09-29] MEDS: HumaLOG 300 UNITS/3 ML VIAL SC PRN (05:50)
[2019-09-29] MEDS: Acetaminophen 500 MG TAB PO PRN (06:02)
[2019-09-29] MEDS: traMADol HCl 50 MG TAB PO PRN ×3 (06:03→22:06)
--- NOTE | 2019-09-29 08:15 | PDOC.HOSPP ---
- Subjective Encounter Date: 09/29/19 Encounter Time: 08:30 Subjective: Ms Prado is doing well today. She did not appear to be in any distress, but states that she is still in 7-8/10 pain. She slept well last night. She has not been having her regular meals lately due to increases in her blood glucose. Today her glucose was 218. She denies any N/V, sob, dizziness, fever, or chills. She has not had a BM since her surgery, but she has passed flatus. - Objective Vital Signs & Weight: Vital Signs (12 hours) Temp Pulse Resp BP Pulse Ox 09/29/19 07:55 98.0 F 71 20 154/71 H 96 Weight Admit Weight 167 lb 9.6 oz Weight 167 lb 9.6 oz I&O: 09/28/19 09/29/19 09/30/19 06:59 06:59 06:59 Intake Total 1170 850 Output Total 650 550 Balance 520 300 Result Diagrams: 09/29/19 05:15 09/29/19 05:15 Additional Labs: Accuchecks 09/29/19 09/28/19 09/28/19 05:15 20:14 16:43 POC Glucose 230 H 104 163 H 09/28/19 11:29 POC Glucose 191 H Hospitalist ROS - Review of Systems Constitutional: denies: fever, chills, weakness Respiratory: denies: cough, shortness of breath Cardiovascular: denies: chest pain, palpitations Gastrointestinal: denies: nausea, vomiting, abdominal pain Musculoskeletal: reports: foot pain (incision site) - Medication Medications: Active Medications Generic Name Dose Route Start Last Admin Trade Name Freq PRN Reason Stop Dose Admin Acetaminophen 1,000 mg 09/26/19 17:37 09/29/19 06:02 Tylenol PO 1,000 mg Q6H PRN Administration Mild Pain (1-3) Acetaminophen/Codeine Phosphate 1 tab 09/28/19 11:40 09/28/19 13:09 Tylenol #3 PO 1 tab Q6H PRN Administration Pain Amiodarone HCl 200 mg 09/25/19 09:00 09/28/19 08:59 Cordarone PO 200 mg DAILY LIN Administration Aspirin 81 mg 09/25/19 09:00 09/28/19 08:58 Ecotrin PO 81 mg DAILY [facility] Administration Calcium Carbonate 1,000 mg 09/23/19 18:19 09/28/19 18:57 Tums PO 1,000 mg Q4H PRN Administration Heartburn or Indigestion Carvedilol 3.125 mg 09/24/19 21:00 09/28/19 21:01 Coreg PO 3.125 mg BID LIN Administration Clopidogrel Bisulfate 75 mg 09/27/19 09:00 09/28/19 08:58 Plavix PO 75 mg DAILY LIN Administration Enoxaparin Sodium 30 mg 09/26/19 21:00 09/28/19 21:01 Lovenox SC 30 mg 2100 LIN Administration Famotidine 20 mg 09/25/19 09:00 09/28/19 08:58 Pepcid PO 20 mg DAILY [facility] Administration Meropenem 1 gm/ Device 50 mls @ 100 mls/hr 09/28/19 15:00 09/29/19 03:12 IVPB 50 mls 0300,1500 LIN Administration Insulin Human Isoph/Insulin Regular 15 units 09/24/19 21:00 09/28/19 21:03 Humulin 70/30 SC Not Given BID [facility] Insulin Human Lispro 0 units 09/23/19 18:28 09/29/19 05:50 Humalog SC 4 unit .MODERATE SLIDING SC PRN Administration Moderate Correctional Scale Insulin Human Lispro 0 units 09/23/19 18:28 09/27/19 20:23 Humalog SC 2 unit .BEDTIME SLIDING SC PRN Administration Bedtime Correctional Scale Isosorbide Dinitrate 20 mg 09/24/19 21:00 09/28/19 21:01 Isordil PO 20 mg TID LIN Administration Ondansetron HCl 4 mg 09/23/19 18:19 09/28/19 18:01 Zofran Odt PO 4 mg Q6H PRN Administration Nausea/Vomiting Ondansetron HCl 4 mg 09/23/19 18:19 09/24/19 09:03 Zofran IVP 4 mg Q6H PRN Administration Nausea/Vomiting Polyethylene Glycol 17 gm 09/27/19 09:00 09/28/19 09:00 Miralax PO Not Given DAILY [facility] Rosuvastatin Calcium 10 mg 09/24/19 21:00 09/28/19 21:01 Crestor PO 10 mg HS [facility] Administration Tramadol HCl 50 mg 09/26/19 17:37 09/29/19 06:03 Ultram PO 50 mg Q6H PRN Administration Moderate Pain (4-6) Tramadol HCl 100 mg 09/26/19 17:37 09/28/19 10:29 Ultram PO 100 mg Q6H PRN Administration Severe Pain (7-10) - Exam General Appearance: NAD Eye: PERRL, anicteric sclera Neck: supple, no JVD Heart: RRR, no murmur Respiratory: CTAB, no tachypnea Gastrointestinal: soft, non-tender Extremities: no edema Extremities - other findings: pain in her L foot up the level of the mid-calf Neurological: no weakness, no focal deficits Musculoskeletal: normal tone, normal strength Psychiatric: normal affect, A&O x 3 Hosp A/P - Plan - Plan #dry gangrene #infected chronic nonhealing diabetic ulcerations LLE -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 - H&H = 8.3 & 26.2 #CKD3b - stable, Cr = 1.21 #T2DM- glucose this morning was 218 -consider adjusting her Humulin Chart was reviewed. Patient was seen. She is complaining of left lower extremity pain. Vital signs are stable. Agree with findings and plan of care as documented by MS 3. Hemoglobin has improved to 8.3. Patient will need intravenous antibiotics, will need tunneled catheter placement to facilitate intravenous antibiotics.
[2019-09-29] MEDS: Amiodarone 200 MG TAB PO SCH (09:43)
[2019-09-29] MEDS: Aspirin 81 mg Enteric Coated Tablet PO SCH (09:43)
[2019-09-29] MEDS: Carvedilol 3.125 MG TAB PO SCH ×2 (09:44→22:00)
[2019-09-29] MEDS: Famotidine 20 MG TAB PO SCH (09:44)
[2019-09-29] MEDS: Clopidogrel Bisulfate 75 MG TAB PO SCH (09:44)
[2019-09-29] MEDS: Famotidine/PF 20 mg/2ml Vial SLOW IVP SCH (09:45)
[2019-09-29] MEDS: Isosorbide Dinitrate 20 MG TAB PO SCH ×3 (09:45→22:00)
[2019-09-29] MEDS: Polyethylene Glycol 3350 17 GM Packet PO SCH (09:46)
[2019-09-29] MEDS: HumuLIN 70/30 (300 UNITS/3 ML VIAL) SC SCH ×2 (09:47→22:01)
--- NOTE | 2019-09-29 14:13 | PRG ---
DATE OF SERVICE: 09/29/2019 SUBJECTIVE: Bertin Prado is doing well. She is status post amputation of her left great toe and second toe. Intraoperative cultures revealed E coli. She has severe diabetic foot infection tracking dorsally and plantar. LABORATORY DATA: White count is down to 15,000, hemoglobin 8.3. Sodium 130, potassium 4.2, creatinine 1.21. ASSESSMENT AND PLAN: The patient refused . I have told the therapist that the patient can weightbear as tolerated. I have encouraged the patient to work with therapy. 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 Dr. Francis Ortiz performed this. Hopefully, this will improve her foot healing. She has had bleeding problems requiring ligation, which is encouraging. Overall, she is doing well. We would recommend physical therapy. Weightbear as tolerated. Intravenous antibiotics. Dr. Vanegas is seeing her over the weekend due to underlying infection. IV meropenem has been ordered. She may need a tunneled catheter for meropenem in the outpatient setting. This will facilitate foot salvage. Job ID: [id number]
[2019-09-29] MEDS: Rosuvastatin 10 MG TAB PO SCH (22:00)
[2019-09-29] MEDS: Enoxaparin Sodium 30 MG/0.3 ML SYRINGE SC SCH (22:00)
[2019-09-30] MEDS: Acetaminophen/Codeine 30-300mg Tablet PO PRN ×2 (00:22→14:22)
[2019-09-30] MEDS: MEROPENEM 1 GM/50 ML 1 GM in Premix Bag 1 BAG IVPB SCH ×2 (03:29→16:54)
[2019-09-30 06:09] LABS: #Eosinphils 0.2 thou/uL (0.0-0.7); #Lymphocytes 3.2 thou/uL (1.20-3.40); #Monocytes 1.5 thou/uL (0.11-0.59); #Neutrophils 9.7 thou/uL (1.40-6.50); %Basophils 0.2 % (0.0-1.0); %Eosinophils 1.6 % (0.0-10.0); %Monocytes 10.1 % (0.0-10.0); Hemoglobin 8.2 g/dL (12.0-16.0); Mean Corpuscular Hemoglobin 26.9 pg (27.0-31.0); Mean Corpuscular Volume 86.8 fL (78.0-98.0); Mean Platelet Volume 6.7 fL (7.4-10.4); Platelet Count 391 thou/uL (130-400); RBC Distribution Width 14.6 % (11.5-14.5); Red Blood Cell (RBC) Count 3.06 mill/uL (4.20-5.40); White Blood Cell (WBC) Count 14.7 thou/uL (4.8-10.8)
[2019-09-30 06:27] LABS: Anion Gap 11 mmol/L (10-20); BUN (Urea Nitrogen) 9 mg/dL (9.8-20.1); Calc. Creatinine Clearance 74 mL/min (70-130); Calcium 8.3 mg/dL (7.8-10.44); Carbon Dioxide 23 mmol/L (23-31); Chloride 102 mmol/L (98-107); Estimated GFR-MDRD 59; Glucose 82 mg/dL (80-115); Potassium 3.9 mmol/L (3.5-5.1); Sodium 132 mmol/L (136-145)
--- NOTE | 2019-09-30 07:48 | PDOC.HOSPP ---
- Subjective Encounter Date: 09/30/19 Encounter Time: 08:30 Subjective: Ms. Prado is doing well this morning. She reports 8-9 out of 10 pain, but did not appear to be distressed. She slept well last night. She was able to walk to the restroom yesterday for a BM. She denies any N/V, fever, chills, or changes in vision or hearing. - Objective Vital Signs & Weight: Vital Signs (12 hours) Temp Pulse Resp BP BP Pulse Ox 09/30/19 07:34 98.0 F 70 20 158/79 H 96 09/29/19 20:10 97.9 F 71 20 132/77 97 Weight Admit Weight 167 lb 9.6 oz Weight 167 lb 9.6 oz I&O: 09/29/19 09/30/19 10/01/19 06:59 06:59 06:59 Intake Total 850 1360 Output Total 550 200 Balance 300 1160 Result Diagrams: 09/30/19 05:45 09/30/19 05:45 Additional Labs: Accuchecks 09/30/19 09/29/19 09/29/19 05:28 20:08 16:42 POC Glucose 93 143 H 87 09/29/19 12:09 POC Glucose 112 H Hospitalist ROS - Review of Systems Constitutional: denies: fever, chills Respiratory: denies: cough, shortness of breath, pleuritic pain Cardiovascular: denies: chest pain, palpitations Gastrointestinal: denies: nausea, vomiting, abdominal pain Neurological: denies: weakness, numbness All other systems reviewed; all pertinent +/- noted in HPI/Subj - Medication Medications: Active Medications Generic Name Dose Route Start Last Admin Trade Name Freq PRN Reason Stop Dose Admin Acetaminophen 1,000 mg 09/26/19 17:37 09/29/19 06:02 Tylenol PO 1,000 mg Q6H PRN Administration Mild Pain (1-3) Acetaminophen/Codeine Phosphate 1 tab 09/28/19 11:40 09/30/19 00:22 Tylenol #3 PO 1 tab Q6H PRN Administration Pain Amiodarone HCl 200 mg 09/25/19 09:00 09/29/19 09:43 Cordarone PO 200 mg DAILY [facility] Administration Aspirin 81 mg 09/25/19 09:00 09/29/19 09:43 Ecotrin PO 81 mg DAILY [facility] Administration Calcium Carbonate 1,000 mg 09/23/19 18:19 09/28/19 18:57 Tums PO 1,000 mg Q4H PRN Administration Heartburn or Indigestion Carvedilol 3.125 mg 09/24/19 21:00 09/29/19 22:00 Coreg PO 3.125 mg BID [facility] Administration Clopidogrel Bisulfate 75 mg 09/27/19 09:00 09/29/19 09:44 Plavix PO 75 mg DAILY [facility] Administration Enoxaparin Sodium 30 mg 09/26/19 21:00 09/29/19 22:00 Lovenox SC 30 mg 2100 LIN Administration Famotidine 20 mg 09/25/19 09:00 09/29/19 09:44 Pepcid PO 20 mg DAILY [facility] Administration Famotidine 20 mg 09/29/19 09:00 09/29/19 09:45 Pepcid SLOW IVP Not Given DAILY [facility] Meropenem 1 gm/ Device 50 mls @ 100 mls/hr 09/28/19 15:00 09/30/19 03:29 IVPB 50 mls 0300,1500 [facility] Administration Insulin Human Isoph/Insulin Regular 15 units 09/24/19 21:00 09/29/19 22:01 Humulin 70/30 SC Not Given BID [facility] Insulin Human Lispro 0 units 09/23/19 18:28 09/29/19 05:50 Humalog SC 4 unit .MODERATE SLIDING SC PRN Administration Moderate Correctional Scale Insulin Human Lispro 0 units 09/23/19 18:28 09/27/19 20:23 Humalog SC 2 unit .BEDTIME SLIDING SC PRN Administration Bedtime Correctional Scale Isosorbide Dinitrate 20 mg 09/24/19 21:00 09/29/19 22:00 Isordil PO 20 mg TID [facility] Administration Ondansetron HCl 4 mg 09/23/19 18:19 09/28/19 18:01 Zofran Odt PO 4 mg Q6H PRN Administration Nausea/Vomiting Ondansetron HCl 4 mg 09/23/19 18:19 09/24/19 09:03 Zofran IVP 4 mg Q6H PRN Administration Nausea/Vomiting Polyethylene Glycol 17 gm 09/27/19 09:00 09/29/19 09:46 Miralax PO Not Given DAILY [facility] Rosuvastatin Calcium 10 mg 09/24/19 21:00 09/29/19 22:00 Crestor PO 10 mg HS [facility] Administration Tramadol HCl 50 mg 09/26/19 17:37 09/29/19 06:03 Ultram PO 50 mg Q6H PRN Administration Moderate Pain (4-6) Tramadol HCl 100 mg 09/26/19 17:37 09/29/19 22:06 Ultram PO 100 mg Q6H PRN Administration Severe Pain (7-10) - Exam General Appearance: NAD, awake alert Eye: anicteric sclera Neck: symmetric, no JVD Heart: RRR, no murmur Respiratory: CTAB, no wheezes, no tachypnea Gastrointestinal: non-tender, non-distended Extremities: no edema Skin: normal turgor Neurological: cranial nerve grossly intact, no new deficit Psychiatric: normal affect, A&O x 3 Hosp A/P - Plan - Plan #dry gangrene #infected chronic nonhealing diabetic ulcerations LLE -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 Agree with findings and plan of care as documented by MS 3.
[2019-09-30] MEDS: Famotidine 20 MG TAB PO SCH (08:36)
[2019-09-30] MEDS: Amiodarone 200 MG TAB PO SCH (08:36)
[2019-09-30] MEDS: Famotidine/PF 20 mg/2ml Vial SLOW IVP SCH (08:37)
[2019-09-30] MEDS: Carvedilol 3.125 MG TAB PO SCH ×2 (08:37→21:09)
[2019-09-30] MEDS: Aspirin 81 mg Enteric Coated Tablet PO SCH (08:37)
[2019-09-30] MEDS: Clopidogrel Bisulfate 75 MG TAB PO SCH (08:37)
[2019-09-30] MEDS: Isosorbide Dinitrate 20 MG TAB PO SCH ×3 (08:37→21:08)
[2019-09-30] MEDS: HumuLIN 70/30 (300 UNITS/3 ML VIAL) SC SCH ×2 (08:40→21:10)
[2019-09-30] MEDS: Polyethylene Glycol 3350 17 GM Packet PO SCH (08:42)
--- NOTE | 2019-09-30 10:14 | PRG ---
DATE OF SERVICE: 09/30/2019 SUBJECTIVE: Bertin Prado is doing well today. OBJECTIVE: VITAL SIGNS: She is afebrile, heart rate 70, blood pressure 158/79. LABORATORY DATA: Her hemoglobin is 8.2. Basic metabolic profile normal. Cultures from her foot reveal E coli, Bacteroides. ASSESSMENT AND PLAN: The patient has been seen by Dr. Vanegas. We will start IV antibiotics. If this is indeed necessary, she has tentatively been scheduled for Dominguez catheter tomorrow due to her chronic kidney disease. Her wound looks good. The skin edges are questionable and may need to be debrided, but overall there is no active cellulitis. The tunneling plantar and over the dorsum of foot are less today. Wound VAC was replaced. Job ID: [id number]
[2019-09-30] MEDS: traMADol HCl 50 MG TAB PO PRN (16:57)
[2019-09-30] MEDS: Enoxaparin Sodium 30 MG/0.3 ML SYRINGE SC SCH (21:09)
[2019-09-30] MEDS: Rosuvastatin 10 MG TAB PO SCH (21:09)
[2019-10-01] MEDS: MEROPENEM 1 GM/50 ML 1 GM in Premix Bag 1 BAG IVPB SCH ×2 (02:24→17:13)
[2019-10-01 05:43] LABS: #Eosinphils 0.3 thou/uL (0.0-0.7); #Lymphocytes 3.4 thou/uL (1.20-3.40); #Monocytes 1.5 thou/uL (0.11-0.59); #Neutrophils 8.6 thou/uL (1.40-6.50); %Basophils 0.2 % (0.0-1.0); %Lymphocytes 24.7 % (21.0-51.0); %Monocytes 10.8 % (0.0-10.0); %Neutrophils 62.3 % (42.0-75.0); Mean Corpuscular HGB CONC 30.6 g/dL (32.0-36.0); Mean Corpuscular Volume 88.2 fL (78.0-98.0); Mean Platelet Volume 6.4 fL (7.4-10.4); Platelet Count 484 thou/uL (130-400); Red Blood Cell (RBC) Count 3.33 mill/uL (4.20-5.40); White Blood Cell (WBC) Count 13.9 thou/uL (4.8-10.8)
[2019-10-01 05:47] LABS: Anion Gap 9 mmol/L (10-20); BUN (Urea Nitrogen) 9 mg/dL (9.8-20.1); Calc. Creatinine Clearance 69 mL/min (70-130); Calcium 8.5 mg/dL (7.8-10.44); Carbon Dioxide 24 mmol/L (23-31); Chloride 103 mmol/L (98-107); Estimated GFR-MDRD 54; Sodium 132 mmol/L (136-145)
[2019-10-01 05:52] LABS: Glucose 49 mg/dL (80-115)
[2019-10-01] MEDS ORDERED: Dextrose 50% Abboject 50 ML SYRINGE SLOW IVP SCH ×2 (06:15→06:30)
--- NOTE | 2019-10-01 07:52 | PDOC.HOSPP ---
- Subjective Encounter Date: 10/01/19 Encounter Time: 08:30 Subjective: Patient did not have any overnight events, and she is doing well today. Patient did not appear to be in distress, but reports 8-9/10 pain. She is able to walk to the restroom, but she did not have a BM yesterday. Patient denies N/ V, headache, changes in vision, chills, palpitations, and shortness of breath. No abdominal pain. - Objective Vital Signs & Weight: Vital Signs (12 hours) Temp Pulse Resp BP BP Pulse Ox 10/01/19 07:32 97.5 F L 68 18 156/78 H 09/30/19 20:00 98.3 F 70 20 149/78 H 94 L Weight Admit Weight 167 lb 9.6 oz Weight 167 lb 9.6 oz I&O: 09/30/19 10/01/19 10/02/19 06:59 06:59 06:59 Intake Total 1360 Output Total 200 Balance 1160 Result Diagrams: 10/01/19 05:18 10/01/19 05:18 Additional Labs: Accuchecks 10/01/19 10/01/19 10/01/19 06:41 05:07 00:19 POC Glucose 280 H 63 L 109 09/30/19 09/30/19 09/30/19 19:54 15:51 11:13 POC Glucose 180 H 167 H 134 H Labs and MAR were reviewed by me. Hospitalist ROS - Review of Systems Constitutional: denies: fever, chills Eyes: denies: pain, vision change ENT: denies: ear pain, nose congestion Respiratory: denies: cough, shortness of breath Cardiovascular: denies: chest pain, palpitations Gastrointestinal: denies: nausea, vomiting, abdominal pain Genitourinary: denies: dysuria, frequency Musculoskeletal: reports: foot pain (left foot) Neurological: denies: weakness, numbness All other systems reviewed; all pertinent +/- noted in HPI/Subj - Medication Medications: Active Medications Generic Name Dose Route Start Last Admin Trade Name Freq PRN Reason Stop Dose Admin Acetaminophen 1,000 mg 09/26/19 17:37 09/29/19 06:02 Tylenol PO 1,000 mg Q6H PRN Administration Mild Pain (1-3) Acetaminophen/Codeine Phosphate 1 tab 09/28/19 11:40 09/30/19 14:22 Tylenol #3 PO 1 tab Q6H PRN Administration Pain Amiodarone HCl 200 mg 09/25/19 09:00 09/30/19 08:36 Cordarone PO 200 mg DAILY [facility] Administration Aspirin 81 mg 09/25/19 09:00 09/30/19 08:37 Ecotrin PO 81 mg DAILY [facility] Administration Calcium Carbonate 1,000 mg 09/23/19 18:19 09/28/19 18:57 Tums PO 1,000 mg Q4H PRN Administration Heartburn or Indigestion Carvedilol 3.125 mg 09/24/19 21:00 09/30/19 21:09 Coreg PO 3.125 mg BID LIN Administration Clopidogrel Bisulfate 75 mg 09/27/19 09:00 09/30/19 08:37 Plavix PO 75 mg DAILY [facility] Administration Dextrose/Water 50 gm 10/01/19 06:30 10/01/19 06:18 Dextrose 50% SLOW IVP 10/01/19 09:00 50 gm NOW LIN Administration Enoxaparin Sodium 30 mg 09/26/19 21:00 09/30/19 21:09 Lovenox SC 30 mg 2100 [facility] Administration Famotidine 20 mg 09/25/19 09:00 09/30/19 08:36 Pepcid PO 20 mg DAILY [facility] Administration Famotidine 20 mg 09/29/19 09:00 09/30/19 08:37 Pepcid SLOW IVP Not Given DAILY [facility] Meropenem 1 gm/ Device 50 mls @ 100 mls/hr 09/28/19 15:00 10/01/19 02:24 IVPB 50 mls 0300,1500 [facility] Administration Dextrose/Sodium Chloride 250 mls @ 50 mls/hr 10/01/19 06:00 10/01/19 05:50 D5 1/2 Ns IV 10/01/19 10:59 250 mls .Q5H LIN Administration Insulin Human Isoph/Insulin Regular 15 units 09/24/19 21:00 09/30/19 21:10 Humulin 70/30 SC 15 unit BID [facility] Administration Insulin Human Lispro 0 units 09/23/19 18:28 09/29/19 05:50 Humalog SC 4 unit .MODERATE SLIDING SC PRN Administration Moderate Correctional Scale Insulin Human Lispro 0 units 09/23/19 18:28 09/27/19 20:23 Humalog SC 2 unit .BEDTIME SLIDING SC PRN Administration Bedtime Correctional Scale Isosorbide Dinitrate 20 mg 09/24/19 21:00 09/30/19 21:08 Isordil PO 20 mg TID [facility] Administration Ondansetron HCl 4 mg 09/23/19 18:19 09/28/19 18:01 Zofran Odt PO 4 mg Q6H PRN Administration Nausea/Vomiting Ondansetron HCl 4 mg 09/23/19 18:19 09/24/19 09:03 Zofran IVP 4 mg Q6H PRN Administration Nausea/Vomiting Polyethylene Glycol 17 gm 09/27/19 09:00 09/30/19 08:42 Miralax PO Not Given DAILY [facility] Rosuvastatin Calcium 10 mg 09/24/19 21:00 09/30/19 21:09 Crestor PO 10 mg HS [facility] Administration Tramadol HCl 50 mg 09/26/19 17:37 09/30/19 16:57 Ultram PO 50 mg Q6H PRN Administration Moderate Pain (4-6) Tramadol HCl 100 mg 09/26/19 17:37 09/29/19 22:06 Ultram PO 100 mg Q6H PRN Administration Severe Pain (7-10) - Exam General Appearance: NAD, awake alert Eye: PERRL, anicteric sclera ENT: normocephalic atraumatic, moist mucosa Neck: supple, symmetric Heart: RRR, no murmur, normal peripheral pulses Respiratory: CTAB, no wheezes, no rales Gastrointestinal: soft, non-tender, non-distended Extremities: no cyanosis, no edema Skin: normal turgor Neurological: cranial nerve grossly intact, normal sensation to touch Musculoskeletal: normal strength Psychiatric: normal behavior, A&O x 3 Hosp A/P - Plan - Plan #dry gangrene #infected chronic nonhealing diabetic ulcerations LLE -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 Chart reviewed and patient seen. Agree with findings and plan of care as documented by 3.
[2019-10-01] MEDS: Aspirin 81 mg Enteric Coated Tablet PO SCH (08:22)
[2019-10-01] MEDS: HumuLIN 70/30 (300 UNITS/3 ML VIAL) SC SCH ×2 (08:22→21:41)
[2019-10-01] MEDS: Clopidogrel Bisulfate 75 MG TAB PO SCH (08:23)
[2019-10-01] MEDS: Isosorbide Dinitrate 20 MG TAB PO SCH ×3 (08:23→21:41)
[2019-10-01] MEDS: Polyethylene Glycol 3350 17 GM Packet PO SCH (08:23)
[2019-10-01] MEDS: Carvedilol 3.125 MG TAB PO SCH ×2 (08:30→21:41)
[2019-10-01] MEDS ORDERED: Lidocaine 1% PF 5 ML VIAL ONE (09:17)
[2019-10-01] MEDS ORDERED: Lidocaine 1% w/Epinephrine 1:100K 20 ML VIAL ONE (09:50)
[2019-10-01] MEDS ORDERED: Bupivacaine PF 0.5% 30 ML VIAL ONE (09:50)
[2019-10-01] MEDS ORDERED: Sodium Chloride 0.9% 0 ML ONE (09:50)
[2019-10-01] MEDS ORDERED: Midazolam HCl 2 mg/2 ml Vial ONE (09:55)
[2019-10-01] MEDS ORDERED: Fentanyl 100 MCG/2 ML VIAL ONE (09:55)
[2019-10-01] MEDS ORDERED: Propofol 500 MG/50 ML VIAL ONE (09:56)
[2019-10-01] MEDS ORDERED: Ketamine 50 MG/ML (10ML VIAL) ONE (10:09)
[2019-10-01] MEDS ORDERED: PACU-Morphine 4MG/ML VIAL SLOW IVP PRN (11:08)
[2019-10-01] MEDS ORDERED: Promethazine HCl 25 MG/ML VIAL SLOW IVP PRN (11:08)
[2019-10-01] MEDS ORDERED: Ondansetron HCl/PF 4 MG/2 ML Vial IVP PRN (11:08)
[2019-10-01] MEDS ORDERED: Promethazine HCl 25 MG/ML VIAL IM PRN (11:08)
[2019-10-01] MEDS ORDERED: Morphine Sulfate 2 MG/ML SYRINGE SLOW IVP PRN (11:08)
--- NOTE | 2019-10-01 11:44 | RAD ---
Chest one view HISTORY: Central line placement. COMPARISON: 08/22/2019. FINDINGS: Cardiac silhouette is magnified and upper limits of normal in size. Pulmonary vasculature is slightly engorged and accentuated by shallow inspiration. Mild patchy bilate ral perihilar and bibasilar infiltrates. Mediastinum is midline with postoperative changes. Tip of a right internal jugular central venous cat heter projects over the superior vena cava. No evidence of pneumothorax. IMPRESSION : Right internal jugular central venous catheter is in good radiographic position. Pulmonary vascular congestion with mild bibasilar infiltrates.
--- NOTE | 2019-10-01 14:41 | OP ---
DATE OF PROCEDURE: 10/01/2019 PREOPERATIVE DIAGNOSES: 1. Severe diabetic foot infection. 2. Status post partial amputation. 3. Chronic kidney disease. 4. Need of IV antibiotic access. PROCEDURE PERFORMED: Right internal jugular Dominguez catheter, dual lumen placement, ultrasound and fluoroscopy used. ANESTHESIA: Intravenous sedation and local with 0.5% Marcaine 30 mL, mixed with 1% Xylocaine with epinephrine 20 mL. DESCRIPTION OF PROCEDURE: The patient was taken to the operating room where under intravenous sedation, neck and chest were prepared with ChloraPrep and draped in routine fashion. Local anesthetic was infiltrated in the skin and subcutaneous tissue about the operative site. Using ultrasound guidance, the right internal jugular vein was cannulated with a trocar catheter, J-wire threaded, trocar catheter removed. Skin site enlarged sharply. Stab incision was made over the right chest at the planned exit site. Using the tunneling device, the dual lumen Dominguez catheter tunneled between the incision, placed the fabric cuff beneath the skin exit site and catheter was secured with 2 interrupted sutures of 3-0 nylon. Sterile dressing applied. Dilator and Peel-Away sheath placed over the J-wire into the internal jugular vein, and dilator and J-wire were removed. Catheter tailored to length, placed in the peel-away sheath, removing it. Fluoroscopic images revealed good line placement. The platysma was approximated with 4-0 Monocryl, skin with subdermal 4-0 Monocryl, and Primrose glue applied. The Dominguez catheter aspirated blood, flushed with heparin solution. The patient tolerated the procedure well. Job ID: [id number]
[2019-10-01] MEDS: Acetaminophen/Codeine 30-300mg Tablet PO PRN (17:09)
[2019-10-01] MEDS: Famotidine 20 MG TAB PO SCH (17:12)
[2019-10-01] MEDS: Amiodarone 200 MG TAB PO SCH (17:12)
[2019-10-01] MEDS: Famotidine/PF 20 mg/2ml Vial SLOW IVP SCH (17:13)
--- NOTE | 2019-10-01 18:16 | PRG ---
DATE OF SERVICE: 10/01/2019 SUBJECTIVE: Dr. Huitron placed a Dominguez catheter and she is ready for discharge planning, but now there are some complications because she was visiting from [place] and her son cannot take care of her here in [facility], so we will have to get the case mgr to help out with that. She is feeling okay. No respiratory symptoms or abdominal pain. Minimal pain in the right foot. OBJECTIVE: VITAL SIGNS: She is afebrile. O2 saturations are 94% on room air, BP 150/70, pulse 63. GENERAL: Awake, in no distress. EXTREMITIES: Right foot with a negative pressure dressing. HEART: S1 and S2. Regular rate. LUNGS: Clear. ABDOMEN: Soft, not distended. LABORATORY DATA: White cell count is 13.9, hemoglobin 9, platelets 484. Sodium 132, creatinine 1.03. Toe cultures with E coli and Bacteroides. The E coli had a quite prominent resistance with susceptibility only to carbapenems as had been noted in the previous culture. 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 She had now revascularization of the peroneal artery and the plan now is to continue meropenem, adjusted for renal function for probably another 2 weeks at least until there is proper healing of the amputation site. She is at risk for recrudescence of infection. There is the complicating factor that she is from [place] and was visiting her son and her son cannot take care of her, so it is a difficult situation. Job ID: [id number] [facility]
[2019-10-01] MEDS: Rosuvastatin 10 MG TAB PO SCH (21:41)
[2019-10-01] MEDS: Enoxaparin Sodium 30 MG/0.3 ML SYRINGE SC SCH (21:41)
[2019-10-01] MEDS: Calcium Carbonate 500 MG ChewTAB PO PRN (21:42)
[2019-10-01] MEDS: traMADol HCl 50 MG TAB PO PRN (21:49)
[2019-10-02] MEDS: MEROPENEM 1 GM/50 ML 1 GM in Premix Bag 1 BAG IVPB SCH ×2 (02:41→16:12)
[2019-10-02] MEDS: Calcium Carbonate 500 MG ChewTAB PO PRN ×2 (05:30→16:12)
[2019-10-02] MEDS: HumaLOG 300 UNITS/3 ML VIAL SC PRN ×2 (05:32→17:08)
[2019-10-02] MEDS: Isosorbide Dinitrate 20 MG TAB PO SCH ×3 (08:14→21:28)
[2019-10-02] MEDS: Carvedilol 3.125 MG TAB PO SCH ×2 (08:14→21:27)
[2019-10-02] MEDS: Acetaminophen/Codeine 30-300mg Tablet PO PRN ×2 (08:14→16:06)
[2019-10-02] MEDS: Amiodarone 200 MG TAB PO SCH (08:14)
[2019-10-02] MEDS: Famotidine 20 MG TAB PO SCH (08:14)
[2019-10-02] MEDS: Clopidogrel Bisulfate 75 MG TAB PO SCH (08:30)
[2019-10-02] MEDS: Aspirin 81 mg Enteric Coated Tablet PO SCH (08:30)
--- NOTE | 2019-10-02 10:23 | PDOC.HOSPP ---
- Subjective Encounter Date: 10/02/19 Encounter Time: 08:30 Subjective: Ms. Prado reports being in 11/10 pain, though she does not appear to be overly distressed. She says that her pain is in her foot whenever she tries to walk or lowers it to the ground. Also, they placed a Dominguez catheter last night on her right side that is causing her 11/10 pain. Since placement of the catheter it has been bleeding. It bled throughout the night and required several dressing changes. It currently has a pressure dressing covering it. For this reason her enoxaparin has been held for now (she is also taking ASA). She passed BM this morning. No abdominal pain reported, but she does not have much of an appetite. She denies N/V, palpitations, shortness of breath, cough, fever, or chills. - Objective Vital Signs & Weight: Vital Signs (12 hours) Temp Pulse Resp BP BP Pulse Ox 10/02/19 08:00 97.4 F L 76 18 168/87 H 98 10/02/19 00:00 98.0 F 88 18 155/73 H 97 Weight Admit Weight 167 lb 9.6 oz Weight 167 lb 9.6 oz Result Diagrams: 10/01/19 22:08 10/01/19 05:18 Additional Labs: Accuchecks 10/02/19 10/01/19 10/01/19 05:36 20:18 16:42 POC Glucose 182 H 132 H 98 10/01/19 10/01/19 13:13 10:18 POC Glucose 104 104 labs and MARs reviewed by [place] Hospitalist ROS - Review of Systems Constitutional: denies: fever, chills Respiratory: denies: cough, shortness of breath Cardiovascular: denies: chest pain, palpitations, light headedness Gastrointestinal: denies: nausea, vomiting Musculoskeletal: reports: foot pain All other systems reviewed; all pertinent +/- noted in HPI/Subj - Medication Medications: Active Medications Generic Name Dose Route Start Last Admin Trade Name Freq PRN Reason Stop Dose Admin Acetaminophen 1,000 mg 09/26/19 17:37 09/29/19 06:02 Tylenol PO 1,000 mg Q6H PRN Administration Mild Pain (1-3) Acetaminophen/Codeine Phosphate 1 tab 09/28/19 11:40 10/02/19 08:14 Tylenol #3 PO 1 tab Q6H PRN Administration Pain Amiodarone HCl 200 mg 09/25/19 09:00 10/02/19 08:14 Cordarone PO 200 mg DAILY [facility] Administration Aspirin 81 mg 09/25/19 09:00 10/01/19 08:22 Ecotrin PO Not Given DAILY [facility] Calcium Carbonate 1,000 mg 09/23/19 18:19 10/02/19 05:30 Tums PO 1,000 mg Q4H PRN Administration Heartburn or Indigestion Carvedilol 3.125 mg 09/24/19 21:00 10/02/19 08:14 Coreg PO 3.125 mg BID [facility] Administration Clopidogrel Bisulfate 75 mg 09/27/19 09:00 10/01/19 08:23 Plavix PO Not Given DAILY [facility] Enoxaparin Sodium 30 mg 09/26/19 21:00 10/01/19 21:41 Lovenox SC Not Given 2100 [facility] Famotidine 20 mg 09/25/19 09:00 10/02/19 08:14 Pepcid PO 20 mg DAILY [facility] Administration Famotidine 20 mg 09/29/19 09:00 10/01/19 17:13 Pepcid SLOW IVP Not Given DAILY [facility] Meropenem 1 gm/ Device 50 mls @ 100 mls/hr 09/28/19 15:00 10/02/19 02:41 IVPB 50 mls 0300,1500 [facility] Administration Insulin Human Isoph/Insulin Regular 15 units 09/24/19 21:00 10/01/19 21:41 Humulin 70/30 SC Not Given BID [facility] Insulin Human Lispro 0 units 09/23/19 18:28 10/02/19 05:32 Humalog SC 2 unit .MODERATE SLIDING SC PRN Administration Moderate Correctional Scale Insulin Human Lispro 0 units 09/23/19 18:28 09/27/19 20:23 Humalog SC 2 unit .BEDTIME SLIDING SC PRN Administration Bedtime Correctional Scale Isosorbide Dinitrate 20 mg 09/24/19 21:00 10/02/19 08:14 Isordil PO 20 mg TID [facility] Administration Ondansetron HCl 4 mg 09/23/19 18:19 09/28/19 18:01 Zofran Odt PO 4 mg Q6H PRN Administration Nausea/Vomiting Ondansetron HCl 4 mg 09/23/19 18:19 09/24/19 09:03 Zofran IVP 4 mg Q6H PRN Administration Nausea/Vomiting Polyethylene Glycol 17 gm 09/27/19 09:00 10/01/19 08:23 Miralax PO Not Given DAILY LIN Rosuvastatin Calcium 10 mg 09/24/19 21:00 10/01/19 21:41 Crestor PO 10 mg HS LIN Administration Tramadol HCl 50 mg 09/26/19 17:37 10/01/19 21:49 Ultram PO 50 mg Q6H PRN Administration Moderate Pain (4-6) Tramadol HCl 100 mg 09/26/19 17:37 09/29/19 22:06 Ultram PO 100 mg Q6H PRN Administration Severe Pain (7-10) - Exam General Appearance: NAD, awake alert Heart: RRR, no murmur Respiratory: CTAB (deep inspiration would trigger a cough towards the end of the breath), normal chest expansion Gastrointestinal: non-tender, non-distended Extremities: no edema Skin: normal turgor Neurological: cranial nerve grossly intact, no new deficit Psychiatric: normal affect, oriented to person, oriented to place Hosp A/P - Plan - Plan #dry gangrene #infected chronic nonhealing diabetic ulcerations LLE -Patient was seen by general surgery service today. Recommendation is to continue intravenous antibiotics and continue wound care. Patient may need further surgery depending on progress. #anemia: -Patient had oozing from Dominguez catheter site, mild. Antiplatelet agents and anticoagulants are on hold. Check H&H. #CKD3b - stable, Cr = 1.03 #T2DM - she continues to have variations in her fasting glucose - fasting glucose at 0500 on 09/30 = 49 - fasting glucose at 0500 on 10/01 = 182 - at 21:41 last night her Humulin 70/30 15 units evening dose was not given which resulted in her hyperglycemia this morning Dominguez catheter - placement site bled throughout the night - covered with a pressure dressing - hold enoxaparin this morning to minimize blood loss Chart reviewed and patient seen. Agree with findings and plan of care as documented by MS 3.
[2019-10-02] MEDS: HumuLIN 70/30 (300 UNITS/3 ML VIAL) SC SCH ×2 (11:14→21:28)
[2019-10-02] MEDS: Famotidine/PF 20 mg/2ml Vial SLOW IVP SCH (11:15)
[2019-10-02] MEDS: Polyethylene Glycol 3350 17 GM Packet PO SCH (11:16)
--- NOTE | 2019-10-02 17:49 | PRG ---
DATE OF SERVICE: 10/02/2019 Ms. Prado is doing well. Her foot looks okay. There is some granulation appearing though the plantar skin flap is necrotic and after alcohol prep, it was debrided sharply back to viable tissue. The patient has had eschars over her lateral leg. The bleed was venous stasis in nature. These seemed to be worsened and seemed to be fluctuant. Above the lateral malleolus, there is an eschar that continues towards the dorsum of the foot on the anterior ankle that we opened, debrided sharply, and there was liquified necrosis of the subcutaneous tissue undermining towards the proximal dorsum of the foot and up towards the lateral lower leg. This was opened and liquified soupy purulent necrotic tissue was debrided. She tolerated this very well except to the margins where when she started having pain, I ceased the bedside debridement. The patient had 2 other smaller eschars with similar findings that were debrided. Normal saline wet-to-dry dressing were applied to these. Wound Care will place wound VAC probably tomorrow. I would continue intravenous antibiotics and wound care over the weekend. Dr. Pantoja is available to see her Sunday when the wound VAC is changed if necessary. Otherwise, I will see her on Sunday. She should stay in the hospital when she is at risk for limb loss. She has a Dominguez for intravenous antibiotics and had some bleeding, but that is slowing down and looks better. Job ID: [id number]
[2019-10-02 19:38] LABS: Hemoglobin 7.9 g/dL (12.0-16.0)
[2019-10-02] MEDS: Enoxaparin Sodium 30 MG/0.3 ML SYRINGE SC SCH (21:27)
[2019-10-02] MEDS: Rosuvastatin 10 MG TAB PO SCH (21:29)
[2019-10-02] MEDS: traMADol HCl 50 MG TAB PO PRN (21:29)
[2019-10-03] MEDS: MEROPENEM 1 GM/50 ML 1 GM in Premix Bag 1 BAG IVPB SCH ×3 (02:07→21:19)
[2019-10-03] MEDS: Acetaminophen/Codeine 30-300mg Tablet PO PRN ×2 (02:07→12:46)
[2019-10-03 06:30] LABS: #Eosinphils 0.3 thou/uL (0.0-0.7); #Lymphocytes 3.3 thou/uL (1.20-3.40); #Monocytes 1.3 thou/uL (0.11-0.59); #Neutrophils 8.9 thou/uL (1.40-6.50); %Basophils 0.3 % (0.0-1.0); %Eosinophils 2.1 % (0.0-10.0); %Lymphocytes 23.7 % (21.0-51.0); %Monocytes 9.4 % (0.0-10.0); %Neutrophils 64.5 % (42.0-75.0); Hemoglobin 7.7 g/dL (12.0-16.0); Mean Corpuscular Volume 87.3 fL (78.0-98.0); Mean Platelet Volume 6.4 fL (7.4-10.4); Platelet Count 421 thou/uL (130-400); RBC Distribution Width 14.7 % (11.5-14.5); Red Blood Cell (RBC) Count 2.77 mill/uL (4.20-5.40); White Blood Cell (WBC) Count 13.7 thou/uL (4.8-10.8)
[2019-10-03 06:51] LABS: Anion Gap 8 mmol/L (10-20); BUN (Urea Nitrogen) 9 mg/dL (9.8-20.1); Calc. Creatinine Clearance 68 mL/min (70-130); Calcium 8.1 mg/dL (7.8-10.44); Carbon Dioxide 27 mmol/L (23-31); Chloride 101 mmol/L (98-107); Estimated GFR-MDRD 54; Glucose 114 mg/dL (80-115); Potassium 3.6 mmol/L (3.5-5.1); Sodium 132 mmol/L (136-145)
[2019-10-03] MEDS: Famotidine 20 MG TAB PO SCH (09:05)
[2019-10-03] MEDS: Clopidogrel Bisulfate 75 MG TAB PO SCH (09:05)
[2019-10-03] MEDS: Isosorbide Dinitrate 20 MG TAB PO SCH ×3 (09:05→20:35)
[2019-10-03] MEDS: Famotidine/PF 20 mg/2ml Vial SLOW IVP SCH (09:06)
[2019-10-03] MEDS: Carvedilol 3.125 MG TAB PO SCH ×2 (09:06→20:35)
[2019-10-03] MEDS: Aspirin 81 mg Enteric Coated Tablet PO SCH (09:06)
[2019-10-03] MEDS: Amiodarone 200 MG TAB PO SCH (09:06)
[2019-10-03] MEDS: Polyethylene Glycol 3350 17 GM Packet PO SCH (09:07)
[2019-10-03] MEDS: HumuLIN 70/30 (300 UNITS/3 ML VIAL) SC SCH ×2 (09:07→20:35)
--- NOTE | 2019-10-03 09:24 | PDOC.HOSPP ---
- Subjective Encounter Date: 10/03/19 Encounter Time: 08:00 Subjective: Ms. Prado is doing well this morning. She reports 7-8 out of 10 pain at her incision site as well as her Dominguez catheter. She says that when she sits up in bed she gets light headed and experiences a mild headache. She slept well last night. She states that they did not have her walking around yesterday. Her only times out of bed were to go to the portable toilet beside her bed. Patient denies N/V, changes in vision or hearing, fever, chills, or palpitations. - Objective Vital Signs & Weight: Vital Signs (12 hours) Temp Pulse Resp BP Pulse Ox 10/03/19 07:16 98.1 F 71 20 152/72 H 97 Weight Admit Weight 167 lb 9.6 oz Weight 167 lb 9.6 oz I&O: 10/02/19 10/03/19 10/04/19 06:59 06:59 06:59 Intake Total 540 Output Total 725 Balance -185 Result Diagrams: 10/03/19 06:21 10/03/19 06:21 Additional Labs: Accuchecks 10/02/19 10/02/19 10/02/19 20:11 16:56 10:46 POC Glucose 134 H 208 H 262 H Labs and MARs reviewed by [place] Hospitalist ROS - Review of Systems Constitutional: denies: fever, chills Respiratory: reports: cough (on deep inspiration). denies: shortness of breath , pleuritic pain Cardiovascular: denies: chest pain, palpitations Gastrointestinal: denies: nausea, vomiting, abdominal pain Musculoskeletal: reports: foot pain (at incision site) - Medication Medications: Active Medications Generic Name Dose Route Start Last Admin Trade Name Freq PRN Reason Stop Dose Admin Acetaminophen 1,000 mg 09/26/19 17:37 09/29/19 06:02 Tylenol PO 1,000 mg Q6H PRN Administration Mild Pain (1-3) Acetaminophen/Codeine Phosphate 1 tab 09/28/19 11:40 10/03/19 02:07 Tylenol #3 PO 1 tab Q6H PRN Administration Pain Amiodarone HCl 200 mg 09/25/19 09:00 10/03/19 09:06 Cordarone PO 200 mg DAILY LIN Administration Aspirin 81 mg 09/25/19 09:00 10/03/19 09:06 Ecotrin PO 81 mg DAILY LIN Administration Calcium Carbonate 1,000 mg 09/23/19 18:19 10/02/19 16:12 Tums PO 1,000 mg Q4H PRN Administration Heartburn or Indigestion Carvedilol 3.125 mg 09/24/19 21:00 10/03/19 09:06 Coreg PO 3.125 mg BID LIN Administration Clopidogrel Bisulfate 75 mg 09/27/19 09:00 10/03/19 09:05 Plavix PO 75 mg DAILY LIN Administration Enoxaparin Sodium 30 mg 09/26/19 21:00 10/02/19 21:27 Lovenox SC Not Given 2100 LIN Famotidine 20 mg 09/25/19 09:00 10/03/19 09:05 Pepcid PO 20 mg DAILY LIN Administration Famotidine 20 mg 09/29/19 09:00 10/03/19 09:06 Pepcid SLOW IVP Not Given DAILY [facility] Meropenem 1 gm/ Device 50 mls @ 100 mls/hr 09/28/19 15:00 10/03/19 02:07 IVPB 50 mls 0300,1500 LIN Administration Insulin Human Isoph/Insulin Regular 15 units 09/24/19 21:00 10/03/19 09:07 Humulin 70/30 SC 15 unit BID LIN Administration Insulin Human Lispro 0 units 09/23/19 18:28 10/02/19 17:08 Humalog SC 4 unit .MODERATE SLIDING SC PRN Administration Moderate Correctional Scale Insulin Human Lispro 0 units 09/23/19 18:28 09/27/19 20:23 Humalog SC 2 unit .BEDTIME SLIDING SC PRN Administration Bedtime Correctional Scale Isosorbide Dinitrate 20 mg 09/24/19 21:00 10/03/19 09:05 Isordil PO 20 mg TID LIN Administration Ondansetron HCl 4 mg 09/23/19 18:19 09/28/19 18:01 Zofran Odt PO 4 mg Q6H PRN Administration Nausea/Vomiting Ondansetron HCl 4 mg 09/23/19 18:19 09/24/19 09:03 Zofran IVP 4 mg Q6H PRN Administration Nausea/Vomiting Polyethylene Glycol 17 gm 09/27/19 09:00 10/03/19 09:07 Miralax PO Not Given DAILY LIN Rosuvastatin Calcium 10 mg 09/24/19 21:00 10/02/19 21:29 Crestor PO 10 mg HS LIN Administration Tramadol HCl 50 mg 09/26/19 17:37 10/01/19 21:49 Ultram PO 50 mg Q6H PRN Administration Moderate Pain (4-6) Tramadol HCl 100 mg 09/26/19 17:37 10/02/19 21:29 Ultram PO 100 mg Q6H PRN Administration Severe Pain (7-10) - Exam General Appearance: NAD, awake alert Neck: symmetric, no JVD, no carotid bruit Heart: RRR Respiratory: CTAB Gastrointestinal - other findings: distended loops of bowel on palpation Extremities: no cyanosis, no edema Neurological: cranial nerve grossly intact, no new deficit Psychiatric: normal affect, A&O x 3 Hosp A/P - Plan - Plan #dry gangrene #infected chronic nonhealing diabetic ulcerations LLE - Recommendation is to continue intravenous antibiotics and continue wound care. Patient may need further surgery depending on progress. - the incision where they harvested her L saphenous vein for her CABG on 07/30 has not fully healed. - her WBC count continues to trend down. 13.7 this morning #anemia: - H & H = 7.7 and 24.2 #CKD3b - stable, Cr = 1.04 #T2DM - glucose this morning was more controlled - glucose = 114 Dominguez catheter - Her Dominguez insertion site is doing much better today and is not actively bleeding Dr Huitron will reassess next week to see if pt needs L BKA. Dr. Vanegas following, will likelyh need IV meropenem as outpt. Chart reviewed and patient seen. Agree with findings and plan of care as documented by MS 3.
[2019-10-03] MEDS ORDERED: MEROPENEM 1 GM/50 ML 1 GM in Premix Bag 1 BAG IVPB SCH (15:00)
--- NOTE | 2019-10-03 15:13 | PRG ---
DATE OF SERVICE: 10/03/2019 SUBJECTIVE: Still with moderate pain in the foot and Dominguez catheter. No dyspnea. No nausea or vomiting. No neurological symptoms. OBJECTIVE: VITAL SIGNS: T-max 98.1, blood pressure 150/70, pulse 71, respirations 20, O2 saturation 97%. SKIN: Shows the area of amputation with dark blood at the base. Most of it with fresh red tissue. Not a lot of bleeding noticed. LUNGS: Clear. HEART: S1 and S2. Regular rate. ABDOMEN: Soft, not distended. LABORATORY DATA: White cell count 13.7, hemoglobin 7.7, platelets 421, 64% neutrophils. Creatinine 1.04 and bacteriology with E coli and Bacteroides caccae. E coli is ESBL organism. Currently, on meropenem adjusted for renal function. ASSESSMENT AND DISCUSSION: Peripheral vascular disease; coronary artery disease; ischemic cardiomyopathy; chronic kidney disease, stage 3; type 2 diabetes; recent bypass graft surgery; amputation of 2nd 3rd rays after distal phalanx amputation with recrudescence of infection, revascularization of peroneal artery, and we will adjust meropenem up to 1 g q.8 in view of improvement in GFR and still at risk for higher levels of amputation. Discharge planning is problematic. Job ID: [id number]
[2019-10-03] MEDS: Enoxaparin Sodium 30 MG/0.3 ML SYRINGE SC SCH (20:35)
[2019-10-03] MEDS: Rosuvastatin 10 MG TAB PO SCH (20:36)
[2019-10-03] MEDS: traMADol HCl 50 MG TAB PO PRN (20:43)
[2019-10-04] MEDS: MEROPENEM 1 GM/50 ML 1 GM in Premix Bag 1 BAG IVPB SCH ×3 (05:09→22:10)
[2019-10-04] MEDS: traMADol HCl 50 MG TAB PO PRN ×3 (05:20→16:09)
[2019-10-04 06:03] LABS: #Eosinphils 0.2 thou/uL (0.0-0.7); #Lymphocytes 2.5 thou/uL (1.20-3.40); #Monocytes 1.2 thou/uL (0.11-0.59); #Neutrophils 8.9 thou/uL (1.40-6.50); %Basophils 0.4 % (0.0-1.0); %Eosinophils 1.9 % (0.0-10.0); %Lymphocytes 19.6 % (21.0-51.0); %Monocytes 9.5 % (0.0-10.0); %Neutrophils 68.6 % (42.0-75.0); Hemoglobin 8.6 g/dL (12.0-16.0); Mean Corpuscular HGB CONC 31.5 g/dL (32.0-36.0); Mean Corpuscular Hemoglobin 27.8 pg (27.0-31.0); Mean Corpuscular Volume 88.1 fL (78.0-98.0); Mean Platelet Volume 6.1 fL (7.4-10.4); Platelet Count 476 thou/uL (130-400); RBC Distribution Width 14.5 % (11.5-14.5); Red Blood Cell (RBC) Count 3.09 mill/uL (4.20-5.40); White Blood Cell (WBC) Count 12.9 thou/uL (4.8-10.8)
[2019-10-04 06:24] LABS: Anion Gap 7 mmol/L (10-20); BUN (Urea Nitrogen) 9 mg/dL (9.8-20.1); Calc. Creatinine Clearance 75 mL/min (70-130); Calcium 8.7 mg/dL (7.8-10.44); Carbon Dioxide 30 mmol/L (23-31); Chloride 99 mmol/L (98-107); Estimated GFR-MDRD 60; Glucose 73 mg/dL (80-115); Potassium 3.9 mmol/L (3.5-5.1); Sodium 132 mmol/L (136-145)
[2019-10-04] MEDS: HumuLIN 70/30 (300 UNITS/3 ML VIAL) SC SCH ×2 (08:13→20:03)
[2019-10-04] MEDS: Polyethylene Glycol 3350 17 GM Packet PO SCH (09:00)
[2019-10-04] MEDS: Famotidine 20 MG TAB PO SCH (09:18)
[2019-10-04] MEDS: Aspirin 81 mg Enteric Coated Tablet PO SCH (09:18)
[2019-10-04] MEDS: Carvedilol 3.125 MG TAB PO SCH ×2 (09:18→20:02)
[2019-10-04] MEDS: Clopidogrel Bisulfate 75 MG TAB PO SCH (09:19)
[2019-10-04] MEDS: Amiodarone 200 MG TAB PO SCH (09:19)
[2019-10-04] MEDS: Isosorbide Dinitrate 20 MG TAB PO SCH ×3 (09:19→20:02)
[2019-10-04] MEDS: Acetaminophen/Codeine 30-300mg Tablet PO PRN (09:58)
[2019-10-04] MEDS: Famotidine/PF 20 mg/2ml Vial SLOW IVP SCH (11:28)
--- NOTE | 2019-10-04 15:52 | PDOC.HOSPP ---
- Subjective Encounter Date: 10/04/19 Encounter Time: 11:20 Subjective: Patient was seen for follow-up for lower extremity gangrene. She denies any chest pain. She denies any fever. She reports pain in the left foot. - Objective Vital Signs & Weight: Vital Signs (12 hours) Temp Pulse Resp BP Pulse Ox 10/04/19 08:00 98.1 F 76 16 136/76 98 Weight Admit Weight 167 lb 9.6 oz Weight 167 lb 9.6 oz I&O: 10/03/19 10/04/19 10/05/19 06:59 06:59 06:59 Intake Total 540 550 Output Total 725 650 Balance -185 -100 Result Diagrams: 10/04/19 05:35 10/04/19 05:35 Additional Labs: Accuchecks 10/04/19 10/04/19 10/03/19 11:21 05:18 20:39 POC Glucose 178 H 88 186 H 10/03/19 15:56 POC Glucose 154 H Labs and MAR were reviewed by me. Hospitalist ROS - Review of Systems Cardiovascular: denies: chest pain, palpitations, orthopnea, paroxysmal noc. dyspnea, edema, light headedness Musculoskeletal: reports: foot pain. denies: neck pain, shoulder pain, arm pain , back pain, hand pain, leg pain - Medication Medications: Active Medications Generic Name Dose Route Start Last Admin Trade Name Freq PRN Reason Stop Dose Admin Acetaminophen 1,000 mg 09/26/19 17:37 09/29/19 06:02 Tylenol PO 1,000 mg Q6H PRN Administration Mild Pain (1-3) Acetaminophen/Codeine Phosphate 1 tab 09/28/19 11:40 10/04/19 09:58 Tylenol #3 PO 1 tab Q6H PRN Administration Pain Amiodarone HCl 200 mg 09/25/19 09:00 10/04/19 09:19 Cordarone PO 200 mg DAILY LIN Administration Aspirin 81 mg 09/25/19 09:00 10/04/19 09:18 Ecotrin PO 81 mg DAILY LIN Administration Calcium Carbonate 1,000 mg 09/23/19 18:19 10/02/19 16:12 Tums PO 1,000 mg Q4H PRN Administration Heartburn or Indigestion Carvedilol 3.125 mg 09/24/19 21:00 10/04/19 09:18 Coreg PO 3.125 mg BID [facility] Administration Clopidogrel Bisulfate 75 mg 09/27/19 09:00 10/04/19 09:19 Plavix PO 75 mg DAILY LIN Administration Enoxaparin Sodium 30 mg 09/26/19 21:00 10/03/19 20:35 Lovenox SC 30 mg 2100 LIN Administration Famotidine 20 mg 09/25/19 09:00 10/04/19 09:18 Pepcid PO 20 mg DAILY LIN Administration Famotidine 20 mg 09/29/19 09:00 10/04/19 11:28 Pepcid SLOW IVP Not Given DAILY [facility] Heparin Sodium (Porcine) 500 units 10/04/19 04:48 10/04/19 06:22 Heparin Lock Flush 100 Units/Ml IVF 500 unit PRN PRN Administration Heparin Flush Meropenem 1 gm/ Device 50 mls @ 100 mls/hr 10/03/19 22:00 10/04/19 14:39 IVPB 50 mls Q8HR LIN Administration Insulin Human Isoph/Insulin Regular 15 units 09/24/19 21:00 10/04/19 08:13 Humulin 70/30 SC Not Given BID [facility] Insulin Human Lispro 0 units 09/23/19 18:28 10/02/19 17:08 Humalog SC 4 unit .MODERATE SLIDING SC PRN Administration Moderate Correctional Scale Insulin Human Lispro 0 units 09/23/19 18:28 09/27/19 20:23 Humalog SC 2 unit .BEDTIME SLIDING SC PRN Administration Bedtime Correctional Scale Isosorbide Dinitrate 20 mg 09/24/19 21:00 10/04/19 09:19 Isordil PO 20 mg TID [facility] Administration Ondansetron HCl 4 mg 09/23/19 18:19 09/28/19 18:01 Zofran Odt PO 4 mg Q6H PRN Administration Nausea/Vomiting Ondansetron HCl 4 mg 09/23/19 18:19 09/24/19 09:03 Zofran IVP 4 mg Q6H PRN Administration Nausea/Vomiting Polyethylene Glycol 17 gm 09/27/19 09:00 10/04/19 09:00 Miralax PO 17 gm DAILY [facility] Administration Rosuvastatin Calcium 10 mg 09/24/19 21:00 10/03/19 20:36 Crestor PO 10 mg HS LIN Administration Tramadol HCl 50 mg 09/26/19 17:37 10/01/19 21:49 Ultram PO 50 mg Q6H PRN Administration Moderate Pain (4-6) Tramadol HCl 100 mg 09/26/19 17:37 10/04/19 09:59 Ultram PO 100 mg Q6H PRN Administration Severe Pain (7-10) - Exam General Appearance: awake alert Eye: anicteric sclera ENT: moist mucosa Neck: supple Heart: RRR Respiratory: CTAB Gastrointestinal: soft, non-tender Psychiatric: normal affect, normal behavior Hosp A/P - Plan - Plan #dry gangrene #infected chronic nonhealing diabetic ulcerations LLE - Recommendation is to continue intravenous antibiotics and continue wound care. Patient may need further surgery depending on progress. - her WBC count continues to trend down. 112.9 this morning #anemia: - H & H = 8.6 and 27.2 #CKD3b - stable, Cr = 0.95 #T2DM - continue accuchecks and insulin sliding scale s/0 Dominguez catheter - Bleeding has stopped Dr Huitron will reassess next week to see if pt needs L BKA. Dr. Vanegas following, will decide re: antibiotics for outpt.
[2019-10-04] MEDS: HumaLOG 300 UNITS/3 ML VIAL SC PRN (17:14)
[2019-10-04] MEDS: Enoxaparin Sodium 30 MG/0.3 ML SYRINGE SC SCH (20:02)
[2019-10-04] MEDS: Rosuvastatin 10 MG TAB PO SCH (20:05)
[2019-10-04] MEDS: Acetaminophen 500 MG TAB PO PRN (20:14)
[2019-10-05] MEDS: MEROPENEM 1 GM/50 ML 1 GM in Premix Bag 1 BAG IVPB SCH ×3 (05:46→21:06)
[2019-10-05 06:13] LABS: #Basophils 0.1 thou/uL (0.0-0.2); #Eosinphils 0.3 thou/uL (0.0-0.7); #Lymphocytes 2.8 thou/uL (1.20-3.40); #Monocytes 1.3 thou/uL (0.11-0.59); %Basophils 0.5 % (0.0-1.0); %Eosinophils 2.5 % (0.0-10.0); %Monocytes 12.1 % (0.0-10.0); %Neutrophils 57.8 % (42.0-75.0); Hemoglobin 7.6 g/dL (12.0-16.0); Mean Corpuscular HGB CONC 31.5 g/dL (32.0-36.0); Mean Corpuscular Hemoglobin 27.4 pg (27.0-31.0); Mean Corpuscular Volume 86.8 fL (78.0-98.0); Mean Platelet Volume 6.2 fL (7.4-10.4); Platelet Count 435 thou/uL (130-400); RBC Distribution Width 14.3 % (11.5-14.5); Red Blood Cell (RBC) Count 2.79 mill/uL (4.20-5.40); White Blood Cell (WBC) Count 10.4 thou/uL (4.8-10.8)
[2019-10-05 06:31] LABS: Anion Gap 8 mmol/L (10-20); BUN (Urea Nitrogen) 10 mg/dL (9.8-20.1); Calc. Creatinine Clearance 82 mL/min (70-130); Calcium 8.2 mg/dL (7.8-10.44); Carbon Dioxide 28 mmol/L (23-31); Chloride 99 mmol/L (98-107); Estimated GFR-MDRD 67; Potassium 3.6 mmol/L (3.5-5.1); Sodium 131 mmol/L (136-145)
[2019-10-05 06:54] LABS: Glucose 56 mg/dL (80-115)
[2019-10-05] MEDS: Polyethylene Glycol 3350 17 GM Packet PO SCH (08:39)
[2019-10-05] MEDS: Aspirin 81 mg Enteric Coated Tablet PO SCH (08:39)
[2019-10-05] MEDS: traMADol HCl 50 MG TAB PO PRN ×2 (08:40→14:04)
[2019-10-05] MEDS: Famotidine 20 MG TAB PO SCH ×2 (08:40→21:01)
[2019-10-05] MEDS: Clopidogrel Bisulfate 75 MG TAB PO SCH (08:40)
[2019-10-05] MEDS: Amiodarone 200 MG TAB PO SCH (08:40)
[2019-10-05] MEDS: Isosorbide Dinitrate 20 MG TAB PO SCH ×3 (08:40→21:00)
[2019-10-05] MEDS: Carvedilol 3.125 MG TAB PO SCH ×2 (08:40→21:00)
[2019-10-05] MEDS: Famotidine/PF 20 mg/2ml Vial SLOW IVP SCH ×2 (08:43→21:16)
[2019-10-05] MEDS: Ondansetron PF 4 MG/2 ML Vial IVP PRN (11:48)
[2019-10-05] MEDS: Morphine 2 MG/ML VIAL SLOW IVP PRN (11:59)
--- NOTE | 2019-10-05 14:50 | PDOC.HOSPP ---
- Subjective Encounter Date: 10/05/19 Encounter Time: 13:15 Subjective: c/o pain when she drops her legs on the floor, there is no pain when elevated or on bed overall feels better - Objective Vital Signs & Weight: Vital Signs (12 hours) Temp Pulse Resp BP Pulse Ox 10/05/19 08:00 98 10/05/19 07:38 97.7 F 66 18 142/70 H 98 Weight Admit Weight 167 lb 9.6 oz Weight 167 lb 9.6 oz I&O: 10/04/19 10/05/19 10/06/19 06:59 06:59 06:59 Intake Total 550 Output Total 650 Balance -100 Result Diagrams: 10/05/19 05:55 10/05/19 05:55 Additional Labs: Accuchecks 10/05/19 10/05/19 10/05/19 11:36 06:41 05:36 POC Glucose 130 H 71 67 L 10/04/19 10/04/19 20:02 17:02 POC Glucose 152 H 282 H Hospitalist ROS - Medication Medications: Active Medications Generic Name Dose Route Start Last Admin Trade Name Freq PRN Reason Stop Dose Admin Acetaminophen 1,000 mg 09/26/19 17:37 10/04/19 20:14 Tylenol PO 1,000 mg Q6H PRN Administration Mild Pain (1-3) Acetaminophen/Codeine Phosphate 1 tab 09/28/19 11:40 10/04/19 09:58 Tylenol #3 PO 1 tab Q6H PRN Administration Pain Amiodarone HCl 200 mg 09/25/19 09:00 10/05/19 08:40 Cordarone PO 200 mg DAILY LIN Administration Aspirin 81 mg 09/25/19 09:00 10/05/19 08:39 Ecotrin PO 81 mg DAILY LIN Administration Calcium Carbonate 1,000 mg 09/23/19 18:19 10/02/19 16:12 Tums PO 1,000 mg Q4H PRN Administration Heartburn or Indigestion Carvedilol 3.125 mg 09/24/19 21:00 10/05/19 08:40 Coreg PO 3.125 mg BID LIN Administration Clopidogrel Bisulfate 75 mg 09/27/19 09:00 10/05/19 08:40 Plavix PO 75 mg DAILY LIN Administration Enoxaparin Sodium 30 mg 09/26/19 21:00 10/04/19 20:02 Lovenox SC 30 mg 2100 LIN Administration Heparin Sodium (Porcine) 500 units 10/04/19 04:48 10/04/19 06:22 Heparin Lock Flush 100 Units/Ml IVF 500 unit PRN PRN Administration Heparin Flush Meropenem 1 gm/ Device 50 mls @ 100 mls/hr 10/03/19 22:00 10/05/19 14:03 IVPB 50 mls Q8HR LIN Administration Insulin Human Lispro 0 units 09/23/19 18:28 10/04/19 17:14 Humalog SC 6 unit .MODERATE SLIDING SC PRN Administration Moderate Correctional Scale Insulin Human Lispro 0 units 09/23/19 18:28 09/27/19 20:23 Humalog SC 2 unit .BEDTIME SLIDING SC PRN Administration Bedtime Correctional Scale Isosorbide Dinitrate 20 mg 09/24/19 21:00 10/05/19 08:40 Isordil PO 20 mg TID LIN Administration Morphine Sulfate 4 mg 10/05/19 11:55 10/05/19 11:59 Morphine SLOW IVP 4 mg Q4H PRN Administration Breakthrough Pain Ondansetron HCl 4 mg 09/23/19 18:19 09/28/19 18:01 Zofran Odt PO 4 mg Q6H PRN Administration Nausea/Vomiting Ondansetron HCl 4 mg 09/23/19 18:19 10/05/19 11:48 Zofran IVP 4 mg Q6H PRN Administration Nausea/Vomiting Polyethylene Glycol 17 gm 09/27/19 09:00 10/05/19 08:39 Miralax PO 17 gm DAILY LIN Administration Rosuvastatin Calcium 10 mg 09/24/19 21:00 10/04/19 20:05 Crestor PO 10 mg HS LIN Administration Tramadol HCl 50 mg 09/26/19 17:37 10/01/19 21:49 Ultram PO 50 mg Q6H PRN Administration Moderate Pain (4-6) Tramadol HCl 100 mg 09/26/19 17:37 10/05/19 14:04 Ultram PO 100 mg Q6H PRN Administration Severe Pain (7-10) - Exam General Appearance: awake alert Eye: PERRL, anicteric sclera ENT: no oropharyngeal lesions, moist mucosa Neck: supple, no JVD Heart: RRR, no murmur Respiratory: no wheezes, no rales Gastrointestinal: soft, non-tender, non-distended, normal bowel sounds Extremities: no edema Extremities - other findings: left foot in dressing Neurological: cranial nerve grossly intact, no focal deficits Psychiatric: normal affect, A&O x 3 Hosp A/P (1) Diabetic toe ulcer Code(s): E11.621 - TYPE 2 DIABETES MELLITUS WITH FOOT ULCER; L97.509 - NON- PRESSURE CHRONIC ULCER OTH PRT UNSP FOOT W UNSP SEVERITY Status: Acute Qualifiers: Diabetes mellitus type: type 2 Laterality: left (2) PVD (peripheral vascular disease) Code(s): I73.9 - PERIPHERAL VASCULAR DISEASE, UNSPECIFIED Status: Acute (3) Chronic anemia Code(s): D64.9 - ANEMIA, UNSPECIFIED Status: Chronic (4) CAD (coronary artery disease) Code(s): I25.10 - ATHSCL HEART DISEASE OF [place] CORONARY ARTERY W/O ANG PCTRS Status: Chronic Qualifiers: Coronary Disease-Associated Artery/Lesion type: bypass graft [place] vs. transplanted heart: [place] heart Associated angina: without angina Qualified Code(s): I25.810 - Atherosclerosis of coronary artery bypass graft(s) without angina pectoris (5) DM2 (diabetes mellitus, type 2) Status: Chronic Qualifiers: Diabetes mellitus spin table operator insulin use: without spin table operator use - Plan pt is s/p angioplasty of peroneal artery of left LE and amputation of left gr toe, 2nd toe with metatarsal on 09/26/19 (, ) is on merrem due to esbl e.coli in cultures has recieved a total of 3 u prbc this hospitalization hold 70/30 insulin due to fingersticks around 56 this am has amb 140ft with rolling walker will need antibiotics and wound vac for dc plan hemostable start oral iron, miralax with senakot for constipation
[2019-10-05] MEDS ORDERED: Bisacodyl 10 MG SUPP PR PRN (14:54)
--- NOTE | 2019-10-05 15:27 | PRG ---
DATE OF SERVICE: 10/05/2019 SUBJECTIVE: Looking better. Has a little bit of pain in the left lower extremity. No dyspnea. No abdominal pain. Not much appetite, mostly related to the type of food that is offered. OBJECTIVE: VITAL SIGNS: Has been afebrile, O2 saturations are 98% on room air, pulse 66, breathing 18 times a minute. GENERAL: Appears in better spirits. She is wide awake and alert. Answered questions, although the language difficulty creates a barrier. LUNGS: Symmetric clear breath sounds. HEART: S1 and S2. Regular rate. Tunneled Dominguez catheter. ABDOMEN: Soft, not distended or tender. EXTREMITIES: Left lower extremity with dressing in place. Pulses are 1+ in popliteal, right and left side. LABORATORY DATA: Sodium 131 and creatinine 0.86. White cell count 10.4, hemoglobin 7.6, platelets 435. 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 The endpoint will be healing of the amputation site with proper granulation tissue and this may take another 2 to 3 weeks of administration of meropenem. Disposition is problematic. Job ID: [id number]
[2019-10-05] MEDS: Ferrous Sulfate 325 MG TAB PO SCH (16:22)
[2019-10-05] MEDS: Rosuvastatin 10 MG TAB PO SCH (21:00)
[2019-10-05] MEDS: Enoxaparin Sodium 30 MG/0.3 ML SYRINGE SC SCH (21:01)
[2019-10-05] MEDS: Senokot S 8.6-50 MG TAB PO SCH (21:01)
[2019-10-06] MEDS: MEROPENEM 1 GM/50 ML 1 GM in Premix Bag 1 BAG IVPB SCH ×3 (05:48→21:29)
[2019-10-06] MEDS: Ferrous Sulfate 325 MG TAB PO SCH ×2 (08:24→16:51)
[2019-10-06] MEDS: Zinc Sulfate 220 MG CAP PO SCH (08:24)
[2019-10-06] MEDS: Multivitamin W/ Minerals 1 TAB PO SCH (08:24)
[2019-10-06] MEDS: Ascorbic Acid 500 mg Chewable Tablet PO SCH (08:25)
[2019-10-06] MEDS: Aspirin 81 mg Enteric Coated Tablet PO SCH (08:25)
[2019-10-06] MEDS: Clopidogrel Bisulfate 75 MG TAB PO SCH (08:25)
[2019-10-06] MEDS: Senokot S 8.6-50 MG TAB PO SCH ×2 (08:25→20:55)
[2019-10-06] MEDS: Famotidine 20 MG TAB PO SCH ×2 (08:25→20:55)
[2019-10-06] MEDS: Isosorbide Dinitrate 20 MG TAB PO SCH ×3 (08:26→20:55)
[2019-10-06] MEDS: Carvedilol 3.125 MG TAB PO SCH ×2 (08:26→20:55)
[2019-10-06] MEDS: Amiodarone 200 MG TAB PO SCH (08:26)
[2019-10-06] MEDS: Famotidine/PF 20 mg/2ml Vial SLOW IVP SCH ×2 (08:27→20:52)
[2019-10-06] MEDS: Polyethylene Glycol 3350 17 GM Packet PO SCH (08:28)
[2019-10-06] MEDS: HumaLOG 300 UNITS/3 ML VIAL SC PRN ×2 (12:45→16:52)
--- NOTE | 2019-10-06 13:43 | PRG ---
DATE OF SERVICE: 10/06/2019 Ms. Prado's wound was inspected today. Her left leg demonstrates progression of the gangrenous process into the third toe. The wounds over her ankle and lower leg are exposed, necrotic tissue down to tendons and muscle. The patient has severe PAD with occluded anterior and posterior tibial arteries with Dr. Francis Ortiz performing METALLURGICAL LAB TECHNICIAN and successfully restored circulations through the peroneal artery, which evidently is not adequate for healing. I have discussed with the patient and per telephone with her son, answered questions, and plan is for left BKA, possible AKA tomorrow. We will make all efforts to make this a BKA, but if on inspection, she is found to have a purulent process or any other problem, she may have to go above the knee. I doubt this will be necessary. The patient has a palpable popliteal pulse. Hemoglobin is 7.4 and we will type and cross for 3 units. We will have this available in the operating room. Her postoperative antibiotics need will change. She will probably be discharged home with oral antibiotics for 5 days and probably will not need IV antibiotics. Job ID: [id number]
[2019-10-06] MEDS: Calcium Carbonate 500 MG ChewTAB PO PRN (14:34)
--- NOTE | 2019-10-06 15:07 | PDOC.HOSPP ---
- Subjective Encounter Date: 10/06/19 Encounter Time: 15:06 Subjective: moderate pain in affected foot - Objective Vital Signs & Weight: Vital Signs (12 hours) Temp Pulse Resp BP Pulse Ox 10/06/19 09:25 97 10/06/19 07:59 98.6 F 76 16 151/75 H 98 Weight Admit Weight 167 lb 9.6 oz Weight 167 lb 9.6 oz I&O: 10/05/19 10/06/19 10/07/19 06:59 06:59 06:59 Intake Total 150 472 Balance 150 472 Result Diagrams: 10/05/19 05:55 10/05/19 05:55 Additional Labs: Accuchecks 10/06/19 10/06/19 10/06/19 11:23 04:58 01:41 POC Glucose 160 H 114 H 130 H 10/05/19 10/05/19 20:17 15:44 POC Glucose 148 H 158 H Hospitalist ROS - Medication Medications: Active Medications Generic Name Dose Route Start Last Admin Trade Name Freq PRN Reason Stop Dose Admin Acetaminophen 1,000 mg 09/26/19 17:37 10/04/19 20:14 Tylenol PO 1,000 mg Q6H PRN Administration Mild Pain (1-3) Acetaminophen/Codeine Phosphate 1 tab 09/28/19 11:40 10/04/19 09:58 Tylenol #3 PO 1 tab Q6H PRN Administration Pain Amiodarone HCl 200 mg 09/25/19 09:00 10/06/19 08:26 Cordarone PO 200 mg DAILY LIN Administration Ascorbic Acid 500 mg 10/06/19 09:00 10/06/19 08:25 Vitamin C PO 500 mg DAILY LIN Administration Aspirin 81 mg 09/25/19 09:00 10/06/19 08:25 Ecotrin PO 81 mg DAILY LIN Administration Calcium Carbonate 1,000 mg 09/23/19 18:19 10/06/19 14:34 Tums PO 1,000 mg Q4H PRN Administration Heartburn or Indigestion Carvedilol 3.125 mg 09/24/19 21:00 10/06/19 08:26 Coreg PO 3.125 mg BID LIN Administration Clopidogrel Bisulfate 75 mg 09/27/19 09:00 10/06/19 08:25 Plavix PO 75 mg DAILY LIN Administration Enoxaparin Sodium 30 mg 09/26/19 21:00 10/05/19 21:01 Lovenox SC 30 mg 2100 LIN Administration Famotidine 20 mg 10/05/19 21:00 10/06/19 08:25 Pepcid PO 20 mg BID LIN Administration Famotidine 20 mg 10/05/19 21:00 10/06/19 08:27 Pepcid SLOW IVP Not Given BID LIN Ferrous Sulfate 325 mg 10/05/19 17:00 10/06/19 08:24 Feosol PO 325 mg BID-WM LIN Administration Heparin Sodium (Porcine) 500 units 10/04/19 04:48 10/04/19 06:22 Heparin Lock Flush 100 Units/Ml IVF 500 unit PRN PRN Administration Heparin Flush Meropenem 1 gm/ Device 50 mls @ 100 mls/hr 10/03/19 22:00 10/06/19 14:29 IVPB 50 mls Q8HR LIN Administration Insulin Human Lispro 0 units 09/23/19 18:28 10/06/19 12:45 Humalog SC 2 unit .MODERATE SLIDING SC PRN Administration Moderate Correctional Scale Insulin Human Lispro 0 units 09/23/19 18:28 09/27/19 20:23 Humalog SC 2 unit .BEDTIME SLIDING SC PRN Administration Bedtime Correctional Scale Iron/Minerals/Multivitamins 1 tab 10/06/19 09:00 10/06/19 08:24 Theragran M PO 1 tab DAILY LIN Administration Isosorbide Dinitrate 20 mg 09/24/19 21:00 10/06/19 14:26 Isordil PO 20 mg TID LIN Administration Morphine Sulfate 4 mg 10/05/19 11:55 10/05/19 11:59 Morphine SLOW IVP 4 mg Q4H PRN Administration Breakthrough Pain Ondansetron HCl 4 mg 09/23/19 18:19 09/28/19 18:01 Zofran Odt PO 4 mg Q6H PRN Administration Nausea/Vomiting Ondansetron HCl 4 mg 09/23/19 18:19 10/05/19 11:48 Zofran IVP 4 mg Q6H PRN Administration Nausea/Vomiting Polyethylene Glycol 17 gm 09/27/19 09:00 10/06/19 08:28 Miralax PO 17 gm DAILY LIN Administration Rosuvastatin Calcium 10 mg 09/24/19 21:00 10/05/19 21:00 Crestor PO 10 mg HS LIN Administration Senna/Docusate Sodium 2 tab 10/05/19 21:00 10/06/19 08:25 Senokot S PO 2 tab BID LIN Administration Tramadol HCl 50 mg 09/26/19 17:37 10/01/19 21:49 Ultram PO 50 mg Q6H PRN Administration Moderate Pain (4-6) Tramadol HCl 100 mg 09/26/19 17:37 10/05/19 14:04 Ultram PO 100 mg Q6H PRN Administration Severe Pain (7-10) Zinc Sulfate 220 mg 10/06/19 09:00 10/06/19 08:24 Zinc Sulfate PO 220 mg DAILY LIN Administration - Exam General Appearance: awake alert Neck: no JVD Heart: RRR, no murmur Respiratory: CTAB Gastrointestinal: soft, normal bowel sounds Extremities - other findings: bandaged left foot Hosp A/P (1) PVD (peripheral vascular disease) Code(s): I73.9 - PERIPHERAL VASCULAR DISEASE, UNSPECIFIED Status: Acute (2) CAD (coronary artery disease) Code(s): I25.10 - ATHSCL HEART DISEASE OF [place] CORONARY ARTERY W/O ANG PCTRS Status: Chronic Qualifiers: Coronary Disease-Associated Artery/Lesion type: bypass graft [place] vs. transplanted heart: [place] heart Associated angina: without angina Qualified Code(s): I25.810 - Atherosclerosis of coronary artery bypass graft(s) without angina pectoris (3) Chronic anemia Code(s): D64.9 - ANEMIA, UNSPECIFIED Status: Chronic (4) Diabetic toe ulcer Code(s): E11.621 - TYPE 2 DIABETES MELLITUS WITH FOOT ULCER; L97.509 - NON- PRESSURE CHRONIC ULCER OTH PRT UNSP FOOT W UNSP SEVERITY Status: Acute Qualifiers: Diabetes mellitus type: type 2 Laterality: left (5) Multi-vessel coronary artery stenosis Code(s): I25.10 - ATHSCL HEART DISEASE OF [place] CORONARY ARTERY W/O ANG PCTRS Status: Acute (6) Chronic kidney disease, stage 3 Code(s): N18.3 - CHRONIC KIDNEY DISEASE, STAGE 3 (MODERATE) Status: Chronic (7) DM2 (diabetes mellitus, type 2) Status: Chronic Qualifiers: Diabetes mellitus terminal press operator insulin use: without terminal press operator use Diabetes mellitus complication status: with kidney complications Diabetes mellitus complication detail: with chronic kidney disease Chronic kidney disease stage : stage 3 (moderate) Qualified Code(s): E11.22 - Type 2 diabetes mellitus with diabetic chronic kidney disease; N18.3 - Chronic kidney disease, stage 3 ( moderate) - Plan planned left BKA or AKA tomorrow cont iv antibiotics cont accu/ss/etc
[2019-10-06] MEDS: Rosuvastatin 10 MG TAB PO SCH (20:55)
[2019-10-06] MEDS: Enoxaparin Sodium 30 MG/0.3 ML SYRINGE SC SCH (20:56)
--- NOTE | 2019-10-07 04:08 | PDOC.EVN ---
Event Note - Event Note Event Note: Notified by RN, patient with fall and sustained head injury. She was getting out of bed and fell. She hit her head on a chair. She developed a small hematoma to the scalp. CT head done showed no acute intracranial abnormality. Patient to be monitored. Will hold anti-coagulation.
[2019-10-07] MEDS: MEROPENEM 1 GM/50 ML 1 GM in Premix Bag 1 BAG IVPB SCH ×3 (05:10→20:38)
[2019-10-07] MEDS: Carvedilol 3.125 MG TAB PO SCH ×2 (06:35→20:37)
[2019-10-07] MEDS ORDERED: Fentanyl 100 MCG/2 ML VIAL ONE ×3 (07:16→09:24)
[2019-10-07] MEDS ORDERED: Midazolam HCl 2 mg/2 ml Vial ONE (07:16)
--- NOTE | 2019-10-07 07:31 | CT ---
PRELIMINARY REPORT/[facility]/EMERGENCY AFTER HOURS PROCEDURE: EXAM: CT Head Without Intravenous Contrast. CLINICAL HISTORY: FALL TECHNIQUE: Axial computed tomography images of the head/brain without intravenous contrast. COMPARISON: None provided. FINDINGS: BRAIN: No acute intraparenchymal hemorrhage. No mass lesion. No CT evidence for acute territorial infarct. N o midline shift or extra-axial collection. 1 cm calcification along the inner table of the right fron viola calvarium likely represents a small calcified meningioma. VENTRICLES: No hydrocephalus. ORBITS: The orbits are unremarkable. SINUSES AND MASTOIDS: The paranasal sinuses and mastoid air cells are clear. SOFT TISSUES: Right frontal scalp hematoma. No radiopaque foreign body is seen. BONES: No acute skull fracture. IMPRESSION: No acute intracranial abnormality. ELECTRONICALLY SIGNED BY: Mike Rushing MD Oct 07, 2019 1:17:24 AM CDT This report is intended for review by the ordering physician only, in accordance of law. If you recei ve this report in error, please call [facility] at [phone]. FINAL REPORT EMERGENCY AFTER HOURS CT BRAIN: FINDINGS/IMPRESSION: I agree with the findings and impression given in the preliminary report per [facility] physici an. No evidence of acute intracranial abnormality. POS: EAA
[2019-10-07] MEDS ORDERED: Sodium Chloride 0.9% 1,000 ML IV SCH (08:00)
[2019-10-07] MEDS: Ferrous Sulfate 325 MG TAB PO SCH ×2 (08:03→17:06)
[2019-10-07] MEDS: Famotidine 20 MG TAB PO SCH ×2 (08:03→20:37)
[2019-10-07] MEDS: Aspirin 81 mg Enteric Coated Tablet PO SCH (08:03)
[2019-10-07] MEDS: Amiodarone 200 MG TAB PO SCH (08:03)
[2019-10-07] MEDS: Ascorbic Acid 500 mg Chewable Tablet PO SCH (08:03)
[2019-10-07] MEDS: Clopidogrel Bisulfate 75 MG TAB PO SCH (08:03)
[2019-10-07] MEDS: Polyethylene Glycol 3350 17 GM Packet PO SCH (08:04)
[2019-10-07] MEDS: Famotidine/PF 20 mg/2ml Vial SLOW IVP SCH (08:04)
[2019-10-07] MEDS: Senokot S 8.6-50 MG TAB PO SCH ×2 (08:04→20:37)
[2019-10-07] MEDS: Zinc Sulfate 220 MG CAP PO SCH (08:04)
[2019-10-07] MEDS: Multivitamin W/ Minerals 1 TAB PO SCH (08:04)
[2019-10-07] MEDS: Isosorbide Dinitrate 20 MG TAB PO SCH ×3 (08:04→20:37)
--- NOTE | 2019-10-07 09:21 | OP ---
DATE OF PROCEDURE: 10/07/2019 PREOPERATIVE DIAGNOSES: 1. Severe peripheral arterial disease. 2. Nonhealing amputation wounds, left 1st and 2nd toes. 3. Status post intervention of tibioperoneal with patent peroneal, but occluded anterior tibial and posterior tibial artery. 4. Nonhealing wounds distal leg with exposed skin, muscle, and tendon. PROCEDURE PERFORMED: Left [id number] amputation. ANESTHESIA: General. BLOOD TRANSFUSED: 1 unit. Preoperative hemoglobin 7.4. DESCRIPTION OF PROCEDURE: The patient was taken to the operating room where under general anesthesia, left lower extremity was prepared with ChloraPrep and draped in routine fashion. An incision was made for BKA for a long posterior flap, carried down to skin, subcutaneous tissue, and fascia. The open wounds in the lower leg and foot were sequestered to make this clean operation. Muscle bundles divided with cautery. Vascular bundles divided between clamps and ligated with 2-0 silk ties. Tibia was stripped off periosteum proximally, divided with a Gigli saw, bevelling the anterior edge cephalad, smoothing the edges with a rasp. Fibula transected about an inch or 2 above the cut edge of the tibia. Final muscular attachments divided. Good hemostasis obtained with cautery, 2-0 silk ties, and 2-0 Vicryl [id number]. Once hemostasis was obtained, wound irrigated. Fascia approximated with 2-0 Vicryl and skin with grecia. Sterile dressing applied. Job ID: [id number]
[2019-10-07] MEDS: Morphine 2 MG/ML VIAL SLOW IVP PRN (10:22)
--- NOTE | 2019-10-07 10:43 | PDOC.HOSPP ---
- Subjective Encounter Date: 10/07/19 Encounter Time: 10:40 Subjective: post op left BKA, mild post-op pain - Objective Vital Signs & Weight: Vital Signs (12 hours) Temp Pulse Resp BP BP Pulse Ox 10/07/19 04:13 98.2 F 82 18 160/72 H 99 10/07/19 00:45 143/75 H 100 10/07/19 00:01 98.3 F 82 18 100 Weight Admit Weight 167 lb 9.6 oz Weight 167 lb 9.6 oz I&O: 10/06/19 10/07/19 10/08/19 06:59 06:59 06:59 Intake Total 150 1866 Output Total 700 Balance 150 1166 Result Diagrams: 10/05/19 05:55 10/05/19 05:55 Additional Labs: Accuchecks 10/07/19 10/07/19 10/06/19 09:28 05:19 19:47 POC Glucose 146 H 142 H 165 H 10/06/19 10/06/19 15:36 11:23 POC Glucose 186 H 160 H Hospitalist ROS - Medication Medications: Active Medications Generic Name Dose Route Start Last Admin Trade Name Freq PRN Reason Stop Dose Admin Acetaminophen 1,000 mg 09/26/19 17:37 10/04/19 20:14 Tylenol PO 1,000 mg Q6H PRN Administration Mild Pain (1-3) Acetaminophen/Codeine Phosphate 1 tab 09/28/19 11:40 10/04/19 09:58 Tylenol #3 PO 1 tab Q6H PRN Administration Pain Amiodarone HCl 200 mg 09/25/19 09:00 10/07/19 08:03 Cordarone PO Not Given DAILY [facility] Ascorbic Acid 500 mg 10/06/19 09:00 10/07/19 08:03 Vitamin C PO Not Given DAILY [facility] Aspirin 81 mg 09/25/19 09:00 10/07/19 08:03 Ecotrin PO Not Given DAILY [facility] Calcium Carbonate 1,000 mg 09/23/19 18:19 10/06/19 14:34 Tums PO 1,000 mg Q4H PRN Administration Heartburn or Indigestion Carvedilol 3.125 mg 09/24/19 21:00 10/07/19 06:35 Coreg PO 3.125 mg BID LIN Administration Clopidogrel Bisulfate 75 mg 09/27/19 09:00 10/07/19 08:03 Plavix PO Not Given DAILY [facility] Famotidine 20 mg 10/05/19 21:00 10/07/19 08:03 Pepcid PO Not Given BID [facility] Famotidine 20 mg 10/05/19 21:00 10/07/19 08:04 Pepcid SLOW IVP Not Given BID [facility] Ferrous Sulfate 325 mg 10/05/19 17:00 10/07/19 08:03 Feosol PO Not Given BID[facility] Heparin Sodium (Porcine) 500 units 10/04/19 04:48 10/04/19 06:22 Heparin Lock Flush 100 Units/Ml IVF 500 unit PRN PRN Administration Heparin Flush Meropenem 1 gm/ Device 50 mls @ 100 mls/hr 10/03/19 22:00 10/07/19 05:10 IVPB 50 mls Q8HR LIN Administration Sodium Chloride 1,000 mls @ 100 mls/hr 10/07/19 08:00 10/07/19 08:03 Normal Saline 0.9% IV Not Given .Q10H [facility] Insulin Human Lispro 0 units 09/23/19 18:28 10/06/19 16:52 Humalog SC 2 unit .MODERATE SLIDING SC PRN Administration Moderate Correctional Scale Insulin Human Lispro 0 units 09/23/19 18:28 09/27/19 20:23 Humalog SC 2 unit .BEDTIME SLIDING SC PRN Administration Bedtime Correctional Scale Iron/Minerals/Multivitamins 1 tab 10/06/19 09:00 10/07/19 08:04 Theragran M PO Not Given DAILY [facility] Isosorbide Dinitrate 20 mg 09/24/19 21:00 10/07/19 08:04 Isordil PO Not Given TID [facility] Morphine Sulfate 4 mg 10/05/19 11:55 10/07/19 10:22 Morphine SLOW IVP 4 mg Q4H PRN Administration Breakthrough Pain Ondansetron HCl 4 mg 09/23/19 18:19 09/28/19 18:01 Zofran Odt PO 4 mg Q6H PRN Administration Nausea/Vomiting Ondansetron HCl 4 mg 09/23/19 18:19 10/05/19 11:48 Zofran IVP 4 mg Q6H PRN Administration Nausea/Vomiting Polyethylene Glycol 17 gm 09/27/19 09:00 10/07/19 08:04 Miralax PO Not Given DAILY LIN Rosuvastatin Calcium 10 mg 09/24/19 21:00 10/06/19 20:55 Crestor PO 10 mg HS LIN Administration Senna/Docusate Sodium 2 tab 10/05/19 21:00 10/07/19 08:04 Senokot S PO Not Given BID LIN Zinc Sulfate 220 mg 10/06/19 09:00 10/07/19 08:04 Zinc Sulfate PO Not Given DAILY LIN - Exam General Appearance: awake alert Neck: no JVD Heart: RRR, no murmur Respiratory: CTAB Gastrointestinal: soft, normal bowel sounds Extremities: no edema Extremities - other findings: left BKA Hosp A/P (1) PVD (peripheral vascular disease) Code(s): I73.9 - PERIPHERAL VASCULAR DISEASE, UNSPECIFIED Status: Acute (2) CAD (coronary artery disease) Code(s): I25.10 - ATHSCL HEART DISEASE OF [place] CORONARY ARTERY W/O ANG PCTRS Status: Chronic Qualifiers: Coronary Disease-Associated Artery/Lesion type: bypass graft [place] vs. transplanted heart: [place] heart Associated angina: without angina Qualified Code(s): I25.810 - Atherosclerosis of coronary artery bypass graft(s) without angina pectoris (3) Chronic anemia Code(s): D64.9 - ANEMIA, UNSPECIFIED Status: Chronic (4) Diabetic toe ulcer Code(s): E11.621 - TYPE 2 DIABETES MELLITUS WITH FOOT ULCER; L97.509 - NON- PRESSURE CHRONIC ULCER OTH PRT UNSP FOOT W UNSP SEVERITY Status: Acute Qualifiers: Diabetes mellitus type: type 2 Laterality: left (5) Multi-vessel coronary artery stenosis Code(s): I25.10 - ATHSCL HEART DISEASE OF [place] CORONARY ARTERY W/O ANG PCTRS Status: Acute (6) Chronic kidney disease, stage 3 Code(s): N18.3 - CHRONIC KIDNEY DISEASE, STAGE 3 (MODERATE) Status: Chronic (7) DM2 (diabetes mellitus, type 2) Status: Chronic Qualifiers: Diabetes mellitus emt intermediate insulin use: without senior care use Diabetes mellitus complication status: with kidney complications Diabetes mellitus complication detail: with chronic kidney disease Chronic kidney disease stage : stage 3 (moderate) Qualified Code(s): E11.22 - Type 2 diabetes mellitus with diabetic chronic kidney disease; N18.3 - Chronic kidney disease, stage 3 ( moderate) - Plan port left BKA-wound care DC iv antibiotics? cont accu/ss/LA insulin- control adequate
[2019-10-07] MEDS ORDERED: PHENYLEPHRINE-NS 100 MCG/ML 10 ML SYRINGE ONE (11:10)
[2019-10-07] MEDS ORDERED: PROPOFOL 200 MG/20 ML VIAL ONE (11:10)
[2019-10-07] MEDS ORDERED: Ondansetron PF 4 MG/2 ML Vial ONE (11:10)
[2019-10-07] MEDS: Acetaminophen/Codeine 30-300mg Tablet PO PRN (12:15)
[2019-10-07] MEDS ORDERED: Morphine 4 MG/ML VIAL SLOW IVP PRN (13:07)
[2019-10-07] MEDS: Sodium Chloride 0.9% 1,000 ML IV SCH (13:17)
[2019-10-07] MEDS ORDERED: Fentanyl 20 mcg/ml (100 ml CADD) IV PRN (13:43)
[2019-10-07] MEDS: Acetaminophen 500 MG TAB PO SCH ×2 (14:24→20:35)
[2019-10-07] MEDS: Gabapentin 300 MG CAP PO SCH ×2 (14:25→20:37)
[2019-10-07] MEDS ORDERED: fentaNYL Citrate/PF 2,000 MCG in Sodium Chloride 0.9% 60 ML IV PRN (14:36)
[2019-10-07] MEDS ORDERED: Morphine 4 MG/ML VIAL SLOW IVP SCH (17:00)
[2019-10-07] MEDS: Ketorolac Tromethamine 30 MG/ML VIAL IVP SCH (17:06)
[2019-10-07] MEDS: HumaLOG 300 UNITS/3 ML VIAL SC PRN (17:07)
[2019-10-07] MEDS: Rosuvastatin 10 MG TAB PO SCH (20:37)
[2019-10-07 23:44] LABS: Bilirubin Negative (Negative); Blood, Urine Negative (Negative); Clarity Clear (Clear); Glucose, Urine (Dipstick) 50 mg/dL (Negative); Ketone, Urine Negative (Negative); Leukocyte Negative Leu/uL (Negative); Nitrite Negative (Negative); Protein, Urine (Dipstick) 30 mg/dL (Neg-Trace); RBC/HPF 0-3 HPF (0-3); Specific Gravity, Urine 1.008 (1.002-1.036); Squamous Epithelial 0-3 HPF (0-3); Urobilinogen Normal mg/dL (Less than 2)
[2019-10-07 23:45] LABS: Bacteria/HPF 1+ HPF (None Seen)
[2019-10-07 23:46] LABS: Urine Culture Reflex Yes Yes
[2019-10-08] MEDS: Ketorolac Tromethamine 30 MG/ML VIAL IVP SCH ×5 (00:01→23:04)
[2019-10-08] MEDS: Acetaminophen 500 MG TAB PO SCH ×4 (03:27→20:49)
[2019-10-08] MEDS: MEROPENEM 1 GM/50 ML 1 GM in Premix Bag 1 BAG IVPB SCH ×3 (05:39→22:00)
[2019-10-08] MEDS: HumaLOG 300 UNITS/3 ML VIAL SC PRN ×3 (06:09→17:24)
[2019-10-08 06:20] LABS: #Eosinphils 0.1 thou/uL (0.0-0.7); #Lymphocytes 2.7 thou/uL (1.20-3.40); #Monocytes 1.3 thou/uL (0.11-0.59); #Neutrophils 9.7 thou/uL (1.40-6.50); %Basophils 0.3 % (0.0-1.0); %Eosinophils 0.9 % (0.0-10.0); %Lymphocytes 19.4 % (21.0-51.0); %Monocytes 9.3 % (0.0-10.0); Hemoglobin 6.7 g/dL (12.0-16.0); Mean Corpuscular HGB CONC 31.1 g/dL (32.0-36.0); Mean Corpuscular Hemoglobin 27.3 pg (27.0-31.0); Mean Corpuscular Volume 87.9 fL (78.0-98.0); Mean Platelet Volume 6.5 fL (7.4-10.4); Platelet Count 359 thou/uL (130-400); RBC Distribution Width 14.1 % (11.5-14.5); Red Blood Cell (RBC) Count 2.45 mill/uL (4.20-5.40); White Blood Cell (WBC) Count 13.9 thou/uL (4.8-10.8)
[2019-10-08 06:40] LABS: Anion Gap 8 mmol/L (10-20); BUN (Urea Nitrogen) 15 mg/dL (9.8-20.1); Calc. Creatinine Clearance 65 mL/min (70-130); Calcium 7.7 mg/dL (7.8-10.44); Carbon Dioxide 27 mmol/L (23-31); Chloride 97 mmol/L (98-107); Estimated GFR-MDRD 51; Glucose 196 mg/dL (80-115); Potassium 4.2 mmol/L (3.5-5.1); Sodium 128 mmol/L (136-145)
[2019-10-08] MEDS: Isosorbide Dinitrate 20 MG TAB PO SCH ×3 (09:02→20:50)
[2019-10-08] MEDS: Multivitamin W/ Minerals 1 TAB PO SCH (09:02)
[2019-10-08] MEDS: Gabapentin 300 MG CAP PO SCH ×3 (09:02→20:50)
[2019-10-08] MEDS: Senokot S 8.6-50 MG TAB PO SCH ×2 (09:02→20:49)
[2019-10-08] MEDS: Clopidogrel Bisulfate 75 MG TAB PO SCH (09:02)
[2019-10-08] MEDS: Amiodarone 200 MG TAB PO SCH (09:02)
[2019-10-08] MEDS: Ascorbic Acid 500 mg Chewable Tablet PO SCH (09:02)
[2019-10-08] MEDS: Zinc Sulfate 220 MG CAP PO SCH (09:02)
[2019-10-08] MEDS: Carvedilol 3.125 MG TAB PO SCH ×2 (09:03→20:49)
[2019-10-08] MEDS: Aspirin 81 mg Enteric Coated Tablet PO SCH (09:03)
[2019-10-08] MEDS: Ferrous Sulfate 325 MG TAB PO SCH ×2 (09:03→17:15)
[2019-10-08] MEDS: Famotidine 20 MG TAB PO SCH ×2 (09:03→20:49)
[2019-10-08] MEDS: Polyethylene Glycol 3350 17 GM Packet PO SCH (09:04)
--- NOTE | 2019-10-08 10:43 | PDOC.HOSPP ---
- Subjective Encounter Date: 10/08/19 Encounter Time: 10:40 Subjective: minimal ever at surgery site - Objective Vital Signs & Weight: Vital Signs (12 hours) Temp Pulse Pulse Resp BP BP Pulse Ox 10/08/19 10:25 98.4 F 82 18 116/64 96 10/08/19 08:00 95 10/08/19 07:50 98.4 F 94 16 130/66 95 10/08/19 00:30 97.8 F 92 18 125/64 94 L Weight Admit Weight 167 lb 9.6 oz Weight 167 lb 9.6 oz I&O: 10/07/19 10/08/19 10/09/19 06:59 06:59 06:59 Intake Total 1866 870 0 Output Total 700 1500 Balance 1166 -630 0 Result Diagrams: 10/08/19 06:10 10/08/19 06:10 Additional Labs: Accuchecks 10/08/19 10/07/19 10/07/19 05:06 19:34 15:40 POC Glucose 225 H 237 H 187 H 10/07/19 11:22 POC Glucose 167 H Hospitalist ROS - Medication Medications: Active Medications Generic Name Dose Route Start Last Admin Trade Name Freq PRN Reason Stop Dose Admin Acetaminophen 1,000 mg 10/07/19 14:00 10/08/19 09:03 Tylenol PO 10/10/19 14:01 1,000 mg Q6H LIN Administration Amiodarone HCl 200 mg 09/25/19 09:00 10/08/19 09:02 Cordarone PO 200 mg DAILY LIN Administration Ascorbic Acid 500 mg 10/06/19 09:00 10/08/19 09:02 Vitamin C PO 500 mg DAILY LIN Administration Aspirin 81 mg 09/25/19 09:00 10/08/19 09:03 Ecotrin PO 81 mg DAILY LIN Administration Calcium Carbonate 1,000 mg 09/23/19 18:19 10/06/19 14:34 Tums PO 1,000 mg Q4H PRN Administration Heartburn or Indigestion Carvedilol 3.125 mg 09/24/19 21:00 10/08/19 09:03 Coreg PO 3.125 mg BID LIN Administration Clopidogrel Bisulfate 75 mg 09/27/19 09:00 10/08/19 09:02 Plavix PO 75 mg DAILY LIN Administration Famotidine 20 mg 10/05/19 21:00 10/08/19 09:03 Pepcid PO 20 mg BID LIN Administration Ferrous Sulfate 325 mg 10/05/19 17:00 10/08/19 09:03 Feosol PO 325 mg BID-WM LIN Administration Gabapentin 300 mg 10/07/19 15:00 10/08/19 09:02 Neurontin PO 300 mg TID LIN Administration Heparin Sodium (Porcine) 500 units 10/04/19 04:48 10/08/19 05:43 Heparin Lock Flush 100 Units/Ml IVF 500 unit PRN PRN Administration Heparin Flush Meropenem 1 gm/ Device 50 mls @ 100 mls/hr 10/03/19 22:00 10/08/19 05:39 IVPB 50 mls Q8HR LIN Administration Sodium Chloride 1,000 mls @ 0 mls/hr 10/07/19 13:07 10/07/19 13:17 Normal Saline 0.9% IV 1,000 mls .Q0M LIN Administration KVO Insulin Human Lispro 0 units 09/23/19 18:28 10/08/19 06:09 Humalog SC 4 unit .MODERATE SLIDING SC PRN Administration Moderate Correctional Scale Insulin Human Lispro 0 units 09/23/19 18:28 09/27/19 20:23 Humalog SC 2 unit .BEDTIME SLIDING SC PRN Administration Bedtime Correctional Scale Iron/Minerals/Multivitamins 1 tab 10/06/19 09:00 10/08/19 09:02 Theragran M PO 1 tab DAILY [facility] Administration Isosorbide Dinitrate 20 mg 09/24/19 21:00 10/08/19 09:02 Isordil PO 20 mg TID [facility] Administration Ketorolac Tromethamine 30 mg 10/07/19 18:00 10/08/19 05:38 Toradol IVP 10/12/19 18:01 30 mg Q6HR LIN Administration Ondansetron HCl 4 mg 09/23/19 18:19 09/28/19 18:01 Zofran Odt PO 4 mg Q6H PRN Administration Nausea/Vomiting Ondansetron HCl 4 mg 09/23/19 18:19 10/05/19 11:48 Zofran IVP 4 mg Q6H PRN Administration Nausea/Vomiting Polyethylene Glycol 17 gm 09/27/19 09:00 10/08/19 09:04 Miralax PO 17 gm DAILY LIN Administration Rosuvastatin Calcium 10 mg 09/24/19 21:00 10/07/19 20:37 Crestor PO 10 mg HS LIN Administration Senna/Docusate Sodium 2 tab 10/05/19 21:00 10/08/19 09:02 Senokot S PO 2 tab BID LIN Administration Zinc Sulfate 220 mg 10/06/19 09:00 10/08/19 09:02 Zinc Sulfate PO 220 mg DAILY LIN Administration - Exam General Appearance: awake alert Neck: no JVD Heart: RRR, no murmur Respiratory: CTAB Gastrointestinal: soft, non-distended, normal bowel sounds Extremities: no edema Hosp A/P (1) PVD (peripheral vascular disease) Code(s): I73.9 - PERIPHERAL VASCULAR DISEASE, UNSPECIFIED Status: Acute (2) CAD (coronary artery disease) Code(s): I25.10 - ATHSCL HEART DISEASE OF [place] CORONARY ARTERY W/O ANG PCTRS Status: Chronic Qualifiers: Coronary Disease-Associated Artery/Lesion type: bypass graft [place] vs. transplanted heart: [place] heart Associated angina: without angina Qualified Code(s): I25.810 - Atherosclerosis of coronary artery bypass graft(s) without angina pectoris (3) Chronic anemia Code(s): D64.9 - ANEMIA, UNSPECIFIED Status: Chronic (4) Diabetic toe ulcer Code(s): E11.621 - TYPE 2 DIABETES MELLITUS WITH FOOT ULCER; L97.509 - NON- PRESSURE CHRONIC ULCER OTH PRT UNSP FOOT W UNSP SEVERITY Status: Acute Qualifiers: Diabetes mellitus type: type 2 Laterality: left (5) Multi-vessel coronary artery stenosis Code(s): I25.10 - ATHSCL HEART DISEASE OF [place] CORONARY ARTERY W/O ANG PCTRS Status: Acute (6) Chronic kidney disease, stage 3 Code(s): N18.3 - CHRONIC KIDNEY DISEASE, STAGE 3 (MODERATE) Status: Chronic (7) DM2 (diabetes mellitus, type 2) Status: Chronic Qualifiers: Diabetes mellitus snf insulin use: without snf use Diabetes mellitus complication status: with kidney complications Diabetes mellitus complication detail: with chronic kidney disease Chronic kidney disease stage : stage 3 (moderate) Qualified Code(s): E11.22 - Type 2 diabetes mellitus with diabetic chronic kidney disease; N18.3 - Chronic kidney disease, stage 3 ( moderate) (8) Anemia Code(s): D64.9 - ANEMIA, UNSPECIFIED Status: Acute Qualifiers: Anemia type: other cause Other causes of anemia: other cause, not classified Qualified Code(s): D64.89 - Other specified anemias - Plan port left BKA-wound care DC iv antibiotics? cont accu/ss/LA insulin- control adequate Hg<7 -transfuse 1 unit PRBC
--- NOTE | 2019-10-08 11:44 | PRG ---
DATE OF SERVICE: 10/08/2019 SUBJECTIVE: Ms. Prado is doing well today. Her hemoglobin is 6.8. I have ordered 1 unit of blood. Her electrolytes are normal. Her pain is under better control with DRILLER MACHINE. Dressings are dry. I have educated the patient on keeping a pillow or blanket beneath her BKA stump below her knee to prevent contraction. Orders were written for the nurses to do this. [facility] rehab bed is not available. Physical therapy will walk with her until she is safe to be discharged home. She will need home accessories such as shower chair, walker, wheelchair. At this point, orders have been submitted for removal of her dressing tomorrow. She can then wash her BKA stump open, grecia exposed in the shower or bath, wash it with soap and water, and apply antibiotic ointment, Telfa, and stump vp software. We will ask them to contact the patient's [employer] for stump vp software. [place] should be removed in approximately 2 to 3 weeks. Job ID: [id number]
[2019-10-08] MEDS: Sodium Chloride 0.9% 1,000 ML IV SCH (20:47)
[2019-10-08] MEDS: Rosuvastatin 10 MG TAB PO SCH (20:49)
[2019-10-09] MEDS: Acetaminophen 500 MG TAB PO SCH ×3 (02:57→15:08)
[2019-10-09] MEDS: MEROPENEM 1 GM/50 ML 1 GM in Premix Bag 1 BAG IVPB SCH ×3 (05:32→22:22)
[2019-10-09] MEDS: Ketorolac Tromethamine 30 MG/ML VIAL IVP SCH ×3 (05:35→17:47)
[2019-10-09 06:42] LABS: #Eosinphils 0.3 thou/uL (0.0-0.7); #Lymphocytes 2.3 thou/uL (1.20-3.40); #Monocytes 1.4 thou/uL (0.11-0.59); #Neutrophils 13.9 thou/uL (1.40-6.50); %Basophils 0.2 % (0.0-1.0); %Eosinophils 1.6 % (0.0-10.0); %Lymphocytes 12.7 % (21.0-51.0); %Neutrophils 77.6 % (42.0-75.0); Hemoglobin 7.3 g/dL (12.0-16.0); Mean Corpuscular HGB CONC 33.5 g/dL (32.0-36.0); Mean Corpuscular Hemoglobin 28.9 pg (27.0-31.0); Mean Corpuscular Volume 86.1 fL (78.0-98.0); Mean Platelet Volume 6.7 fL (7.4-10.4); Platelet Count 267 thou/uL (130-400); RBC Distribution Width 15.9 % (11.5-14.5); Red Blood Cell (RBC) Count 2.54 mill/uL (4.20-5.40); White Blood Cell (WBC) Count 17.9 thou/uL (4.8-10.8)
[2019-10-09 07:02] LABS: Anion Gap 11 mmol/L (10-20); BUN (Urea Nitrogen) 20 mg/dL (9.8-20.1); Calc. Creatinine Clearance 53 mL/min (70-130); Calcium 7.7 mg/dL (7.8-10.44); Carbon Dioxide 25 mmol/L (23-31); Chloride 97 mmol/L (98-107); Estimated GFR-MDRD 40; Glucose 150 mg/dL (80-115); Potassium 3.9 mmol/L (3.5-5.1); Sodium 129 mmol/L (136-145)
[2019-10-09] MEDS: Ascorbic Acid 500 mg Chewable Tablet PO SCH (09:11)
[2019-10-09] MEDS: Zinc Sulfate 220 MG CAP PO SCH (09:11)
[2019-10-09] MEDS: Senokot S 8.6-50 MG TAB PO SCH ×2 (09:11→20:19)
[2019-10-09] MEDS: Aspirin 81 mg Enteric Coated Tablet PO SCH (09:11)
[2019-10-09] MEDS: Famotidine 20 MG TAB PO SCH ×2 (09:11→20:19)
[2019-10-09] MEDS: Multivitamin W/ Minerals 1 TAB PO SCH (09:12)
[2019-10-09] MEDS: Isosorbide Dinitrate 20 MG TAB PO SCH ×3 (09:12→20:19)
[2019-10-09] MEDS: Amiodarone 200 MG TAB PO SCH (09:12)
[2019-10-09] MEDS: Clopidogrel Bisulfate 75 MG TAB PO SCH (09:12)
[2019-10-09] MEDS: Carvedilol 3.125 MG TAB PO SCH ×2 (09:12→20:19)
[2019-10-09] MEDS: Ferrous Sulfate 325 MG TAB PO SCH ×2 (09:12→16:56)
[2019-10-09] MEDS: Polyethylene Glycol 3350 17 GM Packet PO SCH (09:12)
[2019-10-09] MEDS: Gabapentin 300 MG CAP PO SCH ×3 (09:12→20:19)
--- NOTE | 2019-10-09 10:16 | PDOC.HOSPP ---
- Subjective Encounter Date: 10/09/19 Encounter Time: 10:21 Subjective: post-op BKA - Objective Vital Signs & Weight: Vital Signs (12 hours) Temp Pulse Resp BP Pulse Ox 10/09/19 08:00 97 10/09/19 07:45 98.2 F 80 16 137/70 97 Weight Admit Weight 167 lb 9.6 oz Weight 167 lb 9.6 oz I&O: 10/08/19 10/09/19 10/10/19 06:59 06:59 06:59 Intake Total 870 1740 Output Total 1500 1050 Balance -630 690 Result Diagrams: 10/09/19 06:18 10/09/19 06:18 Additional Labs: Accuchecks 10/09/19 10/08/19 10/08/19 05:15 20:15 17:07 POC Glucose 153 H 169 H 178 H 10/08/19 12:00 POC Glucose 258 H Hospitalist ROS - Medication Medications: Active Medications Generic Name Dose Route Start Last Admin Trade Name Freq PRN Reason Stop Dose Admin Acetaminophen 1,000 mg 10/07/19 14:00 10/09/19 09:13 Tylenol PO 10/10/19 14:01 1,000 mg Q6H LIN Administration Amiodarone HCl 200 mg 09/25/19 09:00 10/09/19 09:12 Cordarone PO 200 mg DAILY LIN Administration Ascorbic Acid 500 mg 10/06/19 09:00 10/09/19 09:11 Vitamin C PO 500 mg DAILY LIN Administration Aspirin 81 mg 09/25/19 09:00 10/09/19 09:11 Ecotrin PO 81 mg DAILY LIN Administration Calcium Carbonate 1,000 mg 09/23/19 18:19 10/06/19 14:34 Tums PO 1,000 mg Q4H PRN Administration Heartburn or Indigestion Carvedilol 3.125 mg 09/24/19 21:00 10/09/19 09:12 Coreg PO 3.125 mg BID LIN Administration Clopidogrel Bisulfate 75 mg 09/27/19 09:00 10/09/19 09:12 Plavix PO 75 mg DAILY LIN Administration Famotidine 20 mg 10/05/19 21:00 10/09/19 09:11 Pepcid PO 20 mg BID LIN Administration Ferrous Sulfate 325 mg 10/05/19 17:00 10/09/19 09:12 Feosol PO 325 mg BID-WM LIN Administration Gabapentin 300 mg 10/07/19 15:00 10/09/19 09:12 Neurontin PO 300 mg TID LIN Administration Heparin Sodium (Porcine) 500 units 10/04/19 04:48 10/08/19 05:43 Heparin Lock Flush 100 Units/Ml IVF 500 unit PRN PRN Administration Heparin Flush Meropenem 1 gm/ Device 50 mls @ 100 mls/hr 10/03/19 22:00 10/09/19 05:32 IVPB 50 mls Q8HR LIN Administration Sodium Chloride 1,000 mls @ 0 mls/hr 10/07/19 13:07 10/08/19 20:47 Normal Saline 0.9% IV 1,000 mls .Q0M LIN Administration KVO Insulin Human Lispro 0 units 09/23/19 18:28 10/08/19 17:24 Humalog SC 2 unit .MODERATE SLIDING SC PRN Administration Moderate Correctional Scale Insulin Human Lispro 0 units 09/23/19 18:28 09/27/19 20:23 Humalog SC 2 unit .BEDTIME SLIDING SC PRN Administration Bedtime Correctional Scale Iron/Minerals/Multivitamins 1 tab 10/06/19 09:00 10/09/19 09:12 Theragran M PO 1 tab DAILY LIN Administration Isosorbide Dinitrate 20 mg 09/24/19 21:00 10/09/19 09:12 Isordil PO 20 mg TID LIN Administration Ketorolac Tromethamine 30 mg 10/07/19 18:00 10/09/19 05:35 Toradol IVP 10/12/19 18:01 30 mg Q6HR LIN Administration Ondansetron HCl 4 mg 09/23/19 18:19 09/28/19 18:01 Zofran Odt PO 4 mg Q6H PRN Administration Nausea/Vomiting Ondansetron HCl 4 mg 09/23/19 18:19 10/05/19 11:48 Zofran IVP 4 mg Q6H PRN Administration Nausea/Vomiting Polyethylene Glycol 17 gm 09/27/19 09:00 10/09/19 09:12 Miralax PO 17 gm DAILY LIN Administration Rosuvastatin Calcium 10 mg 09/24/19 21:00 10/08/19 20:49 Crestor PO 10 mg HS LIN Administration Senna/Docusate Sodium 2 tab 10/05/19 21:00 10/09/19 09:11 Senokot S PO 2 tab BID LIN Administration Zinc Sulfate 220 mg 10/06/19 09:00 10/09/19 09:11 Zinc Sulfate PO 220 mg DAILY LIN Administration - Exam General Appearance: awake alert Neck: no JVD Heart: RRR Respiratory: CTAB Gastrointestinal: soft, normal bowel sounds Extremities - other findings: Left BKA Hosp A/P (1) PVD (peripheral vascular disease) Code(s): I73.9 - PERIPHERAL VASCULAR DISEASE, UNSPECIFIED Status: Acute (2) CAD (coronary artery disease) Code(s): I25.10 - ATHSCL HEART DISEASE OF [place] CORONARY ARTERY W/O ANG PCTRS Status: Chronic Qualifiers: Coronary Disease-Associated Artery/Lesion type: bypass graft [place] vs. transplanted heart: [place] heart Associated angina: without angina Qualified Code(s): I25.810 - Atherosclerosis of coronary artery bypass graft(s) without angina pectoris (3) Chronic anemia Code(s): D64.9 - ANEMIA, UNSPECIFIED Status: Chronic (4) Diabetic toe ulcer Code(s): E11.621 - TYPE 2 DIABETES MELLITUS WITH FOOT ULCER; L97.509 - NON- PRESSURE CHRONIC ULCER OTH PRT UNSP FOOT W UNSP SEVERITY Status: Acute Qualifiers: Diabetes mellitus type: type 2 Laterality: left (5) Multi-vessel coronary artery stenosis Code(s): I25.10 - ATHSCL HEART DISEASE OF [place] CORONARY ARTERY W/O ANG PCTRS Status: Acute (6) Chronic kidney disease, stage 3 Code(s): N18.3 - CHRONIC KIDNEY DISEASE, STAGE 3 (MODERATE) Status: Chronic (7) DM2 (diabetes mellitus, type 2) Status: Chronic Qualifiers: Diabetes mellitus continuous churn buttermaker insulin use: without continuous churn buttermaker use Diabetes mellitus complication status: with kidney complications Diabetes mellitus complication detail: with chronic kidney disease Chronic kidney disease stage : stage 3 (moderate) Qualified Code(s): E11.22 - Type 2 diabetes mellitus with diabetic chronic kidney disease; N18.3 - Chronic kidney disease, stage 3 ( moderate) (8) Anemia Code(s): D64.9 - ANEMIA, UNSPECIFIED Status: Acute Qualifiers: Anemia type: other cause Other causes of anemia: other cause, not classified Qualified Code(s): D64.89 - Other specified anemias - Plan port left BKA-wound care cont accu/ss/LA insulin- control adequate difficult situation, unfunded, no help at home unable to be safely discharged at this point
[2019-10-09] MEDS: HumaLOG 300 UNITS/3 ML VIAL SC PRN ×3 (11:52→20:20)
[2019-10-09] MEDS ORDERED: Fentanyl 100 MCG/2 ML VIAL SLOW IVP PRN (13:18)
[2019-10-09] MEDS ORDERED: Bisacodyl 10 MG SUPP PR PRN (14:40)
--- NOTE | 2019-10-09 14:44 | PDOC.HOSPP ---
- Subjective Encounter Time: 14:42 - Objective Vital Signs & Weight: Vital Signs (12 hours) Temp Pulse Resp BP Pulse Ox 10/09/19 08:00 97 10/09/19 07:45 98.2 F 80 16 137/70 97 Weight Admit Weight 167 lb 9.6 oz Weight 167 lb 9.6 oz I&O: 10/08/19 10/09/19 10/10/19 06:59 06:59 06:59 Intake Total 870 1740 Output Total 1500 1050 Balance -630 690 Result Diagrams: 10/09/19 06:18 10/09/19 06:18 Additional Labs: Accuchecks 10/09/19 10/09/19 10/08/19 11:51 05:15 20:15 POC Glucose 306 H 153 H 169 H 10/08/19 17:07 POC Glucose 178 H Radiology Reviewed by me: Yes (CT abd- poss diverticulitis,abcess) Hospitalist ROS - Medication Medications: Active Medications Generic Name Dose Route Start Last Admin Trade Name Freq PRN Reason Stop Dose Admin Acetaminophen 1,000 mg 10/07/19 14:00 10/09/19 09:13 Tylenol PO 10/10/19 14:01 1,000 mg Q6H LIN Administration Amiodarone HCl 200 mg 09/25/19 09:00 10/09/19 09:12 Cordarone PO 200 mg DAILY LIN Administration Ascorbic Acid 500 mg 10/06/19 09:00 10/09/19 09:11 Vitamin C PO 500 mg DAILY LIN Administration Aspirin 81 mg 09/25/19 09:00 10/09/19 09:11 Ecotrin PO 81 mg DAILY LIN Administration Calcium Carbonate 1,000 mg 09/23/19 18:19 10/06/19 14:34 Tums PO 1,000 mg Q4H PRN Administration Heartburn or Indigestion Carvedilol 3.125 mg 09/24/19 21:00 10/09/19 09:12 Coreg PO 3.125 mg BID LIN Administration Clopidogrel Bisulfate 75 mg 09/27/19 09:00 10/09/19 09:12 Plavix PO 75 mg DAILY LIN Administration Famotidine 20 mg 10/05/19 21:00 10/09/19 09:11 Pepcid PO 20 mg BID LIN Administration Ferrous Sulfate 325 mg 10/05/19 17:00 10/09/19 09:12 Feosol PO 325 mg BID-WM LIN Administration Gabapentin 300 mg 10/07/19 15:00 10/09/19 09:12 Neurontin PO 300 mg TID LIN Administration Heparin Sodium (Porcine) 500 units 10/04/19 04:48 10/08/19 05:43 Heparin Lock Flush 100 Units/Ml IVF 500 unit PRN PRN Administration Heparin Flush Meropenem 1 gm/ Device 50 mls @ 100 mls/hr 10/03/19 22:00 10/09/19 05:32 IVPB 50 mls Q8HR LIN Administration Sodium Chloride 1,000 mls @ 0 mls/hr 10/07/19 13:07 10/08/19 20:47 Normal Saline 0.9% IV 1,000 mls .Q0M LIN Administration KVO Insulin Human Lispro 0 units 09/23/19 18:28 10/09/19 11:52 Humalog SC 8 unit .MODERATE SLIDING SC PRN Administration Moderate Correctional Scale Insulin Human Lispro 0 units 09/23/19 18:28 09/27/19 20:23 Humalog SC 2 unit .BEDTIME SLIDING SC PRN Administration Bedtime Correctional Scale Iron/Minerals/Multivitamins 1 tab 10/06/19 09:00 10/09/19 09:12 Theragran M PO 1 tab DAILY LIN Administration Isosorbide Dinitrate 20 mg 09/24/19 21:00 10/09/19 09:12 Isordil PO 20 mg TID LIN Administration Ketorolac Tromethamine 30 mg 10/07/19 18:00 10/09/19 11:49 Toradol IVP 10/12/19 18:01 30 mg Q6HR LIN Administration Ondansetron HCl 4 mg 09/23/19 18:19 09/28/19 18:01 Zofran Odt PO 4 mg Q6H PRN Administration Nausea/Vomiting Ondansetron HCl 4 mg 09/23/19 18:19 10/05/19 11:48 Zofran IVP 4 mg Q6H PRN Administration Nausea/Vomiting Polyethylene Glycol 17 gm 09/27/19 09:00 10/09/19 09:12 Miralax PO 17 gm DAILY LIN Administration Rosuvastatin Calcium 10 mg 09/24/19 21:00 10/08/19 20:49 Crestor PO 10 mg HS LIN Administration Senna/Docusate Sodium 2 tab 10/05/19 21:00 10/09/19 09:11 Senokot S PO 2 tab BID LIN Administration Zinc Sulfate 220 mg 10/06/19 09:00 10/09/19 09:11 Zinc Sulfate PO 220 mg DAILY LIN Administration Hosp A/P (1) PVD (peripheral vascular disease) Code(s): I73.9 - PERIPHERAL VASCULAR DISEASE, UNSPECIFIED Status: Acute (2) CAD (coronary artery disease) Code(s): I25.10 - ATHSCL HEART DISEASE OF [place] CORONARY ARTERY W/O ANG PCTRS Status: Chronic Qualifiers: Coronary Disease-Associated Artery/Lesion type: bypass graft [place] vs. transplanted heart: [place] heart Associated angina: without angina Qualified Code(s): I25.810 - Atherosclerosis of coronary artery bypass graft(s) without angina pectoris (3) Chronic anemia Code(s): D64.9 - ANEMIA, UNSPECIFIED Status: Chronic (4) Diabetic toe ulcer Code(s): E11.621 - TYPE 2 DIABETES MELLITUS WITH FOOT ULCER; L97.509 - NON- PRESSURE CHRONIC ULCER OTH PRT UNSP FOOT W UNSP SEVERITY Status: Acute Qualifiers: Diabetes mellitus type: type 2 Laterality: left (5) Multi-vessel coronary artery stenosis Code(s): I25.10 - ATHSCL HEART DISEASE OF [place] CORONARY ARTERY W/O ANG PCTRS Status: Acute (6) Chronic kidney disease, stage 3 Code(s): N18.3 - CHRONIC KIDNEY DISEASE, STAGE 3 (MODERATE) Status: Chronic (7) DM2 (diabetes mellitus, type 2) Status: Chronic Qualifiers: Diabetes mellitus long wall mining machine helper insulin use: without long wall mining machine helper use Diabetes mellitus complication status: with kidney complications Diabetes mellitus complication detail: with chronic kidney disease Chronic kidney disease stage : stage 3 (moderate) Qualified Code(s): E11.22 - Type 2 diabetes mellitus with diabetic chronic kidney disease; N18.3 - Chronic kidney disease, stage 3 ( moderate) (8) Anemia Code(s): D64.9 - ANEMIA, UNSPECIFIED Status: Acute Qualifiers: Anemia type: other cause Other causes of anemia: other cause, not classified Qualified Code(s): D64.89 - Other specified anemias - Plan port left BKA-wound care cont accu/ss/LA insulin- control adequate difficult situation, unfunded, no help at home unable to be safely discharged at this point
[2019-10-09] MEDS: HYDROcodone/Acetaminophen 10/325 mg Tablet PO PRN (16:55)
[2019-10-09] MEDS: Rosuvastatin 10 MG TAB PO SCH (20:19)
[2019-10-10] MEDS: Ketorolac Tromethamine 30 MG/ML VIAL IVP SCH ×2 (00:23→05:58)
[2019-10-10] MEDS: HumaLOG 300 UNITS/3 ML VIAL SC PRN ×3 (05:57→18:29)
[2019-10-10] MEDS: Sodium Chloride 0.9% 1,000 ML IV SCH (05:57)
[2019-10-10] MEDS: MEROPENEM 1 GM/50 ML 1 GM in Premix Bag 1 BAG IVPB SCH (05:57)
[2019-10-10] MEDS: Aspirin 81 mg Enteric Coated Tablet PO SCH (08:52)
[2019-10-10] MEDS: Gabapentin 300 MG CAP PO SCH ×3 (08:53→20:36)
[2019-10-10] MEDS: Senokot S 8.6-50 MG TAB PO SCH ×2 (08:53→20:36)
[2019-10-10] MEDS: Famotidine 20 MG TAB PO SCH ×2 (08:53→20:36)
[2019-10-10] MEDS: Polyethylene Glycol 3350 17 GM Packet PO SCH (08:54)
[2019-10-10] MEDS: Carvedilol 3.125 MG TAB PO SCH ×2 (08:54→20:36)
[2019-10-10] MEDS: Amiodarone 200 MG TAB PO SCH (08:54)
[2019-10-10] MEDS: Multivitamin W/ Minerals 1 TAB PO SCH (08:55)
[2019-10-10] MEDS: Ferrous Sulfate 325 MG TAB PO SCH ×2 (08:55→17:20)
[2019-10-10] MEDS: Ascorbic Acid 500 mg Chewable Tablet PO SCH (08:55)
[2019-10-10] MEDS: Isosorbide Dinitrate 20 MG TAB PO SCH ×3 (08:55→20:36)
[2019-10-10] MEDS: Clopidogrel Bisulfate 75 MG TAB PO SCH (08:55)
[2019-10-10] MEDS: Zinc Sulfate 220 MG CAP PO SCH (08:56)
[2019-10-10] MEDS ORDERED: HumaLOG 300 UNITS/3 ML VIAL SC PRN (09:15)
[2019-10-10] MEDS ORDERED: Ketorolac Tromethamine 30 MG/ML VIAL IVP PRN (09:18)
--- NOTE | 2019-10-10 09:27 | PDOC.HOSPP ---
- Subjective Encounter Date: 10/10/19 Encounter Time: 09:15 Subjective: Patient seen and examined. No new complaints. No overnight events. Patient denies any fever, chills, light headedness or weakness. Says her pain is well controlled. Reports tolerating her diet well. - Objective Vital Signs & Weight: Vital Signs (12 hours) Temp Pulse Resp BP BP BP Pulse Ox 10/10/19 07:57 98.8 F 76 18 111/46 L 94 L 10/10/19 04:41 98.3 F 74 17 114/60 95 10/10/19 00:25 98.3 F 63 17 110/61 96 Weight Admit Weight 167 lb 9.6 oz Weight 167 lb 9.6 oz I&O: 10/09/19 10/10/19 10/11/19 06:59 06:59 06:59 Intake Total 1740 530 Output Total 1050 375 Balance 690 155 Result Diagrams: 10/10/19 09:40 10/09/19 06:18 Additional Labs: Accuchecks 10/10/19 10/09/19 10/09/19 04:45 19:53 15:44 POC Glucose 240 H 254 H 273 H 10/09/19 11:51 POC Glucose 306 H Hospitalist ROS - Review of Systems Constitutional: denies: fever, chills Respiratory: denies: cough, shortness of breath Cardiovascular: denies: chest pain, palpitations Gastrointestinal: denies: nausea, vomiting, abdominal pain, diarrhea Genitourinary: denies: dysuria Neurological: denies: confusion - Medication Medications: Active Medications Generic Name Dose Route Start Last Admin Trade Name Freq PRN Reason Stop Dose Admin Hydrocodone Bitart/Acetaminophen 2 tab 10/09/19 13:17 10/09/19 16:55 [place] 10/325 PO 2 tab Q4H PRN Administration PAIN SCALE 5-8 Amiodarone HCl 200 mg 09/25/19 09:00 10/10/19 08:54 Cordarone PO 200 mg DAILY LIN Administration Ascorbic Acid 500 mg 10/06/19 09:00 10/10/19 08:55 Vitamin C PO 500 mg DAILY LIN Administration Aspirin 81 mg 09/25/19 09:00 10/10/19 08:52 Ecotrin PO 81 mg DAILY LIN Administration Bisacodyl 10 mg 10/09/19 14:40 10/09/19 15:04 Dulcolax MT 10 mg Q8H PRN Administration Constipation Calcium Carbonate 1,000 mg 09/23/19 18:19 10/06/19 14:34 Tums PO 1,000 mg Q4H PRN Administration Heartburn or Indigestion Carvedilol 3.125 mg 09/24/19 21:00 10/10/19 08:54 Coreg PO Not Given BID [facility] Clopidogrel Bisulfate 75 mg 09/27/19 09:00 10/10/19 08:55 Plavix PO 75 mg DAILY [facility] Administration Famotidine 20 mg 10/05/19 21:00 10/10/19 08:53 Pepcid PO 20 mg BID [facility] Administration Ferrous Sulfate 325 mg 10/05/19 17:00 10/10/19 08:55 Feosol PO 325 mg BID-WM [facility] Administration Gabapentin 300 mg 10/07/19 15:00 10/10/19 08:53 Neurontin PO 300 mg TID [facility] Administration Heparin Sodium (Porcine) 500 units 10/04/19 04:48 10/08/19 05:43 Heparin Lock Flush 100 Units/Ml IVF 500 unit PRN PRN Administration Heparin Flush Meropenem 1 gm/ Device 50 mls @ 100 mls/hr 10/03/19 22:00 10/10/19 05:57 IVPB 50 mls Q8HR LIN Administration Iron/Minerals/Multivitamins 1 tab 10/06/19 09:00 10/10/19 08:55 Theragran M PO 1 tab DAILY [facility] Administration Isosorbide Dinitrate 20 mg 09/24/19 21:00 10/10/19 08:55 Isordil PO 20 mg TID [facility] Administration Ondansetron HCl 4 mg 09/23/19 18:19 09/28/19 18:01 Zofran Odt PO 4 mg Q6H PRN Administration Nausea/Vomiting Ondansetron HCl 4 mg 09/23/19 18:19 10/05/19 11:48 Zofran IVP 4 mg Q6H PRN Administration Nausea/Vomiting Polyethylene Glycol 17 gm 09/27/19 09:00 10/10/19 08:54 Miralax PO Not Given DAILY [facility] Rosuvastatin Calcium 10 mg 09/24/19 21:00 10/09/19 20:19 Crestor PO 10 mg HS LIN Administration Senna/Docusate Sodium 2 tab 10/05/19 21:00 10/10/19 08:53 Senokot S PO 2 tab BID LIN Administration Zinc Sulfate 220 mg 10/06/19 09:00 10/10/19 08:56 Zinc Sulfate PO 220 mg DAILY LIN Administration - Exam General Appearance: negative: NAD, awake alert Heart: normal peripheral pulses (right pedal palpable). negative: RRR, no murmur, no gallops, no rubs Respiratory: CTAB, no wheezes, no rales, no ronchi Gastrointestinal: soft, non-tender, no guarding, no rigidity. negative: tender to palpation Extremities - other findings: Left BKA with compression stump shinker inplace Neurological: no focal deficits Psychiatric: normal affect, A&O x 3 Hosp A/P (1) DM2 (diabetes mellitus, type 2) Status: Chronic Qualifiers: Diabetes mellitus ferry terminal agent insulin use: without ferry terminal agent use Diabetes mellitus complication status: with kidney complications Diabetes mellitus complication detail: with chronic kidney disease Chronic kidney disease stage : stage 3 (moderate) Qualified Code(s): E11.22 - Type 2 diabetes mellitus with diabetic chronic kidney disease; N18.3 - Chronic kidney disease, stage 3 ( moderate) (2) Chronic anemia Code(s): D64.9 - ANEMIA, UNSPECIFIED Status: Chronic (3) Hyponatremia Code(s): E87.1 - HYPO-OSMOLALITY AND HYPONATREMIA Status: Acute (4) Below-knee amputation of left lower extremity Code(s): S88.112A - COMPLETE TRAUM AMP AT LEV BETW KN AND ANKL, L LOW LEG, INIT Status: Acute (5) Diabetic toe ulcer Code(s): E11.621 - TYPE 2 DIABETES MELLITUS WITH FOOT ULCER; L97.509 - NON- PRESSURE CHRONIC ULCER OTH PRT UNSP FOOT W UNSP SEVERITY Status: Acute Qualifiers: Diabetes mellitus type: type 2 Laterality: left (6) PVD (peripheral vascular disease) Code(s): I73.9 - PERIPHERAL VASCULAR DISEASE, UNSPECIFIED Status: Acute (7) Chronic kidney disease, stage 3 Code(s): N18.3 - CHRONIC KIDNEY DISEASE, STAGE 3 (MODERATE) Status: Chronic - Plan Diabetes type 2 Patient's blood sugars have been averaging 250-300. Patient reports tolerating diet well. Patient takes insulin 70/30, 15 units twice a day at home. We will start the patient on NPH 7 units twice daily. Will change sliding scale to mild sliding scale. Chronic anemia Patient's hemoglobin was 7.3 yesterday. There are no signs of any bruising or bleeding. Will check CBC. Hyponatremia Patient has chronic hyponatremia. Patient's sodium is slightly trending down. Corrected for elevated glucose, sodium of 130 as of yesterday. Will check BMP. Will stop IV fluids KVO. Left below the knee amputation Patient postop day #3. Diabetic toe ulcer s/p Left BKA PVD, chronic continue ASA and plavix Chronic kidney disease stage III Patient's creatinine is increasing. Changed scheduled Toradol to as needed. Will get BMP. Continue aspirin and Plavix. Continue PT/OT and WCT Discussed the case with Dr. Dias.
[2019-10-10 09:50] LABS: Hemoglobin 6.7 g/dL (12.0-16.0); Mean Corpuscular HGB CONC 32.8 g/dL (32.0-36.0); Mean Corpuscular Hemoglobin 28.1 pg (27.0-31.0); Mean Corpuscular Volume 85.5 fL (78.0-98.0); Mean Platelet Volume 7.1 fL (7.4-10.4); Platelet Count 278 thou/uL (130-400); RBC Distribution Width 15.8 % (11.5-14.5); White Blood Cell (WBC) Count 28.5 thou/uL (4.8-10.8)
[2019-10-10] MEDS: HYDROcodone/Acetaminophen 10/325 mg Tablet PO PRN ×2 (10:06→18:27)
[2019-10-10 10:09] LABS: Anion Gap 10 mmol/L (10-20); BUN (Urea Nitrogen) 30 mg/dL (9.8-20.1); Calc. Creatinine Clearance 46 mL/min (70-130); Calcium 7.7 mg/dL (7.8-10.44); Carbon Dioxide 23 mmol/L (23-31); Chloride 99 mmol/L (98-107); Estimated GFR-MDRD 34; Glucose 178 mg/dL (80-115); Sodium 128 mmol/L (136-145)
[2019-10-10 10:35] LABS: Band 8 % (5-11); Eosinophils 1 % (0-10); Hypochromia SLIGHT = 6-15 cells (100X) (0-5/hpf); Lymphocytes 11 % (21-51); MDiff Complete? YES; Monocytes 3 % (0-10); Neutrophil 77 % (42-75); Platelet Morphology Comment Appears Adequate; Polychromasia SLIGHT = 2-3 cells (100X) (0-2/hpf)
[2019-10-10] MEDS ORDERED: Insulin Glargine 6 UNITS in Pre-Filled Syringe 1 EACH SC SCH (11:45)
--- NOTE | 2019-10-10 13:10 | PRG ---
DATE OF SERVICE: 10/09/2019 SUBJECTIVE: Bertin Prado is doing well today. Her BKA stump looks healthy. Dressings were changed. Staple line looks good. Hemoglobin is stable. Vital signs stable. Afebrile. Explained to her that she should keep her knee extended to prevent contracture by keeping pillows or blankets beneath the BK amputation of lower knee. She should keep her right heel off the bed to avoid heel decubitus. Cleaning the wound daily with soap and water and apply antibiotic ointment, Telfa, and a stump beading machine operator. I will see her in my office in 2 to 3 weeks. I will see her as needed in this hospitalization. Please call if necessary. Job ID: [id number]
[2019-10-10 13:43] LABS: Bilirubin Negative (Negative); Blood, Urine Trace (Negative); Glucose, Urine (Dipstick) Negative (Negative); Ketone, Urine Trace mg/dL (Negative); Leukocyte Trace (Negative); Nitrite Negative (Negative); Protein, Urine (Dipstick) 30 mg/dL (Neg-Trace); Specific Gravity, Urine 1.025 (1.005-1.030); Urobilinogen 0.2 mg/dL (Less than 2); pH, Urine 5.5 (5.0-9.0)
[2019-10-10 13:50] LABS: Squamous Epithelial 0-3 HPF (0-3); WBC/HPF Greater than 50 HPF (0-3); Yeast-Budding 2+ HPF (None Seen)
[2019-10-10 13:52] LABS: Clarity Hazy (Clear)
[2019-10-10 13:59] LABS: Bacteria/HPF 1+ HPF (None Seen)
[2019-10-10 14:01] LABS: Urine Culture Reflex Yes Yes
[2019-10-10] MEDS: Calcium Carbonate 500 MG ChewTAB PO PRN (14:24)
--- NOTE | 2019-10-10 15:38 | PRG ---
DATE OF SERVICE: 10/10/2019 SUBJECTIVE: Ms. Prado developed nonhealing of the amputation wounds and she underwent a left BKA on October 06. Currently, she is feeling better. She is awake and alert. Again, the communication difficulty because of her language barrier. In general, she denied all pains except for the chest. She pointed to the chest, a little bit of pain as she described. Also, the nurse aide stated that she has been having quite a bit of loose stool over the past 2 days. She still has a Jaramillo catheter in place. OBJECTIVE: VITAL SIGNS: She is afebrile. BP 120/64, pulse 73, O2 saturation 96, respiratory rate 16. GENERAL: She appears chronically ill, but in no acute distress. She has a tunneled Dominguez catheter in the right IJ position. LUNGS: Clear to auscultation and percussion. HEART: S1 and S2, regular rate. No S3 or S4. ABDOMEN: Soft, not distended or tender. No ascites. No bladder distention. EXTREMITIES: Left BKA site with dressing, which was not removed. The right foot without any wounds or evidence of ischemia. LABORATORY DATA: White cell count is up to 28.5, hemoglobin 6.7, platelets 278 with 77% neutrophils and creatinine 1.54. Urinalysis is greater than 50 wbc's. ASSESSMENT AND DISCUSSION: Peripheral vascular disease, coronary artery disease, ischemic cardiomyopathy, chronic renal insufficiency stage 3, type 2 diabetes, bypass graft surgery, recent second and third rays of the distal phalanx amputation, revascularization of the peroneal artery with occlusion of the tibial artery, so now the patient has developed worsening neutrophilia and diarrhea, so we will have to rule out C difficile colitis. The other possibility would be transient bacteremia associated with the left lower extremity inflammatory process. She has had the amputation now and will not require long-term antimicrobial therapy, will probably be able to discontinue or remove the Dominguez catheter prior to discharge planning once this leukocytosis resolves and the etiological factor is identified. Job ID: [id number]
--- NOTE | 2019-10-10 15:47 | RAD ---
PORTABLE CHEST: 10/10/19 HISTORY: Leukocytosis. COMPARISON: 10/01/19. Cardiomegaly with postop sternotomy change. The central line is unchanged with tip overlying the SVC/ right atrium. Vascular markings are upper normal and stable. Hazy infiltrate or atelectasis in the right lower lung again noted. Tiny effusions may be present. IMPRESSION: Cardiomegaly with mild vascular engorgement. Hazy infiltrate in the right lower lung and small effusi ons. POS: AH
[2019-10-10] MEDS: NPH, Human Insulin Isophane 300 UNIT/3 ML VIAL SC SCH (20:35)
[2019-10-10] MEDS: Rosuvastatin 10 MG TAB PO SCH (20:36)
[2019-10-10] MEDS ORDERED: NPH, Human Insulin Isophane 300 UNIT/3 ML VIAL SC SCH (21:00)
[2019-10-11] MEDS: HYDROcodone/Acetaminophen 10/325 mg Tablet PO PRN ×3 (00:20→20:55)
[2019-10-11] MEDS: Ondansetron ODT 4 MG TAB PO PRN (00:21)
[2019-10-11] MEDS: Calcium Carbonate 500 MG ChewTAB PO PRN ×2 (04:19→18:19)
[2019-10-11 05:42] LABS: #Basophils 0.1 thou/uL (0.0-0.2); #Eosinphils 0.3 thou/uL (0.0-0.7); #Lymphocytes 2.4 thou/uL (1.20-3.40); #Monocytes 1.8 thou/uL (0.11-0.59); #Neutrophils 19.7 thou/uL (1.40-6.50); %Basophils 0.3 % (0.0-1.0); %Eosinophils 1.4 % (0.0-10.0); %Lymphocytes 9.8 % (21.0-51.0); %Monocytes 7.4 % (0.0-10.0); %Neutrophils 81.1 % (42.0-75.0); Mean Corpuscular HGB CONC 31.8 g/dL (32.0-36.0); Mean Corpuscular Hemoglobin 27.7 pg (27.0-31.0); Mean Corpuscular Volume 86.9 fL (78.0-98.0); Platelet Count 274 thou/uL (130-400); RBC Distribution Width 15.4 % (11.5-14.5); White Blood Cell (WBC) Count 24.3 thou/uL (4.8-10.8)
[2019-10-11 05:58] LABS: Anion Gap 11 mmol/L (10-20); BUN (Urea Nitrogen) 34 mg/dL (9.8-20.1); Calc. Creatinine Clearance 45 mL/min (70-130); Calcium 7.7 mg/dL (7.8-10.44); Carbon Dioxide 22 mmol/L (23-31); Chloride 98 mmol/L (98-107); Estimated GFR-MDRD 33; Glucose 90 mg/dL (80-115); Potassium 4.1 mmol/L (3.5-5.1); Sodium 127 mmol/L (136-145)
[2019-10-11] MEDS: Carvedilol 3.125 MG TAB PO SCH ×2 (09:26→20:55)
[2019-10-11] MEDS: Polyethylene Glycol 3350 17 GM Packet PO SCH (09:28)
[2019-10-11] MEDS: Senokot S 8.6-50 MG TAB PO SCH ×2 (09:28→20:05)
[2019-10-11] MEDS: Famotidine 20 MG TAB PO SCH ×3 (09:29→20:55)
[2019-10-11] MEDS: Ferrous Sulfate 325 MG TAB PO SCH ×3 (09:29→17:15)
[2019-10-11] MEDS: Aspirin 81 mg Enteric Coated Tablet PO SCH ×2 (09:29→11:21)
[2019-10-11] MEDS: Multivitamin W/ Minerals 1 TAB PO SCH (09:30)
[2019-10-11] MEDS: Isosorbide Dinitrate 20 MG TAB PO SCH ×4 (09:30→20:56)
[2019-10-11] MEDS: NPH, Human Insulin Isophane 300 UNIT/3 ML VIAL SC SCH ×2 (09:30→20:55)
[2019-10-11] MEDS: Amiodarone 200 MG TAB PO SCH ×2 (09:30→11:20)
[2019-10-11] MEDS: Ascorbic Acid 500 mg Chewable Tablet PO SCH ×2 (09:30→11:22)
[2019-10-11] MEDS: Clopidogrel Bisulfate 75 MG TAB PO SCH ×2 (09:30→11:21)
[2019-10-11] MEDS: Gabapentin 300 MG CAP PO SCH ×4 (09:30→20:54)
[2019-10-11] MEDS: Zinc Sulfate 220 MG CAP PO SCH ×2 (09:30→11:21)
[2019-10-11] MEDS: Ondansetron PF 4 MG/2 ML Vial IVP PRN (09:37)
--- NOTE | 2019-10-11 13:53 | PDOC.HOSPP ---
- Subjective Encounter Date: 10/11/19 Encounter Time: 10:30 Subjective: pt up in bed complains of pain around her urinary cath. - Objective Vital Signs & Weight: Vital Signs (12 hours) Temp Pulse Resp BP Pulse Ox 10/11/19 11:56 97.9 F 60 16 114/71 98 10/11/19 10:35 106/50 L 10/11/19 07:54 97.7 F 60 16 94/58 L 98 Weight Admit Weight 167 lb 9.6 oz Weight 167 lb 9.6 oz I&O: 10/10/19 10/11/19 10/12/19 06:59 06:59 06:59 Intake Total 530 600 Output Total 375 300 Balance 155 300 Result Diagrams: 10/11/19 05:29 10/11/19 05:29 Additional Labs: Accuchecks 10/11/19 10/11/19 10/10/19 12:04 04:05 20:18 POC Glucose 92 117 H 183 H 10/10/19 16:14 POC Glucose 231 H Hospitalist ROS - Review of Systems Cardiovascular: denies: chest pain, palpitations, orthopnea, paroxysmal noc. dyspnea, edema, light headedness, other Gastrointestinal: denies: nausea, vomiting, abdominal pain, diarrhea, constipation, melena, hematochezia, other Genitourinary: reports: dysuria Musculoskeletal: denies: neck pain, shoulder pain, arm pain, back pain, hand pain, leg pain, foot pain, other - Medication Medications: Active Medications Generic Name Dose Route Start Last Admin Trade Name Freq PRN Reason Stop Dose Admin Hydrocodone Bitart/Acetaminophen 2 tab 10/09/19 13:17 10/11/19 00:20 [place] 10/325 PO 2 tab Q4H PRN Administration PAIN SCALE 5-8 Amiodarone HCl 200 mg 09/25/19 09:00 10/11/19 11:20 Cordarone PO 200 mg DAILY LIN Administration Ascorbic Acid 500 mg 10/06/19 09:00 10/11/19 11:22 Vitamin C PO 500 mg DAILY LIN Administration Aspirin 81 mg 09/25/19 09:00 10/11/19 11:21 Ecotrin PO 81 mg DAILY LIN Administration Bisacodyl 10 mg 10/09/19 14:40 10/09/19 15:04 Dulcolax [place] 10 mg Q8H PRN Administration Constipation Calcium Carbonate 1,000 mg 09/23/19 18:19 10/11/19 04:19 Tums PO 1,000 mg Q4H PRN Administration Heartburn or Indigestion Carvedilol 3.125 mg 09/24/19 21:00 10/11/19 09:26 Coreg PO Not Given BID [facility] Clopidogrel Bisulfate 75 mg 09/27/19 09:00 10/11/19 11:21 Plavix PO 75 mg DAILY [facility] Administration Famotidine 20 mg 10/05/19 21:00 10/11/19 11:20 Pepcid PO 20 mg BID [facility] Administration Ferrous Sulfate 325 mg 10/05/19 17:00 10/11/19 11:22 Feosol PO 325 mg BID-WM [facility] Administration Gabapentin 300 mg 10/07/19 15:00 10/11/19 11:22 Neurontin PO Not Given TID [facility] Heparin Sodium (Porcine) 500 units 10/04/19 04:48 10/11/19 04:00 Heparin Lock Flush 100 Units/Ml IVF 500 unit PRN PRN Administration Heparin Flush Insulin Human Lispro 0 units 10/10/19 09:15 10/10/19 18:29 Humalog SC 3 unit .MILD SLIDING SCALE PRN Administration Mild Correctional Scale Insulin Human NPH 8 unit 10/10/19 21:00 10/11/19 09:30 Humulin N SC 8 unit BID [facility] Administration Iron/Minerals/Multivitamins 1 tab 10/06/19 09:00 10/11/19 09:30 Theragran M PO 1 tab DAILY [facility] Administration Isosorbide Dinitrate 20 mg 09/24/19 21:00 10/11/19 11:21 Isordil PO 20 mg TID [facility] Administration Ondansetron HCl 4 mg 09/23/19 18:19 10/11/19 00:21 Zofran Odt PO 4 mg Q6H PRN Administration Nausea/Vomiting Ondansetron HCl 4 mg 09/23/19 18:19 10/11/19 09:37 Zofran IVP 4 mg Q6H PRN Administration Nausea/Vomiting Polyethylene Glycol 17 gm 09/27/19 09:00 10/11/19 09:28 Miralax PO Not Given DAILY [facility] Rosuvastatin Calcium 10 mg 09/24/19 21:00 08/07/20 20:36 Crestor PO 10 mg HS LIN Administration Senna/Docusate Sodium 2 tab 10/05/19 21:00 10/11/19 09:28 Senokot S PO Not Given BID LIN Zinc Sulfate 220 mg 10/06/19 09:00 10/11/19 11:21 Zinc Sulfate PO 220 mg DAILY LIN Administration - Exam Neck: negative: supple, symmetric, no JVD, no thyromegaly, no lymphadenopathy, no carotid bruit, JVD Heart: negative: RRR, no murmur, no gallops, no rubs, normal peripheral pulses, irregular, diminshed peripheral pulses, murmur present, II/IV, III/IV Respiratory: negative: CTAB, no wheezes, no rales, no ronchi, normal chest expansion, no tachypnea, normal percussion, rales, rhonchi, tachypneic, wheezes Gastrointestinal: negative: soft, non-tender, non-distended, normal bowel sounds , no palpable masses, no hepatomegaly, no splenomegaly, no bruit, no guarding, no rigidity, tender to palpation, distended, diminished bowl sounds, voluntary guarding Extremities - other findings: left foot bka Hosp A/P (1) Anemia Code(s): D64.9 - ANEMIA, UNSPECIFIED Status: Acute Qualifiers: Anemia type: other cause Other causes of anemia: other cause, not classified Qualified Code(s): D64.89 - Other specified anemias (2) Below-knee amputation of left lower extremity Code(s): S88.112A - COMPLETE TRAUM AMP AT LEV BETW KN AND ANKL, L LOW LEG, INIT Status: Acute (3) PVD (peripheral vascular disease) Code(s): I73.9 - PERIPHERAL VASCULAR DISEASE, UNSPECIFIED Status: Acute (4) Acute renal failure superimposed on stage 3 chronic kidney disease Code(s): N17.9 - ACUTE KIDNEY FAILURE, UNSPECIFIED; N18.3 - CHRONIC KIDNEY DISEASE, STAGE 3 (MODERATE) Status: Acute (5) Hyponatremia Code(s): E87.1 - HYPO-OSMOLALITY AND HYPONATREMIA Status: Acute (6) Multi-vessel coronary artery stenosis Code(s): I25.10 - ATHSCL HEART DISEASE OF [place] CORONARY ARTERY W/O ANG PCTRS Status: Acute (7) DM2 (diabetes mellitus, type 2) Status: Chronic Qualifiers: Diabetes mellitus penitentiary insulin use: without assistant terminal manager use Diabetes mellitus complication status: with kidney complications Diabetes mellitus complication detail: with chronic kidney disease Chronic kidney disease stage : stage 3 (moderate) Qualified Code(s): E11.22 - Type 2 diabetes mellitus with diabetic chronic kidney disease; N18.3 - Chronic kidney disease, stage 3 ( moderate) (8) Leukocytosis Code(s): D72.829 - ELEVATED WHITE BLOOD CELL COUNT, UNSPECIFIED Status: Acute - Plan Diabetes type 2 Patient's blood sugars have been averaging 250-300. Patient reports tolerating diet well. Patient takes insulin 70/30, 15 units twice a day at home. We will start the patient on NPH 7 units twice daily. Will change sliding scale to mild sliding scale. Chronic anemia Patient's hemoglobin was 7.3 yesterday. There are no signs of any bruising or bleeding. Will check CBC. Hyponatremia Patient has chronic hyponatremia. Patient's sodium is slightly trending down. Corrected for elevated glucose, sodium of 130 as of yesterday. Will check BMP. Will stop IV fluids KVO. Left below the knee amputation Patient postop day #3. Diabetic toe ulcer s/p Left BKA PVD, chronic continue ASA and plavix Chronic kidney disease stage III Patient's creatinine is increasing. Changed scheduled Toradol to as needed. Will get BMP. Continue aspirin and Plavix. Continue PT/OT and WCT 8/8 unclear etiology of her leukocytosis. she is afebrile. UA/cxr/stool negative for infectious. will discontinue Jaramillo. she does have a central line. Her stump dressing looks stable. Pt has no fever. she is on asa/plavix. Not on AC due to low hh. she has been evaluated by gi in the past for hematochezia. She received one unit of blood. will get gi to see her.
[2019-10-11] MEDS: Rosuvastatin 10 MG TAB PO SCH (20:55)
[2019-10-12 08:52] LABS: ALT (SGPT) 14 U/L (8-55); AST (SGOT) 26 U/L (5-34); Alkaline Phosphatase 153 U/L (40-110); Anion Gap 8 mmol/L (10-20); BUN (Urea Nitrogen) 39 mg/dL (9.8-20.1); Bilirubin, Total 0.6 mg/dL (0.2-1.2); Calc. Creatinine Clearance 40 mL/min (70-130); Calcium 8.1 mg/dL (7.8-10.44); Carbon Dioxide 26 mmol/L (23-31); Chloride 97 mmol/L (98-107); Estimated GFR-MDRD 29; Globulin 5.1 g/dL (2.4-3.5); Glucose 91 mg/dL (80-115); Potassium 4.4 mmol/L (3.5-5.1); Protein, Total 7.1 g/dL (6.0-8.3); Sodium 127 mmol/L (136-145)
[2019-10-12] MEDS: Clopidogrel Bisulfate 75 MG TAB PO SCH (09:39)
[2019-10-12] MEDS: Carvedilol 3.125 MG TAB PO SCH ×2 (09:39→20:35)
[2019-10-12] MEDS: Aspirin 81 mg Enteric Coated Tablet PO SCH (09:39)
[2019-10-12] MEDS: Gabapentin 300 MG CAP PO SCH ×3 (09:40→20:35)
[2019-10-12] MEDS: HYDROcodone/Acetaminophen 10/325 mg Tablet PO PRN (09:40)
[2019-10-12] MEDS: Amiodarone 200 MG TAB PO SCH (09:40)
[2019-10-12] MEDS: Ferrous Sulfate 325 MG TAB PO SCH ×2 (09:40→15:37)
[2019-10-12] MEDS: Isosorbide Dinitrate 20 MG TAB PO SCH ×3 (09:40→20:36)
[2019-10-12] MEDS: Multivitamin W/ Minerals 1 TAB PO SCH (09:40)
[2019-10-12] MEDS: Ascorbic Acid 500 mg Chewable Tablet PO SCH (09:40)
[2019-10-12] MEDS: NPH, Human Insulin Isophane 300 UNIT/3 ML VIAL SC SCH ×2 (09:44→20:36)
[2019-10-12] MEDS: Polyethylene Glycol 3350 17 GM Packet PO SCH (09:44)
[2019-10-12] MEDS: Senokot S 8.6-50 MG TAB PO SCH ×2 (09:44→20:35)
[2019-10-12] MEDS: Zinc Sulfate 220 MG CAP PO SCH (10:33)
[2019-10-12] MEDS ORDERED: Boudreaux's Butt Paste 60 GM TUBE TOP PRN (10:54)
--- NOTE | 2019-10-12 12:36 | CT ---
CT abdomen and pelvis noncontrast HISTORY: Flank pain. FINDINGS: Each renal collecting system, ureter, and urinary bladder are decompressed. Within nondilat ed calyces of the right kidney are calcifications that are 0.3 cm and 0.2 cm greatest diameters. Very subtle stranding and fluid around the right kidney. A small dystrophic calcification within the right lower quadrant just anterior to the lower psoas muscle may be at an appendiceal base. An abnormal appendix is not evident. Lack of contrast limits evaluation of the soft tissues. Bilateral pleural fluid is similar in appeara nce to recent CT chest. There is calcification throughout the arterial structures. Reactive appearing lymph nodes within the retroperitoneum measure up to 1.7 cm length. There is nonsp ecific stranding within the right flank subcutaneous fat. Large amount of stool distends the right colon. Rectum is distended up to 6.6 cm width relative wall thickening. No adjacent fluid. Small amount of gas within the urinary bladder may be related to recent instrumentation. Chronic appearing compression deformity of the L4 vertebral body is apparent with mild retropulsion. Plate. IMPRESSION : Tiny nonobstructing right renal calculi. Subtle stranding within the fat around the right kidney coul d represent inflammation. Clinical correlation regarding other signs and symptoms of right pyelonephritis is required. No obstruction. Small bilateral pleural effusions are stable. Slightly thickened wall of the mildly distended rectum. Clinical correlation regarding other signs an d symptoms of stercoral proctitis is required. Constipation. Prominent atherosclerosis.
[2019-10-12] MEDS ORDERED: Magnesium Citrate 300 ML BOT PO SCH (13:15)
[2019-10-12] MEDS ORDERED: GoLYTELY 4,000 ml Bottle PO SCH (13:15)
[2019-10-12] MEDS: cefTRIAXone\\ROCEPHIN 1 GM in Sodium Chloride 0.9% 100 ML IVPB SCH (15:36)
[2019-10-12] MEDS: Rosuvastatin 10 MG TAB PO SCH (20:35)
[2019-10-12] MEDS ORDERED: Famotidine 20 MG TAB PO SCH (21:00)
[2019-10-13 05:33] LABS: #Basophils 0.1 thou/uL (0.0-0.2); #Eosinphils 0.4 thou/uL (0.0-0.7); #Lymphocytes 2.5 thou/uL (1.20-3.40); #Neutrophils 11.9 thou/uL (1.40-6.50); %Basophils 0.5 % (0.0-1.0); %Eosinophils 2.8 % (0.0-10.0); %Lymphocytes 15.8 % (21.0-51.0); %Monocytes 6.3 % (0.0-10.0); %Neutrophils 74.6 % (42.0-75.0); Hemoglobin 8.7 g/dL (12.0-16.0); Mean Corpuscular HGB CONC 30.9 g/dL (32.0-36.0); Mean Corpuscular Hemoglobin 26.7 pg (27.0-31.0); Mean Corpuscular Volume 86.4 fL (78.0-98.0); Mean Platelet Volume 7.3 fL (7.4-10.4); Platelet Count 375 thou/uL (130-400); RBC Distribution Width 15.4 % (11.5-14.5); Red Blood Cell (RBC) Count 3.25 mill/uL (4.20-5.40)
[2019-10-13 05:52] LABS: ALT (SGPT) 14 U/L (8-55); AST (SGOT) 24 U/L (5-34); Albumin 1.9 g/dL (3.4-4.8); Alkaline Phosphatase 151 U/L (40-110); Anion Gap 10 mmol/L (10-20); BUN (Urea Nitrogen) 35 mg/dL (9.8-20.1); Bilirubin, Total 0.4 mg/dL (0.2-1.2); Calc. Creatinine Clearance 54 mL/min (70-130); Carbon Dioxide 27 mmol/L (23-31); Chloride 98 mmol/L (98-107); Estimated GFR-MDRD 41; Globulin 4.8 g/dL (2.4-3.5); Glucose 105 mg/dL (80-115); Potassium 4.5 mmol/L (3.5-5.1); Protein, Total 6.7 g/dL (6.0-8.3); Sodium 130 mmol/L (136-145)
[2019-10-13] MEDS: Polyethylene Glycol 3350 17 GM Packet PO SCH (08:10)
[2019-10-13] MEDS: Aspirin 81 mg Enteric Coated Tablet PO SCH (08:11)
[2019-10-13] MEDS: Gabapentin 300 MG CAP PO SCH ×3 (08:11→20:44)
[2019-10-13] MEDS: Ascorbic Acid 500 mg Chewable Tablet PO SCH (08:11)
[2019-10-13] MEDS: Multivitamin W/ Minerals 1 TAB PO SCH (08:11)
[2019-10-13] MEDS: Isosorbide Dinitrate 20 MG TAB PO SCH ×3 (08:11→20:45)
[2019-10-13] MEDS: Amiodarone 200 MG TAB PO SCH (08:11)
[2019-10-13] MEDS: Clopidogrel Bisulfate 75 MG TAB PO SCH (08:11)
[2019-10-13] MEDS: HYDROcodone/Acetaminophen 10/325 mg Tablet PO PRN ×2 (08:11→14:07)
[2019-10-13] MEDS: Senokot S 8.6-50 MG TAB PO SCH ×2 (08:11→20:41)
[2019-10-13] MEDS: Carvedilol 3.125 MG TAB PO SCH ×2 (08:11→20:45)
[2019-10-13] MEDS: Ferrous Sulfate 325 MG TAB PO SCH ×2 (08:20→17:11)
[2019-10-13] MEDS: NPH, Human Insulin Isophane 300 UNIT/3 ML VIAL SC SCH ×2 (11:53→19:01)
[2019-10-13] MEDS: Zinc Sulfate 220 MG CAP PO SCH (11:53)
[2019-10-13] MEDS: cefTRIAXone\\ROCEPHIN 1 GM in Sodium Chloride 0.9% 100 ML IVPB SCH (14:07)
--- NOTE | 2019-10-13 15:52 | PDOC.HOSPP ---
- Subjective Encounter Date: 10/12/19 Encounter Time: 11:15 Subjective: pt up in bed states that she has some pain in her buttocks. - Objective Vital Signs & Weight: Vital Signs (12 hours) Temp Pulse Resp BP Pulse Ox 10/13/19 08:17 98.1 F 66 18 138/73 97 10/13/19 08:00 98.2 F 66 18 144/69 H 97 Weight Admit Weight 167 lb 9.6 oz Weight 167 lb 9.6 oz I&O: 10/12/19 10/13/19 10/14/19 06:59 06:59 06:59 Output Total 600 Balance -600 Result Diagrams: 10/13/19 05:07 10/13/19 05:07 Additional Labs: Accuchecks 10/13/19 10/12/19 10/12/19 11:06 20:38 16:32 POC Glucose 191 H 158 H 174 H Hospitalist ROS - Review of Systems Cardiovascular: denies: chest pain, palpitations, orthopnea, paroxysmal noc. dyspnea, edema, light headedness, other Gastrointestinal: denies: nausea, vomiting, abdominal pain, diarrhea, constipation, melena, hematochezia, other Musculoskeletal: denies: neck pain, shoulder pain, arm pain, back pain, hand pain, leg pain, foot pain, other - Medication Medications: Active Medications Generic Name Dose Route Start Last Admin Trade Name Freq PRN Reason Stop Dose Admin Hydrocodone Bitart/Acetaminophen 2 tab 10/09/19 13:17 10/13/19 14:07 [place] 10/325 PO 2 tab Q4H PRN Administration PAIN SCALE 5-8 Amiodarone HCl 200 mg 09/25/19 09:00 10/13/19 08:11 Cordarone PO 200 mg DAILY LIN Administration Ascorbic Acid 500 mg 10/06/19 09:00 10/13/19 08:11 Vitamin C PO 500 mg DAILY LIN Administration Aspirin 81 mg 09/25/19 09:00 10/13/19 08:11 Ecotrin PO 81 mg DAILY LIN Administration Bisacodyl 10 mg 10/09/19 14:40 10/09/19 15:04 Dulcolax [place] 10 mg Q8H PRN Administration Constipation Calcium Carbonate 1,000 mg 09/23/19 18:19 10/11/19 18:19 Tums PO 1,000 mg Q4H PRN Administration Heartburn or Indigestion Carvedilol 3.125 mg 09/24/19 21:00 10/13/19 08:11 Coreg PO 3.125 mg BID [facility] Administration Clopidogrel Bisulfate 75 mg 09/27/19 09:00 10/13/19 08:11 Plavix PO 75 mg DAILY [facility] Administration Fentanyl 50 mcg 10/09/19 13:18 10/11/19 23:06 Sublimaze SLOW IVP 50 mcg Q1H PRN Administration BREAK[employer] Ferrous Sulfate 325 mg 10/05/19 17:00 10/13/19 08:20 Feosol PO 325 mg BID-WM [facility] Administration Gabapentin 300 mg 10/07/19 15:00 10/13/19 14:07 Neurontin PO 300 mg TID [facility] Administration Heparin Sodium (Porcine) 500 units 10/04/19 04:48 10/11/19 04:00 Heparin Lock Flush 100 Units/Ml IVF 500 unit PRN PRN Administration Heparin Flush Ceftriaxone Sodium 1 gm/ 100 mls @ 200 mls/hr 10/12/19 15:00 10/13/19 14:07 Sodium Chloride IVPB 100 mls Q24HR [facility] Administration Insulin Human Lispro 0 units 10/10/19 09:15 10/10/19 18:29 Humalog SC 3 unit .MILD SLIDING SCALE PRN Administration Mild Correctional Scale Insulin Human NPH 8 unit 10/10/19 21:00 10/13/19 11:53 Humulin N SC Not Given BID [facility] Iron/Minerals/Multivitamins 1 tab 10/06/19 09:00 10/13/19 08:11 Theragran M PO 1 tab DAILY [facility] Administration Isosorbide Dinitrate 20 mg 09/24/19 21:00 10/13/19 14:07 Isordil PO 20 mg TID [facility] Administration Ondansetron HCl 4 mg 09/23/19 18:19 10/11/19 00:21 Zofran Odt PO 4 mg Q6H PRN Administration Nausea/Vomiting Ondansetron HCl 4 mg 09/23/19 18:19 10/11/19 09:37 Zofran IVP 4 mg Q6H PRN Administration Nausea/Vomiting Polyethylene Glycol 17 gm 09/27/19 09:00 10/13/19 08:10 Miralax PO 17 gm DAILY [facility] Administration Rosuvastatin Calcium 10 mg 09/24/19 21:00 10/12/19 20:35 Crestor PO 10 mg HS LIN Administration Senna/Docusate Sodium 2 tab 10/05/19 21:00 10/13/19 08:11 Senokot S PO 2 tab BID LIN Administration Zinc Sulfate 220 mg 10/06/19 09:00 10/13/19 11:53 Zinc Sulfate PO Not Given DAILY LIN - Exam Neck: negative: supple, symmetric, no JVD, no thyromegaly, no lymphadenopathy, no carotid bruit, JVD Heart: negative: RRR, no murmur, no gallops, no rubs, normal peripheral pulses, irregular, diminshed peripheral pulses, murmur present, II/IV, III/IV Respiratory: negative: CTAB, no wheezes, no rales, no ronchi, normal chest expansion, no tachypnea, normal percussion, rales, rhonchi, tachypneic, wheezes Gastrointestinal: negative: soft, non-tender, non-distended, normal bowel sounds , no palpable masses, no hepatomegaly, no splenomegaly, no bruit, no guarding, no rigidity, tender to palpation, distended, diminished bowl sounds, voluntary guarding Hosp A/P (1) Anemia Code(s): D64.9 - ANEMIA, UNSPECIFIED Status: Acute Qualifiers: Anemia type: other cause Other causes of anemia: other cause, not classified Qualified Code(s): D64.89 - Other specified anemias (2) Below-knee amputation of left lower extremity Code(s): S88.112A - COMPLETE TRAUM AMP AT LEV BETW KN AND ANKL, L LOW LEG, INIT Status: Acute (3) PVD (peripheral vascular disease) Code(s): I73.9 - PERIPHERAL VASCULAR DISEASE, UNSPECIFIED Status: Acute (4) Acute renal failure superimposed on stage 3 chronic kidney disease Code(s): N17.9 - ACUTE KIDNEY FAILURE, UNSPECIFIED; N18.3 - CHRONIC KIDNEY DISEASE, STAGE 3 (MODERATE) Status: Acute (5) Hyponatremia Code(s): E87.1 - HYPO-OSMOLALITY AND HYPONATREMIA Status: Acute (6) Multi-vessel coronary artery stenosis Code(s): I25.10 - ATHSCL HEART DISEASE OF [place] CORONARY ARTERY W/O ANG PCTRS Status: Acute (7) DM2 (diabetes mellitus, type 2) Status: Chronic Qualifiers: Diabetes mellitus custodial insulin use: without longwall headgate operator use Diabetes mellitus complication status: with kidney complications Diabetes mellitus complication detail: with chronic kidney disease Chronic kidney disease stage : stage 3 (moderate) Qualified Code(s): E11.22 - Type 2 diabetes mellitus with diabetic chronic kidney disease; N18.3 - Chronic kidney disease, stage 3 ( moderate) (8) Leukocytosis Code(s): D72.829 - ELEVATED WHITE BLOOD CELL COUNT, UNSPECIFIED Status: Acute - Plan Diabetes type 2 Patient's blood sugars have been averaging 250-300. Patient reports tolerating diet well. Patient takes insulin 70/30, 15 units twice a day at home. We will start the patient on NPH 7 units twice daily. Will change sliding scale to mild sliding scale. Chronic anemia Patient's hemoglobin was 7.3 yesterday. There are no signs of any bruising or bleeding. Will check CBC. Hyponatremia Patient has chronic hyponatremia. Patient's sodium is slightly trending down. Corrected for elevated glucose, sodium of 130 as of yesterday. Will check BMP. Will stop IV fluids KVO. Left below the knee amputation Patient postop day #3. Diabetic toe ulcer s/p Left BKA PVD, chronic continue ASA and plavix Chronic kidney disease stage III Patient's creatinine is increasing. Changed scheduled Toradol to as needed. Will get BMP. Continue aspirin and Plavix. Continue PT/OT and WCT 10/10 unclear etiology of her leukocytosis. she is afebrile. UA/cxr/stool negative for infectious. will discontinue Jaramillo. she does have a central line. Her stump dressing looks stable. Pt has no fever. she is on asa/plavix. Not on AC due to low hh. she has been evaluated by gi in the past for hematochezia. She received one unit of blood. will get gi to see her. 10/[address] abd/pel since she continues to have leukocytosis. will consult gi.
--- NOTE | 2019-10-13 15:54 | PDOC.HOSPP ---
- Subjective Encounter Date: 10/13/19 Encounter Time: 11:15 Subjective: pt up in bed no complains - Objective Vital Signs & Weight: Vital Signs (12 hours) Temp Pulse Resp BP Pulse Ox 10/13/19 08:17 98.1 F 66 18 138/73 97 10/13/19 08:00 98.2 F 66 18 144/69 H 97 Weight Admit Weight 167 lb 9.6 oz Weight 167 lb 9.6 oz I&O: 10/12/19 10/13/19 10/14/19 06:59 06:59 06:59 Output Total 600 Balance -600 Result Diagrams: 10/13/19 05:07 10/13/19 05:07 Additional Labs: Accuchecks 10/13/19 10/12/19 10/12/19 11:06 20:38 16:32 POC Glucose 191 H 158 H 174 H Hospitalist ROS - Review of Systems Cardiovascular: denies: chest pain, palpitations, orthopnea, paroxysmal noc. dyspnea, edema, light headedness, other Gastrointestinal: denies: nausea, vomiting, abdominal pain, diarrhea, constipation, melena, hematochezia, other Genitourinary: denies: dysuria, frequency, incontinence, hematuria, retention, other - Medication Medications: Active Medications Generic Name Dose Route Start Last Admin Trade Name Freq PRN Reason Stop Dose Admin Hydrocodone Bitart/Acetaminophen 2 tab 10/09/19 13:17 10/13/19 14:07 [place] 10/325 PO 2 tab Q4H PRN Administration PAIN SCALE 5-8 Amiodarone HCl 200 mg 09/25/19 09:00 10/13/19 08:11 Cordarone PO 200 mg DAILY LIN Administration Ascorbic Acid 500 mg 10/06/19 09:00 10/13/19 08:11 Vitamin C PO 500 mg DAILY LIN Administration Aspirin 81 mg 09/25/19 09:00 10/13/19 08:11 Ecotrin PO 81 mg DAILY LIN Administration Bisacodyl 10 mg 10/09/19 14:40 10/09/19 15:04 Dulcolax [place] 10 mg Q8H PRN Administration Constipation Calcium Carbonate 1,000 mg 09/23/19 18:19 10/11/19 18:19 Tums PO 1,000 mg Q4H PRN Administration Heartburn or Indigestion Carvedilol 3.125 mg 09/24/19 21:00 10/13/19 08:11 Coreg PO 3.125 mg BID LIN Administration Clopidogrel Bisulfate 75 mg 09/27/19 09:00 10/13/19 08:11 Plavix PO 75 mg DAILY [facility] Administration Fentanyl 50 mcg 10/09/19 13:18 10/11/19 23:06 Sublimaze SLOW IVP 50 mcg Q1H PRN Administration BREAKTHRU PAIN Ferrous Sulfate 325 mg 10/05/19 17:00 10/13/19 08:20 Feosol PO 325 mg BID-WM LIN Administration Gabapentin 300 mg 10/07/19 15:00 10/13/19 14:07 Neurontin PO 300 mg TID [facility] Administration Heparin Sodium (Porcine) 500 units 10/04/19 04:48 10/11/19 04:00 Heparin Lock Flush 100 Units/Ml IVF 500 unit PRN PRN Administration Heparin Flush Ceftriaxone Sodium 1 gm/ 100 mls @ 200 mls/hr 10/12/19 15:00 10/13/19 14:07 Sodium Chloride IVPB 100 mls Q24HR LIN Administration Insulin Human Lispro 0 units 10/10/19 09:15 10/10/19 18:29 Humalog SC 3 unit .MILD SLIDING SCALE PRN Administration Mild Correctional Scale Insulin Human NPH 8 unit 10/10/19 21:00 10/13/19 11:53 Humulin N SC Not Given BID [facility] Iron/Minerals/Multivitamins 1 tab 10/06/19 09:00 10/13/19 08:11 Theragran M PO 1 tab DAILY [facility] Administration Isosorbide Dinitrate 20 mg 09/24/19 21:00 10/13/19 14:07 Isordil PO 20 mg TID [facility] Administration Ondansetron HCl 4 mg 09/23/19 18:19 10/11/19 00:21 Zofran Odt PO 4 mg Q6H PRN Administration Nausea/Vomiting Ondansetron HCl 4 mg 09/23/19 18:19 10/11/19 09:37 Zofran IVP 4 mg Q6H PRN Administration Nausea/Vomiting Polyethylene Glycol 17 gm 09/27/19 09:00 10/13/19 08:10 Miralax PO 17 gm DAILY [facility] Administration Rosuvastatin Calcium 10 mg 09/24/19 21:00 10/12/19 20:35 Crestor PO 10 mg HS LIN Administration Senna/Docusate Sodium 2 tab 10/05/19 21:00 10/13/19 08:11 Senokot S PO 2 tab BID LIN Administration Zinc Sulfate 220 mg 10/06/19 09:00 10/13/19 11:53 Zinc Sulfate PO Not Given DAILY LIN - Exam Neck: negative: supple, symmetric, no JVD, no thyromegaly, no lymphadenopathy, no carotid bruit, JVD Heart: negative: RRR, no murmur, no gallops, no rubs, normal peripheral pulses, irregular, diminshed peripheral pulses, murmur present, II/IV, III/IV Respiratory: negative: CTAB, no wheezes, no rales, no ronchi, normal chest expansion, no tachypnea, normal percussion, rales, rhonchi, tachypneic, wheezes Hosp A/P (1) Anemia Code(s): D64.9 - ANEMIA, UNSPECIFIED Status: Acute Qualifiers: Anemia type: other cause Other causes of anemia: other cause, not classified Qualified Code(s): D64.89 - Other specified anemias (2) Below-knee amputation of left lower extremity Code(s): S88.112A - COMPLETE TRAUM AMP AT LEV BETW KN AND ANKL, L LOW LEG, INIT Status: Acute (3) PVD (peripheral vascular disease) Code(s): I73.9 - PERIPHERAL VASCULAR DISEASE, UNSPECIFIED Status: Acute (4) Acute renal failure superimposed on stage 3 chronic kidney disease Code(s): N17.9 - ACUTE KIDNEY FAILURE, UNSPECIFIED; N18.3 - CHRONIC KIDNEY DISEASE, STAGE 3 (MODERATE) Status: Acute (5) Hyponatremia Code(s): E87.1 - HYPO-OSMOLALITY AND HYPONATREMIA Status: Acute (6) Multi-vessel coronary artery stenosis Code(s): I25.10 - ATHSCL HEART DISEASE OF [place] CORONARY ARTERY W/O ANG PCTRS Status: Acute (7) DM2 (diabetes mellitus, type 2) Status: Chronic Qualifiers: Diabetes mellitus ferry terminal agent insulin use: without ferry terminal agent use Diabetes mellitus complication status: with kidney complications Diabetes mellitus complication detail: with chronic kidney disease Chronic kidney disease stage : stage 3 (moderate) Qualified Code(s): E11.22 - Type 2 diabetes mellitus with diabetic chronic kidney disease; N18.3 - Chronic kidney disease, stage 3 ( moderate) (8) Leukocytosis Code(s): D72.829 - ELEVATED WHITE BLOOD CELL COUNT, UNSPECIFIED Status: Acute - Plan Diabetes type 2 Patient's blood sugars have been averaging 250-300. Patient reports tolerating diet well. Patient takes insulin 70/30, 15 units twice a day at home. We will start the patient on NPH 7 units twice daily. Will change sliding scale to mild sliding scale. Chronic anemia Patient's hemoglobin was 7.3 yesterday. There are no signs of any bruising or bleeding. Will check CBC. Hyponatremia Patient has chronic hyponatremia. Patient's sodium is slightly trending down. Corrected for elevated glucose, sodium of 130 as of yesterday. Will check BMP. Will stop IV fluids KVO. Left below the knee amputation Patient postop day #3. Diabetic toe ulcer s/p Left BKA PVD, chronic continue ASA and plavix Chronic kidney disease stage III Patient's creatinine is increasing. Changed scheduled Toradol to as needed. Will get BMP. Continue aspirin and Plavix. Continue PT/OT and WCT 10/10 unclear etiology of her leukocytosis. she is afebrile. UA/cxr/stool negative for infectious. will discontinue Jaramillo. she does have a central line. Her stump dressing looks stable. Pt has no fever. she is on asa/plavix. Not on AC due to low hh. she has been evaluated by gi in the past for hematochezia. She received one unit of blood. will get gi to see her. 10/[address] abd/pel since she continues to have leukocytosis. will consult gi. 10/[address] abd/pel indicates some stranding and significant stool. will give her mag citrate.
--- NOTE | 2019-10-13 16:40 | CON ---
DATE OF CONSULTATION: REASON FOR CONSULTATION: Anemia with ongoing transfusion requirements, reported heme-positive stool. HISTORY OF PRESENT ILLNESS: Ms. Prado was initially in the hospital here from July 28 to August 07 with an infected right great toe, heart failure, mild anemia, and a non-Q-wave MO. She also required a CABG. She was readmitted from 08/15 to with regard to issues with infection of her toe and some heart failure. At that time, she was seen by Dr. Mcnair for anemia and he felt that she was not having any acute bleeding and ultimately would need a colonoscopy. She had apparently had some hematochezia during that admission, but she was not to be medically stable for that procedure at the time. Ultimately, she had to have a PTCA in the left leg and then amputation. She has had a chronic infection in the area, which is being managed by Dr. Vanegas with antibiotics and it is felt that she will need long-term antibiotics. The patient developed a neutrophilia and diarrhea. C difficile was checked and was negative. A CAT scan ultimately was performed, showing a large fecal impaction. The nurses informed me that it has been resolved now with enemas and laxatives. There has been no overt bleeding reported by the nurses. However, stool was performed, sent for Hemoccult on 10/11 that was positive. The CAT scan suggests that she may have a stercoral ulcer. The patient denies any previous colonoscopies or rectal pain or overt bleeding. Stool was negative for C diff or lactoferrin. Her urine culture did show Rosario albicans on 10/09 and toe cultures ultimately showed E coli and Bacteroides. Reviewing the patient's labs, her hemoglobin was 10.4 on 07/15 when she first presented to this hospital. She had MCV of 88 then. Presently today, her hemoglobin is 8.7, it was 8 yesterday. She has received 8 units of blood since 07/30. She received 3 units at the end of September and she has received 3 units here in October on the , and the . The patient knows of no prior history of anemia, and denies prior history of ulcers or endoscopies. Iron was checked on 09/22, it was 8 with a saturation of 6% and a ferritin of 556. She had a B12 greater than 2000 and a folate of 31. Her cortisol was 47. TSH 1.9. She is on H2 alyce for ulcer prophylaxis and is on Plavix. PAST MEDICAL HISTORY: Congestive heart failure, her EF has improved since bypass, about 45%; peripheral vascular disease, status post revascularization and amputation; osteomyelitis in the foot; diabetes, type 2; coronary artery disease, status post bypass; chronic kidney disease, stage 3 to 4. SURGICAL HISTORY: Right knee replacement in addition to above surgeries. SOCIAL HISTORY: She is from [facility] and she came in the Spring and was supposed to go back, but her flight was canceled and she has been here with family. She is a never smoker. She does not drink. MEDICATIONS: 1. Amiodarone. 2. Vitamin C. 3. Ecotrin. 4. Dulcolax. 5. Tums. 6. Coreg. 7. Rocephin. 8. Plavix 75 mg daily. 9. Pepcid. 10. Fentanyl. 11. Iron. 12. Gabapentin. 13. Glucagon. 14. P.r.n. [place]. 15. Insulin sliding scale. 16. Isosorbide. 17. Triple antibiotic ointment to her foot. 18. MiraLAX p.r.n. 19. Senokot . REVIEW OF SYSTEMS: She denies pain in her abdomen. She denies any melena, hematochezia, or hematemesis. Denies dysphagia or odynophagia. She has not been getting up well, nurse notes she does not like to. She denies any chest pain or shortness of breath. PHYSICAL EXAMINATION: VITAL SIGNS: Temperature 98, pulse 66, blood pressure 130/73. HEENT: Oropharynx, no lesions. NECK: Supple. LUNGS: Clear. HEART: Regular without clicks or murmurs. ABDOMEN: Soft and nontender. EXTREMITIES: No clubbing, cyanosis, or edema. RECTAL: Reveals no blood in the vault. There is redundant rectal tissue with no masses or lesions palpated. LABORATORY DATA: Other than noted in HPI, sodium 130, potassium 4.5, BUN and creatinine are 35 and 1.32. AST and ALT are 24 and 14, and alkaline phosphatase is 151, albumin is 1.9, protein 6.7. White count 16, down from 24; hemoglobin 8.7; platelet count 375. CT scan from yesterday, films reviewed, stercoral ulcer definitely was present. There seems to be some nonobstructing right renal calculi, subtle fat stranding on the right kidney, bilateral pleural effusions, slight rectal thickening, atherosclerotic vessel disease. ASSESSMENT: Anemia, in this case is likely multifactorial. She did have some large fecal impaction, likely has some stercoral ulceration. She has not had any significant bleeding to account for her transfusion requirement here. I suspect it is related to chronic disease or multiple surgeries and interventions. I agree with Dr. Mcnair, an endoscopy would be reasonable at some point in time, but probably not right now. We will continue to follow along with you. We would place her on a PPI. If she continues to have diarrhea, we will check stool for ameba. Dr. Mcnair will resume her care tomorrow. Job ID: [id number]
[2019-10-13] MEDS ORDERED: GoLYTELY 4,000 ml Bottle PO SCH (17:00)
[2019-10-13] MEDS: HumaLOG 300 UNITS/3 ML VIAL SC PRN (17:13)
[2019-10-13] MEDS: Rosuvastatin 10 MG TAB PO SCH (20:44)
[2019-10-13] MEDS: Ondansetron ODT 4 MG TAB PO PRN (20:45)
[2019-10-14 06:12] LABS: Bilirubin Negative (Negative); Blood, Urine Negative (Negative); Glucose, Urine (Dipstick) Negative (Negative); Ketone, Urine Negative (Negative); Leukocyte Moderate (Negative); Nitrite Negative (Negative); Protein, Urine (Dipstick) Negative (Neg-Trace); Specific Gravity, Urine 1.015 (1.005-1.030); Urobilinogen 0.2 mg/dL (Less than 2); pH, Urine 5.5 (5.0-9.0)
[2019-10-14 06:15] LABS: Clarity Hazy (Clear)
[2019-10-14 06:21] LABS: Squamous Epithelial None Seen HPF (0-3); WBC/HPF Greater than 50 HPF (0-3); Yeast-Budding 2+ HPF (None Seen)
[2019-10-14 06:23] LABS: Bacteria/HPF 1+ HPF (None Seen)
[2019-10-14 06:24] LABS: Unclassified Crystals 1+ HPF (None Seen)
[2019-10-14] MEDS: NPH, Human Insulin Isophane 300 UNIT/3 ML VIAL SC SCH ×2 (08:30→21:40)
[2019-10-14] MEDS: Carvedilol 3.125 MG TAB PO SCH ×2 (08:38→22:31)
[2019-10-14] MEDS: Zinc Sulfate 220 MG CAP PO SCH (08:38)
[2019-10-14] MEDS ORDERED: PROPOFOL 200 MG/20 ML VIAL ONE (10:05)
[2019-10-14] MEDS ORDERED: Lidocaine 1% PF 5 ML VIAL ONE (10:05)
[2019-10-14] MEDS: Aspirin 81 mg Enteric Coated Tablet PO SCH (13:32)
[2019-10-14] MEDS: Amiodarone 200 MG TAB PO SCH (13:32)
[2019-10-14] MEDS: Ferrous Sulfate 325 MG TAB PO SCH ×2 (13:32→18:00)
[2019-10-14] MEDS: Clopidogrel Bisulfate 75 MG TAB PO SCH (13:32)
[2019-10-14] MEDS: Gabapentin 300 MG CAP PO SCH ×3 (13:33→22:30)
[2019-10-14] MEDS: Multivitamin W/ Minerals 1 TAB PO SCH (13:33)
[2019-10-14] MEDS: Ascorbic Acid 500 mg Chewable Tablet PO SCH (13:33)
[2019-10-14] MEDS: Isosorbide Dinitrate 20 MG TAB PO SCH ×3 (13:33→22:32)
[2019-10-14] MEDS: Senokot S 8.6-50 MG TAB PO SCH ×2 (13:33→22:31)
[2019-10-14] MEDS: Polyethylene Glycol 3350 17 GM Packet PO SCH (13:34)
[2019-10-14] MEDS: cefTRIAXone\\ROCEPHIN 1 GM in Sodium Chloride 0.9% 100 ML IVPB SCH (13:35)
[2019-10-14] MEDS: HumaLOG 300 UNITS/3 ML VIAL SC PRN ×2 (13:46→18:40)
--- NOTE | 2019-10-14 14:30 | PDOC.HOSPP ---
- Subjective Encounter Date: 10/14/19 Encounter Time: 14:00 Subjective: pt up in bed no complains - Objective Vital Signs & Weight: Vital Signs (12 hours) Temp Pulse Resp BP Pulse Ox 10/14/19 12:23 98.2 F 63 125/62 95 10/14/19 08:00 94 L 10/14/19 07:30 98.1 F 64 16 157/75 H 94 L Weight Admit Weight 167 lb 9.6 oz Weight 167 lb 9.6 oz Result Diagrams: 10/13/19 05:07 10/13/19 05:07 Additional Labs: Accuchecks 10/14/19 10/13/19 10/13/19 13:49 20:45 16:43 POC Glucose 190 H 231 H 265 H Hospitalist ROS - Review of Systems Cardiovascular: denies: chest pain, palpitations, orthopnea, paroxysmal noc. dyspnea, edema, light headedness, other Gastrointestinal: denies: nausea, vomiting, abdominal pain, diarrhea, constipation, melena, hematochezia, other Genitourinary: denies: dysuria, frequency, incontinence, hematuria, retention, other - Medication Medications: Active Medications Generic Name Dose Route Start Last Admin Trade Name Freq PRN Reason Stop Dose Admin Hydrocodone Bitart/Acetaminophen 2 tab 10/09/19 13:17 10/13/19 14:07 [place] 10/325 PO 2 tab Q4H PRN Administration PAIN SCALE 5-8 Amiodarone HCl 200 mg 09/25/19 09:00 10/14/19 13:32 Cordarone PO 200 mg DAILY LIN Administration Ascorbic Acid 500 mg 10/06/19 09:00 10/14/19 13:33 Vitamin C PO 500 mg DAILY LIN Administration Aspirin 81 mg 09/25/19 09:00 10/14/19 13:32 Ecotrin PO 81 mg DAILY LIN Administration Bisacodyl 10 mg 10/09/19 14:40 10/09/19 15:04 Dulcolax [place] 10 mg Q8H PRN Administration Constipation Calcium Carbonate 1,000 mg 09/23/19 18:19 10/11/19 18:19 Tums PO 1,000 mg Q4H PRN Administration Heartburn or Indigestion Carvedilol 3.125 mg 09/24/19 21:00 10/14/19 08:38 Coreg PO 3.125 mg BID LIN Administration Clopidogrel Bisulfate 75 mg 09/27/19 09:00 10/14/19 13:32 Plavix PO 75 mg DAILY LIN Administration Fentanyl 50 mcg 10/09/19 13:18 10/11/19 23:06 Sublimaze SLOW IVP 50 mcg Q1H PRN Administration BREAKTHRU PAIN Ferrous Sulfate 325 mg 10/05/19 17:00 10/14/19 13:32 Feosol PO Not Given BID-WM LIN Gabapentin 300 mg 10/07/19 15:00 10/14/19 13:33 Neurontin PO 300 mg TID LIN Administration Heparin Sodium (Porcine) 500 units 10/04/19 04:48 10/11/19 04:00 Heparin Lock Flush 100 Units/Ml IVF 500 unit PRN PRN Administration Heparin Flush Ceftriaxone Sodium 1 gm/ 100 mls @ 200 mls/hr 10/12/19 15:00 10/14/19 13:35 Sodium Chloride IVPB 100 mls Q24HR LIN Administration Insulin Human Lispro 0 units 10/10/19 09:15 10/13/19 17:13 Humalog SC 4 unit .MILD SLIDING SCALE PRN Administration Mild Correctional Scale Insulin Human NPH 8 unit 10/10/19 21:00 10/13/19 19:01 Humulin N SC Not Given BID [facility] Iron/Minerals/Multivitamins 1 tab 10/06/19 09:00 10/14/19 13:33 Theragran M PO 1 tab DAILY [facility] Administration Isosorbide Dinitrate 20 mg 09/24/19 21:00 10/14/19 13:33 Isordil PO 20 mg TID [facility] Administration Ondansetron HCl 4 mg 09/23/19 18:19 10/13/19 20:45 Zofran Odt PO 4 mg Q6H PRN Administration Nausea/Vomiting Ondansetron HCl 4 mg 09/23/19 18:19 10/11/19 09:37 Zofran IVP 4 mg Q6H PRN Administration Nausea/Vomiting Pantoprazole Sodium 40 mg 10/14/19 09:00 10/14/19 13:33 Protonix PO 40 mg DAILY [facility] Administration Polyethylene Glycol 17 gm 09/27/19 09:00 10/14/19 13:34 Miralax PO 17 gm DAILY [facility] Administration Rosuvastatin Calcium 10 mg 09/24/19 21:00 10/13/19 20:44 Crestor PO 10 mg HS LIN Administration Senna/Docusate Sodium 2 tab 10/05/19 21:00 10/14/19 13:33 Senokot S PO 2 tab BID LIN Administration Zinc Sulfate 220 mg 10/06/19 09:00 10/13/19 11:53 Zinc Sulfate PO Not Given DAILY LIN - Exam Heart: negative: RRR, no murmur, no gallops, no rubs, normal peripheral pulses, irregular, diminshed peripheral pulses, murmur present, II/IV, III/IV Respiratory: negative: CTAB, no wheezes, no rales, no ronchi, normal chest expansion, no tachypnea, normal percussion, rales, rhonchi, wheezes Gastrointestinal: negative: soft, non-tender, non-distended, normal bowel sounds , no palpable masses, no hepatomegaly, no splenomegaly, no bruit, no guarding, no rigidity, tender to palpation, distended, diminished bowl sounds, voluntary guarding Extremities: 1+ LE edema Extremities - other findings: left below the knee amputation Hosp A/P (1) Anemia Code(s): D64.9 - ANEMIA, UNSPECIFIED Status: Acute Qualifiers: Anemia type: other cause Other causes of anemia: other cause, not classified Qualified Code(s): D64.89 - Other specified anemias (2) Below-knee amputation of left lower extremity Code(s): S88.112A - COMPLETE TRAUM AMP AT LEV BETW KN AND ANKL, L LOW LEG, INIT Status: Acute (3) PVD (peripheral vascular disease) Code(s): I73.9 - PERIPHERAL VASCULAR DISEASE, UNSPECIFIED Status: Acute (4) Acute renal failure superimposed on stage 3 chronic kidney disease Code(s): N17.9 - ACUTE KIDNEY FAILURE, UNSPECIFIED; N18.3 - CHRONIC KIDNEY DISEASE, STAGE 3 (MODERATE) Status: Acute (5) Hyponatremia Code(s): E87.1 - HYPO-OSMOLALITY AND HYPONATREMIA Status: Acute (6) Multi-vessel coronary artery stenosis Code(s): I25.10 - ATHSCL HEART DISEASE OF [place] CORONARY ARTERY W/O ANG PCTRS Status: Acute (7) DM2 (diabetes mellitus, type 2) Status: Chronic Qualifiers: Diabetes mellitus longterm insulin use: without longterm use Diabetes mellitus complication status: with kidney complications Diabetes mellitus complication detail: with chronic kidney disease Chronic kidney disease stage : stage 3 (moderate) Qualified Code(s): E11.22 - Type 2 diabetes mellitus with diabetic chronic kidney disease; N18.3 - Chronic kidney disease, stage 3 ( moderate) (8) Leukocytosis Code(s): D72.829 - ELEVATED WHITE BLOOD CELL COUNT, UNSPECIFIED Status: Acute - Plan Diabetes type 2 Patient's blood sugars have been averaging 250-300. Patient reports tolerating diet well. Patient takes insulin 70/30, 15 units twice a day at home. We will start the patient on NPH 7 units twice daily. Will change sliding scale to mild sliding scale. Chronic anemia Patient's hemoglobin was 7.3 yesterday. There are no signs of any bruising or bleeding. Will check CBC. Hyponatremia Patient has chronic hyponatremia. Patient's sodium is slightly trending down. Corrected for elevated glucose, sodium of 130 as of yesterday. Will check BMP. Will stop IV fluids KVO. Left below the knee amputation Patient postop day #3. Diabetic toe ulcer s/p Left BKA PVD, chronic continue ASA and plavix Chronic kidney disease stage III Patient's creatinine is increasing. Changed scheduled Toradol to as needed. Will get BMP. Continue aspirin and Plavix. Continue PT/OT and WCT 10/10 unclear etiology of her leukocytosis. she is afebrile. UA/cxr/stool negative for infectious. will discontinue Jaramillo. she does have a central line. Her stump dressing looks stable. Pt has no fever. she is on asa/plavix. Not on AC due to low hh. she has been evaluated by gi in the past for hematochezia. She received one unit of blood. will get gi to see her. 10/[address] abd/pel since she continues to have leukocytosis. will consult gi. 10/[address] abd/pel indicates some stranding and significant stool. will give her mag citrate. 10/13 pt still has stool in her colon so unable to do colonoscopy. pt also has urinary retention will do in and out. i am concern that she is post of and is not moving much she is at a high risk of dvt/PE will start her on Lovenox and see how she does. Her wbc has improved. will continue abx for now.
[2019-10-14] MEDS ORDERED: GoLYTELY 4,000 ml Bottle PO SCH (17:00)
[2019-10-14] MEDS: Ondansetron ODT 4 MG TAB PO PRN (18:00)
[2019-10-14] MEDS: Rosuvastatin 10 MG TAB PO SCH (22:30)
[2019-10-14] MEDS: Enoxaparin Sodium 30 MG/0.3 ML SYRINGE SC SCH (22:33)
[2019-10-15] MEDS: Carvedilol 3.125 MG TAB PO SCH ×2 (09:46→19:43)
[2019-10-15] MEDS ORDERED: Lidocaine 1% PF 5 ML VIAL ONE (09:58)
[2019-10-15] MEDS ORDERED: PROPOFOL 200 MG/20 ML VIAL ONE (09:58)
--- NOTE | 2019-10-15 10:09 | OP ---
DATE OF PROCEDURE: 10/14/2019 PREOPERATIVE DIAGNOSES: Anemia, gastrointestinal bleeding. POSTOPERATIVE DIAGNOSES: 1. Mild gastritis over the gastric body. Otherwise, exam is normal. 2. Retained gastric antrum and duodenal bulb. DESCRIPTION OF PROCEDURE: The patient was placed on her left lateral sedation by Anesthesia performed. A Pentax video gastroduodenoscope under direct vision passed down the oropharynx, past the GE junction into the stomach and subsequently into the descending duodenum. The esophageal mucosa appeared normal. No intrinsic lesion seen. In the GE junction, no lesion seen. Retroflexion failed to show any pathology in fundus or cardia. The gastric body shows some patchy areas of . In the gastric incisura, no lesion. The patient had retained food material in the gastric antrum and also in the bulb. In the descending duodenum, no pathology seen. The stomach decompressed and the scope removed. Job ID: [id number]
--- NOTE | 2019-10-15 12:15 | OP ---
DATE OF PROCEDURE: 10/14/2019 OPERATIVE PROCEDURE: Attempted colonoscopy, incomplete due to retained fecal material. PREOPERATIVE DIAGNOSES: 1. bleeding. 2. Anemia blood loss. DESCRIPTION OF PROCEDURE: The patient was placed on her left lateral position and was given sedation by Anesthesia Department. A rectal exam was done before the scope was advanced into the rectum. A Pentax video colonoscope unfortunately, the patient's prep was poor and she had pockets of stool and I could not advance the scope beyond the sigmoid colon area. Although, water was irrigated and washed out the exam could not be completed because of retained stool. The scope was removed. PLAN: Re-prep the patient GoLYTELY and hopefully colonoscopy can be done tomorrow. Job ID: [id number]
--- NOTE | 2019-10-15 14:28 | PDOC.HOSPP ---
- Subjective Encounter Date: 10/15/19 Encounter Time: 11:15 Subjective: pt up in bed no complains - Objective Vital Signs & Weight: Vital Signs (12 hours) Temp Pulse Resp BP BP Pulse Ox 10/15/19 08:00 96 10/15/19 07:44 98.5 F 76 16 158/70 H 95 10/15/19 04:00 98.2 F 73 20 146/74 H 94 L Weight Admit Weight 167 lb 9.6 oz Weight 167 lb 9.6 oz I&O: 10/14/19 10/15/19 10/16/19 06:59 06:59 06:59 Output Total 2600 2400 Balance -2600 -2400 Result Diagrams: 10/13/19 05:07 10/13/19 05:07 Additional Labs: Accuchecks 10/15/19 10/15/19 10/14/19 11:58 05:18 21:07 POC Glucose 135 H 116 H 212 H 10/14/19 10/14/19 10/14/19 21:07 16:05 05:07 POC Glucose 212 H 208 H 191 H 10/14/19 05:07 POC Glucose 191 H Hospitalist ROS - Review of Systems Cardiovascular: denies: chest pain, palpitations, orthopnea, paroxysmal noc. dyspnea, edema, light headedness, other Gastrointestinal: denies: nausea, vomiting, abdominal pain, diarrhea, constipation, melena, hematochezia, other Genitourinary: denies: dysuria, frequency, incontinence, hematuria, retention, other - Medication Medications: Active Medications Generic Name Dose Route Start Last Admin Trade Name Freq PRN Reason Stop Dose Admin Hydrocodone Bitart/Acetaminophen 2 tab 10/09/19 13:17 10/13/19 14:07 [place] 10/325 PO 2 tab Q4H PRN Administration PAIN SCALE 5-8 Amiodarone HCl 200 mg 09/25/19 09:00 10/14/19 13:32 Cordarone PO 200 mg DAILY LIN Administration Ascorbic Acid 500 mg 10/06/19 09:00 10/14/19 13:33 Vitamin C PO 500 mg DAILY LIN Administration Aspirin 81 mg 09/25/19 09:00 10/14/19 13:32 Ecotrin PO 81 mg DAILY LIN Administration Bisacodyl 10 mg 10/09/19 14:40 10/09/19 15:04 Dulcolax [place] 10 mg Q8H PRN Administration Constipation Calcium Carbonate 1,000 mg 09/23/19 18:19 10/11/19 18:19 Tums PO 1,000 mg Q4H PRN Administration Heartburn or Indigestion Carvedilol 3.125 mg 09/24/19 21:00 10/15/19 09:46 Coreg PO 3.125 mg BID [facility] Administration Clopidogrel Bisulfate 75 mg 09/27/19 09:00 10/14/19 13:32 Plavix PO 75 mg DAILY [facility] Administration Enoxaparin Sodium 30 mg 10/14/19 21:00 10/14/19 22:33 Lovenox SC Not Given 2100 [facility] Fentanyl 50 mcg 10/09/19 13:18 10/11/19 23:06 Sublimaze SLOW IVP 50 mcg Q1H PRN Administration BREAKTHRU PAIN Ferrous Sulfate 325 mg 10/05/19 17:00 10/14/19 18:00 Feosol PO 325 mg BID-WM [facility] Administration Gabapentin 300 mg 10/07/19 15:00 10/14/19 22:30 Neurontin PO 300 mg TID [facility] Administration Heparin Sodium (Porcine) 500 units 10/04/19 04:48 10/11/19 04:00 Heparin Lock Flush 100 Units/Ml IVF 500 unit PRN PRN Administration Heparin Flush Ceftriaxone Sodium 1 gm/ 100 mls @ 200 mls/hr 10/12/19 15:00 10/14/19 13:35 Sodium Chloride IVPB 100 mls Q24HR LIN Administration Insulin Human Lispro 0 units 10/10/19 09:15 10/14/19 18:40 Humalog SC 3 unit .MILD SLIDING SCALE PRN Administration Mild Correctional Scale Insulin Human NPH 8 unit 10/10/19 21:00 10/14/19 21:40 Humulin N SC Not Given BID [facility] Iron/Minerals/Multivitamins 1 tab 10/06/19 09:00 10/14/19 13:33 Theragran M PO 1 tab DAILY [facility] Administration Isosorbide Dinitrate 20 mg 09/24/19 21:00 10/14/19 22:32 Isordil PO 20 mg TID [facility] Administration Ondansetron HCl 4 mg 09/23/19 18:19 10/14/19 18:00 Zofran Odt PO 4 mg Q6H PRN Administration Nausea/Vomiting Ondansetron HCl 4 mg 09/23/19 18:19 10/11/19 09:37 Zofran IVP 4 mg Q6H PRN Administration Nausea/Vomiting Pantoprazole Sodium 40 mg 10/14/19 09:00 10/14/19 13:33 Protonix PO 40 mg DAILY LIN Administration Polyethylene Glycol 17 gm 09/27/19 09:00 10/14/19 13:34 Miralax PO 17 gm DAILY LIN Administration Rosuvastatin Calcium 10 mg 09/24/19 21:00 10/14/19 22:30 Crestor PO 10 mg HS LIN Administration Senna/Docusate Sodium 2 tab 10/05/19 21:00 10/14/19 22:31 Senokot S PO 2 tab BID LIN Administration Zinc Sulfate 220 mg 10/06/19 09:00 10/14/19 08:38 Zinc Sulfate PO Not Given DAILY LIN - Exam Heart: negative: RRR, no murmur, no gallops, no rubs, normal peripheral pulses, irregular, diminshed peripheral pulses, murmur present, II/IV, III/IV Respiratory: negative: CTAB, no wheezes, no rales, no ronchi, normal chest expansion, no tachypnea, normal percussion, rales, rhonchi, tachypneic, wheezes Gastrointestinal: negative: soft, non-tender, non-distended, normal bowel sounds , no palpable masses, no hepatomegaly, no splenomegaly, no bruit, no guarding, no rigidity, tender to palpation, distended, diminished bowl sounds, voluntary guarding Hosp A/P (1) Anemia Code(s): D64.9 - ANEMIA, UNSPECIFIED Status: Acute Qualifiers: Anemia type: other cause Other causes of anemia: other cause, not classified Qualified Code(s): D64.89 - Other specified anemias (2) Below-knee amputation of left lower extremity Code(s): S88.112A - COMPLETE TRAUM AMP AT LEV BETW KN AND ANKL, L LOW LEG, INIT Status: Acute (3) PVD (peripheral vascular disease) Code(s): I73.9 - PERIPHERAL VASCULAR DISEASE, UNSPECIFIED Status: Acute (4) Acute renal failure superimposed on stage 3 chronic kidney disease Code(s): N17.9 - ACUTE KIDNEY FAILURE, UNSPECIFIED; N18.3 - CHRONIC KIDNEY DISEASE, STAGE 3 (MODERATE) Status: Acute (5) Hyponatremia Code(s): E87.1 - HYPO-OSMOLALITY AND HYPONATREMIA Status: Acute (6) Multi-vessel coronary artery stenosis Code(s): I25.10 - ATHSCL HEART DISEASE OF [place] CORONARY ARTERY W/O ANG PCTRS Status: Acute (7) DM2 (diabetes mellitus, type 2) Status: Chronic Qualifiers: Diabetes mellitus nursing home insulin use: without chief controller use Diabetes mellitus complication status: with kidney complications Diabetes mellitus complication detail: with chronic kidney disease Chronic kidney disease stage : stage 3 (moderate) Qualified Code(s): E11.22 - Type 2 diabetes mellitus with diabetic chronic kidney disease; N18.3 - Chronic kidney disease, stage 3 ( moderate) (8) Leukocytosis Code(s): D72.829 - ELEVATED WHITE BLOOD CELL COUNT, UNSPECIFIED Status: Acute - Plan Diabetes type 2 Patient's blood sugars have been averaging 250-300. Patient reports tolerating diet well. Patient takes insulin 70/30, 15 units twice a day at home. We will start the patient on NPH 7 units twice daily. Will change sliding scale to mild sliding scale. Chronic anemia Patient's hemoglobin was 7.3 yesterday. There are no signs of any bruising or bleeding. Will check CBC. Hyponatremia Patient has chronic hyponatremia. Patient's sodium is slightly trending down. Corrected for elevated glucose, sodium of 130 as of yesterday. Will check BMP. Will stop IV fluids KVO. Left below the knee amputation Patient postop day #3. Diabetic toe ulcer s/p Left BKA PVD, chronic continue ASA and plavix Chronic kidney disease stage III Patient's creatinine is increasing. Changed scheduled Toradol to as needed. Will get BMP. Continue aspirin and Plavix. Continue PT/OT and WCT 10/10 unclear etiology of her leukocytosis. she is afebrile. UA/cxr/stool negative for infectious. will discontinue Jaramillo. she does have a central line. Her stump dressing looks stable. Pt has no fever. she is on asa/plavix. Not on AC due to low hh. she has been evaluated by gi in the past for hematochezia. She received one unit of blood. will get gi to see her. 10/[address] abd/pel since she continues to have leukocytosis. will consult gi. 10/[address] abd/pel indicates some stranding and significant stool. will give her mag citrate. 10/13 pt still has stool in her colon so unable to do colonoscopy. pt also has urinary retention will do in and out. i am concern that she is post of and is not moving much she is at a high risk of dvt/PE will start her on Lovenox and see how she does. Her wbc has improved. will continue abx for now. 10/14 pt going to have repeat colonoscopy today. she is bleeding from her right stump area. will check hh in am.
[2019-10-15] MEDS: Isosorbide Dinitrate 20 MG TAB PO SCH ×3 (15:00→19:43)
[2019-10-15] MEDS: Gabapentin 300 MG CAP PO SCH ×3 (15:00→19:43)
[2019-10-15] MEDS: Ascorbic Acid 500 mg Chewable Tablet PO SCH (16:03)
[2019-10-15] MEDS: Ferrous Sulfate 325 MG TAB PO SCH ×2 (16:03→18:22)
[2019-10-15] MEDS: Polyethylene Glycol 3350 17 GM Packet PO SCH (16:04)
[2019-10-15] MEDS: Senokot S 8.6-50 MG TAB PO SCH ×2 (16:04→19:43)
[2019-10-15] MEDS: NPH, Human Insulin Isophane 300 UNIT/3 ML VIAL SC SCH ×2 (16:04→21:00)
[2019-10-15] MEDS: Multivitamin W/ Minerals 1 TAB PO SCH (16:04)
[2019-10-15] MEDS: Amiodarone 200 MG TAB PO SCH (18:19)
[2019-10-15] MEDS: Aspirin 81 mg Enteric Coated Tablet PO SCH (18:19)
[2019-10-15] MEDS: Zinc Sulfate 220 MG CAP PO SCH (18:20)
[2019-10-15] MEDS: Clopidogrel Bisulfate 75 MG TAB PO SCH (18:21)
[2019-10-15] MEDS: Triple Antibiotic Oint 1 GM Packet TOP PRN (18:24)
[2019-10-15] MEDS: cefTRIAXone\\ROCEPHIN 1 GM in Sodium Chloride 0.9% 100 ML IVPB SCH (18:30)
[2019-10-15] MEDS: Rosuvastatin 10 MG TAB PO SCH (19:43)
[2019-10-15] MEDS: Enoxaparin Sodium 30 MG/0.3 ML SYRINGE SC SCH (19:44)
[2019-10-16 02:43] LABS: #Basophils 0.1 thou/uL (0.0-0.2); #Eosinphils 0.5 thou/uL (0.0-0.7); #Lymphocytes 3.6 thou/uL (1.20-3.40); #Monocytes 1.1 thou/uL (0.11-0.59); #Neutrophils 7.7 thou/uL (1.40-6.50); %Basophils 0.6 % (0.0-1.0); %Eosinophils 4.1 % (0.0-10.0); %Lymphocytes 27.8 % (21.0-51.0); %Monocytes 8.5 % (0.0-10.0); Hemoglobin 8.1 g/dL (12.0-16.0); Mean Corpuscular HGB CONC 32.4 g/dL (32.0-36.0); Mean Corpuscular Hemoglobin 27.9 pg (27.0-31.0); Mean Corpuscular Volume 86.1 fL (78.0-98.0); Mean Platelet Volume 6.2 fL (7.4-10.4); Platelet Count 514 thou/uL (130-400); RBC Distribution Width 15.8 % (11.5-14.5); Red Blood Cell (RBC) Count 2.91 mill/uL (4.20-5.40)
[2019-10-16 03:14] LABS: ALT (SGPT) 18 U/L (8-55); AST (SGOT) 27 U/L (5-34); Alkaline Phosphatase 136 U/L (40-110); Anion Gap 11 mmol/L (10-20); BUN (Urea Nitrogen) 9 mg/dL (9.8-20.1); Bilirubin, Total 0.3 mg/dL (0.2-1.2); Calc. Creatinine Clearance 81 mL/min (70-130); Calcium 8.1 mg/dL (7.8-10.44); Carbon Dioxide 27 mmol/L (23-31); Chloride 102 mmol/L (98-107); Estimated GFR-MDRD 65; Glucose 134 mg/dL (80-115); Potassium 3.5 mmol/L (3.5-5.1); Sodium 136 mmol/L (136-145)
[2019-10-16] MEDS: Amiodarone 200 MG TAB PO SCH (08:51)
[2019-10-16] MEDS: Ferrous Sulfate 325 MG TAB PO SCH ×2 (08:51→16:30)
[2019-10-16] MEDS: Multivitamin W/ Minerals 1 TAB PO SCH (08:51)
[2019-10-16] MEDS: Ascorbic Acid 500 mg Chewable Tablet PO SCH (08:51)
[2019-10-16] MEDS: Clopidogrel Bisulfate 75 MG TAB PO SCH (08:51)
[2019-10-16] MEDS: Aspirin 81 mg Enteric Coated Tablet PO SCH (08:51)
[2019-10-16] MEDS: Gabapentin 300 MG CAP PO SCH ×3 (08:51→20:05)
[2019-10-16] MEDS: Carvedilol 3.125 MG TAB PO SCH ×2 (08:51→20:05)
[2019-10-16] MEDS: Zinc Sulfate 220 MG CAP PO SCH (08:51)
[2019-10-16] MEDS: Senokot S 8.6-50 MG TAB PO SCH ×2 (08:52→20:04)
[2019-10-16] MEDS: NPH, Human Insulin Isophane 300 UNIT/3 ML VIAL SC SCH ×2 (09:57→20:13)
[2019-10-16] MEDS: Polyethylene Glycol 3350 17 GM Packet PO SCH (09:57)
[2019-10-16] MEDS: Isosorbide Dinitrate 20 MG TAB PO SCH ×3 (09:58→20:05)
--- NOTE | 2019-10-16 12:48 | OP ---
DATE OF PROCEDURE: 10/15/2019 OPERATIVE PROCEDURE: Sigmoidoscopy, attempted colonoscopy. PREOPERATIVE DIAGNOSIS: Gastrointestinal bleeding. POSTOPERATIVE DIAGNOSES: 1. Large ulcerations in the rectum, not biopsied. 2. Very redundant, tortuous colon. The exam was done to about 50 cm from the rectal opening. She did have occasional diverticula. Endoscopy, no bleeding seen. DESCRIPTION OF PROCEDURE: The patient was placed in her left lateral position and was given sedation by Anesthesia Department. A rectal exam was done before the scope was advanced into the rectum. No lesions felt on rectal exam. A Pentax video colonoscope was introduced into the rectum and advanced to the sigmoid colon. The patient had abdominal muscle tone. She had a very tortuous and redundant colon. Abdominal compression was used and again the scope could not be advanced. The patient was placed on her back and again attempt was made to try to advance the scope. The scope could be advanced to a distance of 50 cm from She did have occasional diverticula. Infra-abdominal compression scope could never be advanced Retroflexion of scope in the rectum showed large ulcerations. As she was on Plavix, I could not biopsy the ulceration. Based on endoscopy findings, I believe the bleeding very well may be from the rectal ulceration. RECOMMENDATIONS: 1. 1800 ADA diet. 2. Follow up H and H. 3. Transfuse p.r.n. 4. If the patient has recurrence of bleeding, please obtain a tagged RBC scan to rule out bleeding from proximal colon. Job ID: [id number]
--- NOTE | 2019-10-16 13:19 | PDOC.HOSPP ---
- Subjective Encounter Date: 10/16/19 Encounter Time: 12:15 Subjective: pt up in bed crying wants to go home. - Objective Vital Signs & Weight: Vital Signs (12 hours) Temp Pulse Resp BP Pulse Ox 10/16/19 08:31 98.1 F 69 18 165/73 H 97 10/16/19 08:00 98 Weight Admit Weight 167 lb 9.6 oz Weight 167 lb 9.6 oz I&O: 10/15/19 10/16/19 10/17/19 06:59 06:59 06:59 Output Total 2600 5275 1100 Balance -2600 -5275 -1100 Result Diagrams: 10/16/19 02:30 10/16/19 02:30 Additional Labs: Accuchecks 10/16/19 10/16/19 10/15/19 11:48 04:45 19:57 POC Glucose 174 H 150 H 218 H 10/15/19 18:38 POC Glucose 158 H Hospitalist ROS - Review of Systems Cardiovascular: denies: chest pain, palpitations, orthopnea, paroxysmal noc. dyspnea, edema, light headedness, other Gastrointestinal: denies: nausea, vomiting, abdominal pain, diarrhea, constipation, melena, hematochezia, other Genitourinary: denies: dysuria, frequency, incontinence, hematuria, retention, other - Medication Medications: Active Medications Generic Name Dose Route Start Last Admin Trade Name Freq PRN Reason Stop Dose Admin Hydrocodone Bitart/Acetaminophen 2 tab 10/09/19 13:17 10/13/19 14:07 [place] 10/325 PO 2 tab Q4H PRN Administration PAIN SCALE 5-8 Amiodarone HCl 200 mg 09/25/19 09:00 10/16/19 08:51 Cordarone PO 200 mg DAILY LIN Administration Ascorbic Acid 500 mg 10/06/19 09:00 10/16/19 08:51 Vitamin C PO 500 mg DAILY LIN Administration Aspirin 81 mg 09/25/19 09:00 10/16/19 08:51 Ecotrin PO 81 mg DAILY LIN Administration Bisacodyl 10 mg 10/09/19 14:40 10/09/19 15:04 Dulcolax [place] 10 mg Q8H PRN Administration Constipation Calcium Carbonate 1,000 mg 09/23/19 18:19 10/11/19 18:19 Tums PO 1,000 mg Q4H PRN Administration Heartburn or Indigestion Carvedilol 3.125 mg 09/24/19 21:00 10/16/19 08:51 Coreg PO 3.125 mg BID [facility] Administration Clopidogrel Bisulfate 75 mg 09/27/19 09:00 10/16/19 08:51 Plavix PO 75 mg DAILY LIN Administration Enoxaparin Sodium 30 mg 10/14/19 21:00 10/15/19 19:44 Lovenox SC 30 mg 2100 [facility] Administration Fentanyl 50 mcg 10/09/19 13:18 10/11/19 23:06 Sublimaze SLOW IVP 50 mcg Q1H PRN Administration BREAKTHRU PAIN Ferrous Sulfate 325 mg 10/05/19 17:00 10/16/19 08:51 Feosol PO 325 mg BID-WM [facility] Administration Gabapentin 300 mg 10/07/19 15:00 10/16/19 08:51 Neurontin PO 300 mg TID [facility] Administration Heparin Sodium (Porcine) 500 units 10/04/19 04:48 10/11/19 04:00 Heparin Lock Flush 100 Units/Ml IVF 500 unit PRN PRN Administration Heparin Flush Ceftriaxone Sodium 1 gm/ 100 mls @ 200 mls/hr 10/12/19 15:00 10/15/19 18:30 Sodium Chloride IVPB 100 mls Q24HR [facility] Administration Insulin Human Lispro 0 units 10/10/19 09:15 10/14/19 18:40 Humalog SC 3 unit .MILD SLIDING SCALE PRN Administration Mild Correctional Scale Insulin Human NPH 8 unit 10/10/19 21:00 10/16/19 09:57 Humulin N SC Not Given BID [facility] Iron/Minerals/Multivitamins 1 tab 10/06/19 09:00 10/16/19 08:51 Theragran M PO 1 tab DAILY [facility] Administration Isosorbide Dinitrate 20 mg 09/24/19 21:00 10/16/19 09:58 Isordil PO 20 mg TID [facility] Administration Neomycin/Polymyxin/Bacitracin 1 gm 10/09/19 10:11 10/15/19 18:24 Triple Antibiotic TOP 1 gm DAILYPRN PRN Administration TO STUMP Ondansetron HCl 4 mg 09/23/19 18:19 10/14/19 18:00 Zofran Odt PO 4 mg Q6H PRN Administration Nausea/Vomiting Ondansetron HCl 4 mg 09/23/19 18:19 10/11/19 09:37 Zofran IVP 4 mg Q6H PRN Administration Nausea/Vomiting Pantoprazole Sodium 40 mg 10/14/19 09:00 10/16/19 08:52 Protonix PO 40 mg DAILY LIN Administration Polyethylene Glycol 17 gm 09/27/19 09:00 10/16/19 09:57 Miralax PO Not Given DAILY LIN Rosuvastatin Calcium 10 mg 09/24/19 21:00 10/15/19 19:43 Crestor PO 10 mg HS LIN Administration Senna/Docusate Sodium 2 tab 10/05/19 21:00 10/16/19 08:52 Senokot S PO 2 tab BID LIN Administration Zinc Sulfate 220 mg 10/06/19 09:00 10/16/19 08:51 Zinc Sulfate PO 220 mg DAILY LIN Administration - Exam Heart: negative: RRR, no murmur, no gallops, no rubs, normal peripheral pulses, irregular, diminshed peripheral pulses, murmur present, II/IV, III/IV Respiratory: negative: CTAB, no wheezes, no rales, no ronchi, normal chest expansion, no tachypnea, normal percussion, rales, rhonchi, tachypneic, wheezes Gastrointestinal: negative: soft, non-tender, non-distended, normal bowel sounds , no palpable masses, no hepatomegaly, no splenomegaly, no bruit, no guarding, no rigidity, tender to palpation, distended, diminished bowl sounds, voluntary guarding Extremities - other findings: left BKA Hosp A/P (1) Anemia Code(s): D64.9 - ANEMIA, UNSPECIFIED Status: Acute Qualifiers: Anemia type: other cause Other causes of anemia: other cause, not classified Qualified Code(s): D64.89 - Other specified anemias (2) Below-knee amputation of left lower extremity Code(s): S88.112A - COMPLETE TRAUM AMP AT LEV BETW KN AND ANKL, L LOW LEG, INIT Status: Acute (3) PVD (peripheral vascular disease) Code(s): I73.9 - PERIPHERAL VASCULAR DISEASE, UNSPECIFIED Status: Acute (4) Acute renal failure superimposed on stage 3 chronic kidney disease Code(s): N17.9 - ACUTE KIDNEY FAILURE, UNSPECIFIED; N18.3 - CHRONIC KIDNEY DISEASE, STAGE 3 (MODERATE) Status: Acute (5) Hyponatremia Code(s): E87.1 - HYPO-OSMOLALITY AND HYPONATREMIA Status: Acute (6) Multi-vessel coronary artery stenosis Code(s): I25.10 - ATHSCL HEART DISEASE OF [place] CORONARY ARTERY W/O ANG PCTRS Status: Acute (7) DM2 (diabetes mellitus, type 2) Status: Chronic Qualifiers: Diabetes mellitus long term care administrator insulin use: without fpc use Diabetes mellitus complication status: with kidney complications Diabetes mellitus complication detail: with chronic kidney disease Chronic kidney disease stage : stage 3 (moderate) Qualified Code(s): E11.22 - Type 2 diabetes mellitus with diabetic chronic kidney disease; N18.3 - Chronic kidney disease, stage 3 ( moderate) (8) Leukocytosis Code(s): D72.829 - ELEVATED WHITE BLOOD CELL COUNT, UNSPECIFIED Status: Acute - Plan Diabetes type 2 Patient's blood sugars have been averaging 250-300. Patient reports tolerating diet well. Patient takes insulin 70/30, 15 units twice a day at home. We will start the patient on NPH 7 units twice daily. Will change sliding scale to mild sliding scale. Chronic anemia Patient's hemoglobin was 7.3 yesterday. There are no signs of any bruising or bleeding. Will check CBC. Hyponatremia Patient has chronic hyponatremia. Patient's sodium is slightly trending down. Corrected for elevated glucose, sodium of 130 as of yesterday. Will check BMP. Will stop IV fluids KVO. Left below the knee amputation Patient postop day #3. Diabetic toe ulcer s/p Left BKA PVD, chronic continue ASA and plavix Chronic kidney disease stage III Patient's creatinine is increasing. Changed scheduled Toradol to as needed. Will get BMP. Continue aspirin and Plavix. Continue PT/OT and WCT 10/10 unclear etiology of her leukocytosis. she is afebrile. UA/cxr/stool negative for infectious. will discontinue Jaramillo. she does have a central line. Her stump dressing looks stable. Pt has no fever. she is on asa/plavix. Not on AC due to low hh. she has been evaluated by gi in the past for hematochezia. She received one unit of blood. will get gi to see her. 10/[address] abd/pel since she continues to have leukocytosis. will consult gi. 10/[address] abd/pel indicates some stranding and significant stool. will give her mag citrate. 10/13 pt still has stool in her colon so unable to do colonoscopy. pt also has urinary retention will do in and out. i am concern that she is post of and is not moving much she is at a high risk of dvt/PE will start her on Lovenox and see how she does. Her wbc has improved. will continue abx for now. 10/14 pt going to have repeat colonoscopy today. she is bleeding from her right stump area. will check hh in am. 10/15 pt's colonoscopy indicated large rectum ulceration. No biopsy was done due to pt being on plavix. possible discharge in the next 24-48hr. HH is low stable. pt's wbc has improved. will change abx to oral. will continue to monitor HH.
[2019-10-16] MEDS: HumaLOG 300 UNITS/3 ML VIAL SC PRN (17:44)
[2019-10-16] MEDS: Rosuvastatin 10 MG TAB PO SCH (20:04)
[2019-10-16] MEDS: Enoxaparin Sodium 30 MG/0.3 ML SYRINGE SC SCH (20:05)
[2019-10-16] MEDS: Cefdinir 300 MG CAP PO SCH (20:05)
[2019-10-16] MEDS: HYDROcodone/Acetaminophen 10/325 mg Tablet PO PRN (20:13)
--- NOTE | 2019-10-16 21:28 | PRG ---
DATE OF SERVICE: 10/16/2019 SUBJECTIVE: This is a 59-year-old [place] female with a recent bypass surgery, status post BKA of left leg. She complains of pain over the left leg. She has had no more hematochezia. No melena. She had a colonoscopy, which was unsuccessful. The scope could not be advanced past the sigmoid colon area. She had very large ulceration of rectum. I believe that is most likely source of bleeding. She is also on Plavix and aspirin. She has no abdominal pain. No nausea or vomiting. She is tolerating diet. OBJECTIVE: GENERAL: Appears very comfortable, in no acute distress. VITAL SIGNS: Stable, afebrile. Pulse is 69, blood pressure 165/73. CARDIOVASCULAR: Normal heart sounds. LUNGS: Clear to auscultation. ABDOMEN: Soft. No organomegaly. No tenderness. No masses. LABORATORY DATA: Hemoglobin is 8.1, hematocrit is 25.1, platelet count 540,000. RECOMMENDATION: 1. Diet as tolerated. 2. Followup H and H. She had risk of bleeding from the rectum as she is on anticoagulation. Job ID: [id number]
[2019-10-17] MEDS: HYDROcodone/Acetaminophen 10/325 mg Tablet PO PRN ×3 (03:29→14:24)
[2019-10-17] MEDS: Triple Antibiotic Oint 1 GM Packet TOP PRN (03:30)
[2019-10-17] MEDS: Polyethylene Glycol 3350 17 GM Packet PO SCH (08:32)
[2019-10-17] MEDS: Cefdinir 300 MG CAP PO SCH ×2 (08:32→21:21)
[2019-10-17] MEDS: Ferrous Sulfate 325 MG TAB PO SCH ×2 (08:33→16:18)
[2019-10-17] MEDS: Clopidogrel Bisulfate 75 MG TAB PO SCH (08:33)
[2019-10-17] MEDS: Gabapentin 300 MG CAP PO SCH ×3 (08:33→21:19)
[2019-10-17] MEDS: Carvedilol 3.125 MG TAB PO SCH ×2 (08:33→21:19)
[2019-10-17] MEDS: Aspirin 81 mg Enteric Coated Tablet PO SCH (08:33)
[2019-10-17] MEDS: Multivitamin W/ Minerals 1 TAB PO SCH (08:36)
[2019-10-17] MEDS: Isosorbide Dinitrate 20 MG TAB PO SCH ×3 (08:37→21:19)
[2019-10-17] MEDS: Amiodarone 200 MG TAB PO SCH (08:37)
[2019-10-17] MEDS: Senokot S 8.6-50 MG TAB PO SCH ×2 (08:37→21:19)
[2019-10-17] MEDS: Ascorbic Acid 500 mg Chewable Tablet PO SCH (08:38)
[2019-10-17] MEDS: NPH, Human Insulin Isophane 300 UNIT/3 ML VIAL SC SCH ×2 (08:42→21:21)
[2019-10-17] MEDS: Zinc Sulfate 220 MG CAP PO SCH (08:51)
[2019-10-17] MEDS: HumaLOG 300 UNITS/3 ML VIAL SC PRN (12:14)
--- NOTE | 2019-10-17 16:09 | PDOC.HOSPP ---
- Subjective Encounter Date: 10/17/19 Encounter Time: 11:15 Subjective: Pt up in bed crying states she does not feel comfortable going home since she does not have her son to take care of her. - Objective Vital Signs & Weight: Vital Signs (12 hours) Temp Pulse Resp BP Pulse Ox 10/17/19 08:00 95 10/17/19 07:23 98.3 F 67 18 130/66 95 Weight Admit Weight 167 lb 9.6 oz Weight 167 lb 9.6 oz I&O: 10/16/19 10/17/19 10/18/19 06:59 06:59 06:59 Intake Total 860 Output Total 5275 2100 1275 Balance -5275 -2100 -415 Result Diagrams: 10/16/19 02:30 10/16/19 02:30 Additional Labs: Accuchecks 10/17/19 10/17/19 10/16/19 11:37 04:26 20:08 POC Glucose 174 H 150 H 216 H 10/16/19 16:35 POC Glucose 263 H Hospitalist ROS - Review of Systems Cardiovascular: denies: chest pain, palpitations, orthopnea, paroxysmal noc. dyspnea, edema, light headedness, other Gastrointestinal: denies: nausea, vomiting, abdominal pain, diarrhea, constipation, melena, hematochezia, other Genitourinary: denies: dysuria, frequency, incontinence, hematuria, retention, other - Medication Medications: Active Medications Generic Name Dose Route Start Last Admin Trade Name Freq PRN Reason Stop Dose Admin Hydrocodone Bitart/Acetaminophen 1 tab 10/09/19 13:17 10/17/19 03:29 Sinclair 10/325 PO 1 tab Q4H PRN Administration PAIN SCALE 2-4 Hydrocodone Bitart/Acetaminophen 2 tab 10/09/19 13:17 10/17/19 14:24 Sinclair 10/325 PO 2 tab Q4H PRN Administration PAIN SCALE 5-8 Amiodarone HCl 200 mg 09/25/19 09:00 10/17/19 08:37 Cordarone PO 200 mg DAILY LIN Administration Ascorbic Acid 500 mg 10/06/19 09:00 10/17/19 08:38 Vitamin C PO 500 mg DAILY LIN Administration Aspirin 81 mg 09/25/19 09:00 10/17/19 08:33 Ecotrin PO 81 mg DAILY LIN Administration Bisacodyl 10 mg 10/09/19 14:40 10/09/19 15:04 Dulcolax [place] 10 mg Q8H PRN Administration Constipation Calcium Carbonate 1,000 mg 09/23/19 18:19 10/11/19 18:19 Tums PO 1,000 mg Q4H PRN Administration Heartburn or Indigestion Carvedilol 3.125 mg 09/24/19 21:00 10/17/19 08:33 Coreg PO 3.125 mg BID LIN Administration Cefdinir 300 mg 10/16/19 21:00 10/17/19 08:32 Omnicef PO 300 mg BID LIN Administration Clopidogrel Bisulfate 75 mg 09/27/19 09:00 10/17/19 08:33 Plavix PO 75 mg DAILY LIN Administration Enoxaparin Sodium 30 mg 10/14/19 21:00 10/16/19 20:05 Lovenox SC 30 mg 2100 LIN Administration Fentanyl 50 mcg 10/09/19 13:18 10/11/19 23:06 Sublimaze SLOW IVP 50 mcg Q1H PRN Administration BREAKTHRU PAIN Ferrous Sulfate 325 mg 10/05/19 17:00 10/17/19 08:33 Feosol PO 325 mg BID-WM LIN Administration Gabapentin 300 mg 10/07/19 15:00 10/17/19 14:23 Neurontin PO 300 mg TID [facility] Administration Heparin Sodium (Porcine) 500 units 10/04/19 04:48 10/11/19 04:00 Heparin Lock Flush 100 Units/Ml IVF 500 unit PRN PRN Administration Heparin Flush Insulin Human Lispro 0 units 10/10/19 09:15 10/17/19 12:14 Humalog SC 2 unit .MILD SLIDING SCALE PRN Administration Mild Correctional Scale Insulin Human NPH 8 unit 10/10/19 21:00 10/17/19 08:42 Humulin N SC 8 unit BID [facility] Administration Iron/Minerals/Multivitamins 1 tab 10/06/19 09:00 10/17/19 08:36 Theragran M PO 1 tab DAILY LIN Administration Isosorbide Dinitrate 20 mg 09/24/19 21:00 10/17/19 14:23 Isordil PO 20 mg TID LIN Administration Neomycin/Polymyxin/Bacitracin 1 gm 10/09/19 10:11 10/17/19 03:30 Triple Antibiotic TOP 1 gm DAILYPRN PRN Administration TO STUMP Ondansetron HCl 4 mg 09/23/19 18:19 10/14/19 18:00 Zofran Odt PO 4 mg Q6H PRN Administration Nausea/Vomiting Ondansetron HCl 4 mg 09/23/19 18:19 10/11/19 09:37 Zofran IVP 4 mg Q6H PRN Administration Nausea/Vomiting Pantoprazole Sodium 40 mg 10/14/19 09:00 10/17/19 08:36 Protonix PO 40 mg DAILY LIN Administration Polyethylene Glycol 17 gm 09/27/19 09:00 10/17/19 08:32 Miralax PO 17 gm DAILY LIN Administration Rosuvastatin Calcium 10 mg 09/24/19 21:00 10/16/19 20:04 Crestor PO 10 mg HS LIN Administration Senna/Docusate Sodium 2 tab 10/05/19 21:00 10/17/19 08:37 Senokot S PO 2 tab BID LIN Administration Zinc Oxide 1 gm 10/12/19 10:54 10/17/19 03:32 Reese's Butt Paste TOP 1 gm TID PRN Administration Dry Skin Zinc Sulfate 220 mg 10/06/19 09:00 10/17/19 08:51 Zinc Sulfate PO 220 mg DAILY LIN Administration - Exam Heart: negative: RRR, no murmur, no gallops, no rubs, normal peripheral pulses, irregular, diminshed peripheral pulses, murmur present, II/IV, III/IV Respiratory: negative: CTAB, no wheezes, no rales, no ronchi, normal chest expansion, no tachypnea, normal percussion, rales, rhonchi, tachypneic, wheezes Gastrointestinal: negative: soft, non-tender, non-distended, normal bowel sounds , no palpable masses, no hepatomegaly, no splenomegaly, no bruit, no guarding, no rigidity, tender to palpation, distended, diminished bowl sounds, voluntary guarding Extremities: 1+ LE edema Extremities - other findings: left bka, mild oozing from her incision Hosp A/P (1) Anemia Code(s): D64.9 - ANEMIA, UNSPECIFIED Status: Acute Qualifiers: Anemia type: other cause Other causes of anemia: other cause, not classified Qualified Code(s): D64.89 - Other specified anemias (2) Below-knee amputation of left lower extremity Code(s): S88.112A - COMPLETE TRAUM AMP AT LEV BETW KN AND CHANI, L LOW LEG, INIT Status: Acute (3) PVD (peripheral vascular disease) Code(s): I73.9 - PERIPHERAL VASCULAR DISEASE, UNSPECIFIED Status: Acute (4) Acute renal failure superimposed on stage 3 chronic kidney disease Code(s): N17.9 - ACUTE KIDNEY FAILURE, UNSPECIFIED; N18.3 - CHRONIC KIDNEY DISEASE, STAGE 3 (MODERATE) Status: Acute (5) Hyponatremia Code(s): E87.1 - HYPO-OSMOLALITY AND HYPONATREMIA Status: Acute (6) Multi-vessel coronary artery stenosis Code(s): I25.10 - ATHSCL HEART DISEASE OF [place] CORONARY ARTERY W/O ANG PCTRS Status: Acute (7) DM2 (diabetes mellitus, type 2) Status: Chronic Qualifiers: Diabetes mellitus intermediate insulin use: without intermediate use Diabetes mellitus complication status: with kidney complications Diabetes mellitus complication detail: with chronic kidney disease Chronic kidney disease stage : stage 3 (moderate) Qualified Code(s): E11.22 - Type 2 diabetes mellitus with diabetic chronic kidney disease; N18.3 - Chronic kidney disease, stage 3 ( moderate) (8) Leukocytosis Code(s): D72.829 - ELEVATED WHITE BLOOD CELL COUNT, UNSPECIFIED Status: Acute - Plan Diabetes type 2 Patient's blood sugars have been averaging 250-300. Patient reports tolerating diet well. Patient takes insulin 70/30, 15 units twice a day at home. We will start the patient on NPH 7 units twice daily. Will change sliding scale to mild sliding scale. Chronic anemia Patient's hemoglobin was 7.3 yesterday. There are no signs of any bruising or bleeding. Will check CBC. Hyponatremia Patient has chronic hyponatremia. Patient's sodium is slightly trending down. Corrected for elevated glucose, sodium of 130 as of yesterday. Will check BMP. Will stop IV fluids KVO. Left below the knee amputation Patient postop day #3. Diabetic toe ulcer s/p Left BKA PVD, chronic continue ASA and plavix Chronic kidney disease stage III Patient's creatinine is increasing. Changed scheduled Toradol to as needed. Will get BMP. Continue aspirin and Plavix. Continue PT/OT and WCT 8/8 unclear etiology of her leukocytosis. she is afebrile. UA/cxr/stool negative for infectious. will discontinue Jaramillo. she does have a central line. Her stump dressing looks stable. Pt has no fever. she is on asa/plavix. Not on AC due to low hh. she has been evaluated by gi in the past for hematochezia. She received one unit of blood. will get gi to see her. 10/[address] abd/pel since she continues to have leukocytosis. will consult gi. 10/[address] abd/pel indicates some stranding and significant stool. will give her mag citrate. 10/13 pt still has stool in her colon so unable to do colonoscopy. pt also has urinary retention will do in and out. i am concern that she is post of and is not moving much she is at a high risk of dvt/PE will start her on Lovenox and see how she does. Her wbc has improved. will continue abx for now. 10/14 pt going to have repeat colonoscopy today. she is bleeding from her right stump area. will check hh in am. 10/15 pt's colonoscopy indicated large rectum ulceration. No biopsy was done due to pt being on plavix. possible discharge in the next 24-48hr. HH is low stable. pt's wbc has improved. will change abx to oral. will continue to monitor HH. 10/16 patient's left wrist incision area had some bloody drainage. Surgicel was applied. Patient also had some urinary incontinence however once to instruct her to get up to go the bathroom she does really well. Patient will be going home and then after that she will be flying home to [facility]. Wheelchair will be delivered to her home today. Patient states that she cannot go home today since her son is not at home to take care of her. We will watch her for another 24 hours if her dressing is stable and no bleeding is noted and if she is able to urinate without doing it in and out for 24 hours she probably may be discharged home in the morning. Also she is going to get some home health and PT which has been set up. She is on Omnicef since her CT abdomen pelvis indicated some stranding and she had a white count and her urinalysis had some bacteria.. Will check labs in the morning. She is on DVT prophylaxis. Also on aspirin and Plavix given her significant peripheral vascular disease.
[2019-10-17] MEDS: Rosuvastatin 10 MG TAB PO SCH (21:19)
[2019-10-17] MEDS: Enoxaparin Sodium 30 MG/0.3 ML SYRINGE SC SCH (21:21)
[2019-10-18 07:05] LABS: #Basophils 0.1 thou/uL (0.0-0.2); #Eosinphils 1.1 thou/uL (0.0-0.7); #Lymphocytes 2.9 thou/uL (1.20-3.40); #Monocytes 1.1 thou/uL (0.11-0.59); #Neutrophils 8.1 thou/uL (1.40-6.50); %Basophils 0.9 % (0.0-1.0); %Eosinophils 7.9 % (0.0-10.0); %Lymphocytes 21.9 % (21.0-51.0); %Monocytes 8.4 % (0.0-10.0); %Neutrophils 60.9 % (42.0-75.0); Hemoglobin 9.1 g/dL (12.0-16.0); Mean Corpuscular Hemoglobin 27.7 pg (27.0-31.0); Mean Corpuscular Volume 86.6 fL (78.0-98.0); Mean Platelet Volume 6.3 fL (7.4-10.4); Platelet Count 443 thou/uL (130-400); RBC Distribution Width 15.7 % (11.5-14.5); Red Blood Cell (RBC) Count 3.28 mill/uL (4.20-5.40); White Blood Cell (WBC) Count 13.3 thou/uL (4.8-10.8)
[2019-10-18 07:32] LABS: Anion Gap 12 mmol/L (10-20); BUN (Urea Nitrogen) 8 mg/dL (9.8-20.1); Calc. Creatinine Clearance 81 mL/min (70-130); Calcium 8.1 mg/dL (7.8-10.44); Carbon Dioxide 22 mmol/L (23-31); Chloride 103 mmol/L (98-107); Estimated GFR-MDRD 66; Glucose 85 mg/dL (80-115); Potassium 3.6 mmol/L (3.5-5.1); Sodium 133 mmol/L (136-145)
[2019-10-18] MEDS: Senokot S 8.6-50 MG TAB PO SCH ×2 (09:41→19:54)
[2019-10-18] MEDS: Aspirin 81 mg Enteric Coated Tablet PO SCH (09:41)
[2019-10-18] MEDS: Amiodarone 200 MG TAB PO SCH (09:42)
[2019-10-18] MEDS: Multivitamin W/ Minerals 1 TAB PO SCH (09:42)
[2019-10-18] MEDS: Isosorbide Dinitrate 20 MG TAB PO SCH ×3 (09:42→19:54)
[2019-10-18] MEDS: Zinc Sulfate 220 MG CAP PO SCH (09:42)
[2019-10-18] MEDS: Gabapentin 300 MG CAP PO SCH ×3 (09:42→19:56)
[2019-10-18] MEDS: Carvedilol 3.125 MG TAB PO SCH ×2 (09:42→19:55)
[2019-10-18] MEDS: Polyethylene Glycol 3350 17 GM Packet PO SCH (09:42)
[2019-10-18] MEDS: Cefdinir 300 MG CAP PO SCH (09:42)
[2019-10-18] MEDS: Ferrous Sulfate 325 MG TAB PO SCH ×2 (09:42→17:36)
[2019-10-18] MEDS: Clopidogrel Bisulfate 75 MG TAB PO SCH (09:42)
[2019-10-18] MEDS: Ascorbic Acid 500 mg Chewable Tablet PO SCH (09:42)
[2019-10-18] MEDS: NPH, Human Insulin Isophane 300 UNIT/3 ML VIAL SC SCH ×2 (09:46→21:58)
[2019-10-18] MEDS: HumaLOG 300 UNITS/3 ML VIAL SC PRN (12:17)
[2019-10-18] MEDS: HYDROcodone/Acetaminophen 10/325 mg Tablet PO PRN ×2 (12:24→17:43)
[2019-10-18] MEDS ORDERED: Milk Of Magnesia 30 ML UDCUP PO PRN (16:59)
--- NOTE | 2019-10-18 17:00 | PDOC.HOSPP ---
- Subjective Encounter Date: 10/18/19 Encounter Time: 16:58 Subjective: Ms. Prado was seen today in follow-up of diabetic foot infection, post amputation. She notes some dysuria, and constipation. - Objective Vital Signs & Weight: Vital Signs (12 hours) Temp Pulse Resp BP BP BP Pulse Ox 10/18/19 16:00 98.4 F 70 18 112/66 99 10/18/19 11:14 98.4 F 73 18 147/71 H 98 10/18/19 08:00 99 10/18/19 07:25 98.1 F 75 16 132/66 99 Weight Admit Weight 167 lb 9.6 oz Weight 167 lb 9.6 oz I&O: 10/17/19 10/18/19 10/19/19 06:59 06:59 06:59 Intake Total 1460 1000 Output Total 2100 1375 1300 Balance -2100 85 -300 Result Diagrams: 10/18/19 06:55 10/18/19 06:55 Additional Labs: Accuchecks 10/18/19 10/18/19 10/18/19 16:14 11:22 09:51 POC Glucose 165 H 181 H 140 H 10/18/19 10/17/19 05:01 20:07 POC Glucose 92 157 H Hospitalist ROS - Medication Medications: Active Medications Generic Name Dose Route Start Last Admin Trade Name Freq PRN Reason Stop Dose Admin Hydrocodone Bitart/Acetaminophen 1 tab 10/09/19 13:17 10/17/19 03:29 Lyman 10/325 PO 1 tab Q4H PRN Administration PAIN SCALE 2-4 Hydrocodone Bitart/Acetaminophen 2 tab 10/09/19 13:17 10/18/19 12:24 Lyman 10/325 PO 2 tab Q4H PRN Administration PAIN SCALE 5-8 Amiodarone HCl 200 mg 09/25/19 09:00 10/18/19 09:42 Cordarone PO 200 mg DAILY LIN Administration Ascorbic Acid 500 mg 10/06/19 09:00 10/18/19 09:42 Vitamin C PO 500 mg DAILY LIN Administration Aspirin 81 mg 09/25/19 09:00 10/18/19 09:41 Ecotrin PO 81 mg DAILY LIN Administration Bisacodyl 10 mg 10/09/19 14:40 10/09/19 15:04 Dulcolax [place] 10 mg Q8H PRN Administration Constipation Calcium Carbonate 1,000 mg 09/23/19 18:19 10/11/19 18:19 Tums PO 1,000 mg Q4H PRN Administration Heartburn or Indigestion Carvedilol 3.125 mg 09/24/19 21:00 10/18/19 09:42 Coreg PO 3.125 mg BID LIN Administration Cefdinir 300 mg 10/16/19 21:00 10/18/19 09:42 Omnicef PO 300 mg BID LIN Administration Clopidogrel Bisulfate 75 mg 09/27/19 09:00 10/18/19 09:42 Plavix PO 75 mg DAILY LIN Administration Enoxaparin Sodium 30 mg 10/14/19 21:00 10/17/19 21:21 Lovenox SC 30 mg 2100 [facility] Administration Fentanyl 50 mcg 10/09/19 13:18 10/11/19 23:06 Sublimaze SLOW IVP 50 mcg Q1H PRN Administration BREAKTHRU PAIN Ferrous Sulfate 325 mg 10/05/19 17:00 10/18/19 09:42 Feosol PO 325 mg BID-WM LIN Administration Gabapentin 300 mg 10/07/19 15:00 10/18/19 15:48 Neurontin PO 300 mg TID [facility] Administration Heparin Sodium (Porcine) 500 units 10/04/19 04:48 10/17/19 21:20 Heparin Lock Flush 100 Units/Ml IVF 5 ml PRN PRN Administration Heparin Flush Insulin Human Lispro 0 units 10/10/19 09:15 10/18/19 12:17 Humalog SC 2 unit .MILD SLIDING SCALE PRN Administration Mild Correctional Scale Insulin Human NPH 8 unit 10/10/19 21:00 10/18/19 09:46 Humulin N SC 8 unit BID LIN Administration Iron/Minerals/Multivitamins 1 tab 10/06/19 09:00 10/18/19 09:42 Theragran M PO 1 tab DAILY LIN Administration Isosorbide Dinitrate 20 mg 09/24/19 21:00 10/18/19 15:49 Isordil PO 20 mg TID LIN Administration Neomycin/Polymyxin/Bacitracin 1 gm 10/09/19 10:11 10/17/19 03:30 Triple Antibiotic TOP 1 gm DAILYPRN PRN Administration TO STUMP Ondansetron HCl 4 mg 09/23/19 18:19 10/14/19 18:00 Zofran Odt PO 4 mg Q6H PRN Administration Nausea/Vomiting Ondansetron HCl 4 mg 09/23/19 18:19 10/11/19 09:37 Zofran IVP 4 mg Q6H PRN Administration Nausea/Vomiting Pantoprazole Sodium 40 mg 10/14/19 09:00 10/18/19 09:42 Protonix PO 40 mg DAILY LIN Administration Polyethylene Glycol 17 gm 09/27/19 09:00 10/18/19 09:42 Miralax PO 17 gm DAILY LIN Administration Rosuvastatin Calcium 10 mg 09/24/19 21:00 10/17/19 21:19 Crestor PO 10 mg HS LIN Administration Senna/Docusate Sodium 2 tab 10/05/19 21:00 10/18/19 09:41 Senokot S PO 2 tab BID LIN Administration Zinc Oxide 1 gm 10/12/19 10:54 10/17/19 03:32 Reese's Butt Paste TOP 1 gm TID PRN Administration Dry Skin Zinc Sulfate 220 mg 10/06/19 09:00 10/18/19 09:42 Zinc Sulfate PO 220 mg DAILY LIN Administration - Exam Eye: PERRL, anicteric sclera Heart: RRR, no murmur, no gallops, no rubs, normal peripheral pulses Respiratory: CTAB, no wheezes, no rales, no ronchi, normal chest expansion Gastrointestinal: soft, non-tender, non-distended, normal bowel sounds, no palpable masses Extremities: no cyanosis, no edema Hosp A/P (1) Diabetic toe ulcer Code(s): E11.621 - TYPE 2 DIABETES MELLITUS WITH FOOT ULCER; L97.509 - NON- PRESSURE CHRONIC ULCER OTH PRT UNSP FOOT W UNSP SEVERITY Status: Acute Qualifiers: Diabetes mellitus type: type 2 Laterality: left (2) Below-knee amputation of left lower extremity Code(s): S88.112A - COMPLETE TRAUM AMP AT LEV BETW KN AND ANKL, L LOW LEG, INIT Status: Acute (3) Diastolic heart failure Code(s): I50.30 - UNSPECIFIED DIASTOLIC (CONGESTIVE) HEART FAILURE Status: Acute (4) PVD (peripheral vascular disease) Code(s): I73.9 - PERIPHERAL VASCULAR DISEASE, UNSPECIFIED Status: Acute (5) Multi-vessel coronary artery stenosis Code(s): I25.10 - ATHSCL HEART DISEASE OF [place] CORONARY ARTERY W/O ANG PCTRS Status: Acute (6) DM2 (diabetes mellitus, type 2) Status: Chronic Qualifiers: 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
[2019-10-18] MEDS: Phenazopyridine HCl 97.5 MG TABLET PO SCH (17:36)
[2019-10-18 18:11] LABS: Bacteria/HPF 4+ HPF (None Seen); Bilirubin Negative (Negative); Blood, Urine 1+ (Negative); Clarity Extra Turbid (Clear); Glucose, Urine (Dipstick) Normal (Negative); Ketone, Urine Trace mg/dL (Negative); Leukocyte 500 Leu/uL (Negative); Nitrite 1+ (Negative); Protein, Urine (Dipstick) 70 mg/dL (Neg-Trace); RBC/HPF 21-50 HPF (0-3); Specific Gravity, Urine 1.018 (1.002-1.036); Transitional Epithelial 0-3 HPF (None Seen); Urobilinogen Normal mg/dL (Less than 2); WBC/HPF Greater than 50 HPF (0-3); pH, Urine 6.5 (5.0-9.0)
[2019-10-18] MEDS: Rosuvastatin 10 MG TAB PO SCH (19:54)
[2019-10-18] MEDS: Docusate 100 MG CAP PO SCH (19:54)
[2019-10-18] MEDS: Sulfameth/Trimethoprim DS 800-160mg TAB PO SCH (19:55)
[2019-10-18] MEDS: Enoxaparin Sodium 30 MG/0.3 ML SYRINGE SC SCH (19:56)
[2019-10-19] MEDS: Phenazopyridine HCl 97.5 MG TABLET PO SCH ×3 (08:46→17:52)
[2019-10-19] MEDS: Clopidogrel Bisulfate 75 MG TAB PO SCH (08:46)
[2019-10-19] MEDS: Multivitamin W/ Minerals 1 TAB PO SCH (08:46)
[2019-10-19] MEDS: Docusate 100 MG CAP PO SCH ×2 (08:46→21:18)
[2019-10-19] MEDS: Polyethylene Glycol 3350 17 GM Packet PO SCH (08:46)
[2019-10-19] MEDS: Zinc Sulfate 220 MG CAP PO SCH (08:46)
[2019-10-19] MEDS: Aspirin 81 mg Enteric Coated Tablet PO SCH (08:46)
[2019-10-19] MEDS: Senokot S 8.6-50 MG TAB PO SCH ×2 (08:47→21:18)
[2019-10-19] MEDS: Gabapentin 300 MG CAP PO SCH ×3 (08:47→21:18)
[2019-10-19] MEDS: Ferrous Sulfate 325 MG TAB PO SCH ×2 (08:47→17:52)
[2019-10-19] MEDS: Carvedilol 3.125 MG TAB PO SCH ×2 (08:48→21:18)
[2019-10-19] MEDS: Sulfameth/Trimethoprim DS 800-160mg TAB PO SCH ×2 (08:48→21:18)
[2019-10-19] MEDS: Isosorbide Dinitrate 20 MG TAB PO SCH ×3 (08:48→21:18)
[2019-10-19] MEDS: Amiodarone 200 MG TAB PO SCH (08:48)
[2019-10-19] MEDS: Saccharomyces boulardii 250 MG CAP PO SCH (08:49)
[2019-10-19] MEDS: HYDROcodone/Acetaminophen 10/325 mg Tablet PO PRN (09:06)
[2019-10-19] MEDS: Ascorbic Acid 500 mg Chewable Tablet PO SCH (09:09)
[2019-10-19] MEDS: NPH, Human Insulin Isophane 300 UNIT/3 ML VIAL SC SCH ×2 (09:10→21:23)
--- NOTE | 2019-10-19 16:55 | PDOC.HOSPP ---
- Subjective Encounter Date: 10/19/19 Encounter Time: 16:53 Subjective: Ms. Marie was seen today in follow-up. She is complaining of constipation. - Objective Vital Signs & Weight: Vital Signs (12 hours) Temp Pulse Resp BP Pulse Ox 10/19/19 08:00 96 10/19/19 07:56 98.3 F 68 16 128/57 L 96 Weight Admit Weight 167 lb 9.6 oz Weight 167 lb 9.6 oz I&O: 10/18/19 10/19/19 10/20/19 06:59 06:59 06:59 Intake Total 1460 1720 Output Total 1375 1800 Balance 85 -80 Result Diagrams: 10/18/19 06:55 10/18/19 06:55 Additional Labs: Accuchecks 10/19/19 10/19/19 10/19/19 15:57 11:11 09:14 POC Glucose 111 H 148 H 134 H 10/19/19 10/19/19 10/18/19 05:37 00:20 20:15 POC Glucose 89 120 H 147 H Hospitalist ROS - Medication Medications: Active Medications Generic Name Dose Route Start Last Admin Trade Name Freq PRN Reason Stop Dose Admin Amiodarone HCl 200 mg 09/25/19 09:00 10/19/19 08:48 Cordarone PO 200 mg DAILY LIN Administration Ascorbic Acid 500 mg 10/06/19 09:00 10/19/19 09:09 Vitamin C PO 500 mg DAILY LIN Administration Aspirin 81 mg 09/25/19 09:00 10/19/19 08:46 Ecotrin PO 81 mg DAILY LIN Administration Bisacodyl 10 mg 10/09/19 14:40 10/09/19 15:04 Dulcolax [place] 10 mg Q8H PRN Administration Constipation Calcium Carbonate 1,000 mg 09/23/19 18:19 10/11/19 18:19 Tums PO 1,000 mg Q4H PRN Administration Heartburn or Indigestion Carvedilol 3.125 mg 09/24/19 21:00 10/19/19 08:48 Coreg PO 3.125 mg BID LIN Administration Clopidogrel Bisulfate 75 mg 09/27/19 09:00 10/19/19 08:46 Plavix PO 75 mg DAILY LIN Administration Docusate Sodium 100 mg 10/18/19 21:00 10/19/19 08:46 Colace PO 100 mg BID LIN Administration Enoxaparin Sodium 30 mg 10/14/19 21:00 10/18/19 19:56 Lovenox SC 30 mg 2100 LIN Administration Ferrous Sulfate 325 mg 10/05/19 17:00 10/19/19 08:47 Feosol PO 325 mg BID-WM LIN Administration Gabapentin 300 mg 10/07/19 15:00 10/19/19 15:12 Neurontin PO 300 mg TID LIN Administration Heparin Sodium (Porcine) 500 units 10/04/19 04:48 10/17/19 21:20 Heparin Lock Flush 100 Units/Ml IVF 5 ml PRN PRN Administration Heparin Flush Insulin Human Lispro 0 units 10/10/19 09:15 10/18/19 12:17 Humalog SC 2 unit .MILD SLIDING SCALE PRN Administration Mild Correctional Scale Insulin Human NPH 8 unit 10/10/19 21:00 10/19/19 09:10 Humulin N SC 8 unit BID LIN Administration Iron/Minerals/Multivitamins 1 tab 10/06/19 09:00 10/19/19 08:46 Theragran M PO 1 tab DAILY LIN Administration Isosorbide Dinitrate 20 mg 09/24/19 21:00 10/19/19 15:12 Isordil PO 20 mg TID LIN Administration Neomycin/Polymyxin/Bacitracin 1 gm 10/09/19 10:11 10/17/19 03:30 Triple Antibiotic TOP 1 gm DAILYPRN PRN Administration TO STUMP Ondansetron HCl 4 mg 09/23/19 18:19 10/14/19 18:00 Zofran Odt PO 4 mg Q6H PRN Administration Nausea/Vomiting Ondansetron HCl 4 mg 09/23/19 18:19 10/11/19 09:37 Zofran IVP 4 mg Q6H PRN Administration Nausea/Vomiting Pantoprazole Sodium 40 mg 10/14/19 09:00 10/19/19 08:46 Protonix PO 40 mg DAILY LIN Administration Phenazopyridine HCl 97.5 mg 10/18/19 18:00 10/19/19 12:38 Azo Standard PO 97.5 mg PC LIN Administration Polyethylene Glycol 17 gm 09/27/19 09:00 10/19/19 08:46 Miralax PO 17 gm DAILY LIN Administration Rosuvastatin Calcium 10 mg 09/24/19 21:00 10/18/19 19:54 Crestor PO 10 mg HS LIN Administration Saccharomyces Boulardii 250 mg 10/19/19 09:00 10/19/19 08:49 Florastor PO 250 mg DAILY LIN Administration Senna/Docusate Sodium 2 tab 10/05/19 21:00 10/19/19 08:47 Senokot S PO 2 tab BID LIN Administration Trimethoprim/Sulfamethoxazole 1 tab 10/18/19 21:00 10/19/19 08:48 Bactrim Ds PO 1 tab BID LIN Administration Zinc Oxide 1 gm 10/12/19 10:54 10/17/19 03:32 Reese's Butt Paste TOP 1 gm TID PRN Administration Dry Skin Zinc Sulfate 220 mg 10/06/19 09:00 10/19/19 08:46 Zinc Sulfate PO 220 mg DAILY LIN Administration - Exam Eye: PERRL, anicteric sclera Heart: RRR, no murmur, no gallops, no rubs Respiratory: CTAB, no wheezes, no rales, no ronchi, normal chest expansion Gastrointestinal: soft, non-tender, non-distended, normal bowel sounds, no palpable masses Extremities: no cyanosis, no edema Hosp A/P (1) Diabetic toe ulcer Code(s): E11.621 - TYPE 2 DIABETES MELLITUS WITH FOOT ULCER; L97.509 - NON- PRESSURE CHRONIC ULCER OTH PRT UNSP FOOT W UNSP SEVERITY Status: Acute Qualifiers: Diabetes mellitus type: type 2 Laterality: left (2) Below-knee amputation of left lower extremity Code(s): S88.112A - COMPLETE TRAUM AMP AT LEV BETW KN AND ANKL, L LOW LEG, INIT Status: Acute (3) Diastolic heart failure Code(s): I50.30 - UNSPECIFIED DIASTOLIC (CONGESTIVE) HEART FAILURE Status: Acute (4) PVD (peripheral vascular disease) Code(s): I73.9 - PERIPHERAL VASCULAR DISEASE, UNSPECIFIED Status: Acute (5) Multi-vessel coronary artery stenosis Code(s): I25.10 - ATHSCL HEART DISEASE OF [place] CORONARY ARTERY W/O ANG PCTRS Status: Acute (6) DM2 (diabetes mellitus, type 2) Status: Chronic Qualifiers: Diabetes mellitus alf insulin use: without alf use Diabetes mellitus complication status: with kidney complications Diabetes mellitus complication detail: with chronic kidney disease Chronic kidney disease stage : stage 3 (moderate) Qualified Code(s): E11.22 - Type 2 diabetes mellitus with diabetic chronic kidney disease; N18.3 - Chronic kidney disease, stage 3 ( moderate) - Plan * Diabetic foot infection- she is s/p left BKA * Constipation- Fleets enema * Continue PT/OT * Dysuria- Due to UTI- which she developed on Omnicef- will change antibiotics to Bactrim DS * DM- blood glucose is stable * PVD- stable * Chronic diastolic heart failure- compensated * Hopefully home tomorrow in the care of her son
[2019-10-19] MEDS ORDERED: Fleet Enema 133 ML BOT PR SCH (17:00)
[2019-10-19] MEDS: Triple Antibiotic Oint 1 GM Packet TOP PRN (17:56)
[2019-10-19] MEDS: Rosuvastatin 10 MG TAB PO SCH (21:18)
[2019-10-19] MEDS: Enoxaparin Sodium 30 MG/0.3 ML SYRINGE SC SCH (21:20)
[2019-10-20] MEDS ORDERED: Morphine 2 MG/ML VIAL SLOW IVP SCH (03:45)
[2019-10-20] MEDS ORDERED: HYDROcodone/Acetaminophen 10/325 mg Tablet PO SCH (06:15)
[2019-10-20] MEDS: Senokot S 8.6-50 MG TAB PO SCH ×2 (09:44→21:00)
[2019-10-20] MEDS: Phenazopyridine HCl 97.5 MG TABLET PO SCH ×3 (09:44→17:27)
[2019-10-20] MEDS: Saccharomyces boulardii 250 MG CAP PO SCH (09:45)
[2019-10-20] MEDS: Docusate 100 MG CAP PO SCH ×2 (09:45→20:59)
[2019-10-20] MEDS: Amiodarone 200 MG TAB PO SCH (09:46)
[2019-10-20] MEDS: Multivitamin W/ Minerals 1 TAB PO SCH (09:46)
[2019-10-20] MEDS: Ascorbic Acid 500 mg Chewable Tablet PO SCH (09:46)
[2019-10-20] MEDS: Gabapentin 300 MG CAP PO SCH ×3 (09:46→20:59)
[2019-10-20] MEDS: Clopidogrel Bisulfate 75 MG TAB PO SCH (09:46)
[2019-10-20] MEDS: Sulfameth/Trimethoprim DS 800-160mg TAB PO SCH ×2 (09:46→20:59)
[2019-10-20] MEDS: Carvedilol 3.125 MG TAB PO SCH ×2 (09:46→20:59)
[2019-10-20] MEDS: Aspirin 81 mg Enteric Coated Tablet PO SCH (09:46)
[2019-10-20] MEDS: Isosorbide Dinitrate 20 MG TAB PO SCH ×3 (09:46→21:00)
[2019-10-20] MEDS: Ferrous Sulfate 325 MG TAB PO SCH ×2 (09:46→17:27)
[2019-10-20] MEDS: NPH, Human Insulin Isophane 300 UNIT/3 ML VIAL SC SCH ×2 (09:48→21:00)
[2019-10-20] MEDS: Polyethylene Glycol 3350 17 GM Packet PO SCH (09:49)
[2019-10-20] MEDS ORDERED: HYDROcodone/Acetaminophen 5/325 mg Tablet PO PRN (10:59)
[2019-10-20] MEDS: Zinc Sulfate 220 MG CAP PO SCH (11:46)
[2019-10-20] MEDS: HumaLOG 300 UNITS/3 ML VIAL SC PRN (11:47)
--- NOTE | 2019-10-20 14:40 | PDOC.HOSPP ---
- Subjective Encounter Date: 10/20/19 Encounter Time: 14:38 Subjective: Ms Prado was seen today in follow-up of diabetic foot infection s/p left BKA. She still has not had a bowel movement. She also fell out of bed last night and injured the stump. - Objective Vital Signs & Weight: Vital Signs (12 hours) Temp Pulse Resp BP Pulse Ox 10/20/19 08:00 100 10/20/19 07:12 98.5 F 75 20 138/67 100 Weight Admit Weight 167 lb 9.6 oz Weight 167 lb 9.6 oz I&O: 10/19/19 10/20/19 10/21/19 06:59 06:59 06:59 Intake Total 1720 1200 Output Total 1800 1025 Balance -80 175 Result Diagrams: 10/18/19 06:55 10/18/19 06:55 Additional Labs: Accuchecks 10/20/19 10/20/19 10/20/19 11:19 04:50 00:29 POC Glucose 304 H 109 91 10/19/19 10/19/19 20:26 15:57 POC Glucose 81 111 H Hospitalist ROS - Medication Medications: Active Medications Generic Name Dose Route Start Last Admin Trade Name Freq PRN Reason Stop Dose Admin Hydrocodone Bitart/Acetaminophen 1 tab 10/20/19 10:59 10/20/19 11:45 [place] 5/325 PO 1 tab Q4H PRN Administration Moderate to Severe Pain (6-10) Amiodarone HCl 200 mg 09/25/19 09:00 10/20/19 09:46 Cordarone PO 200 mg DAILY LIN Administration Ascorbic Acid 500 mg 10/06/19 09:00 10/20/19 09:46 Vitamin C PO 500 mg DAILY LIN Administration Aspirin 81 mg 09/25/19 09:00 10/20/19 09:46 Ecotrin PO 81 mg DAILY LIN Administration Bisacodyl 10 mg 10/09/19 14:40 10/09/19 15:04 Dulcolax [place] 10 mg Q8H PRN Administration Constipation Calcium Carbonate 1,000 mg 09/23/19 18:19 10/11/19 18:19 Tums PO 1,000 mg Q4H PRN Administration Heartburn or Indigestion Carvedilol 3.125 mg 09/24/19 21:00 08/17/20 09:46 Coreg PO 3.125 mg BID LIN Administration Clopidogrel Bisulfate 75 mg 09/27/19 09:00 10/20/19 09:46 Plavix PO 75 mg DAILY LIN Administration Docusate Sodium 100 mg 10/18/19 21:00 10/20/19 09:45 Colace PO 100 mg BID LIN Administration Enoxaparin Sodium 30 mg 10/14/19 21:00 10/19/19 21:20 Lovenox SC 30 mg 2100 LIN Administration Ferrous Sulfate 325 mg 10/05/19 17:00 10/20/19 09:46 Feosol PO 325 mg BID-WM LIN Administration Gabapentin 300 mg 10/07/19 15:00 10/20/19 09:46 Neurontin PO 300 mg TID [facility] Administration Heparin Sodium (Porcine) 500 units 10/04/19 04:48 10/17/19 21:20 Heparin Lock Flush 100 Units/Ml IVF 5 ml PRN PRN Administration Heparin Flush Insulin Human Lispro 0 units 10/10/19 09:15 10/20/19 11:47 Humalog SC 5 unit .MILD SLIDING SCALE PRN Administration Mild Correctional Scale Insulin Human NPH 8 unit 10/10/19 21:00 10/20/19 09:48 Humulin N SC 8 unit BID [facility] Administration Iron/Minerals/Multivitamins 1 tab 10/06/19 09:00 10/20/19 09:46 Theragran M PO 1 tab DAILY [facility] Administration Isosorbide Dinitrate 20 mg 09/24/19 21:00 10/20/19 09:46 Isordil PO 20 mg TID LIN Administration Ondansetron HCl 4 mg 09/23/19 18:19 10/14/19 18:00 Zofran Odt PO 4 mg Q6H PRN Administration Nausea/Vomiting Ondansetron HCl 4 mg 09/23/19 18:19 10/11/19 09:37 Zofran IVP 4 mg Q6H PRN Administration Nausea/Vomiting Pantoprazole Sodium 40 mg 10/14/19 09:00 10/20/19 09:45 Protonix PO 40 mg DAILY LIN Administration Phenazopyridine HCl 97.5 mg 10/18/19 18:00 10/20/19 11:46 Azo Standard PO 97.5 mg PC LIN Administration Polyethylene Glycol 17 gm 09/27/19 09:00 10/20/19 09:49 Miralax PO 17 gm DAILY LIN Administration Rosuvastatin Calcium 10 mg 09/24/19 21:00 10/19/19 21:18 Crestor PO 10 mg HS LIN Administration Saccharomyces Boulardii 250 mg 10/19/19 09:00 10/20/19 09:45 Florastor PO 250 mg DAILY LIN Administration Senna/Docusate Sodium 2 tab 10/05/19 21:00 10/20/19 09:44 Senokot S PO 2 tab BID LIN Administration Trimethoprim/Sulfamethoxazole 1 tab 10/18/19 21:00 10/20/19 09:46 Bactrim Ds PO 1 tab BID LIN Administration Zinc Oxide 1 gm 10/12/19 10:54 10/17/19 03:32 Reese's Butt Paste TOP 1 gm TID PRN Administration Dry Skin Zinc Sulfate 220 mg 10/06/19 09:00 10/20/19 11:46 Zinc Sulfate PO 220 mg DAILY LIN Administration - Exam Eye: PERRL, anicteric sclera Heart: RRR, no murmur, no gallops, no rubs, normal peripheral pulses Respiratory: CTAB, no wheezes, no rales, no ronchi, normal chest expansion, no tachypnea, normal percussion Gastrointestinal: soft, non-tender, non-distended, normal bowel sounds Extremities: no cyanosis, no edema (stump site, -the grecia look good. The was a small amount of bleeding in the medial aspect of the stump, no induration or drainage. do wound dehiscence) Hosp A/P (1) Diabetic toe ulcer Code(s): E11.621 - TYPE 2 DIABETES MELLITUS WITH FOOT ULCER; L97.509 - NON- PRESSURE CHRONIC ULCER OTH PRT UNSP FOOT W UNSP SEVERITY Status: Acute Qualifiers: Diabetes mellitus type: type 2 Laterality: left (2) Below-knee amputation of left lower extremity Code(s): S88.112A - COMPLETE TRAUM AMP AT LEV BETW KN AND ANKL, L LOW LEG, INIT Status: Acute (3) Diastolic heart failure Code(s): I50.30 - UNSPECIFIED DIASTOLIC (CONGESTIVE) HEART FAILURE Status: Acute (4) PVD (peripheral vascular disease) Code(s): I73.9 - PERIPHERAL VASCULAR DISEASE, UNSPECIFIED Status: Acute (5) Multi-vessel coronary artery stenosis Code(s): I25.10 - ATHSCL HEART DISEASE OF [place] CORONARY ARTERY W/O ANG PCTRS Status: Acute (6) DM2 (diabetes mellitus, type 2) Status: Chronic Qualifiers: Diabetes mellitus 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 inspector insulin use: without detention use Diabetes mellitus complication status: with kidney complications Diabetes mellitus complication detail: with chronic kidney disease Chronic kidney disease stage : stage 3 (moderate) Qualified Code(s): E11.22 - Type 2 diabetes mellitus with diabetic chronic kidney disease; N18.3 - Chronic kidney disease, stage 3 ( moderate) - Plan * Diabetic foot infection- she is s/p left BKA * Constipation- will give a trial of Lactulose * Continue PT/OT * UTI- continue Bactrim DS a few more days * DM- blood glucose - overal stable- there was one elevated reading today- will monitor * PVD- stable * Chronic diastolic heart failure- compensated * Home once constipation is resolved
[2019-10-20] MEDS: Enoxaparin Sodium 30 MG/0.3 ML SYRINGE SC SCH (20:59)
[2019-10-20] MEDS: Rosuvastatin 10 MG TAB PO SCH (20:59)
[2019-10-21 07:40] VITALS: BP 150/70
[2019-10-21] MEDS: Multivitamin W/ Minerals 1 TAB PO SCH (10:11)
[2019-10-21] MEDS: Senokot S 8.6-50 MG TAB PO SCH (10:11)
[2019-10-21] MEDS: Zinc Sulfate 220 MG CAP PO SCH (10:11)
[2019-10-21] MEDS: Phenazopyridine HCl 97.5 MG TABLET PO SCH ×2 (10:12→13:35)
[2019-10-21] MEDS: Gabapentin 300 MG CAP PO SCH ×2 (10:12→16:24)
[2019-10-21] MEDS: Saccharomyces boulardii 250 MG CAP PO SCH (10:12)
[2019-10-21] MEDS: Clopidogrel Bisulfate 75 MG TAB PO SCH (10:12)
[2019-10-21] MEDS: Sulfameth/Trimethoprim DS 800-160mg TAB PO SCH (10:12)
[2019-10-21] MEDS: Ferrous Sulfate 325 MG TAB PO SCH ×2 (10:12→16:24)
[2019-10-21] MEDS: Docusate 100 MG CAP PO SCH (10:12)
[2019-10-21] MEDS: Aspirin 81 mg Enteric Coated Tablet PO SCH (10:12)
[2019-10-21] MEDS: Carvedilol 3.125 MG TAB PO SCH (10:13)
[2019-10-21] MEDS: Isosorbide Dinitrate 20 MG TAB PO SCH ×2 (10:13→16:24)
[2019-10-21] MEDS: Polyethylene Glycol 3350 17 GM Packet PO SCH (10:13)
[2019-10-21] MEDS: Ascorbic Acid 500 mg Chewable Tablet PO SCH (10:13)
[2019-10-21] MEDS: Amiodarone 200 MG TAB PO SCH (10:13)
[2019-10-21] MEDS: NPH, Human Insulin Isophane 300 UNIT/3 ML VIAL SC SCH (10:14)
--- NOTE | 2019-10-21 14:01 | PDOC.HOSPP ---
- Subjective Encounter Date: 10/21/19 Encounter Time: 14:00 Subjective: Ms. Prado was seen today in follow-up of diabetic foot infection , post amputation. She had relief of the constipation. She had 2 large bowel movements. No new complaints. - Objective Vital Signs & Weight: Vital Signs (12 hours) Temp Pulse Resp BP Pulse Ox 10/21/19 08:00 96 10/21/19 07:37 98.6 F 78 17 150/70 H 96 Weight Admit Weight 167 lb 9.6 oz Weight 167 lb 9.6 oz I&O: 10/20/19 10/21/19 10/22/19 06:59 06:59 06:59 Intake Total 1200 1750 Output Total 1025 1250 Balance 175 500 Result Diagrams: 10/18/19 06:55 10/18/19 06:55 Additional Labs: Accuchecks 10/21/19 10/21/19 10/20/19 12:10 04:57 20:07 POC Glucose 163 H 111 H 139 H 10/20/19 16:13 POC Glucose 129 H Hospitalist ROS - Medication Medications: Active Medications Generic Name Dose Route Start Last Admin Trade Name Freq PRN Reason Stop Dose Admin Hydrocodone Bitart/Acetaminophen 1 tab 10/20/19 10:59 10/20/19 11:45 [place] 5/325 PO 1 tab Q4H PRN Administration Moderate to Severe Pain (6-10) Amiodarone HCl 200 mg 09/25/19 09:00 10/21/19 10:13 Cordarone PO 200 mg DAILY LIN Administration Ascorbic Acid 500 mg 10/06/19 09:00 10/21/19 10:13 Vitamin C PO 500 mg DAILY LIN Administration Aspirin 81 mg 09/25/19 09:00 10/21/19 10:12 Ecotrin PO 81 mg DAILY LIN Administration Bisacodyl 10 mg 10/09/19 14:40 10/09/19 15:04 Dulcolax [place] 10 mg Q8H PRN Administration Constipation Calcium Carbonate 1,000 mg 09/23/19 18:19 10/11/19 18:19 Tums PO 1,000 mg Q4H PRN Administration Heartburn or Indigestion Carvedilol 3.125 mg 09/24/19 21:00 10/21/19 10:13 Coreg PO 3.125 mg BID LIN Administration Clopidogrel Bisulfate 75 mg 09/27/19 09:00 10/21/19 10:12 Plavix PO 75 mg DAILY [facility] Administration Docusate Sodium 100 mg 10/18/19 21:00 10/21/19 10:12 Colace PO 100 mg BID [facility] Administration Enoxaparin Sodium 30 mg 10/14/19 21:00 10/20/19 20:59 Lovenox SC 30 mg 2100 LIN Administration Ferrous Sulfate 325 mg 10/05/19 17:00 10/21/19 10:12 Feosol PO 325 mg BID-WM LIN Administration Gabapentin 300 mg 10/07/19 15:00 10/21/19 10:12 Neurontin PO 300 mg TID [facility] Administration Heparin Sodium (Porcine) 500 units 10/04/19 04:48 10/17/19 21:20 Heparin Lock Flush 100 Units/Ml IVF 5 ml PRN PRN Administration Heparin Flush Insulin Human Lispro 0 units 10/10/19 09:15 10/20/19 11:47 Humalog SC 5 unit .MILD SLIDING SCALE PRN Administration Mild Correctional Scale Insulin Human NPH 8 unit 10/10/19 21:00 10/21/19 10:14 Humulin N SC 8 unit BID [facility] Administration Iron/Minerals/Multivitamins 1 tab 10/06/19 09:00 10/21/19 10:11 Theragran M PO 1 tab DAILY [facility] Administration Isosorbide Dinitrate 20 mg 09/24/19 21:00 10/21/19 10:13 Isordil PO 20 mg TID [facility] Administration Lactulose 20 gm 10/20/19 15:00 10/21/19 10:13 Lactulose PO Not Given TID [facility] Ondansetron HCl 4 mg 09/23/19 18:19 10/14/19 18:00 Zofran Odt PO 4 mg Q6H PRN Administration Nausea/Vomiting Ondansetron HCl 4 mg 09/23/19 18:19 10/11/19 09:37 Zofran IVP 4 mg Q6H PRN Administration Nausea/Vomiting Pantoprazole Sodium 40 mg 10/14/19 09:00 10/21/19 10:13 Protonix PO 40 mg DAILY [facility] Administration Phenazopyridine HCl 97.5 mg 10/18/19 18:00 10/21/19 13:35 Azo Standard PO 97.5 mg PC LIN Administration Polyethylene Glycol 17 gm 09/27/19 09:00 10/21/19 10:13 Miralax PO 17 gm DAILY LIN Administration Rosuvastatin Calcium 10 mg 09/24/19 21:00 10/20/19 20:59 Crestor PO 10 mg HS LIN Administration Saccharomyces Boulardii 250 mg 10/19/19 09:00 10/21/19 10:12 Florastor PO 250 mg DAILY LIN Administration Senna/Docusate Sodium 2 tab 10/05/19 21:00 10/21/19 10:11 Senokot S PO 2 tab BID LIN Administration Trimethoprim/Sulfamethoxazole 1 tab 10/18/19 21:00 10/21/19 10:12 Bactrim Ds PO 1 tab BID LIN Administration Zinc Oxide 1 gm 10/12/19 10:54 10/17/19 03:32 Reese's Butt Paste TOP 1 gm TID PRN Administration Dry Skin Zinc Sulfate 220 mg 10/06/19 09:00 10/21/19 10:11 Zinc Sulfate PO 220 mg DAILY LIN Administration - Exam Eye: PERRL, anicteric sclera Heart: RRR, no murmur, no gallops, no rubs, normal peripheral pulses Respiratory: CTAB, no wheezes, no rales, no ronchi, normal chest expansion Gastrointestinal: soft, non-tender, non-distended, normal bowel sounds, no palpable masses Extremities: no cyanosis (Stump site ok) Hosp A/P (1) Diabetic toe ulcer Code(s): E11.621 - TYPE 2 DIABETES MELLITUS WITH FOOT ULCER; L97.509 - NON- PRESSURE CHRONIC ULCER OTH PRT UNSP FOOT W UNSP SEVERITY Status: Acute Qualifiers: Diabetes mellitus type: type 2 Laterality: left (2) Below-knee amputation of left lower extremity Code(s): S88.112A - COMPLETE TRAUM AMP AT LEV BETW KN AND ANKL, L LOW LEG, INIT Status: Acute (3) Diastolic heart failure Code(s): I50.30 - UNSPECIFIED DIASTOLIC (CONGESTIVE) HEART FAILURE Status: Acute (4) PVD (peripheral vascular disease) Code(s): I73.9 - PERIPHERAL VASCULAR DISEASE, UNSPECIFIED Status: Acute (5) Multi-vessel coronary artery stenosis Code(s): I25.10 - ATHSCL HEART DISEASE OF [place] CORONARY ARTERY W/O ANG PCTRS Status: Acute (6) DM2 (diabetes mellitus, type 2) Status: Chronic Qualifiers: Diabetes mellitus exterminator helper insulin use: without fci use Diabetes mellitus complication status: with kidney complications Diabetes mellitus complication detail: with chronic kidney disease Chronic kidney disease stage : stage 3 (moderate) Qualified Code(s): E11.22 - Type 2 diabetes mellitus with diabetic chronic kidney disease; N18.3 - Chronic kidney disease, stage 3 ( moderate) - Plan * Diabetic foot infection- she is s/p left BKA * Constipation- resolved * Continue PT/OT * UTI-can discontinue Bactrim- she has completed therapy * DM- blood glucose - stanle * PVD- stable * Chronic diastolic heart failure- compensated * Home today
--- NOTE | 2019-10-21 16:24 | PRG ---
DATE OF SERVICE: 10/21/2019 Bertin Prado is doing well. She is 2 weeks status post BKA. Her wound looks good. Grecia are intact. I would continue cleaning the wound with soap and water daily, washing it and applying antibiotic ointment, Telfa and a stump database analyst. She can be discharged home at anytime. She will need grecia removed next week. Job ID: [id number]
[2019-10-21 19:26] VITALS: TEMP 98.3
--- NOTE | 2019-10-22 01:26 | DIS ---
DATE OF ADMISSION: 09/23/2019 DATE OF DISCHARGE: 10/21/2019 DISCHARGE DISPOSITION: Home. DISCHARGE DIAGNOSES: 1. Diabetic foot infection. 2. Sepsis secondary to #1. 3. Peripheral vascular disease. 4. Diabetes mellitus, type 2. 5. Coronary artery disease. 6. Acute blood loss anemia. 7. Rectal ulcer with bleed. 8. Urinary tract infection, resolved. DISCHARGE MEDICATIONS: 1. Florastor 250 mg daily. 2. Crestor 10 mg at bedtime. 3. Isosorbide dinitrate 20 mg t.i.d. 4. Iron. 5. Folic acid two capsules daily. 6. Hydralazine 50 mg t.i.d. 7. Insulin 70/30, 15 units twice a day. 8. Gabapentin 300 mg t.i.d. 9. Plavix 75 mg daily. 10. Carvedilol 3.125 mg twice a day. 11. Aspirin 81 mg daily. 12. Vitamin C 500 mg p.o. daily. 13. Amiodarone 200 mg daily. 14. Tylenol 650 mg daily. 15. [place] 7.5 mg p.r.n. IMAGING DONE DURING THE HOSPITAL STAY: The patient had a lower extremity arterial Doppler showing good arterial flow in each lower extremity. She had an abdominal aortogram with angioplasty of the peroneal artery by Dr. Ortiz. She had a Dominguez catheter placed by Dr. Huitron. 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 Huitron. She had an EGD and colonoscopy by Dr. Mcnair and the EGD demonstrated mild gastritis. Colonoscopy revealed a large ulcer in rectum. The patient also had a CT scan of the abdomen and pelvis, which demonstrated some subtle stranding of the right kidney, some reactive lymph nodes and a compression deformity at L4. CODE STATUS: Full code. ALLERGIES: NO KNOWN DRUG ALLERGIES. HOSPITAL COURSE: Ms. Prado is a 59-year-old lady of [place] origin, who presented to the emergency room with a nonhealing wound from a previous amputation of the first and second toes on the left foot. She had an arterial ultrasound to establish her circulation showing good flow. Vascular Surgery was also consulted and she underwent aortogram. There was some disease in the peroneal artery and this was angioplasty. Dr. Huitron was consulted and she ultimately had to undergo a left [id number] amputation. Her hospital stay was complicated by drop in her hemoglobin and hematocrit, as well as having guaiac-positive stools. For this reason, Dr. Mcnair was consulted. She underwent upper and lower endoscopy and found some gastritis in the upper endoscopy and evidence for a rectal ulcer. Otherwise, the patient continued to progress with physical therapy and once it was felt that she was safe to manage herself at home and her son was now available to help take care of her, she was able to be discharged home. Job ID: [id number]
--- NOTE | 2019-10-23 05:24 | PQF ---
CLINICAL DOCUMENTATION CLARIFICATION FORM: Dear : Сергей Huitron Date / Time: 10/23/19522 Please exercise your independent, professional judgment in responding to the clarification form. Clinical indicators are provided on the bottom of this form for your review Subcutaneous of left foot Debridement Please check appropriate box(es): [ ] Excisional Debridement: [ ] Non-excisional Debridement [ ] Other procedure diagnosis [ ] Unable to determine Physician Signature: Date/Time: For continuity of documentation, please document condition throughout progress notes and discharge summary. Thank You. To be completed by CDI/Coding staff for physician review: Present Clinical Indicators - Signs / Symptoms / Labs Results and Location in Medical Record [X] An eschar that continue towards the dorsum of the foot on the anterior ankle that we opened, debrided sharply and there was liquefied necrosis of the subcutaneous tissue undermining towards the proximal dorsum PN p1 Dr Huitron [X] has 2 other smaller eschars with similar findings that were debrided Present Risk Factors Results and Location in Medical Record [X] 59 year-old Female H&P p1 09/22 Juan EMBOSSING CLERK-C [X] DM H&P p1 09/22 Juan EMBOSSING CLERK-C [X] s/p toe amputation H&P p1 09/22 Juan EMBOSSING CLERK-C [X] Sepsis 2/2 nonhealking diabetic foot infection H&P p3 09/22 Juan EMBOSSING CLERK-C Present Treatments Results and Location in Medical Record [X] Bedside Debridement PN p1 Dr Huitron 10/01 [X] Vancomycin 1.75 gm IV MAY 09 [X] Wound care Consult Consult 09/25 [X] Foot Xray Collected 09/22 [X] Zosyn 3.375gm IV MAY 09 [X] IVF MAR 09/22 [X] Rocephin 1gm IV MAY 10 CDS/Clinical Molecular Geneticist Signature: Eloisa Kena Paulson Phone #: ext [phone] Date/Time: 10/23/19522 This is a permanent part of the Medical Record [facility]
== END 2019-10-21 17:37 | disposition home or self-care (01) | DRG 239 ==
LOC: ERS 14:42 → T4-B 18:00
PROVIDERS: ADMIT Internal Medicine; ATTEND Internal Medicine
PROC: 0Y6N0Z9 Detachment at Left Foot, Partial 1st Ray, Open Approach (ICD-10-PCS; principal; 2019-09-26)
PROC: 0Y6N0ZB Detachment at Left Foot, Partial 2nd Ray, Open Approach (ICD-10-PCS; 2019-09-26)
PROC: 047U3ZZ Dilation of Left Peroneal Artery, Percutaneous Approach (ICD-10-PCS; 2019-09-26)
PROC: B41D1ZZ Fluoroscopy of Aorta and Bilateral Lower Extremity Arteries using Low Osmolar Contrast (ICD-10-PCS; 2019-09-26)
PROC: 0Y3N0ZZ Control Bleeding in Left Foot, Open Approach (ICD-10-PCS; 2019-09-28)
PROC: 0JH63XZ Insertion of Tunneled Vascular Access Device into Chest Subcutaneous Tissue and Fascia, Percutaneous Approach (ICD-10-PCS; 2019-10-01)
PROC: B518ZZA Fluoroscopy of Superior Vena Cava, Guidance (ICD-10-PCS; 2019-10-01)
PROC: 02HV33Z Insertion of Infusion Device into Superior Vena Cava, Percutaneous Approach (ICD-10-PCS; 2019-10-01)
PROC: B548ZZA Ultrasonography of Superior Vena Cava, Guidance (ICD-10-PCS; 2019-10-01)
PROC: 0JDR0ZZ Extraction of Left Foot Subcutaneous Tissue and Fascia, Open Approach (ICD-10-PCS; 2019-10-02)
PROC: 0Y6J0Z3 Detachment at Left Lower Leg, Low, Open Approach (ICD-10-PCS; 2019-10-07)
PROC: 0DJ08ZZ Inspection of Upper Intestinal Tract, Via Natural or Artificial Opening Endoscopic (ICD-10-PCS; 2019-10-14)
PROC: 0DJD8ZZ Inspection of Lower Intestinal Tract, Via Natural or Artificial Opening Endoscopic (ICD-10-PCS; 2019-10-14)
PROC: 0DJD8ZZ Inspection of Lower Intestinal Tract, Via Natural or Artificial Opening Endoscopic (ICD-10-PCS; 2019-10-15)
DX: E11.52 Type 2 diabetes mellitus with diabetic peripheral angiopathy with gangrene (principal); A41.9 Sepsis, unspecified organism; T87.44 Infection of amputation stump, left lower extremity; D62 Acute posthemorrhagic anemia; K62.6 Ulcer of anus and rectum; I96 Gangrene, not elsewhere classified; N18.4 Chronic kidney disease, stage 4 (severe); M96.830 Postprocedural hemorrhage of a musculoskeletal structure following a musculoskeletal system procedure; N39.0 Urinary tract infection, site not specified; E87.1 Hypo-osmolality and hyponatremia; I50.32 Chronic diastolic (congestive) heart failure; Q43.8 Other specified congenital malformations of intestine; I25.10 Atherosclerotic heart disease of native coronary artery without angina pectoris; K29.70 Gastritis, unspecified, without bleeding; Z96.651 Presence of right artificial knee joint; E11.22 Type 2 diabetes mellitus with diabetic chronic kidney disease; Y83.5 Amputation of limb(s) as the cause of abnormal reaction of the patient, or of later complication, without mention of misadventure at the time of the procedure; E11.621 Type 2 diabetes mellitus with foot ulcer; L97.529 Non-pressure chronic ulcer of other part of left foot with unspecified severity; I87.8 Other specified disorders of veins; I25.5 Ischemic cardiomyopathy; B96.20 Unspecified Escherichia coli [E. coli] as the cause of diseases classified elsewhere; K57.30 Diverticulosis of large intestine without perforation or abscess without bleeding; K59.00 Constipation, unspecified; S00.03XA Contusion of scalp, initial encounter; W06.XXXA Fall from bed, initial encounter; Y92.239 Unspecified place in hospital as the place of occurrence of the external cause; D72.829 Elevated white blood cell count, unspecified; K56.41 Fecal impaction; R33.9 Retention of urine, unspecified; R32 Unspecified urinary incontinence; Z11.59 Encounter for screening for other viral diseases; Z95.1 Presence of aortocoronary bypass graft; Z79.4 Long term (current) use of insulin; I25.2 Old myocardial infarction; Z90.49 Acquired absence of other specified parts of digestive tract; Z79.899 Other long term (current) drug therapy; T87.54 Necrosis of amputation stump, left lower extremity
CPT/HCPCS: 36415; 36416; 36430; 37228; 70450; 71045; 74176; 76942; 80048; 80053; 80202; 81001; 82274; 82553; 82607; 82728; 82746; 83540; 83550; 83605; 83630; 83735; 84484; 85014; 85018; 85025; 85046; 85347; 85610; 85652; 85730; 86850; 86900; 86901; 87040; 87070; 87076; 87077; 87086; 87186; 87205; 87324; 87328; 87329; 87449; 87635; 88305; 88307; 88311; 93005; 93010; 93923; 96365; 96367; 96375; C1751; C1760; J0696; J1642; J1644; J1650; J1815; J1885; J2185; J2250; J2270; J2405; J2543; J2704; J2720; J3010; J3370; J3490; J7030; L8440; P9016; Q0162; Q9967; S0020; S0028; U0003